=== PATIENT | male | born 1960 | race Caucasian/White ===

== ENCOUNTER 2016-06-08 09:03 | Inpatient (IN) | payer OTHER ==
[2016-06-08] VITALS (11 sets, daily range): BP systolic 110–131; BP diastolic 56–80; PULSE 64–79; RESP 18–20; Ht 182.9 cm; Wt 95.0 kg
[~2016-06-08] VITALS: Ht 182.9 cm; Wt 95.0 kg
[2016-06-08] MEDS ORDERED: SOD CHLORIDE 0.9% 1,000 ML IV STA (09:49)
--- NOTE | 2016-06-08 10:07 | RADRPT ---
PROCEDURE: Chest x-ray CLINICAL INDICATION: Abdominal pain TECHNIQUE: Chest single view COMPARISON: None FINDINGS: The heart is normal in size. The pulmonary vessels are normal in caliber. The lungs are clear. Th e costophrenic angles are sharp. The visualized bony thorax is unremarkable. IMPRESSION: No acute cardiopulmonary disease. RPTAT: HH .Jaime Martinez MD, Date Time Electronically viewed and signed by .Jaime Martinez MD, MD on 06/08/2016 10:07 .W/
[2016-06-08] MEDS ORDERED: PRED20TA PO (10:38)
--- NOTE | 2016-06-08 11:14 | ERA ---
ER Documentation Chief Complaint Date/Time DATE: 06/08/16 TIME: 11:13 Chief Complaint SENT BY DR MIDDLETON FOR CHEMOTHERAPY. PT HAS NO COMPLAINTS AT THIS TIME HPI 55-year-old man sent by his hematology oncologist Dr. Middleton to begin chemotherapy. 2 weeks ago he began having intermittent tactile fevers, chills, loss of appetite, and generalized weakness. His primary care physician alysia labs which were abnormal and started him on oral antibiotics and referred him to the manager engine oncologist. After beginning the antibiotic, which the patient does not recall the name of he developed a diffuse rash to his lower extremities, patient also states about 2-3 days ago he has had bilateral lower extremity swelling. A bone marrow biopsy done 3 days ago revealed mantle cell lymphoma (non-Hodgkin's lymphoma). He has had no gingival bleeding, no melena or blood per rectum, no vomiting or diarrhea, no complaints of chest pain or shortness of breath. ROS All systems reviewed and are negative except as per history of present illness. Medications Home Meds Reported Medications Prednisone* (Prednisone*) 20 Mg Tab, 100 MG PO DAILY for 5 Days, TAB PER PT STARTED ON 06-05-165 DAY TX 06/08/16 Allergies Allergies: Coded Allergies: Unknown: Unable to obtain (Unverified , 06/08/16) PMhx/Soc None Hx Miscellaneous Medical Probl: Yes (lymphoma) Hx Alcohol Use: No Hx Substance Use: No Hx Tobacco Use: No Smoking Status: Never smoker FmHx Family History: No diabetes Physical Exam Vitals Vital Signs Date Time Temp Pulse Resp B/P Pulse Ox O2 Delivery O2 Flow Rate FiO2 06/08/16 09:11 98.8 69 20 118/57 100 Physical Exam GENERAL: Well-developed, well-nourished, well-hydrated, in no apparent distress , looks nontoxic in appearance HEENT: Moist mucous membranes, pink conjunctiva, no cervical spine tenderness or step-off deformities, no goiter, no jaundice or icterus, extraocular movements intact without pain. No submandibular induration, and no pharyngeal erythema NEURO: Alert and oriented 3, cranial nerves II through XII intact bilaterally, pupils equal round reactive to light, no focal deficits or facial asymmetry, sensation intact distally Strength 5/5 in upper and lower extremities bilaterally CARDIAC: Regular rate and rhythm, no murmurs rubs or gallops LUNGS: Clear bilaterally no wheezing crackles or stridor ABDOMEN: Positive splenomegaly, soft nontender, no guarding, no rigidity, no rebound, no psoas sign no obturator sign. Normoactive bowel sounds SKIN: Warm and dry to touch, diffuse maculopapular rash to the lower extremities bilaterally, no target lesions, no ulcers, no discharge EXTREMITIES: No clubbing cyanosis, +2+ pitting edema in the lower extremities bilaterally, no Homans sign, no popliteal cord sign. Distal pulses equal and bilateral PSYCH: Normal affect without agitation or irritability Results 24 hrs Current Medications Medications (Trade) Dose Ordered Sig/Rashad Route PRN Reason Start Time Stop Time Status Last Admin Dose Admin Sodium Chloride (NS) 1,000 ml @ 1,000 mls/hr Q1H STAT IV 06/08/16 09:49 06/08/16 10:48 DC 06/08/16 10:25 Procedures/MDM IV line was established patient was placed on monitor worker rhythm strip revealed a sinus rhythm at about 80 bpm with upright P and T waves. Patient was afebrile. Blood cultures have been ordered results are pending I will follow-up. EKG performed, read by me: 69 bpm, normal sinus rhythm, normal axis, no acute ST segment changes, narrow QRS complex, with good R-wave progression in precordial leads. I administered 1 L normal saline intravenously. CBC and electrolytes pending. Departure Diagnosis: Primary Impression: Mantle cell lymphoma Qualified Code: C83.10 - Mantle cell lymphoma, unspecified body region Additional Impressions: Peripheral edema Dermatitis Condition: SAUL Obrien MD Jun 08, 2016 11:14
[2016-06-08 11:39] LABS: ADD SCAN DIFF NO
[2016-06-08 11:50] LABS: ALBUMIN 3.5 g/dl (3.3-4.9); CHLORIDE 102 mmol/L (97-110)
[2016-06-08 11:51] LABS: POTASSIUM 5.2 mmol/L (3.5-5.1); SODIUM 138 mmol/L (135-144)
[2016-06-08 11:52] LABS: ABNORMAL IP MESSAGE 1; HEMATOCRIT 33.7 % (42.0-52.0); HEMOGLOBIN 9.9 g/dl (14.0-18.0); MEAN CORPUSCULAR HEMOGLOBIN 28.8 pg (29.0-33.0); MEAN CORPUSCULAR HGB CONC 29.4 g/dl (32.0-37.0); MEAN PLATELET VOLUME 8.7 fl (7.4-10.4); PLATELET COUNT 521 10^3/UL (140-415); RED BLOOD COUNT 3.44 10^6/ul (4.70-6.10); RED CELL DISTRIBUTION WIDTH 14.5 % (11.5-14.5)
[2016-06-08 11:53] LABS: ALBUMIN/GLOBULIN RATIO 1.59; ALKALINE PHOSPHATASE 115 IU/L (42-121); ANION GAP 16 (8-16); ASPARTATE AMINO TRANSFERASE 18 IU/L (15-46); BILIRUBIN,INDIRECT 0.2 mg/dl (0-1.1); BILIRUBIN,TOTAL 0.2 mg/dl (0.2-1.3); CARBON DIOXIDE 25 mmol/L (21-31); CREATININE 0.99 mg/dl (0.61-1.24); TOTAL PROTEIN 5.7 g/dl (6.1-8.1)
[2016-06-08 11:54] LABS: ALANINE AMINOTRANSFERASE 57 IU/L (13-69); BLOOD UREA NITROGEN 25 mg/dl (7-20); CALCIUM 8.5 mg/dl (8.4-10.2); GLUCOSE 136 mg/dl (70-220)
[2016-06-08 12:14] LABS: TROPONIN-I < 0.012 ng/ml (0.00-0.12)
[2016-06-08] MEDS ORDERED: ACETAMINOPHEN (10 MG/ML) IV SYG IV* PRN (13:30)
[2016-06-08] MEDS ORDERED: DEXTROSE 5%-0.9% NACL 1,000 ML IV SCH (13:30)
[2016-06-08] MEDS ORDERED: morphine 2 MG INJ IV PRN (13:30)
--- NOTE | 2016-06-08 13:39 | CONS ---
Date/Time of Note Date/Time of Note DATE: 06/08/16 TIME: 13:24 Assessment/Plan Assessment/Plan Chief Complaint/Hosp Course 55 yo male with aggressive mantle cell lymphoma stage IV with involvement of the spleen and likely bone marrow aydee presents with chills, tactile fevers, loss of appetite, and generalized weakness. Given the aggressive nature of disease disease, we will be starting chemotherapy in house with R+ CHOP. -check echocardiogram in preparation for anthracycline based chemotherapy -Hep panel ordered in preparation for Rituxan -will aggressively hydrate the patient in anticipation of tumor lysis syndrome. need to check uric acid at this time. note patient develops a drug rash with allopurinol -f/u results of BM bx -Rituxan + CHOP to hopefully start tomorrow -need to order daily tumor lysis labs -uric acid is up to 8, which has doubled in the last week. will given 1 dose of Rasburicase 1.5mg IV today in as patient is already having tumor lysis. note patient is allergic to allopurinol Problems: Consultation Date/Type/Reason Admit Date/Time Jun 08, 2016 at 10:39 Date of Consultation: Jun 08, 2016 Type of Consultation: hematology Reason for Consultation mantle cell lymphoma Referring Provider: TIFFANIE LI MD Hx of Present Illness 55 yo male with 1 week of fevers/ night sweats and 6-7 lb unintentional weight loss over the alst 2 months. On routine blood test he was incidentially found to have a WBC count of > 50K. Pt has since been confirmed to have mantle cell lymphoma. He presents to the ER with increasing fatigue, shortness of breath and night sweats. Given the very aggressive nature of his disease and his symptoms pt was instructed to come to the ER to start chemotherapy in the hospital [facility]. Of note on 05/31 pt had and ultrasound done at [facility] which revealed massive splenomegaly. Constitutional: chills, diaphoresis, poor po Eyes: no complaints ENT: no complaints Respiratory: shortness of breath Cardiovascular: no complaints Gastrointestinal: decreased appetite Genitourinary: no complaints Musculoskeletal: bone/joint pain Skin: no complaints, other (h/o rash in allopurinol) Neurologic: no complaints Past Surgical History Past Surgical Hx: no surgical history Family History Significant Family History: no pertinent family hx Social History Alcohol Use: none Smoking Status: Never smoker Drug Use: none Exam/Review of Systems Vital Signs Vitals Vital Signs Date Time Temp Pulse Resp B/P Pulse Ox O2 Delivery O2 Flow Rate FiO2 06/08/16 11:49 68 18 119/82 100 Room Air 06/08/16 09:11 98.8 Exam Constitutional: alert Psych: no complaints Head: normocephalic Eyes: nl conjunctiva ENMT: nl external ears & nose Neck: supple Respiratory: clear to auscultation, normal air movement Cardiovascular: regular rate and rhythm Gastrointestinal: splenomegaly Musculoskeletal: nl extremities to inspection, nl gait and stance Results Result Diagram: 06/08/16 1112 06/08/16 1112 Results 24 hrs Laboratory Tests Test 06/08/16 11:12 Alanine Aminotransferase (ALT/SGPT) 57 Albumin 3.5 Albumin/Globulin Ratio 1.59 Alkaline Phosphatase 115 Anion Gap 16 Aspartate Amino Transf (AST/SGOT) 18 Basophils # Basophils % Blood Urea Nitrogen 25 H Calcium Level 8.5 Carbon Dioxide Level 25 Chloride Level 102 Creatinine 0.99 Direct Bilirubin 0.00 Globulin 2.20 Glucose Level 136 Hematocrit 33.7 L Hemoglobin 9.9 L Indirect Bilirubin 0.2 Lipase 97 Lymphocytes # Lymphocytes % Mean Corpuscular Hemoglobin 28.8 L Mean Corpuscular Hemoglobin Concent 29.4 L Mean Corpuscular Volume 98.0 Mean Platelet Volume 8.7 Monocytes # Monocytes % Neutrophils # Neutrophils % Platelet Count 521 H Potassium Level 5.2 H Red Blood Count 3.44 L Red Cell Distribution Width 14.5 Sodium Level 138 Total Bilirubin 0.2 Total Protein 5.7 L Troponin I < 0.012 White Blood Count 163.9 H DAMIAN MIDDLETON M.D. Jun 08, 2016 13:39
[2016-06-08 13:45] LABS: EOSINOPHILS # 1.6 10^3/ul (0.0-0.5); LYMPHOCYTES # 145.9 10^3/ul (0.8-2.9); NEUTROPHIL # 8.2 10^3/ul (1.6-7.5)
[2016-06-08 14:27] LABS: HAAIG REFLEX REFLEX FILED
[2016-06-08] MEDS ORDERED: ACETAMINOPHEN 1000MG/100ML IV 65 ML IVPB PRN (14:30)
[2016-06-08] MEDS ORDERED: LIDOCAINE 1% (MDV) 20 ML INJ SC ONE (15:30)
[2016-06-08 15:37] LABS: URIC ACID 8.3 mg/dl (3.1-7.9)
[2016-06-08 16:17] LABS: WHITE BLOOD COUNT 163.9 10^3/ul (4.8-10.8)
--- NOTE | 2016-06-08 16:18 | QN ---
Documentation Comment [id number] TIFFANIE LI MD Jun 08, 2016 16:18
[2016-06-08] MEDS ORDERED: ACETAMINOPHEN 650 MG SUPP PR PRN (16:30)
[2016-06-08] MEDS ORDERED: ACETAMINOPHEN 325 MG TAB PO PRN (16:30)
[2016-06-08] MEDS ORDERED: ONDANSETRON 4 MG INJ IV PRN (16:30)
[2016-06-08] MEDS ORDERED: NACL 0.9% 3 ML SYG IV SCH (16:30)
[2016-06-08] MEDS ORDERED: MAGNESIUM HYDROXIDE 30ML CUP PO PRN (16:30)
[2016-06-08] MEDS ORDERED: METHYLPREDNISOLONE 125 MG INJ IV PRN (16:30)
[2016-06-08] MEDS: SOD CHLORIDE 0.9% 1,000 ML IV SCH (17:24)
[2016-06-08 17:49] LABS: HEPATITIS B CORE ANTIBODY NEGATIVE (NEGATIVE)
[2016-06-08] MEDS ORDERED: SOD CHLORIDE 0.9% IVPB SCH (18:30)
[2016-06-08] MEDS ORDERED: RASBURICASE IVPB SCH (18:30)
--- NOTE | 2016-06-08 18:34 | RADRPT ---
Echocardiogram Report Patient Name: HOA ENGLE Gender: Male Date: 1960 Study Date: 08-Jun-2016 Financial Representative: Elise Coleman [facility] Location: [id number] Ref. Physician: DAMIAN MIDDLETON Quality: Good Procedures: Transthoracic echocardiogram with complete 2D, M-Mode, and doppler examination. Indications: Anthracyclin chemotherapy. 2D/M Mode Doppler Measurement Value Normal Ranges Measurement Value Normal Ranges LVIDd 2D 5.5 3.5 - 5.6 cm AV Peak Shakir 1.9 m/sec LVIDs 2D 3.0 2.1 - 4.1 cm AV Peak PG 14.0 mmHg FS 2D 44.7 % LVOT Peak Shakir 1.5 m/sec LVPWd 2D 0.9 0.6 - 1.1 cm LVOT Peak PG 9.0 mmHg IVSd 2D 0.9 0.6 - 1.1 cm MV E Peak Shakir 1.0 m/sec IVS/LVPW 2D 0.9 MV A Peak Shakir 0.6 m/sec AoR Diam 2D 3.2 2.0 - 3.7 cm MV E/A 1.7 LA/Ao 2D 1 0 - 1 MV Decel Time 148 msec EDV 2D 165.0 cm3 MV E/A 1.7 ESV 2D 27.8 cm3 TR Peak Shakir 2.9 m/sec LA Dimen 2D 3.7 2.3 - 4.0 cm TR Peak PG 33.0 mmHg RVSP 41.0 mmHg Findings Left Ventricle: Normal left ventricular systolic function. Normal left ventricular cavity size. Normal left ventricular wall thickness. Ejection fraction is visually estimated at 60 %. Tissue Doppler/Mitral Doppler indices are within normal limits. Right Ventricle: Normal right ventricular size. Normal right ventricular systolic function. Left Atrium: The left atrium is normal in size. Right Atrium: The right atrium is normal in size. Mitral Valve: Mitral valve leaflets appear mildly thickened. Mild mitral annular calcification. Trace mitral regurgitation. Aortic Valve: Normal appearance of the aortic valve. No significant aortic stenosis or insufficiency. Tricuspid Valve: Normal appearance of the tricuspid valve. Estimated peak PA systolic pressure 41 mmHg. There is mild tricuspid regurgitation. Pulmonic Valve: Normal pulmonic valve appearance. Pericardium: Normal pericardium with no significant pericardial effusion. Aorta: Normal aortic root. IVC: Dilated IVC with respiratory collapse consistent with elevated right atrial pressure. Conclusions 1.Normal left ventricular systolic function. Normal left ventricular cavity size. Normal left ventricular wall thickness. Ejection fraction is visually estimated at 60 %. Tissue Doppler/Mitral Doppler indices are within normal limits. 2.Mitral valve leaflets appear mildly thickened. Mild mitral annular calcification. Trace mitral regurgitation. 3.Normal appearance of the tricuspid valve. Estimated peak PA systolic pressure 41 mmHg. There is mild tricuspid regurgitation. Electronically Signed By: Salinas Eid 08-Jun-2016 18:33:48 -0700 Patient Name: HOA ENGLE Study Date: [id number]
--- NOTE | 2016-06-08 23:59 | HP ---
DATE OF ADMISSION: 06/08/2016 HISTORY OF PRESENT ILLNESS: Patient is a 55-year-old male with no significant past medical history, recently was diagnosed to have lymphoma, presented to this hospital for starting chemotherapy. The patient's WBC of 163.9, hematocrit 33.7, platelet count of 521. The patient's lymphocytes is 89, bl asts cells 4, neutrophilia 8.2, lymphocytes of 145.9 and patient has a sodium 138, potassium 5.2. U nishi acid 8.3, total protein 5.7. Chest x-ray shows no acute cardiopulmonary disease. PAST MEDICAL HISTORY: Positive for lymphoma, recently diagnosed. ALLERGIES: ALLOPURINOL. SOCIAL HISTORY: Negative. FAMILY HISTORY: Negative. MEDICATIONS AT HOME: Patient is on prednisone. REVIEW OF SYSTEMS: HEENT: Unremarkable. RESPIRATORY: Unremarkable. CARDIOVASCULAR: Unremarkable. ABDOMEN: Hiccups. Otherwise there was no nausea, vomiting. EXTREMITIES: Unremarkable. CENTRAL NERVOUS SYSTEM: Unremarkable. PHYSICAL EXAMINATION: GENERAL: The patient is awake, alert. Mild pale. VITAL SIGNS: Stable, blood pressure 115/82. HEAD: Atraumatic, normocephalic. Pupils equal, reactive to light. NECK: Supple. No JVD. LUNGS: Clear. CARDIOVASCULAR: S1, S2 normal. ABDOMEN: Soft. Bowel sounds positive. No hepatosplenomegaly noted. Nontender. EXTREMITIES: There is no cyanosis, clubbing, or edema. CENTRAL NERVOUS SYSTEM: The patient is awake, alert with no focal deficit. LABORATORY DATA: As mentioned above. IMPRESSION: 1. Patient has lymphoma. 2. Leukocytosis. 3. Thrombocytosis. 4. Anemia. 5. Splenomegaly. 6. Allopurinol rash with a diffuse skin rash resolving. PLAN: To follow recommendation from oncology/hematology. Continue gentle IV fluids. Deep venous thr ombosis prophylaxis. The patient will have home medications. Home medication will be reviewed and c ontinued. Orders were done. Dictated By: TIFFANIE MOREJON/MARYLOU Conf#: [id number] DID#: [id number]
[2016-06-09] VITALS (23 sets, daily range): BP systolic 113–158; BP diastolic 57–93; PULSE 70–103; RESP 18–22
[2016-06-09] MEDS ORDERED: PANTOPRAZOLE 40 MG INJ IV SCH (06:00)
[2016-06-09] MEDS: PANTOPRAZOLE 40 MG INJ IV SCH (06:35)
[2016-06-09 06:43] LABS: ALBUMIN 3.3 g/dl (3.3-4.9); POTASSIUM 4.6 mmol/L (3.5-5.1)
[2016-06-09 06:46] LABS: ALBUMIN/GLOBULIN RATIO 1.57; BILIRUBIN,INDIRECT 0.3 mg/dl (0-1.1); BILIRUBIN,TOTAL 0.3 mg/dl (0.2-1.3); CALCIUM 8.6 mg/dl (8.4-10.2); TOTAL PROTEIN 5.4 g/dl (6.1-8.1); URIC ACID 6.6 mg/dl (3.1-7.9)
[2016-06-09] MEDS: ENOXAPARIN 40 MG/0.4 ML SYG SC SCH (09:00)
[2016-06-09] MEDS: SOD CHLORIDE 0.9% 1,000 ML IV SCH ×2 (09:03→18:02)
--- NOTE | 2016-06-09 11:36 | RADRPT ---
PROCEDURE: US guidance for PICC line CLINICAL INDICATION: PICC line placement TECHNIQUE: Multiple real-time images were acquired of the patient's arm utilizing a high resolutio n transducer. This was performed by the PICC line nurse for venous access. COMPARISON: None FINDINGS: Ultrasound guidance for PICC line placement. IMPRESSION: Ultrasound guidance for PICC line placement. RPTAT: AA .Nicho Atkinson MD, MD Date Time Electronically viewed and signed by .Nicho Atkinson MD, on 06/09/2016 11:36 .S/
[2016-06-09 11:47] LABS: ADD SCAN DIFF NO
--- NOTE | 2016-06-09 11:50 | RADRPT ---
PROCEDURE: XR Chest. CLINICAL INDICATION: Check PICC line position. TECHNIQUE: Single frontal view. COMPARISON: 06/08/2016. FINDINGS: There is a left arm PICC line with the tip in the lower superior vena cava. The lungs are clear. The heart size is normal. There is no pleural effusion. There is no pneumothorax. IMPRESSION: 1. Satisfactory position of left arm PICC line. 2. Otherwise normal chest radiograph. Call report: A call report of the findings was made to PICC line nurse on 06/09/2016 at 1110 hours. RPTAT: QQ .Maynor Miranda MD, MD Date Time Electronically viewed and signed by .Maynor Miranda MD, MD on 06/09/2016 11:49 .R/
[2016-06-09 11:55] LABS: ABNORMAL IP MESSAGE 1; HEMATOCRIT 35.9 % (42.0-52.0); MEAN CORPUSCULAR HEMOGLOBIN 28.7 pg (29.0-33.0); MEAN CORPUSCULAR HGB CONC 27.9 g/dl (32.0-37.0); MEAN CORPUSCULAR VOLUME 103.2 fl (82.0-101.0); MEAN PLATELET VOLUME 8.7 fl (7.4-10.4); PLATELET COUNT 553 10^3/UL (140-415); RED BLOOD COUNT 3.48 10^6/ul (4.70-6.10); RED CELL DISTRIBUTION WIDTH 14.7 % (11.5-14.5); WHITE BLOOD COUNT 178.8 10^3/ul (4.8-10.8)
[2016-06-09] MEDS ORDERED: SOD CHLORIDE 0.9% 100 ML ONE (12:46)
[2016-06-09 13:27] LABS: LYMPHOCYTES # 175.2 10^3/ul (0.8-2.9); NEUTROPHIL # 3.6 10^3/ul (1.6-7.5)
--- NOTE | 2016-06-09 13:32 | CONS ---
Date/Time of Note Date/Time of Note DATE: 06/09/16 TIME: 13:27 Assessment/Plan Assessment/Plan Chief Complaint/Hosp Course 55 yo male with aggressive mantle cell lymphoma stage IV with involvement of the spleen and likely bone marrow aydee presents with chills, tactile fevers, loss of appetite, and generalized weakness. Given the aggressive nature of disease disease, we will be changing the chemotherapy regimen to R_HyperCVAD #Mantle Cell lymphoma -echocardiogram shows normal EF - Start Rituxan today after PICC line in place. Hep panel negative so ok to start -Dr To to write for HyperCVAD which will likely start on -Pt will need Intrathecal Methotrexate. will order for later this week once patient has started chemotherapy -continue to check daily tumor lysis labs including CMP, LDH, URIC acid. 1 dose of rasburicase given. will re-dose as necessary. NOTE patient is ALLERGIC to allopurinol -pt will need out patient referral to [facility] for autologous BMT in first remission -f/u results of BM Bx Approximately 40 min were spent at patient's bedside and in coordination of his care Problems: Consultation Date/Type/Reason Admit Date/Time Jun 08, 2016 at 10:39 Initial Consult Date 06/08/16 Type of Consultation: hematology Reason for Consultation mantle cell lymphoma Referring Provider: TIFFANIE LI MD 24 HR Interval Summary Free Text/Dictation pt was given rasburicase yesterday for high uric acid. pt still with fevers and chills. ready to start Rituxan today Exam/Review of Systems Vital Signs Vitals Vital Signs Date Time Temp Pulse Resp B/P Pulse Ox O2 Delivery O2 Flow Rate FiO2 06/09/16 08:33 98.3 71 18 130/62 97 06/09/16 00:50 Room Air Intake and Output 06/08/16 06/08/16 06/09/16 15:00 23:00 07:00 Intake Total 410 ml 990 ml Output Total 300 ml Balance 110 ml 990 ml Exam Constitutional: alert, oriented Head: atraumatic, normocephalic Eyes: nl conjunctiva ENMT: nl external ears & nose Neck: non-tender Respiratory: clear to auscultation, normal air movement Cardiovascular: regular rate and rhythm Gastrointestinal: soft Musculoskeletal: nl extremities to inspection, nl gait and stance Results Result Diagram: 06/09/16 0445 06/09/16 0445 Results 24 hrs Laboratory Tests Test 06/08/16 14:15 06/09/16 04:45 Hepatitis B Core Total Antibody NEGATIVE Hepatitis B Surface Antigen NEGATIVE Hepatitis C Antibody NEGATIVE Lactate Dehydrogenase 583 524 Uric Acid 8.3 H 6.6 Alanine Aminotransferase (ALT/SGPT) 43 Albumin 3.3 Albumin/Globulin Ratio 1.57 Alkaline Phosphatase 100 Anion Gap 16 Aspartate Amino Transf (AST/SGOT) 17 Basophils # Basophils % Blood Urea Nitrogen 22 H Calcium Level 8.6 Carbon Dioxide Level 26 Chloride Level 104 Creatinine 1.00 Direct Bilirubin 0.00 Globulin 2.10 Glucose Level 116 Hematocrit 35.9 L Hemoglobin 10.0 L Indirect Bilirubin 0.3 Lymphocytes # Lymphocytes % Mean Corpuscular Hemoglobin 28.7 L Mean Corpuscular Hemoglobin Concent 27.9 L Mean Corpuscular Volume 103.2 H Mean Platelet Volume 8.7 Monocytes # Monocytes % Neutrophils # Neutrophils % Platelet Count 553 H Potassium Level 4.6 Red Blood Count 3.48 L Red Cell Distribution Width 14.7 H Sodium Level 141 Total Bilirubin 0.3 Total Protein 5.4 L White Blood Count 178.8 H Medications Medications Current Medications Morphine Sulfate (morphine) 2 mg Q4H PRN IV PAIN; Start 06/08/16 at 13:30 Ondansetron HCl (Zofran Inj) 4 mg Q6H PRN IV NAUSEA AND/OR VOMITING; Start at 13:30 Pantoprazole 40 mg 40 mg DAILY@06 IV Last administered on 06/09/16 06:35; Admin Dose 40 MG; Start 06/09/16 at 06:00 Acetaminophen (Ofirmev 1000mg/ 100ml Iv) 65 ml @ 250 mls/hr Q6H PRN IVPB PAIN ; Start 06/08/16 at 14:30 Meperidine HCl (Demerol) 50 mg Q4H PRN IV ALLERGIC REACTION; Start 06/08/16 at 16:30 Methylprednisolone Sodium Succinate 100 mg 100 mg Q4H PRN IV ALLERGIC REACTION ; Start 06/08/16 at 16:30 Sodium Chloride (NS) 1,000 ml @ 70 mls/hr [id number] IV Last administered on 06/09 09:03; Admin Dose 70 MLS/HR; Start 06/08/16 at 16:18; Status Future Hold Acetaminophen (Tylenol Tab) 650 mg Q6H PRN PO PAIN LEVEL 1-3 OR FEVER; Start at 16:30 Acetaminophen (Tylenol Supp) 650 mg Q6H PRN [place] PAIN LEVEL 1-3 OR FEVER; Start 06/08/16 at 16:30 Docusate Sodium (Colace) 100 mg Q12H PRN PO CONSTIPATION; Start 06/08/16 at 16: 30 Magnesium Hydroxide (Milk Of Mag) 30 ml DAILY PRN PO CONSTIPATION; Start at 16:30 Enoxaparin Sodium 40 mg 40 mg DAILY SC ; Start 06/09/16 at 09:00 Sodium Chloride (NS) 1,000 ml @ 50 mls/hr Q20H IV ; Start 06/09/16 at 16:00 Acetaminophen (Tylenol Tab) 650 mg ONCE PO ; Start 06/09/16 at 16:00; Stop 06/09 at 17:00 Diphenhydramine HCl 25 mg 25 mg ONCE PO ; Start 06/09/16 at 16:00; Stop at 17:00 Ondansetron HCl 16 mg/Famotidine 20 mg/Sodium Chloride 60 ml @ 252 mls/hr ONCE IV ; Start 06/09/16 at 16:00; Stop 06/09/16 at 16:15 Rituximab 500 mg/ Rituximab 300 mg/ Sodium Chloride 400 ml @ 0 mls/hr ONCE IV ; Start 06/09/16 at 17:00; Stop 06/09/16 at 21:00 Cyclophosphamide 1 gm/ Cyclophosphamide 500 mg/Sodium Chloride 250 ml @ 250 mls /hr ONCE IV ; Start 06/09/16 at 22:00; Stop 06/09/16 at 22:59 Doxorubicin HCl 100 mg/Sodium Chloride 150 ml @ 150 mls/hr ONCE IV ; Start at 23:00; Stop 06/09/16 at 23:59 Vincristine Sulfate/Sodium Chloride (Oncovin/NS) 50 ml @ 200 mls/hr ONCE IV ; Start 06/10/16 at 00:00; Stop 06/10/16 at 00:15 IV Flush (NS 10 ml) 10 ml PRN PRN IV IV PROTOCOL; Start 06/09/16 at 11:30 Prednisone (Prednisone) 100 mg Q24H PO ; Start 06/09/16 at 16:00; Stop 06/13/16 at 16:01 Dexamethasone (Decadron) 10 mg Q4H PRN IV ALLERGIC REACTION; Start 06/09/16 at 16:00 Diphenhydramine HCl (Benadryl) 25 mg Q4H PRN IV ALLERGIC REACTION; Start at 16:00 DAMIAN MIDDLETON M.D. Jun 09, 2016 13:32
[2016-06-09] MEDS ORDERED: predniSONE 20 MG TAB PO SCH (16:00)
[2016-06-09] MEDS ORDERED: SOD CHLORIDE 0.9% IV SCH ×4 (16:00→23:00)
[2016-06-09] MEDS ORDERED: DIPHENHYDRAMINE 25 MG CAP PO SCH (16:00)
[2016-06-09] MEDS ORDERED: ACETAMINOPHEN 325 MG TAB PO SCH (16:00)
[2016-06-09] MEDS ORDERED: FAMOTIDINE IV SCH (16:00)
[2016-06-09] MEDS ORDERED: ONDANSETRON IV SCH (16:00)
[2016-06-09] MEDS ORDERED: DEXAMETHASONE 10 MG/ML 1 ML INJ IV PRN (16:00)
[2016-06-09] MEDS ORDERED: RITUXIMAB IV SCH (17:00)
[2016-06-09] MEDS: DIPHENHYDRAMINE 50 MG INJ IV PRN (21:26)
[2016-06-09] MEDS: MEPERIDINE 50 MG INJ IV PRN (21:30)
[2016-06-09] MEDS ORDERED: CYCLOPHOSPHAMIDE IV SCH (22:00)
[2016-06-09] MEDS ORDERED: DOXORUBICIN IV SCH (23:00)
--- NOTE | 2016-06-09 23:29 | PN ---
Date/Time of Note Date/Time of Note DATE: 06/09/16 TIME: 23:28 Assessment/Plan VTE Prophylaxis VTE Prophylaxis Intervention: other Lines/Catheters IV Catheter Type (from Nrsg): PICC Line Central line still needed: Yes Urinary Cath still in place: No Reason Cath still needed: other (indicate) Assessment/Plan Chief Complaint/Hosp Course IMPRESSION: 1. Patient has lymphoma. 2. Leukocytosis. 3. Thrombocytosis. 4. Anemia. 5. Splenomegaly. 6. Allopurinol rash with a diffuse skin rash resolving. plan per dr clements Problems: Subjective 24 Hr Interval Summary Gastrointestinal: no complaints Genitourinary: no complaints Exam/Review of Systems Vital Signs Vitals Vital Signs Date Time Temp Pulse Resp B/P Pulse Ox O2 Delivery O2 Flow Rate FiO2 06/09/16 20:20 98.3 75 18 124/70 95 Room Air Intake and Output 06/08/16 06/08/16 06/09/16 15:00 23:00 07:00 Intake Total 410 ml 990 ml Output Total 300 ml Balance 110 ml 990 ml Exam Neck: supple Respiratory: clear to auscultation Cardiovascular: regular rate and rhythm Gastrointestinal: soft Musculoskeletal: nl extremities to inspection Results Result Diagram: 06/09/16 0445 06/09/16 0445 Results 24 hrs Laboratory Tests Test 06/09/16 04:45 Alanine Aminotransferase (ALT/SGPT) 43 Albumin 3.3 Albumin/Globulin Ratio 1.57 Alkaline Phosphatase 100 Anion Gap 16 Aspartate Amino Transf (AST/SGOT) 17 Basophils # Basophils % Blood Urea Nitrogen 22 H Calcium Level 8.6 Carbon Dioxide Level 26 Chloride Level 104 Creatinine 1.00 Direct Bilirubin 0.00 Globulin 2.10 Glucose Level 116 Hematocrit 35.9 L Hemoglobin 10.0 L Indirect Bilirubin 0.3 Lactate Dehydrogenase 524 Lymphocytes # 175.2 H Lymphocytes % 98.0 H Mean Corpuscular Hemoglobin 28.7 L Mean Corpuscular Hemoglobin Concent 27.9 L Mean Corpuscular Volume 103.2 H Mean Platelet Volume 8.7 Monocytes # Monocytes % Neutrophils # 3.6 Neutrophils % 2.0 L Platelet Count 553 H Potassium Level 4.6 Red Blood Count 3.48 L Red Cell Distribution Width 14.7 H Sodium Level 141 Total Bilirubin 0.3 Total Protein 5.4 L Uric Acid 6.6 White Blood Count 178.8 H Medications Medications Current Medications Morphine Sulfate (morphine) 2 mg Q4H PRN IV PAIN; Start 06/08/16 at 13:30 Ondansetron HCl (Zofran Inj) 4 mg Q6H PRN IV NAUSEA AND/OR VOMITING; Start at 13:30 Pantoprazole 40 mg 40 mg DAILY@06 IV Last administered on 06/09/16 06:35; Admin Dose 40 MG; Start 06/09/16 at 06:00 Acetaminophen (Ofirmev 1000mg/ 100ml Iv) 65 ml @ 250 mls/hr Q6H PRN IVPB PAIN ; Start 06/08/16 at 14:30 Meperidine HCl (Demerol) 50 mg Q4H PRN IV ALLERGIC REACTION Last administered on 06/09/16 21:30; Admin Dose 50 MG; Start 06/08/16 at 16:30 Methylprednisolone Sodium Succinate 100 mg 100 mg Q4H PRN IV ALLERGIC REACTION ; Start 06/08/16 at 16:30 Sodium Chloride (NS) 1,000 ml @ 70 mls/hr [id number] IV Last administered on 06/09 09:03; Admin Dose 70 MLS/HR; Start 06/08/16 at 16:18; Status Future Hold Acetaminophen (Tylenol Tab) 650 mg Q6H PRN PO PAIN LEVEL 1-3 OR FEVER; Start at 16:30 Acetaminophen (Tylenol Supp) 650 mg Q6H PRN [place] PAIN LEVEL 1-3 OR FEVER; Start 06/08/16 at 16:30 Docusate Sodium (Colace) 100 mg Q12H PRN PO CONSTIPATION; Start 06/08/16 at 16: 30 Magnesium Hydroxide (Milk Of Mag) 30 ml DAILY PRN PO CONSTIPATION; Start at 16:30 Enoxaparin Sodium 40 mg 40 mg DAILY SC ; Start 06/09/16 at 09:00 Sodium Chloride (NS) 1,000 ml @ 50 mls/hr Q20H IV Last administered on 18:02; Admin Dose 50 MLS/HR; Start 06/09/16 at 16:00 IV Flush (NS 10 ml) 10 ml PRN PRN IV IV PROTOCOL; Start 06/09/16 at 11:30 Dexamethasone (Decadron) 10 mg Q4H PRN IV ALLERGIC REACTION; Start 06/09/16 at 16:00 Diphenhydramine HCl 25 mg 25 mg Q4H PRN IV ALLERGIC REACTION Last administered on 06/09/16t 21:26; Admin Dose 25 MG; Start 06/09/16 at 16:00 Cyclophosphamide 0.6 gm/Sodium Chloride 250 ml @ 83.3 mls/hr Q12H IV ; Start at 11:00; Stop 06/13/16 at 02:01 [place] 1200 mg/ Sodium Chloride 512 ml @ 20.8 mls/hr Q24H IVPB ; Start 06/10/16 at 10:00; Stop 06/13/16 at 09:59 Ondansetron HCl/ Famotidine/Sodium Chloride (Zofran Inj/ Pepcid Iv/NS) 60 ml @ 252 mls/hr Q24H IV ; Start 06/10/16 at 09:00; Stop 06/15/16 at 09:15 TIFFANIE LI MD Jun 09, 2016 23:29
[2016-06-10] VITALS (43 sets, daily range): BP systolic 88–148; BP diastolic 51–81; PULSE 63–102; RESP 14–22
[2016-06-10] MEDS ORDERED: vinCRISTine 2 MG in SOD CHLORIDE 0.9% 50 ML IV SCH ×2
[2016-06-10] MEDS ORDERED: CHLORPROMAZINE 10 MG TAB PO PRN (01:30)
[2016-06-10] MEDS: MEPERIDINE 50 MG INJ IV PRN (02:09)
[2016-06-10 08:04] LABS: ADD SCAN DIFF NO
[2016-06-10 08:26] LABS: ALBUMIN 3.4 g/dl (3.3-4.9)
[2016-06-10 08:27] LABS: POTASSIUM 4.1 mmol/L (3.5-5.1)
[2016-06-10 08:29] LABS: BILIRUBIN,INDIRECT 0.6 mg/dl (0-1.1); BILIRUBIN,TOTAL 0.6 mg/dl (0.2-1.3); CREATININE 1.04 mg/dl (0.61-1.24)
[2016-06-10 08:30] LABS: TOTAL PROTEIN 5.5 g/dl (6.1-8.1); URIC ACID 10.9 mg/dl (3.1-7.9)
[2016-06-10 08:31] LABS: CALCIUM 7.9 mg/dl (8.4-10.2)
[2016-06-10 08:46] LABS: ALBUMIN/GLOBULIN RATIO 1.61
[2016-06-10] MEDS: SOD CHLORIDE 0.9% IV SCH ×5 (09:00→23:32)
[2016-06-10] MEDS: ENOXAPARIN 40 MG/0.4 ML SYG SC SCH (09:00)
[2016-06-10] MEDS: ONDANSETRON IV SCH ×2 (09:00→11:55)
[2016-06-10] MEDS: FAMOTIDINE IV SCH ×2 (09:00→11:55)
[2016-06-10] MEDS ORDERED: SOD CHLORIDE 0.9% IVPB SCH (10:30)
[2016-06-10] MEDS ORDERED: MESNA IVPB SCH (10:30)
[2016-06-10 10:54] LABS: ABNORMAL IP MESSAGE 1; HEMATOCRIT 36.5 % (42.0-52.0); HEMOGLOBIN 11.6 g/dl (14.0-18.0); MEAN CORPUSCULAR HEMOGLOBIN 29.4 pg (29.0-33.0); MEAN CORPUSCULAR HGB CONC 31.8 g/dl (32.0-37.0); MEAN CORPUSCULAR VOLUME 92.4 fl (82.0-101.0); MEAN PLATELET VOLUME 8.2 fl (7.4-10.4); RED BLOOD COUNT 3.95 10^6/ul (4.70-6.10); RED CELL DISTRIBUTION WIDTH 15.6 % (11.5-14.5); WHITE BLOOD COUNT 47.7 10^3/ul (4.8-10.8)
[2016-06-10 11:06] LABS: PLATELET COUNT 42 10^3/UL (140-415)
[2016-06-10] MEDS: MESNA IVPB SCH (11:06)
[2016-06-10] MEDS: CHLORPROMAZINE 10 MG TAB PO PRN ×2 (11:06→19:06)
[2016-06-10] MEDS: PANTOPRAZOLE 40 MG INJ IV SCH (11:06)
[2016-06-10] MEDS: SOD CHLORIDE 0.9% IVPB SCH (11:06)
[2016-06-10] MEDS: CYCLOPHOSPHAMIDE IV SCH ×2 (12:34→23:32)
[2016-06-10] MEDS: SOD CHLORIDE 0.9% 1,000 ML IV SCH (12:34)
[2016-06-10 12:44] LABS: LYMPHOCYTES # 33.9 10^3/ul (0.8-2.9); MONOCYTE # 0.5 10^3/ul (0.3-0.9); NEUTROPHIL # 11.4 10^3/ul (1.6-7.5)
[2016-06-10 12:45] LABS: ANISOCYTOSIS 1+; HYPOCHROMASIA 1+
[2016-06-10 12:47] LABS: PLATELET ESTIMATE PLT APPEAR DECREASED
--- NOTE | 2016-06-10 13:40 | CONS ---
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 Given the aggressive nature of disease disease, we will be changing the chemotherapy regimen to R-HyperCVAD #Mantle Cell lymphoma -echocardiogram shows normal EF -s/p Rituxan 06/09/16, PICC line in place, Hep panel and HIV negative -HyperCVAD will start today -Pt will need Intrathecal Methotrexate. will order for later this week once patient has started chemotherapy and peripheral blasts have cleared -continue to check daily tumor lysis labs including CMP, LDH, URIC acid, phosphorus. 1 dose of rasburicase given on 06/08/16. Will give another dose today given uric acid 10.9, LDH 2417. Will re-dose as necessary. NOTE patient is ALLERGIC to allopurinol -Pt will need out patient referral to [facility] for autologous BMT in first remission -f/u results of BM Bx Chemo regimen Cyclophosphamide 300 mg/m2 IV over 3 hours Q12 hours x 6 doses D2-4 Vincristine 1.4 mg/m2 (2 mg max) IV once per day D5 and D12 Doxorubicin 16.7 mg/m2 CIV over 72 hours D5-7 Dexamethasone 40 mg IV D2-5, D12-15 [place] 600 mg/m2 CIV over 76 hours D2-4 Supportive meds: neupogen 480 mcg SQ daily x 10 days starting 24-36 hours after doxorubicin complete, valacyclovir, fluconazole, levaquin Problems: Consultation Date/Type/Reason Admit Date/Time Jun 08, 2016 at 10:39 Initial Consult Date 06/08/16 Type of Consultation: Hematology/Oncology Referring Provider: TIFFANIE LI MD 24 HR Interval Summary Free Text/Dictation The patient states that he had shaking chills with rituximab and was given demerol when rate of rituximab was over 40 ml/hr. Currently doing well after rituximab completed. Exam/Review of Systems Vital Signs Vitals Vital Signs Date Time Temp Pulse Resp B/P Pulse Ox O2 Delivery O2 Flow Rate FiO2 06/10/16 12:39 98.5 69 20 103/58 96 Room Air Intake and Output 06/09/16 06/09/16 06/10/16 15:00 23:00 07:00 Intake Total 610 ml 2550 ml Output Total 2100 ml Balance 610 ml 450 ml Exam Constitutional: alert, oriented Head: atraumatic, normocephalic Eyes: nl conjunctiva Neck: non-tender, supple Respiratory: clear to auscultation Cardiovascular: regular rate and rhythm Gastrointestinal: non-tender, soft, splenomegaly Musculoskeletal: nl extremities to inspection Results Result Diagram: 06/10/16 1035 06/10/16 0748 Results 24 hrs Laboratory Tests Test 06/10/16 07:48 06/10/16 10:35 Sodium Level 139 Potassium Level 4.1 Chloride Level 103 Carbon Dioxide Level 24 Anion Gap 16 Blood Urea Nitrogen 28 H Creatinine 1.04 Glucose Level 119 Uric Acid 10.9 #H Calcium Level 7.9 L Total Bilirubin 0.6 Direct Bilirubin 0.00 Indirect Bilirubin 0.6 Aspartate Amino Transf (AST/SGOT) 82 #H Alanine Aminotransferase (ALT/SGPT) 81 H Alkaline Phosphatase 188 #H Lactate Dehydrogenase 2417 #H Total Protein 5.5 L Albumin 3.4 Globulin 2.10 Albumin/Globulin Ratio 1.61 White Blood Count 47.7 #H Red Blood Count 3.95 L Hemoglobin 11.6 L Hematocrit 36.5 L Mean Corpuscular Volume 92.4 Mean Corpuscular Hemoglobin 29.4 Mean Corpuscular Hemoglobin Concent 31.8 L Red Cell Distribution Width 15.6 H Platelet Count 42 #L Mean Platelet Volume 8.2 Neutrophils % 24.0 L Band Neutrophils % 4.0 Lymphocytes % 71.0 H Monocytes % 1.0 Basophils % Neutrophils # 11.4 H Lymphocytes # 33.9 H Monocytes # 0.5 Basophils # Differential Comment MANUAL DIFF Platelet Estimate PLT APPEAR DECREASED Hypochromasia 1+ Anisocytosis 1+ Macrocytosis 1+ Medications Medications Current Medications Morphine Sulfate (morphine) 2 mg Q4H PRN IV PAIN; Start 06/08/16 at 13:30 Ondansetron HCl (Zofran Inj) 4 mg Q6H PRN IV NAUSEA AND/OR VOMITING; Start at 13:30 Pantoprazole 40 mg 40 mg DAILY@06 IV Last administered on 06/10/16t 11:06; Admin Dose 40 MG; Start 06/09/16 at 06:00 Acetaminophen (Ofirmev 1000mg/ 100ml Iv) 65 ml @ 250 mls/hr Q6H PRN IVPB PAIN ; Start 06/08/16 at 14:30 Meperidine HCl (Demerol) 50 mg Q4H PRN IV ALLERGIC REACTION Last administered on 06/10/16 02:09; Admin Dose 50 MG; Start 06/08/16 at 16:30 Methylprednisolone Sodium Succinate 100 mg 100 mg Q4H PRN IV ALLERGIC REACTION ; Start 06/08/16 at 16:30 Sodium Chloride (NS) 1,000 ml @ 70 mls/hr [id number] IV Last administered on 06/09 09:03; Admin Dose 70 MLS/HR; Start 06/08/16 at 16:18; Status Future Hold Acetaminophen (Tylenol Tab) 650 mg Q6H PRN PO PAIN LEVEL 1-3 OR FEVER Last administered on 06/10/16 04:24; Admin Dose 650 MG; Start 06/08/16 at 16:30 Acetaminophen (Tylenol Supp) 650 mg Q6H PRN [place] PAIN LEVEL 1-3 OR FEVER; Start 06/08/16 at 16:30 Docusate Sodium (Colace) 100 mg Q12H PRN PO CONSTIPATION; Start 06/08/16 at 16: 30 Magnesium Hydroxide (Milk Of Mag) 30 ml DAILY PRN PO CONSTIPATION; Start at 16:30 Enoxaparin Sodium 40 mg 40 mg DAILY SC ; Start 06/09/16 at 09:00 Sodium Chloride (NS) 1,000 ml @ 50 mls/hr Q20H IV Last administered on 12:34; Admin Dose 50 MLS/HR; Start 06/09/16 at 16:00 IV Flush (NS 10 ml) 10 ml PRN PRN IV IV PROTOCOL; Start 06/09/16 at 11:30 Dexamethasone (Decadron) 10 mg Q4H PRN IV ALLERGIC REACTION; Start 06/09/16 at 16:00 Diphenhydramine HCl 25 mg 25 mg Q4H PRN IV ALLERGIC REACTION Last administered on 06/09/16 21:26; Admin Dose 25 MG; Start 06/09/16 at 16:00 Cyclophosphamide 0.6 gm/Sodium Chloride 250 ml @ 83.3 mls/hr Q12H IV Last administered on 06/10/16 12:34; Admin Dose 83.3 MLS/HR; Start 06/10/16 at 11:00 ; Stop 06/13/16 at 02:01 [place] 1200 mg/ Sodium Chloride 512 ml @ 20.8 mls/hr Q24H IVPB Last administered on 06/10/16 11:06; Admin Dose 20.8 MLS/HR; Start 06/10/16 at 10:00 ; Stop 06/13/16 at 09:59 Ondansetron HCl 16 mg/Famotidine 20 mg/Sodium Chloride 60 ml @ 252 mls/hr Q24H IV ; Start 06/10/16 at 09:00; Stop 06/15/16 at 09:15 Ondansetron HCl/ Famotidine/Sodium Chloride (Zofran Inj/ Pepcid Iv/NS) 60 ml @ 252 mls/hr Q24H IV Last administered on 06/10/16 11:55; Admin Dose 252 MLS/HR ; Start 06/10/16 at 10:30; Stop 06/15/16 at 10:45 Chlorpromazine 10 mg 10 mg TID PRN PO HICCUPS Last administered on 06/10/16 11 :06; Admin Dose 10 MG; Start 06/10/16 at 09:34 Rasburicase/ Sodium Chloride (Elitek/NS) 50 ml @ 100 mls/hr ONCE ONCE IVPB ; Start 06/10/16 at 14:00; Stop 06/10/16 at 14:29 FABIAN STEINBERG MD Jun 10, 2016 13:40
[2016-06-10] MEDS ORDERED: SOD CHLORIDE 0.9% IVPB ONE (14:00)
[2016-06-10] MEDS ORDERED: RASBURICASE IVPB ONE (14:00)
[2016-06-10] MEDS ORDERED: CHLORPROMAZINE 25 MG TAB PO PRN (21:00)
[2016-06-10] MEDS: DEXAMETHASONE IV SCH (21:02)
--- NOTE | 2016-06-10 23:07 | PN ---
Date/Time of Note Date/Time of Note DATE: 06/10/16 TIME: 23:05 Assessment/Plan VTE Prophylaxis VTE Prophylaxis Intervention: other Lines/Catheters IV Catheter Type (from Nrs): PICC Line Central line still needed: Yes Urinary Cath still in place: No Reason Cath still needed: other (indicate) Assessment/Plan Chief Complaint/Hosp Course IMPRESSION: 1. Patient has lymphoma. 2. Leukocytosis. 3. Thrombocytosis. 4. Anemia. 5. Splenomegaly. 6. Allopurinol rash with a diffuse skin rash resolving. plan chemo per dr clements Problems: Subjective 24 Hr Interval Summary Subjective hx not possible: other (on chemo) Respiratory: no complaints Cardiovascular: no complaints Exam/Review of Systems Vital Signs Vitals Vital Signs Date Time Temp Pulse Resp B/P Pulse Ox O2 Delivery O2 Flow Rate FiO2 06/10/16 19:00 97.9 63 18 102/51 99 06/10/16 16:30 Room Air Intake and Output 06/09/16 06/09/16 06/10/16 14:59 22:59 06:59 Intake Total 610 ml 2550 ml Output Total 2100 ml Balance 610 ml 450 ml Exam Neck: supple Respiratory: clear to auscultation Cardiovascular: regular rate and rhythm Gastrointestinal: soft Musculoskeletal: nl extremities to inspection Extremities: normal pulses Results Result Diagram: 06/10/16 1035 06/10/16 0748 Results 24 hrs Laboratory Tests Test 06/10/16 07:48 06/10/16 10:35 Sodium Level 139 Potassium Level 4.1 Chloride Level 103 Carbon Dioxide Level 24 Anion Gap 16 Blood Urea Nitrogen 28 H Creatinine 1.04 Glucose Level 119 Uric Acid 10.9 #H Calcium Level 7.9 L Total Bilirubin 0.6 Direct Bilirubin 0.00 Indirect Bilirubin 0.6 Aspartate Amino Transf (AST/SGOT) 82 #H Alanine Aminotransferase (ALT/SGPT) 81 H Alkaline Phosphatase 188 #H Lactate Dehydrogenase 2417 #H Total Protein 5.5 L Albumin 3.4 Globulin 2.10 Albumin/Globulin Ratio 1.61 White Blood Count 47.7 #H Red Blood Count 3.95 L Hemoglobin 11.6 L Hematocrit 36.5 L Mean Corpuscular Volume 92.4 Mean Corpuscular Hemoglobin 29.4 Mean Corpuscular Hemoglobin Concent 31.8 L Red Cell Distribution Width 15.6 H Platelet Count 42 #L Mean Platelet Volume 8.2 Neutrophils % 24.0 L Band Neutrophils % 4.0 Lymphocytes % 71.0 H Monocytes % 1.0 Basophils % Neutrophils # 11.4 H Lymphocytes # 33.9 H Monocytes # 0.5 Basophils # Differential Comment MANUAL DIFF Platelet Estimate PLT APPEAR DECREASED Hypochromasia 1+ Anisocytosis 1+ Macrocytosis 1+ Medications Medications Current Medications Morphine Sulfate (morphine) 2 mg Q4H PRN IV PAIN; Start 06/08/16 at 13:30 Ondansetron HCl (Zofran Inj) 4 mg Q6H PRN IV NAUSEA AND/OR VOMITING; Start at 13:30 Pantoprazole 40 mg 40 mg DAILY@06 IV Last administered on 06/10/16 11:06; Admin Dose 40 MG; Start 06/09/16 at 06:00 Acetaminophen (Ofirmev 1000mg/ 100ml Iv) 65 ml @ 250 mls/hr Q6H PRN IVPB PAIN ; Start 06/08/16 at 14:30 Meperidine HCl (Demerol) 50 mg Q4H PRN IV ALLERGIC REACTION Last administered on 06/10/16 02:09; Admin Dose 50 MG; Start 06/08/16 at 16:30 Methylprednisolone Sodium Succinate 100 mg 100 mg Q4H PRN IV ALLERGIC REACTION ; Start 06/08/16 at 16:30 Sodium Chloride (NS) 1,000 ml @ 70 mls/hr [id number] IV Last administered on 06/09 09:03; Admin Dose 70 MLS/HR; Start 06/08/16 at 16:18; Status Future Hold Acetaminophen (Tylenol Tab) 650 mg Q6H PRN PO PAIN LEVEL 1-3 OR FEVER Last administered on 06/10/16 04:24; Admin Dose 650 MG; Start 06/08/16 at 16:30 Acetaminophen (Tylenol Supp) 650 mg Q6H PRN [place] PAIN LEVEL 1-3 OR FEVER; Start 06/08/16 at 16:30 Docusate Sodium (Colace) 100 mg Q12H PRN PO CONSTIPATION; Start 06/08/16 at 16: 30 Magnesium Hydroxide (Milk Of Mag) 30 ml DAILY PRN PO CONSTIPATION; Start at 16:30 Enoxaparin Sodium 40 mg 40 mg DAILY SC ; Start 06/09/16 at 09:00 Sodium Chloride (NS) 1,000 ml @ 50 mls/hr Q20H IV Last administered on 12:34; Admin Dose 50 MLS/HR; Start 06/09/16 at 16:00 IV Flush (NS 10 ml) 10 ml PRN PRN IV IV PROTOCOL; Start 06/09/16 at 11:30 Dexamethasone (Decadron) 10 mg Q4H PRN IV ALLERGIC REACTION; Start 06/09/16 at 16:00 Diphenhydramine HCl 25 mg 25 mg Q4H PRN IV ALLERGIC REACTION Last administered on 06/09/16 21:26; Admin Dose 25 MG; Start 06/09/16 at 16:00 Cyclophosphamide 0.6 gm/Sodium Chloride 250 ml @ 83.3 mls/hr Q12H IV Last administered on 06/10/16 12:34; Admin Dose 83.3 MLS/HR; Start 06/10/16 at 11:00 ; Stop 06/13/16 at 02:01 Mes[place] 1200 mg/ Sodium Chloride 512 ml @ 20.8 mls/hr Q24H IVPB Last administered on 06/10/16 11:06; Admin Dose 20.8 MLS/HR; Start 06/10/16 at 10:00 ; Stop 06/13/16 at 12:00 Ondansetron HCl 16 mg/Famotidine 20 mg/Sodium Chloride 60 ml @ 252 mls/hr Q24H IV ; Start 06/10/16 at 09:00; Stop 06/15/16 at 09:15 Ondansetron HCl 16 mg/Famotidine 20 mg/Sodium Chloride 60 ml @ 252 mls/hr Q24H IV Last administered on 06/10/16 11:55; Admin Dose 252 MLS/HR; Start 06/10/16 at 10:30; Stop 06/15/16 at 10:45 Vincristine Sulfate 2 mg/ Sodium Chloride 50 ml @ 100 mls/hr Q7D IV ; Start at 13:00; Stop 06/20/16 at 13:29 Dexamethasone 40 mg/Sodium Chloride 60 ml @ 252 mls/hr Q24H IV Last administered on 06/10/16 21:02; Admin Dose 252 MLS/HR; Start 06/10/16 at 18:00 ; Stop 06/13/16 at 18:15 Doxorubicin HCl/ Sodium Chloride (Adriamycin/NS) 500 ml @ 20.83 mls/ hr Q24H IV ; Start 06/13/16 at 14:00; Stop 06/16/16 at 13:59 Lorazepam (Ativan) 1 mg Q6H PRN IV Hiccups; Start 06/10/16 at 21:00 Chlorpromazine (Thorazine) 25 mg BID PRN PO Hiccups; Start 06/10/16 at 21:00 TIFFANIE LI MD Jun 10, 2016 23:07
[2016-06-10] MEDS: CHLORPROMAZINE 25 MG TAB PO PRN (23:25)
[2016-06-11] VITALS (14 sets, daily range): BP systolic 102–131; BP diastolic 52–74; PULSE 56–86; RESP 16–18
[2016-06-11] MEDS: LORAZEPAM 2 MG INJ IV PRN ×2 (03:26→22:37)
[2016-06-11] MEDS: SOD CHLORIDE 0.9% 1,000 ML IV SCH ×2 (04:42→12:31)
[2016-06-11 05:18] LABS: ADD SCAN DIFF NO
[2016-06-11 05:26] LABS: ABNORMAL IP MESSAGE 1; HEMATOCRIT 33.7 % (42.0-52.0); HEMOGLOBIN 10.4 g/dl (14.0-18.0); MEAN CORPUSCULAR HEMOGLOBIN 29.4 pg (29.0-33.0); MEAN CORPUSCULAR HGB CONC 30.9 g/dl (32.0-37.0); MEAN CORPUSCULAR VOLUME 95.2 fl (82.0-101.0); MEAN PLATELET VOLUME 9.8 fl (7.4-10.4); PLATELET COUNT 63 10^3/UL (140-415); RED BLOOD COUNT 3.54 10^6/ul (4.70-6.10); RED CELL DISTRIBUTION WIDTH 15.9 % (11.5-14.5); WHITE BLOOD COUNT 41.5 10^3/ul (4.8-10.8)
[2016-06-11 05:33] LABS: ALBUMIN 3.1 g/dl (3.3-4.9); POTASSIUM 5.1 mmol/L (3.5-5.1)
[2016-06-11 05:35] LABS: BILIRUBIN,INDIRECT 0.3 mg/dl (0-1.1); BILIRUBIN,TOTAL 0.3 mg/dl (0.2-1.3)
[2016-06-11 05:36] LABS: ALBUMIN/GLOBULIN RATIO 1.47; CALCIUM 8.1 mg/dl (8.4-10.2); TOTAL PROTEIN 5.2 g/dl (6.1-8.1)
[2016-06-11] MEDS: PANTOPRAZOLE 40 MG INJ IV SCH (06:20)
[2016-06-11] MEDS: ONDANSETRON IV SCH ×2 (09:00→12:32)
[2016-06-11] MEDS: SOD CHLORIDE 0.9% IV SCH ×5 (09:00→22:52)
[2016-06-11] MEDS: FAMOTIDINE IV SCH ×2 (09:00→12:32)
[2016-06-11] MEDS: ENOXAPARIN 40 MG/0.4 ML SYG SC SCH (09:00)
[2016-06-11 10:51] LABS: MONOCYTE # 0.8 10^3/ul (0.3-0.9); NEUTROPHIL # 6.6 10^3/ul (1.6-7.5)
[2016-06-11] MEDS: SOD CHLORIDE 0.9% IVPB SCH (12:32)
[2016-06-11] MEDS: MESNA IVPB SCH (12:32)
[2016-06-11] MEDS: CHLORPROMAZINE 25 MG TAB PO PRN (12:35)
[2016-06-11] MEDS: CYCLOPHOSPHAMIDE IV SCH ×2 (13:26→22:52)
--- NOTE | 2016-06-11 14:35 | CONS ---
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 Given the aggressive nature of disease disease, we will be changing the chemotherapy regimen to R-HyperCVAD. Now R-HyperCVAD day 3 #Mantle Cell lymphoma -echocardiogram shows normal EF -s/p Rituxan 06/09/16, PICC line in place, Hep panel and HIV negative -started HyperCVAD 06/10/16, tolerating well so far -Pt will need Intrathecal Methotrexate. Will order for later on Wednesday once peripheral blasts have cleared -continue to check daily tumor lysis labs including CMP, LDH, URIC acid, phosphorus. Rasburicase given on 06/08/16, 06/10/16. Will give another dose today given uric acid 8.0, LDH 934. Will re-dose as necessary. NOTE patient is ALLERGIC to allopurinol -Pt will need out patient referral to [facility] for autologous BMT in first remission -f/u results of BM Bx -can add reglan prn for hiccups Chemo regimen Cyclophosphamide 300 mg/m2 IV over 3 hours Q12 hours x 6 doses D2-4 Vincristine 1.4 mg/m2 (2 mg max) IV once per day D5 and D12 Doxorubicin 16.7 mg/m2 CIV over 72 hours D5-7 Dexamethasone 40 mg IV D2-5, D12-15 [place] 600 mg/m2 CIV over 76 hours D2-4 Supportive meds: neupogen 480 mcg SQ daily x 10 days starting 24-36 hours after doxorubicin complete, valacyclovir, fluconazole, levaquin Problems: Consultation Date/Type/Reason Admit Date/Time Jun 08, 2016 at 10:39 Initial Consult Date 06/08/16 Type of Consultation: Hematology/Oncology Referring Provider: TIFFANIE LI MD 24 HR Interval Summary Free Text/Dictation Patient states that he is doing well except for intractable hiccups. No longer has fevers or sweats and family states that his "color" is returning. Tolerating chemotherapy well so far. Exam/Review of Systems Vital Signs Vitals Vital Signs Date Time Temp Pulse Resp B/P Pulse Ox O2 Delivery O2 Flow Rate FiO2 06/11/16 08:06 98.0 65 18 124/57 99 06/11/16 04:20 Room Air Intake and Output 06/10/16 06/10/16 06/11/16 15:00 23:00 07:00 Intake Total 60 ml 2305.6 ml 1290 ml Output Total 1000 ml Balance 60 ml 1305.6 ml 1290 ml Exam Constitutional: alert, oriented Head: atraumatic, normocephalic Eyes: nl conjunctiva Neck: non-tender, supple Respiratory: clear to auscultation Cardiovascular: regular rate and rhythm Gastrointestinal: non-tender, soft, splenomegaly Musculoskeletal: nl extremities to inspection Results Result Diagram: 06/11/16 0437 06/11/16 0437 Results 24 hrs Laboratory Tests Test 06/11/16 04:37 06/11/16 04:53 White Blood Count 41.5 H Red Blood Count 3.54 L Hemoglobin 10.4 L Hematocrit 33.7 L Mean Corpuscular Volume 95.2 Mean Corpuscular Hemoglobin 29.4 Mean Corpuscular Hemoglobin Concent 30.9 L Red Cell Distribution Width 15.9 H Platelet Count 63 #L Mean Platelet Volume 9.8 Neutrophils % 16.0 L Band Neutrophils % 2.0 Lymphocytes % Reactive Lymphocytes % 4.0 Monocytes % 2.0 Neutrophils # 6.6 Lymphocytes # 31.5 H Monocytes # 0.8 Sodium Level 140 Potassium Level 5.1 Chloride Level 104 Carbon Dioxide Level 27 Anion Gap 14 Blood Urea Nitrogen 29 H Creatinine 1.00 Glucose Level 188 Uric Acid 8.0 #H Calcium Level 8.1 L Total Bilirubin 0.3 Direct Bilirubin 0.00 Indirect Bilirubin 0.3 Aspartate Amino Transf (AST/SGOT) 21 # Alanine Aminotransferase (ALT/SGPT) 61 Alkaline Phosphatase 107 Lactate Dehydrogenase 934 #H Total Protein 5.2 L Albumin 3.1 L Globulin 2.10 Albumin/Globulin Ratio 1.47 Phosphorus Level 4.1 Medications Medications Current Medications Morphine Sulfate (morphine) 2 mg Q4H PRN IV PAIN; Start 06/08/16 at 13:30 Ondansetron HCl (Zofran Inj) 4 mg Q6H PRN IV NAUSEA AND/OR VOMITING; Start at 13:30 Pantoprazole 40 mg 40 mg DAILY@06 IV Last administered on 06/11/16t 06:20; Admin Dose 40 MG; Start 06/09/16 at 06:00 Acetaminophen (Ofirmev 1000mg/ 100ml Iv) 65 ml @ 250 mls/hr Q6H PRN IVPB PAIN ; Start 06/08/16 at 14:30 Meperidine HCl (Demerol) 50 mg Q4H PRN IV ALLERGIC REACTION Last administered on 06/10/16 02:09; Admin Dose 50 MG; Start 06/08/16 at 16:30 Methylprednisolone Sodium Succinate 100 mg 100 mg Q4H PRN IV ALLERGIC REACTION ; Start 06/08/16 at 16:30 Sodium Chloride (NS) 1,000 ml @ 70 mls/hr [id number] IV Last administered on 06/09 09:03; Admin Dose 70 MLS/HR; Start 06/08/16 at 16:18; Status Future Hold Acetaminophen (Tylenol Tab) 650 mg Q6H PRN PO PAIN LEVEL 1-3 OR FEVER Last administered on 06/10/16 04:24; Admin Dose 650 MG; Start 06/08/16 at 16:30 Acetaminophen (Tylenol Supp) 650 mg Q6H PRN [place] PAIN LEVEL 1-3 OR FEVER; Start 06/08/16 at 16:30 Docusate Sodium (Colace) 100 mg Q12H PRN PO CONSTIPATION; Start 06/08/16 at 16: 30 Magnesium Hydroxide (Milk Of Mag) 30 ml DAILY PRN PO CONSTIPATION; Start at 16:30 Enoxaparin Sodium 40 mg 40 mg DAILY SC ; Start 06/09/16 at 09:00 Sodium Chloride (NS) 1,000 ml @ 50 mls/hr Q20H IV Last administered on 12:31; Admin Dose 50 MLS/HR; Start 06/09/16 at 16:00 IV Flush (NS 10 ml) 10 ml PRN PRN IV IV PROTOCOL; Start 06/09/16 at 11:30 Dexamethasone (Decadron) 10 mg Q4H PRN IV ALLERGIC REACTION; Start 06/09/16 at 16:00 Diphenhydramine HCl 25 mg 25 mg Q4H PRN IV ALLERGIC REACTION Last administered on 06/09/16 21:26; Admin Dose 25 MG; Start 06/09/16 at 16:00 Cyclophosphamide 0.6 gm/Sodium Chloride 250 ml @ 83.3 mls/hr Q12H IV Last administered on 06/11/16 13:26; Admin Dose 83.3 MLS/HR; Start 06/10/16 at 11:00 ; Stop 06/13/16 at 02:01 [place] 1200 mg/ Sodium Chloride 512 ml @ 20.8 mls/hr Q24H IVPB Last administered on 06/11/16 12:32; Admin Dose 20.8 MLS/HR; Start 06/10/16 at 10:00 ; Stop 06/13/16 at 12:00 Ondansetron HCl 16 mg/Famotidine 20 mg/Sodium Chloride 60 ml @ 252 mls/hr Q24H IV ; Start 06/10/16 at 09:00; Stop 06/15/16 at 09:15 Ondansetron HCl 16 mg/Famotidine 20 mg/Sodium Chloride 60 ml @ 252 mls/hr Q24H IV Last administered on 06/11/16 12:32; Admin Dose 252 MLS/HR; Start 06/10/16 at 10:30; Stop 06/15/16 at 10:45 Vincristine Sulfate 2 mg/ Sodium Chloride 50 ml @ 100 mls/hr Q7D IV ; Start at 13:00; Stop 06/20/16 at 13:29 Dexamethasone 40 mg/Sodium Chloride 60 ml @ 252 mls/hr Q24H IV Last administered on 06/10/16 21:02; Admin Dose 252 MLS/HR; Start 06/10/16 at 18:00 ; Stop 06/13/16 at 18:15 Doxorubicin HCl/ Sodium Chloride (Adriamycin/NS) 500 ml @ 20.83 mls/ hr Q24H IV ; Start 06/13/16 at 14:00; Stop 06/16/16 at 13:59 Lorazepam (Ativan) 1 mg Q6H PRN IV Hiccups Last administered on 06/11/16 03:26 ; Admin Dose 1 MG; Start 06/10/16 at 21:00 Chlorpromazine (Thorazine) 25 mg BID PRN PO Hiccups Last administered on 12:35; Admin Dose 25 MG; Start 06/10/16 at 21:00 TOFABIAN MD Jun 11, 2016 14:35
[2016-06-11] MEDS ORDERED: METOCLOPRAMIDE 10 MG INJ IV PRN (17:00)
[2016-06-11] MEDS: DEXAMETHASONE IV SCH (17:18)
[2016-06-11] MEDS ORDERED: RASBURICASE IVPB ONE (17:30)
[2016-06-11] MEDS ORDERED: SOD CHLORIDE 0.9% IVPB ONE (17:30)
--- NOTE | 2016-06-11 22:32 | PN ---
Date/Time of Note Date/Time of Note DATE: 06/11/16 TIME: 22:31 Assessment/Plan VTE Prophylaxis VTE Prophylaxis Intervention: other Lines/Catheters IV Catheter Type (from Nrsg): PICC Line Central line still needed: Yes Urinary Cath still in place: No Reason Cath still needed: other (indicate) Assessment/Plan Chief Complaint/Hosp Course IMPRESSION: 1. Patient has lymphoma. 2. Leukocytosis. 3. Thrombocytosis. 4. Anemia. 5. Splenomegaly. 6. Allopurinol rash with a diffuse skin rash resolving. plan chemo per dr clements Problems: Subjective 24 Hr Interval Summary Cardiovascular: no complaints Gastrointestinal: no complaints Exam/Review of Systems Vital Signs Vitals Vital Signs Date Time Temp Pulse Resp B/P Pulse Ox O2 Delivery O2 Flow Rate FiO2 06/11/16 19:00 97.7 64 18 127/70 97 06/11/16 04:20 Room Air Intake and Output 06/10/16 06/10/16 06/11/16 14:59 22:59 06:59 Intake Total 460 ml 2305.6 ml 1290 ml Output Total 1000 ml Balance 460 ml 1305.6 ml 1290 ml Exam Respiratory: clear to auscultation Cardiovascular: regular rate and rhythm Results Result Diagram: 06/11/16 0437 06/11/16 0437 Results 24 hrs Laboratory Tests Test 06/11/16 04:37 06/11/16 04:53 White Blood Count 41.5 H Red Blood Count 3.54 L Hemoglobin 10.4 L Hematocrit 33.7 L Mean Corpuscular Volume 95.2 Mean Corpuscular Hemoglobin 29.4 Mean Corpuscular Hemoglobin Concent 30.9 L Red Cell Distribution Width 15.9 H Platelet Count 63 #L Mean Platelet Volume 9.8 Neutrophils % 16.0 L Band Neutrophils % 2.0 Lymphocytes % Reactive Lymphocytes % 4.0 Monocytes % 2.0 Neutrophils # 6.6 Lymphocytes # 31.5 H Monocytes # 0.8 Sodium Level 140 Potassium Level 5.1 Chloride Level 104 Carbon Dioxide Level 27 Anion Gap 14 Blood Urea Nitrogen 29 H Creatinine 1.00 Glucose Level 188 Uric Acid 8.0 #H Calcium Level 8.1 L Total Bilirubin 0.3 Direct Bilirubin 0.00 Indirect Bilirubin 0.3 Aspartate Amino Transf (AST/SGOT) 21 # Alanine Aminotransferase (ALT/SGPT) 61 Alkaline Phosphatase 107 Lactate Dehydrogenase 934 #H Total Protein 5.2 L Albumin 3.1 L Globulin 2.10 Albumin/Globulin Ratio 1.47 Phosphorus Level 4.1 Medications Medications Current Medications Morphine Sulfate (morphine) 2 mg Q4H PRN IV PAIN; Start 06/08/16 at 13:30 Ondansetron HCl (Zofran Inj) 4 mg Q6H PRN IV NAUSEA AND/OR VOMITING; Start at 13:30 Pantoprazole 40 mg 40 mg DAILY@06 IV Last administered on 06/11/16 06:20; Admin Dose 40 MG; Start 06/09/16 at 06:00 Acetaminophen (Ofirmev 1000mg/ 100ml Iv) 65 ml @ 250 mls/hr Q6H PRN IVPB PAIN ; Start 06/08/16 at 14:30 Meperidine HCl (Demerol) 50 mg Q4H PRN IV ALLERGIC REACTION Last administered on 06/10/16 02:09; Admin Dose 50 MG; Start 06/08/16 at 16:30 Methylprednisolone Sodium Succinate 100 mg 100 mg Q4H PRN IV ALLERGIC REACTION ; Start 06/08/16 at 16:30 Sodium Chloride (NS) 1,000 ml @ 70 mls/hr [id number] IV Last administered on 06/09 09:03; Admin Dose 70 MLS/HR; Start 06/08/16 at 16:18; Status Future Hold Acetaminophen (Tylenol Tab) 650 mg Q6H PRN PO PAIN LEVEL 1-3 OR FEVER Last administered on 06/10/16 04:24; Admin Dose 650 MG; Start 06/08/16 at 16:30 Acetaminophen (Tylenol Supp) 650 mg Q6H PRN [place] PAIN LEVEL 1-3 OR FEVER; Start 06/08/16 at 16:30 Docusate Sodium (Colace) 100 mg Q12H PRN PO CONSTIPATION; Start 06/08/16 at 16: 30 Magnesium Hydroxide 30 ml 30 ml DAILY PRN PO CONSTIPATION; Start 06/08/16 at 16 :30 Sodium Chloride (NS) 1,000 ml @ 50 mls/hr Q20H IV Last administered on 12:31; Admin Dose 50 MLS/HR; Start 06/09/16 at 16:00 IV Flush (NS 10 ml) 10 ml PRN PRN IV IV PROTOCOL; Start 06/09/16 at 11:30 Dexamethasone (Decadron) 10 mg Q4H PRN IV ALLERGIC REACTION; Start 06/09/16 at 16:00 Diphenhydramine HCl 25 mg 25 mg Q4H PRN IV ALLERGIC REACTION Last administered on 06/09/16 21:26; Admin Dose 25 MG; Start 06/09/16 at 16:00 Cyclophosphamide 0.6 gm/Sodium Chloride 250 ml @ 83.3 mls/hr Q12H IV Last administered on 06/11/16 13:26; Admin Dose 83.3 MLS/HR; Start 06/10/16 at 11:00 ; Stop 06/13/16 at 02:01 [place] 1200 mg/ Sodium Chloride 512 ml @ 20.8 mls/hr Q24H IVPB Last administered on 06/11/16 12:32; Admin Dose 20.8 MLS/HR; Start 06/10/16 at 10:00 ; Stop 06/13/16 at 12:00 Ondansetron HCl 16 mg/Famotidine 20 mg/Sodium Chloride 60 ml @ 252 mls/hr Q24H IV ; Start 06/10/16 at 09:00; Stop 06/15/16 at 09:15 Ondansetron HCl 16 mg/Famotidine 20 mg/Sodium Chloride 60 ml @ 252 mls/hr Q24H IV Last administered on 06/11/16 12:32; Admin Dose 252 MLS/HR; Start 06/10/16 at 10:30; Stop 06/15/16 at 10:45 Vincristine Sulfate 2 mg/ Sodium Chloride 50 ml @ 100 mls/hr Q7D IV ; Start at 13:00; Stop 06/20/16 at 13:29 Dexamethasone 40 mg/Sodium Chloride 60 ml @ 252 mls/hr Q24H IV Last administered on 06/11/16 17:18; Admin Dose 252 MLS/HR; Start 06/10/16 at 18:00 ; Stop 06/13/16 at 18:15 Doxorubicin HCl/ Sodium Chloride (Adriamycin/NS) 500 ml @ 20.83 mls/ hr Q24H IV ; Start 06/13/16 at 14:00; Stop 06/16/16 at 13:59 Lorazepam (Ativan) 1 mg Q6H PRN IV Hiccups Last administered on 06/11/16 03:26 ; Admin Dose 1 MG; Start 06/10/16 at 21:00 Chlorpromazine 25 mg 25 mg BID PRN PO Hiccups Last administered on 06/11/16 12 :35; Admin Dose 25 MG; Start 06/10/16 at 21:00 Rasburicase/ Sodium Chloride (Elitek/NS) 50 ml @ 100 mls/hr ONCE ONCE IVPB ; Start 06/12/16 at 11:00; Stop 06/12/16 at 11:29 Metoclopramide HCl (Reglan) 10 mg Q6H PRN IV HICCUPS Last administered on 17:18; Admin Dose 10 MG; Start 06/11/16 at 17:00 TIFFANIE LI MD Jun 11, 2016 22:32
[2016-06-12] VITALS (8 sets, daily range): BP systolic 121–144; BP diastolic 62–79; PULSE 60–73; RESP 16–20
[2016-06-12] MEDS: CHLORPROMAZINE 25 MG TAB PO PRN (05:15)
[2016-06-12] MEDS: PANTOPRAZOLE 40 MG INJ IV SCH (05:15)
[2016-06-12 05:29] LABS: ADD SCAN DIFF NO
[2016-06-12 05:44] LABS: ABNORMAL IP MESSAGE 1; HEMATOCRIT 32.1 % (42.0-52.0); HEMOGLOBIN 9.7 g/dl (14.0-18.0); MEAN CORPUSCULAR HEMOGLOBIN 29.1 pg (29.0-33.0); MEAN CORPUSCULAR HGB CONC 30.2 g/dl (32.0-37.0); MEAN CORPUSCULAR VOLUME 96.4 fl (82.0-101.0); MEAN PLATELET VOLUME 10.1 fl (7.4-10.4); PLATELET COUNT 71 10^3/UL (140-415); RED BLOOD COUNT 3.33 10^6/ul (4.70-6.10); RED CELL DISTRIBUTION WIDTH 15.6 % (11.5-14.5); WHITE BLOOD COUNT 56.4 10^3/ul (4.8-10.8)
[2016-06-12 05:50] LABS: ALBUMIN 2.9 g/dl (3.3-4.9)
[2016-06-12 05:53] LABS: ALBUMIN/GLOBULIN RATIO 1.45; ALKALINE PHOSPHATASE 92 IU/L (42-121); ASPARTATE AMINO TRANSFERASE < 8 IU/L (15-46); BILIRUBIN,INDIRECT 0.2 mg/dl (0-1.1); BILIRUBIN,TOTAL 0.2 mg/dl (0.2-1.3); BLOOD UREA NITROGEN 25 mg/dl (7-20); CARBON DIOXIDE 29 mmol/L (21-31); CREATININE 0.91 mg/dl (0.61-1.24); GLUCOSE 157 mg/dl (70-220); TOTAL PROTEIN 4.9 g/dl (6.1-8.1); URIC ACID 5.5 mg/dl (3.1-7.9)
[2016-06-12 05:57] LABS: ANION GAP 12 (8-16); CHLORIDE 103 mmol/L (97-110); SODIUM 139 mmol/L (135-144)
[2016-06-12 05:59] LABS: ALANINE AMINOTRANSFERASE 45 IU/L (13-69)
[2016-06-12 06:00] LABS: CALCIUM 8.8 mg/dl (8.4-10.2); LACTATE DEHYDROGENASE 637 IU/L (313-618)
[2016-06-12 06:55] LABS: EOSINOPHILS # 0.4 10^3/ul (0.0-0.5); LYMPHOCYTES # 31.1 10^3/ul (0.8-2.9)
[2016-06-12] MEDS: DOCUSATE SODIUM 100 MG CAP PO PRN (09:07)
[2016-06-12 10:12] LABS: LYMPHOCYTES # 46.8 10^3/ul (0.8-2.9); NEUTROPHIL # 9.6 10^3/ul (1.6-7.5)
[2016-06-12] MEDS ORDERED: RASBURICASE IVPB ONE (11:00)
[2016-06-12] MEDS ORDERED: SOD CHLORIDE 0.9% IVPB ONE (11:00)
[2016-06-12] MEDS: LORAZEPAM 2 MG INJ IV PRN (12:01)
[2016-06-12] MEDS: SOD CHLORIDE 0.9% IV SCH ×3 (12:16→18:33)
[2016-06-12] MEDS: ONDANSETRON IV SCH (12:16)
[2016-06-12] MEDS: FAMOTIDINE IV SCH (12:16)
[2016-06-12] MEDS: CYCLOPHOSPHAMIDE IV SCH (12:48)
--- NOTE | 2016-06-12 14:09 | CONS ---
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 Given the aggressive nature of disease disease, we will be changing the chemotherapy regimen to R-HyperCVAD. Now R-HyperCVAD day 3 #Mantle Cell lymphoma -echocardiogram shows normal EF -s/p Rituxan 06/09/16, PICC line in place, Hep panel and HIV negative -started HyperCVAD 06/10/16, tolerating well so far -Pt will need Intrathecal chemotherapy with methotrexate/cytarabine/ hydrocoritone. Will order for Wednesday once peripheral blasts have cleared -continue to check daily tumor lysis labs including CMP, LDH, URIC acid, phosphorus. Rasburicase given on 06/08/16, 06/10/16, 06/11/16. Will re-dose as necessary. NOTE patient is ALLERGIC to allopurinol -Pt will need out patient referral to [facility] for autologous BMT in first remission (case management pending [facility] to contact [facility]). -BMBx (performed 06/05/16 as an outpatient) shows involvement by mantle cell lymphoma -can add reglan prn, increase dose of thorazine prn for hiccups Chemo regimen Cyclophosphamide 300 mg/m2 IV over 3 hours Q12 hours x 6 doses D2-4 Vincristine 1.4 mg/m2 (2 mg max) IV once per day D5 and D12 Doxorubicin 16.7 mg/m2 CIV over 72 hours D5-7 Dexamethasone 40 mg IV D2-5, D12-15 [place] 600 mg/m2 CIV over 76 hours D2-4 Supportive meds: neupogen 480 mcg SQ daily x 10 days starting 24-36 hours after doxorubicin complete, valacyclovir, fluconazole, levaquin Problems: Consultation Date/Type/Reason Admit Date/Time Jun 08, 2016 at 10:39 Initial Consult Date 06/08/16 Type of Consultation: Hematology/Oncology Referring Provider: TIFFANIE LI MD 24 HR Interval Summary Free Text/Dictation Patient doing well except for intractable hiccups. Tolerating chemotherapy well. Exam/Review of Systems Vital Signs Vitals Vital Signs Date Time Temp Pulse Resp B/P Pulse Ox O2 Delivery O2 Flow Rate FiO2 06/12/16 13:16 68 16 133/68 98 Nasal Cannula 3.0 06/12/16 08:12 97.3 Intake and Output 06/11/16 06/11/16 06/12/16 15:00 23:00 07:00 Intake Total 2385 ml 2100 ml Output Total 2950 ml Balance 2385 ml -850 ml Exam Constitutional: alert, oriented Head: atraumatic, normocephalic Eyes: nl conjunctiva Neck: non-tender, supple Respiratory: clear to auscultation Cardiovascular: regular rate and rhythm Gastrointestinal: non-tender, soft, splenomegaly Musculoskeletal: nl extremities to inspection Results Result Diagram: 06/12/165 06/12/16 0445 Results 24 hrs Laboratory Tests Test 06/12/16 04:45 White Blood Count 56.4 #H Red Blood Count 3.33 L Hemoglobin 9.7 L Hematocrit 32.1 L Mean Corpuscular Volume 96.4 Mean Corpuscular Hemoglobin 29.1 Mean Corpuscular Hemoglobin Concent 30.2 L Red Cell Distribution Width 15.6 H Platelet Count 71 L Mean Platelet Volume 10.1 Neutrophils % 17.0 L Lymphocytes % 83.0 H Monocytes % Basophils % Neutrophils # 9.6 H Lymphocytes # 46.8 H Monocytes # Basophils # Sodium Level 139 Potassium Level 5.0 Chloride Level 103 Carbon Dioxide Level 29 Anion Gap 12 Blood Urea Nitrogen 25 H Creatinine 0.91 Glucose Level 157 Uric Acid 5.5 # Calcium Level 8.8 Phosphorus Level 4.0 Total Bilirubin 0.2 Direct Bilirubin 0.00 Indirect Bilirubin 0.2 Aspartate Amino Transf (AST/SGOT) < 8 #L Alanine Aminotransferase (ALT/SGPT) 45 Alkaline Phosphatase 92 Lactate Dehydrogenase 637 H Total Protein 4.9 L Albumin 2.9 L Globulin 2.00 Albumin/Globulin Ratio 1.45 Medications Medications Current Medications Morphine Sulfate (morphine) 2 mg Q4H PRN IV PAIN; Start 06/08/16 at 13:30 Ondansetron HCl (Zofran Inj) 4 mg Q6H PRN IV NAUSEA AND/OR VOMITING; Start at 13:30 Pantoprazole 40 mg 40 mg DAILY@06 IV Last administered on 06/12/16t 05:15; Admin Dose 40 MG; Start 06/09/16 at 06:00 Acetaminophen (Ofirmev 1000mg/ 100ml Iv) 65 ml @ 250 mls/hr Q6H PRN IVPB PAIN ; Start 06/08/16 at 14:30 Meperidine HCl (Demerol) 50 mg Q4H PRN IV ALLERGIC REACTION Last administered on 06/10/16 02:09; Admin Dose 50 MG; Start 06/08/16 at 16:30 Methylprednisolone Sodium Succinate 100 mg 100 mg Q4H PRN IV ALLERGIC REACTION ; Start 06/08/16 at 16:30 Sodium Chloride (NS) 1,000 ml @ 70 mls/hr [id number] IV Last administered on 06/09 09:03; Admin Dose 70 MLS/HR; Start 06/08/16 at 16:18; Status Future Hold Acetaminophen (Tylenol Tab) 650 mg Q6H PRN PO PAIN LEVEL 1-3 OR FEVER Last administered on 06/10/16 04:24; Admin Dose 650 MG; Start 06/08/16 at 16:30 Acetaminophen (Tylenol Supp) 650 mg Q6H PRN [place] PAIN LEVEL 1-3 OR FEVER; Start 06/08/16 at 16:30 Docusate Sodium (Colace) 100 mg Q12H PRN PO CONSTIPATION Last administered on 09:07; Admin Dose 100 MG; Start 06/08/16 at 16:30 Magnesium Hydroxide 30 ml 30 ml DAILY PRN PO CONSTIPATION; Start 06/08/16 at 16 :30 Sodium Chloride (NS) 1,000 ml @ 50 mls/hr Q20H IV Last administered on 12:31; Admin Dose 50 MLS/HR; Start 06/09/16 at 16:00 IV Flush (NS 10 ml) 10 ml PRN PRN IV IV PROTOCOL; Start 06/09/16 at 11:30 Dexamethasone (Decadron) 10 mg Q4H PRN IV ALLERGIC REACTION; Start 06/09/16 at 16:00 Diphenhydramine HCl 25 mg 25 mg Q4H PRN IV ALLERGIC REACTION Last administered on 06/09/16 21:26; Admin Dose 25 MG; Start 06/09/16 at 16:00 Cyclophosphamide 0.6 gm/Sodium Chloride 250 ml @ 83.3 mls/hr Q12H IV Last administered on 06/12/16 12:48; Admin Dose 83.3 MLS/HR; Start 06/10/16 at 11:00 ; Stop 06/13/16 at 02:01 Mesna 1200 mg/ Sodium Chloride 512 ml @ 20.8 mls/hr Q24H IVPB Last administered on 06/11/16 12:32; Admin Dose 20.8 MLS/HR; Start 06/10/16 at 10:00 ; Stop 06/13/16 at 12:00 Ondansetron HCl 16 mg/Famotidine 20 mg/Sodium Chloride 60 ml @ 252 mls/hr Q24H IV Last administered on 06/12/16 12:16; Admin Dose 252 MLS/HR; Start 06/10/16 at 10:30; Stop 06/15/16 at 10:45 Vincristine Sulfate 2 mg/ Sodium Chloride 50 ml @ 100 mls/hr Q7D IV ; Start at 13:00; Stop 06/20/16 at 13:29 Dexamethasone 40 mg/Sodium Chloride 60 ml @ 252 mls/hr Q24H IV Last administered on 06/11/16 17:18; Admin Dose 252 MLS/HR; Start 06/10/16 at 18:00 ; Stop 06/13/16 at 18:15 Doxorubicin HCl/ Sodium Chloride (Adriamycin/NS) 500 ml @ 20.83 mls/ hr Q24H IV ; Start 06/13/16 at 14:00; Stop 06/16/16 at 13:59 Lorazepam (Ativan) 1 mg Q6H PRN IV Hiccups Last administered on 06/12/16 12:01 ; Admin Dose 1 MG; Start 06/10/16 at 21:00 Chlorpromazine (Thorazine) 25 mg BID PRN PO Hiccups Last administered on 05:15; Admin Dose 25 MG; Start 06/10/16 at 21:00 Metoclopramide HCl (Reglan) 10 mg Q6H PRN IV HICCUPS Last administered on 17:18; Admin Dose 10 MG; Start 06/11/16 at 17:00 FABIAN STEINBERG MD Jun 12, 2016 14:09
[2016-06-12] MEDS: SOD CHLORIDE 0.9% IVPB SCH (15:06)
[2016-06-12] MEDS: MESNA IVPB SCH (15:06)
--- NOTE | 2016-06-12 15:45 | PN ---
Date/Time of Note Date/Time of Note DATE: 06/12/16 TIME: 15:43 Assessment/Plan VTE Prophylaxis VTE Prophylaxis Intervention: SCD's Lines/Catheters IV [facility] Type (from [facility] PICC Line Central line still needed: Yes Urinary Cath still in place: No Assessment/Plan Chief Complaint/Hosp Course 1. Patient has lymphoma, has hemotherapy. 2. Leukocytosis. 3. Thrombocytosis. 4. Anemia. 5. Splenomegaly. 6. Allopurinol rash with a diffuse skin rash resolving. Problems: Assessment/Plan plan chemo per dr Jay Subjective 24 Hr Interval Summary Constitutional: other (hiccups) Eyes: no complaints ENT: no complaints Respiratory: no complaints Cardiovascular: no complaints Genitourinary: no complaints Musculoskeletal: no complaints Skin: no complaints Neurologic: no complaints Endocrine: no complaints Exam/Review of Systems Vital Signs Vitals Vital Signs Date Time Temp Pulse Resp B/P Pulse Ox O2 Delivery O2 Flow Rate FiO2 06/12/16 15:09 60 16 144/79 98 Nasal Cannula 3.0 06/12/16 08:12 97.3 Intake and Output 06/11/16 06/11/16 06/12/16 15:00 23:00 07:00 Intake Total 2385 ml 2100 ml Output Total 2950 ml Balance 2385 ml -850 ml Exam Constitutional: alert, oriented Psych: nl mood/affect, no complaints Head: atraumatic, normocephalic Eyes: nl conjunctiva ENMT: nl external ears & nose Neck: supple Respiratory: clear to auscultation Cardiovascular: regular rate and rhythm Results Result Diagram: 06/12/165 06/12/16 0445 Results 24 hrs Laboratory Tests Test 06/12/16 04:45 White Blood Count 56.4 #H Red Blood Count 3.33 L Hemoglobin 9.7 L Hematocrit 32.1 L Mean Corpuscular Volume 96.4 Mean Corpuscular Hemoglobin 29.1 Mean Corpuscular Hemoglobin Concent 30.2 L Red Cell Distribution Width 15.6 H Platelet Count 71 L Mean Platelet Volume 10.1 Neutrophils % 17.0 L Lymphocytes % 83.0 H Monocytes % Basophils % Neutrophils # 9.6 H Lymphocytes # 46.8 H Monocytes # Basophils # Sodium Level 139 Potassium Level 5.0 Chloride Level 103 Carbon Dioxide Level 29 Anion Gap 12 Blood Urea Nitrogen 25 H Creatinine 0.91 Glucose Level 157 Uric Acid 5.5 # Calcium Level 8.8 Phosphorus Level 4.0 Total Bilirubin 0.2 Direct Bilirubin 0.00 Indirect Bilirubin 0.2 Aspartate Amino Transf (AST/SGOT) < 8 #L Alanine Aminotransferase (ALT/SGPT) 45 Alkaline Phosphatase 92 Lactate Dehydrogenase 637 H Total Protein 4.9 L Albumin 2.9 L Globulin 2.00 Albumin/Globulin Ratio 1.45 Medications Medications Current Medications Morphine Sulfate (morphine) 2 mg Q4H PRN IV PAIN; Start 06/08/16 at 13:30 Ondansetron HCl (Zofran Inj) 4 mg Q6H PRN IV NAUSEA AND/OR VOMITING; Start at 13:30 Pantoprazole 40 mg 40 mg DAILY@06 IV Last administered on 06/12/16 05:15; Admin Dose 40 MG; Start 06/09/16 at 06:00 Acetaminophen (Ofirmev 1000mg/ 100ml Iv) 65 ml @ 250 mls/hr Q6H PRN IVPB PAIN ; Start 06/08/16 at 14:30 Meperidine HCl (Demerol) 50 mg Q4H PRN IV ALLERGIC REACTION Last administered on 06/10/16 02:09; Admin Dose 50 MG; Start 06/08/16 at 16:30 Methylprednisolone Sodium Succinate 100 mg 100 mg Q4H PRN IV ALLERGIC REACTION ; Start 06/08/16 at 16:30 Sodium Chloride (NS) 1,000 ml @ 70 mls/hr [id number] IV Last administered on 06/09 09:03; Admin Dose 70 MLS/HR; Start 06/08/16 at 16:18; Status Future Hold Acetaminophen (Tylenol Tab) 650 mg Q6H PRN PO PAIN LEVEL 1-3 OR FEVER Last administered on 06/10/16 04:24; Admin Dose 650 MG; Start 06/08/16 at 16:30 Acetaminophen (Tylenol Supp) 650 mg Q6H PRN [place] PAIN LEVEL 1-3 OR FEVER; Start 06/08/16 at 16:30 Docusate Sodium (Colace) 100 mg Q12H PRN PO CONSTIPATION Last administered on 09:07; Admin Dose 100 MG; Start 06/08/16 at 16:30 Magnesium Hydroxide 30 ml 30 ml DAILY PRN PO CONSTIPATION; Start 06/08/16 at 16 :30 Sodium Chloride (NS) 1,000 ml @ 50 mls/hr Q20H IV Last administered on 12:31; Admin Dose 50 MLS/HR; Start 06/09/16 at 16:00 IV Flush (NS 10 ml) 10 ml PRN PRN IV IV PROTOCOL; Start 06/09/16 at 11:30 Dexamethasone (Decadron) 10 mg Q4H PRN IV ALLERGIC REACTION; Start 06/09/16 at 16:00 Diphenhydramine HCl 25 mg 25 mg Q4H PRN IV ALLERGIC REACTION Last administered on 06/09/16 21:26; Admin Dose 25 MG; Start 06/09/16 at 16:00 Cyclophosphamide 0.6 gm/Sodium Chloride 250 ml @ 83.3 mls/hr Q12H IV Last administered on 06/12/16 12:48; Admin Dose 83.3 MLS/HR; Start 06/10/16 at 11:00 ; Stop 06/13/16 at 02:01 Mesna 1200 mg/ Sodium Chloride 512 ml @ 20.8 mls/hr Q24H IVPB Last administered on 06/12/16 15:06; Admin Dose 20.8 MLS/HR; Start 06/10/16 at 10:00 ; Stop 06/13/16 at 12:00 Ondansetron HCl 16 mg/Famotidine 20 mg/Sodium Chloride 60 ml @ 252 mls/hr Q24H IV Last administered on 06/12/16 12:16; Admin Dose 252 MLS/HR; Start 06/10/16 at 10:30; Stop 06/15/16 at 10:45 Vincristine Sulfate 2 mg/ Sodium Chloride 50 ml @ 100 mls/hr Q7D IV ; Start at 13:00; Stop 06/20/16 at 13:29 Dexamethasone 40 mg/Sodium Chloride 60 ml @ 252 mls/hr Q24H IV Last administered on 06/11/16 17:18; Admin Dose 252 MLS/HR; Start 06/10/16 at 18:00 ; Stop 06/13/16 at 18:15 Doxorubicin HCl/ Sodium Chloride (Adriamycin/NS) 500 ml @ 20.83 mls/ hr Q24H IV ; Start 06/13/16 at 14:00; Stop 06/16/16 at 13:59 Lorazepam (Ativan) 1 mg Q6H PRN IV Hiccups Last administered on 06/12/16 12:01 ; Admin Dose 1 MG; Start 06/10/16 at 21:00 Chlorpromazine (Thorazine) 25 mg BID PRN PO Hiccups Last administered on 05:15; Admin Dose 25 MG; Start 06/10/16 at 21:00 Metoclopramide HCl (Reglan) 10 mg Q6H PRN IV HICCUPS Last administered on 17:18; Admin Dose 10 MG; Start 06/11/16 at 17:00 SYLVIE SOTO Jun 12, 2016 15:44
[2016-06-12] MEDS ORDERED: LORAZEPAM 0.5 MG TAB PO PRN (16:00)
[2016-06-12] MEDS ORDERED: CHLORPROMAZINE 25 MG TAB PO PRN (16:30)
[2016-06-12] MEDS ORDERED: CHLORPROMAZINE 10 MG TAB PO PRN (18:30)
[2016-06-12] MEDS: DEXAMETHASONE IV SCH (18:33)
[2016-06-13] VITALS (14 sets, daily range): BP systolic 118–151; BP diastolic 64–82; PULSE 54–81; RESP 16–20
[2016-06-13] MEDS: DIPHENHYDRAMINE 50 MG INJ IV PRN (00:03)
[2016-06-13] MEDS: ONDANSETRON 4 MG INJ IV PRN (00:03)
[2016-06-13] MEDS: SOD CHLORIDE 0.9% IV SCH ×4 (00:22→18:40)
[2016-06-13] MEDS: CYCLOPHOSPHAMIDE IV SCH (00:22)
[2016-06-13] MEDS: SOD CHLORIDE 0.9% 1,000 ML IV SCH ×2 (00:27→19:26)
[2016-06-13] MEDS: PANTOPRAZOLE 40 MG INJ IV SCH (04:28)
[2016-06-13 04:56] LABS: ADD SCAN DIFF NO
[2016-06-13 05:03] LABS: ABNORMAL IP MESSAGE 1; BASOPHILS % 0.1 % (0.0-2.0); HEMATOCRIT 33.1 % (42.0-52.0); HEMOGLOBIN 10.2 g/dl (14.0-18.0); LYMPHOCYTES # 40.6 10^3/ul (0.8-2.9); MEAN CORPUSCULAR HEMOGLOBIN 29.2 pg (29.0-33.0); MEAN CORPUSCULAR HGB CONC 30.8 g/dl (32.0-37.0); MEAN CORPUSCULAR VOLUME 94.8 fl (82.0-101.0); MEAN PLATELET VOLUME 9.7 fl (7.4-10.4); MONOCYTE # 0.4 10^3/ul (0.3-0.9); MONOCYTES % 0.7 % (0.0-11.0); NEUTROPHIL # 6.1 10^3/ul (1.6-7.5); NEUTROPHILS % 12.9 % (39.0-77.0); PLATELET COUNT 97 10^3/UL (140-415); RED BLOOD COUNT 3.49 10^6/ul (4.70-6.10); RED CELL DISTRIBUTION WIDTH 15.2 % (11.5-14.5); WHITE BLOOD COUNT 47.2 10^3/ul (4.8-10.8)
[2016-06-13 05:23] LABS: ALBUMIN 3.1 g/dl (3.3-4.9)
[2016-06-13 05:24] LABS: POTASSIUM 4.9 mmol/L (3.5-5.1)
[2016-06-13 05:26] LABS: ALBUMIN/GLOBULIN RATIO 1.47; BILIRUBIN,INDIRECT 0.5 mg/dl (0-1.1); BILIRUBIN,TOTAL 0.5 mg/dl (0.2-1.3); CREATININE 0.83 mg/dl (0.61-1.24); TOTAL PROTEIN 5.2 g/dl (6.1-8.1)
[2016-06-13 05:27] LABS: CALCIUM 8.4 mg/dl (8.4-10.2)
[2016-06-13 08:21] LABS: PLATELET ESTIMATE PLT APPEAR DECREASED
[2016-06-13] MEDS: DOCUSATE SODIUM 100 MG CAP PO PRN (08:51)
--- NOTE | 2016-06-13 10:58 | PN ---
Date/Time of Note Date/Time of Note DATE: 06/13/16 TIME: 10:56 Assessment/Plan VTE Prophylaxis VTE Prophylaxis Intervention: ambulation Lines/Catheters IV Catheter Type (from [facility]): PICC Line Central line still needed: Yes Urinary Cath still in place: No Assessment/Plan Chief Complaint/Hosp Course 1. Lymphoma, has hemotherapy. 2. Leukocytosis. 3. Thrombocytosis. 4. Anemia. 5. Splenomegaly. 6. Allopurinol rash with a diffuse skin rash resolving. Problems: Assessment/Plan 1. Continue chemotherapy per dr Graham 2. Ambulate Subjective 24 Hr Interval Summary Constitutional: improved, no complaints Eyes: no complaints ENT: no complaints Respiratory: no complaints Gastrointestinal: no complaints Musculoskeletal: no complaints Exam/Review of Systems Vital Signs Vitals Vital Signs Date Time Temp Pulse Resp B/P Pulse Ox O2 Delivery O2 Flow Rate FiO2 06/13/16 08:19 97.7 61 20 130/77 98 06/13/16 03:03 Nasal Cannula 2.0 Intake and Output 06/12/16 06/12/16 06/13/16 14:59 22:59 06:59 Intake Total 60 ml 1330 ml 1750 ml Output Total 1950 ml 2400 ml Balance 60 ml -620 ml -650 ml Exam Constitutional: alert, oriented, well developed Psych: nl mood/affect, no complaints Head: normocephalic Eyes: nl conjunctiva ENMT: nl external ears & nose Neck: non-tender, supple Respiratory: clear to auscultation Cardiovascular: regular rate and rhythm Gastrointestinal: soft Genitourinary - Male: nl penis Results Result Diagram: 06/13/16 0427 06/13/164 Results 24 hrs Laboratory Tests Test 06/13/16 04:24 06/13/16 04:27 Sodium Level 136 Potassium Level 4.9 Chloride Level 99 Carbon Dioxide Level 28 Anion Gap 14 Blood Urea Nitrogen 26 H Creatinine 0.83 Glucose Level 142 Uric Acid 4.0 Calcium Level 8.4 Phosphorus Level 4.8 Total Bilirubin 0.5 Direct Bilirubin 0.00 Indirect Bilirubin 0.5 Aspartate Amino Transf (AST/SGOT) 10 L Alanine Aminotransferase (ALT/SGPT) 35 Alkaline Phosphatase 85 Lactate Dehydrogenase 576 Total Protein 5.2 L Albumin 3.1 L Globulin 2.10 Albumin/Globulin Ratio 1.47 White Blood Count 47.2 H Red Blood Count 3.49 L Hemoglobin 10.2 L Hematocrit 33.1 L Mean Corpuscular Volume 94.8 Mean Corpuscular Hemoglobin 29.2 Mean Corpuscular Hemoglobin Concent 30.8 L Red Cell Distribution Width 15.2 H Platelet Count 97 #L Mean Platelet Volume 9.7 Neutrophils % 12.9 L Lymphocytes % 86.0 H Monocytes % 0.7 Eosinophils % 0.0 Basophils % 0.1 Nucleated Red Blood Cells % 0.0 Neutrophils # 6.1 Lymphocytes # 40.6 H Monocytes # 0.4 Eosinophils # 0.0 Basophils # 0.0 Nucleated Red Blood Cells # 0.0 Platelet Estimate PLT APPEAR DECREASED Medications Medications Current Medications Morphine Sulfate (morphine) 2 mg Q4H PRN IV PAIN; Start 06/08/16 at 13:30 Ondansetron HCl (Zofran Inj) 4 mg Q6H PRN IV NAUSEA AND/OR VOMITING Last administered on 06/13/16 00:03; Admin Dose 4 MG; Start 06/08/16 at 13:30 Pantoprazole 40 mg 40 mg DAILY@06 IV Last administered on 06/13/16 04:28; Admin Dose 40 MG; Start 06/09/16 at 06:00 Acetaminophen (Ofirmev 1000mg/ 100ml Iv) 65 ml @ 250 mls/hr Q6H PRN IVPB PAIN ; Start 06/08/16 at 14:30 Meperidine HCl (Demerol) 50 mg Q4H PRN IV ALLERGIC REACTION Last administered on 06/10/16 02:09; Admin Dose 50 MG; Start 06/08/16 at 16:30 Methylprednisolone Sodium Succinate 100 mg 100 mg Q4H PRN IV ALLERGIC REACTION ; Start 06/08/16 at 16:30 Sodium Chloride (NS) 1,000 ml @ 70 mls/hr [id number] IV Last administered on 06/09 09:03; Admin Dose 70 MLS/HR; Start 06/08/16 at 16:18; Status Future Hold Acetaminophen (Tylenol Tab) 650 mg Q6H PRN PO PAIN LEVEL 1-3 OR FEVER Last administered on 06/10/16 04:24; Admin Dose 650 MG; Start 06/08/16 at 16:30 Acetaminophen (Tylenol Supp) 650 mg Q6H PRN [place] PAIN LEVEL 1-3 OR FEVER; Start 06/08/16 at 16:30 Docusate Sodium (Colace) 100 mg Q12H PRN PO CONSTIPATION Last administered on 08:51; Admin Dose 100 MG; Start 06/08/16 at 16:30 Magnesium Hydroxide 30 ml 30 ml DAILY PRN PO CONSTIPATION Last administered on 06/12/16 21:02; Admin Dose 30 ML; Start 06/08/16 at 16:30 Sodium Chloride (NS) 1,000 ml @ 50 mls/hr Q20H IV Last administered on 00:27; Admin Dose 50 MLS/HR; Start 06/09/16 at 16:00 IV Flush (NS 10 ml) 10 ml PRN PRN IV IV PROTOCOL; Start 06/09/16 at 11:30 Dexamethasone (Decadron) 10 mg Q4H PRN IV ALLERGIC REACTION; Start 06/09/16 at 16:00 Diphenhydramine HCl 25 mg 25 mg Q4H PRN IV ALLERGIC REACTION Last administered on 06/13/16 00:03; Admin Dose 25 MG; Start 06/09/16 at 16:00 [place] 1200 mg/ Sodium Chloride 512 ml @ 20.8 mls/hr Q24H IVPB Last administered on 06/12/16 15:06; Admin Dose 20.8 MLS/HR; Start 06/10/16 at 10:00 ; Stop 06/13/16 at 12:00 Ondansetron HCl 16 mg/Famotidine 20 mg/Sodium Chloride 60 ml @ 252 mls/hr Q24H IV Last administered on 06/12/16 12:16; Admin Dose 252 MLS/HR; Start 06/10/16 at 10:30; Stop 06/15/16 at 10:45 Vincristine Sulfate 2 mg/ Sodium Chloride 50 ml @ 100 mls/hr Q7D IV ; Start at 13:00; Stop 06/20/16 at 13:29 Dexamethasone 40 mg/Sodium Chloride 60 ml @ 252 mls/hr Q24H IV Last administered on 06/12/16 18:33; Admin Dose 252 MLS/HR; Start 06/10/16 at 18:00 ; Stop 06/13/16 at 18:15 Doxorubicin HCl/ Sodium Chloride (Adriamycin/NS) 500 ml @ 20.83 mls/ hr Q24H IV ; Start 06/13/16 at 14:00; Stop 06/16/16 at 13:59 Lorazepam (Ativan) 1 mg Q6H PRN IV Hiccups Last administered on 06/12/16t 12:01 ; Admin Dose 1 MG; Start 06/10/16 at 21:00 Lorazepam (Ativan) 0.5 mg Q8H PRN PO NOTE; Start 06/12/16 at 16:00 Chlorpromazine (Thorazine) 10 mg BID PRN PO hiccups; Start 06/12/16 at 18:30 Lactulose (Enulose) 10 gm BID PRN PO CONSTIPATION; Start 06/13/16 at 10:30 SYLVIE SOTO Jun 13, 2016 10:57
--- NOTE | 2016-06-13 11:53 | PN ---
Date/Time of Note Date/Time of Note DATE: 06/13/16 TIME: 11:48 Assessment/Plan VTE Prophylaxis VTE Prophylaxis Intervention: ambulation Lines/Catheters IV Catheter Type (from [facility]): PICC Line Central line still needed: Yes Urinary Cath still in place: No Assessment/Plan Assessment/Plan 55 yo male with aggressive mantle cell lymphoma stage IV with involvement of the spleen and likely bone marrow presents with chills, tactile fevers, loss of appetite, and generalized weakness. - Given the aggressive nature of disease now on R-HyperCVAD. #Mantle Cell lymphoma -echocardiogram shows normal EF -s/p Rituxan 06/09/16, PICC line in place, Hep panel and HIV negative -started HyperCVAD 06/10/16, tolerating well so far -Pt will need Intrathecal chemotherapy with methotrexate/cytarabine/ hydrocoritone. Will order for Wednesday once peripheral blasts have cleared -continue to check daily tumor lysis labs including CMP, LDH, URIC acid, phosphorus. Rasburicase given on 06/08/16, 06/10/16, 06/11/16. Will re-dose as necessary. NOTE patient is ALLERGIC to allopurinol, and last urate wnl. -Pt will need out patient referral to [facility] for autologous BMT in first remission (case management pending [facility] to contact [facility]). -BMBx (performed 06/05/16 as an outpatient) shows involvement by mantle cell lymphoma, so its a stage 4 -can add reglan prn, increase dose of thorazine prn for hiccups, for now stable. -adding lactulose for constipation. -cbc diff stable for now. Chemo regimen Cyclophosphamide 300 mg/m2 IV over 3 hours Q12 hours x 6 doses D2-4 Vincristine 1.4 mg/m2 (2 mg max) IV once per day D5 and D12 Doxorubicin 16.7 mg/m2 CIV over 72 hours D5-7 Dexamethasone 40 mg IV D2-5, D12-15 Mesna 600 mg/m2 CIV over 76 hours D2-4 Subjective 24 Hr Interval Summary Free Text/Dictation fatigue and weakness Respiratory: no complaints Cardiovascular: no complaints Gastrointestinal: constipation, decreased appetite, pain Exam/Review of Systems Vital Signs Vitals Vital Signs Date Time Temp Pulse Resp B/P Pulse Ox O2 Delivery O2 Flow Rate FiO2 06/13/16 08:19 97.7 61 20 130/77 98 3/25/17 03:03 Nasal Cannula 2.0 Intake and Output 06/12/16 06/12/16 06/13/16 15:00 23:00 07:00 Intake Total 60 ml 1330 ml 1750 ml Output Total 1950 ml 2400 ml Balance 60 ml -620 ml -650 ml Exam Constitutional: alert, oriented Psych: nl mood/affect Eyes: nl conjunctiva Neck: supple Respiratory: normal air movement Gastrointestinal: soft Results Result Diagram: 06/13/16 0427 06/13/16 0424 Results 24 hrs Laboratory Tests Test 06/13/16 04:24 06/13/16 04:27 Sodium Level 136 Potassium Level 4.9 Chloride Level 99 Carbon Dioxide Level 28 Anion Gap 14 Blood Urea Nitrogen 26 H Creatinine 0.83 Glucose Level 142 Uric Acid 4.0 Calcium Level 8.4 Phosphorus Level 4.8 Total Bilirubin 0.5 Direct Bilirubin 0.00 Indirect Bilirubin 0.5 Aspartate Amino Transf (AST/SGOT) 10 L Alanine Aminotransferase (ALT/SGPT) 35 Alkaline Phosphatase 85 Lactate Dehydrogenase 576 Total Protein 5.2 L Albumin 3.1 L Globulin 2.10 Albumin/Globulin Ratio 1.47 White Blood Count 47.2 H Red Blood Count 3.49 L Hemoglobin 10.2 L Hematocrit 33.1 L Mean Corpuscular Volume 94.8 Mean Corpuscular Hemoglobin 29.2 Mean Corpuscular Hemoglobin Concent 30.8 L Red Cell Distribution Width 15.2 H Platelet Count 97 #L Mean Platelet Volume 9.7 Neutrophils % 12.9 L Lymphocytes % 86.0 H Monocytes % 0.7 Eosinophils % 0.0 Basophils % 0.1 Nucleated Red Blood Cells % 0.0 Neutrophils # 6.1 Lymphocytes # 40.6 H Monocytes # 0.4 Eosinophils # 0.0 Basophils # 0.0 Nucleated Red Blood Cells # 0.0 Platelet Estimate PLT APPEAR DECREASED Medications Medications Current Medications Morphine Sulfate (morphine) 2 mg Q4H PRN IV PAIN; Start 06/08/16 at 13:30 Ondansetron HCl (Zofran Inj) 4 mg Q6H PRN IV NAUSEA AND/OR VOMITING Last administered on 06/13/16 00:03; Admin Dose 4 MG; Start 06/08/16 at 13:30 Pantoprazole 40 mg 40 mg DAILY@06 IV Last administered on 06/13/16 04:28; Admin Dose 40 MG; Start 06/09/16 at 06:00 Acetaminophen (Ofirmev 1000mg/ 100ml Iv) 65 ml @ 250 mls/hr Q6H PRN IVPB PAIN ; Start 06/08/16 at 14:30 Meperidine HCl (Demerol) 50 mg Q4H PRN IV ALLERGIC REACTION Last administered on 06/10/16 02:09; Admin Dose 50 MG; Start 06/08/16 at 16:30 Methylprednisolone Sodium Succinate 100 mg 100 mg Q4H PRN IV ALLERGIC REACTION ; Start 06/08/16 at 16:30 Sodium Chloride (NS) 1,000 ml @ 70 mls/hr [id number] IV Last administered on 06/09 09:03; Admin Dose 70 MLS/HR; Start 06/08/16 at 16:18; Status Future Hold Acetaminophen (Tylenol Tab) 650 mg Q6H PRN PO PAIN LEVEL 1-3 OR FEVER Last administered on 06/10/16 04:24; Admin Dose 650 MG; Start 06/08/16 at 16:30 Acetaminophen (Tylenol Supp) 650 mg Q6H PRN [place] PAIN LEVEL 1-3 OR FEVER; Start 06/08/16 at 16:30 Docusate Sodium (Colace) 100 mg Q12H PRN PO CONSTIPATION Last administered on 08:51; Admin Dose 100 MG; Start 06/08/16 at 16:30 Magnesium Hydroxide 30 ml 30 ml DAILY PRN PO CONSTIPATION Last administered on 06/12/16 21:02; Admin Dose 30 ML; Start 06/08/16 at 16:30 Sodium Chloride (NS) 1,000 ml @ 50 mls/hr Q20H IV Last administered on 00:27; Admin Dose 50 MLS/HR; Start 06/09/16 at 16:00 IV Flush (NS 10 ml) 10 ml PRN PRN IV IV PROTOCOL; Start 06/09/16 at 11:30 Dexamethasone (Decadron) 10 mg Q4H PRN IV ALLERGIC REACTION; Start 06/09/16 at 16:00 Diphenhydramine HCl 25 mg 25 mg Q4H PRN IV ALLERGIC REACTION Last administered on 06/13/16 00:03; Admin Dose 25 MG; Start 06/09/16 at 16:00 Mesna 1200 mg/ Sodium Chloride 512 ml @ 20.8 mls/hr Q24H IVPB Last administered on 06/12/16 15:06; Admin Dose 20.8 MLS/HR; Start 06/10/16 at 10:00 ; Stop 06/13/16 at 12:00 Ondansetron HCl 16 mg/Famotidine 20 mg/Sodium Chloride 60 ml @ 252 mls/hr Q24H IV Last administered on 06/12/16 12:16; Admin Dose 252 MLS/HR; Start 06/10/16 at 10:30; Stop 06/15/16 at 10:45 Vincristine Sulfate 2 mg/ Sodium Chloride 50 ml @ 100 mls/hr Q7D IV ; Start at 13:00; Stop 06/20/16 at 13:29 Dexamethasone 40 mg/Sodium Chloride 60 ml @ 252 mls/hr Q24H IV Last administered on 06/12/16 18:33; Admin Dose 252 MLS/HR; Start 06/10/16 at 18:00 ; Stop 06/13/16 at 18:15 Doxorubicin HCl/ Sodium Chloride (Adriamycin/NS) 500 ml @ 20.83 mls/ hr Q24H IV ; Start 06/13/16 at 14:00; Stop 06/16/16 at 13:59 Lorazepam (Ativan) 1 mg Q6H PRN IV Hiccups Last administered on 06/12/16 12:01 ; Admin Dose 1 MG; Start 06/10/16 at 21:00 Lorazepam (Ativan) 0.5 mg Q8H PRN PO NOTE; Start 06/12/16 at 16:00 Chlorpromazine (Thorazine) 10 mg BID PRN PO hiccups; Start 06/12/16 at 18:30 Lactulose (Enulose) 10 gm BID PRN PO CONSTIPATION; Start 06/13/16 at 10:30 WALI KELLER MD Jun 13, 2016 11:53
[2016-06-13] MEDS: ONDANSETRON IV SCH (12:13)
[2016-06-13] MEDS: FAMOTIDINE IV SCH (12:13)
[2016-06-13] MEDS: vinCRISTine 2 MG in SOD CHLORIDE 0.9% 50 ML IV SCH (13:22)
[2016-06-13] MEDS: LACTULOSE 30ML CUP PO PRN (13:55)
[2016-06-13] MEDS: DOXORUBICIN IV SCH (14:22)
[2016-06-13] MEDS: MESNA IVPB SCH (18:40)
[2016-06-13] MEDS: SOD CHLORIDE 0.9% IVPB SCH (18:40)
[2016-06-13] MEDS: DEXAMETHASONE IV SCH (18:40)
[2016-06-14 00:06] VITALS: BP 124/68; PULSE 60; RESP 18
[2016-06-14] MEDS: DIPHENHYDRAMINE 50 MG INJ IV PRN (00:37)
[2016-06-14] MEDS: ONDANSETRON 4 MG INJ IV PRN ×2 (00:37→09:57)
[2016-06-14 03:41] VITALS: BP 120/58; PULSE 60; RESP 18
[2016-06-14 06:02] LABS: ADD SCAN DIFF NO
[2016-06-14 06:09] LABS: ABNORMAL IP MESSAGE 1; HEMATOCRIT 38.5 % (42.0-52.0); MEAN CORPUSCULAR HEMOGLOBIN 29.2 pg (29.0-33.0); MEAN CORPUSCULAR HGB CONC 31.2 g/dl (32.0-37.0); MEAN CORPUSCULAR VOLUME 93.7 fl (82.0-101.0); MEAN PLATELET VOLUME 8.9 fl (7.4-10.4); PLATELET COUNT 142 10^3/UL (140-415); RED BLOOD COUNT 4.11 10^6/ul (4.70-6.10); RED CELL DISTRIBUTION WIDTH 14.8 % (11.5-14.5)
[2016-06-14] MEDS: PANTOPRAZOLE 40 MG INJ IV SCH (06:16)
[2016-06-14 06:17] LABS: ALBUMIN 3.4 g/dl (3.3-4.9); POTASSIUM 5.1 mmol/L (3.5-5.1)
[2016-06-14 06:20] LABS: ALBUMIN/GLOBULIN RATIO 1.61; BILIRUBIN,INDIRECT 0.7 mg/dl (0-1.1); BILIRUBIN,TOTAL 0.7 mg/dl (0.2-1.3); CALCIUM 8.9 mg/dl (8.4-10.2); CREATININE 0.98 mg/dl (0.61-1.24); TOTAL PROTEIN 5.5 g/dl (6.1-8.1); URIC ACID 6.9 mg/dl (3.1-7.9)
[2016-06-14 06:32] LABS: INR 1.26; PROTIME 15.9 Sec (12.2-14.2); PT RATIO 1.2
[2016-06-14 06:33] LABS: PARTIAL THROMBOPLASTIN TIME 24.7 Sec (25.0-35.0)
[2016-06-14 07:39] VITALS: BP 139/81; RESP 18
[2016-06-14 11:12] LABS: BURR CELLS 1+; NEUTROPHIL # 4.5 10^3/ul (1.6-7.5)
--- NOTE | 2016-06-14 13:04 | PN ---
Date/Time of Note Date/Time of Note DATE: 06/14/16 TIME: 12:59 Assessment/Plan VTE Prophylaxis VTE Prophylaxis Intervention: ambulation Lines/Catheters IV Catheter Type (from [facility]): PICC Line Central line still needed: Yes Urinary Cath still in place: No Assessment/Plan Assessment/Plan 55 yo male with aggressive mantle cell lymphoma stage IV with involvement of the spleen and likely bone marrow presents with chills, tactile fevers, loss of appetite, and generalized weakness. - Given the aggressive nature of disease now on R-HyperCVAD. #Mantle Cell lymphoma -echocardiogram showed normal EF -s/p Rituxan 06/09/16, PICC line in place, Hep panel and HIV negative -started HyperCVAD 06/10/16, tolerating well so far except nausea vomiting, on antiemetics. -Pt will need Intrathecal chemotherapy with methotrexate/cytarabine/ hydrocoritone. Will order for Wednesday once peripheral blasts have cleared and ordered flow cytometry and MRI brain as recommended by Dr Dimas. -continue to check daily tumor lysis labs including CMP, LDH, URIC acid, phosphorus. Rasburicase given on 06/08/16, 06/10/16, 06/11/16. Will re-dose as necessary. NOTE patient is ALLERGIC to allopurinol, and last urate wnl. -Pt will need out patient referral to [facility] for autologous BMT in first remission (case management pending [facility] to contact [facility]). -BMBx (performed 06/05/16 as an outpatient) shows involvement by mantle cell lymphoma, so its a stage 4 -on reglan prn, increase dose of thorazine prn for hiccups, for now stable. -adding lactulose for constipation. -cbc diff stable for now. -just finished high dose decadron and has high wbc but flow being done tomorrow. extensive d/w patient re: current rx, supportive care and briefly about questions related to BM transplant in future. Subjective 24 Hr Interval Summary Free Text/Dictation nausea and decreased appetite ENT: no complaints Respiratory: no complaints Exam/Review of Systems Vital Signs Vitals Vital Signs Date Time Temp Pulse Resp B/P Pulse Ox O2 Delivery O2 Flow Rate FiO2 06/14/16 07:39 97.5 66 18 139/81 99 06/14/16 03:41 Room Air 06/13/16 15:45 2.0 Intake and Output 06/13/16 06/13/16 06/14/16 15:00 23:00 07:00 Intake Total 110 ml 460 ml 2250 ml Output Total 750 ml 1800 ml Balance 110 ml -290 ml 450 ml Exam Constitutional: alert, oriented Psych: nl mood/affect Eyes: nl conjunctiva Neck: supple Respiratory: normal air movement Results Result Diagram: 06/14/16 0449 06/14/169 Results 24 hrs Laboratory Tests Test 06/14/16 04:49 White Blood Count 64.0 #H Red Blood Count 4.11 L Hemoglobin 12.0 L Hematocrit 38.5 L Mean Corpuscular Volume 93.7 Mean Corpuscular Hemoglobin 29.2 Mean Corpuscular Hemoglobin Concent 31.2 L Red Cell Distribution Width 14.8 H Platelet Count 142 # Mean Platelet Volume 8.9 Neutrophils % 7.0 L Lymphocytes % 89.0 H Monocytes % Basophils % Neutrophils # 4.5 Lymphocytes # 57.0 H Monocytes # Basophils # Differential Comment MANUAL DIFF Prothrombin Time 15.9 H Prothrombin Time Ratio 1.2 INR International Normalized Ratio 1.26 Activated Partial Thromboplast Time 24.7 L Sodium Level 137 Potassium Level 5.1 Chloride Level 99 Carbon Dioxide Level 31 Anion Gap 12 Blood Urea Nitrogen 26 H Creatinine 0.98 Glucose Level 140 Uric Acid 6.9 # Calcium Level 8.9 Phosphorus Level 5.1 H Total Bilirubin 0.7 Direct Bilirubin 0.00 Indirect Bilirubin 0.7 Aspartate Amino Transf (AST/SGOT) 10 L Alanine Aminotransferase (ALT/SGPT) 29 Alkaline Phosphatase 86 Lactate Dehydrogenase 548 Total Protein 5.5 L Albumin 3.4 Globulin 2.10 Albumin/Globulin Ratio 1.61 Medications Medications Current Medications Morphine Sulfate (morphine) 2 mg Q4H PRN IV PAIN; Start 06/08/16 at 13:30 Ondansetron HCl (Zofran Inj) 4 mg Q6H PRN IV NAUSEA AND/OR VOMITING Last administered on 06/14/16 09:57; Admin Dose 4 MG; Start 06/08/16 at 13:30 Pantoprazole 40 mg 40 mg DAILY@06 IV Last administered on 06/14/16 06:16; Admin Dose 40 MG; Start 06/09/16 at 06:00 Acetaminophen (Ofirmev 1000mg/ 100ml Iv) 65 ml @ 250 mls/hr Q6H PRN IVPB PAIN ; Start 06/08/16 at 14:30 Meperidine HCl (Demerol) 50 mg Q4H PRN IV ALLERGIC REACTION Last administered on 06/10/16 02:09; Admin Dose 50 MG; Start 06/08/16 at 16:30 Methylprednisolone Sodium Succinate 100 mg 100 mg Q4H PRN IV ALLERGIC REACTION ; Start 06/08/16 at 16:30 Sodium Chloride (NS) 1,000 ml @ 70 mls/hr [id number] IV Last administered on 06/09 09:03; Admin Dose 70 MLS/HR; Start 06/08/16 at 16:18; Status Future Hold Acetaminophen (Tylenol Tab) 650 mg Q6H PRN PO PAIN LEVEL 1-3 OR FEVER Last administered on 06/10/16 04:24; Admin Dose 650 MG; Start 06/08/16 at 16:30 Acetaminophen (Tylenol Supp) 650 mg Q6H PRN [place] PAIN LEVEL 1-3 OR FEVER; Start 06/08/16 at 16:30 Docusate Sodium (Colace) 100 mg Q12H PRN PO CONSTIPATION Last administered on 08:51; Admin Dose 100 MG; Start 06/08/16 at 16:30 Magnesium Hydroxide 30 ml 30 ml DAILY PRN PO CONSTIPATION Last administered on 06/12/16 21:02; Admin Dose 30 ML; Start 06/08/16 at 16:30 Sodium Chloride (NS) 1,000 ml @ 50 mls/hr Q20H IV Last administered on 19:26; Admin Dose 50 MLS/HR; Start 06/09/16 at 16:00 IV Flush (NS 10 ml) 10 ml PRN PRN IV IV PROTOCOL; Start 06/09/16 at 11:30 Dexamethasone (Decadron) 10 mg Q4H PRN IV ALLERGIC REACTION; Start 06/09/16 at 16:00 Diphenhydramine HCl 25 mg 25 mg Q4H PRN IV ALLERGIC REACTION Last administered on 06/14/16 00:37; Admin Dose 25 MG; Start 06/09/16 at 16:00 Ondansetron HCl 16 mg/Famotidine 20 mg/Sodium Chloride 60 ml @ 252 mls/hr Q24H IV Last administered on 06/13/16 12:13; Admin Dose 252 MLS/HR; Start 06/10/16 at 10:30; Stop 06/15/16 at 10:45 Vincristine Sulfate 2 mg/ Sodium Chloride 50 ml @ 100 mls/hr Q7D IV Last administered on 06/13/16 13:22; Admin Dose 100 MLS/HR; Start 06/13/16 at 13:00 ; Stop 06/20/16 at 13:29 Doxorubicin HCl/ Sodium Chloride (Adriamycin/NS) 500 ml @ 20.83 mls/ hr Q24H IV Last administered on 06/13/16 14:22; Admin Dose 20.83 MLS/HR; Start at 14:00; Stop 06/16/16 at 13:59 Lorazepam (Ativan) 1 mg Q6H PRN IV Hiccups Last administered on 06/12/16 12:01 ; Admin Dose 1 MG; Start 06/10/16 at 21:00 Lorazepam (Ativan) 0.5 mg Q8H PRN PO NOTE; Start 06/12/16 at 16:00 Chlorpromazine (Thorazine) 10 mg BID PRN PO hiccups; Start 06/12/16 at 18:30 Lactulose (Enulose) 10 gm BID PRN PO CONSTIPATION Last administered on 13:55; Admin Dose 10 GM; Start 06/13/16 at 10:30 WALI KELLER MD Jun 14, 2016 13:04
[2016-06-14 13:52] VITALS: BP 128/78; PULSE 58; RESP 18
--- NOTE | 2016-06-14 16:22 | PN ---
Date/Time of Note Date/Time of Note DATE: 06/14/16 TIME: 16:21 Assessment/Plan VTE Prophylaxis VTE Prophylaxis Intervention: other Lines/Catheters IV Catheter Type (from Nrsg): PICC Line Central line still needed: Yes Urinary Cath still in place: No Reason Cath still needed: other (indicate) Assessment/Plan Chief Complaint/Hosp Course IMPRESSION: 1. Patient has lymphoma. 2. Leukocytosis. 3. Thrombocytosis. 4. Anemia. 5. Splenomegaly. 6. Allopurinol rash with a diffuse skin rash resolving. plan chemo per dr clements Problems: Subjective 24 Hr Interval Summary Cardiovascular: no complaints Gastrointestinal: no complaints, No nausea, No vomiting Exam/Review of Systems Vital Signs Vitals Vital Signs Date Time Temp Pulse Resp B/P Pulse Ox O2 Delivery O2 Flow Rate FiO2 06/14/16 13:52 97.9 58 18 128/78 98 Room Air 06/13/16 15:45 2.0 Intake and Output 06/13/16 06/13/16 06/14/16 15:00 23:00 07:00 Intake Total 110 ml 460 ml 2250 ml Output Total 750 ml 1800 ml Balance 110 ml -290 ml 450 ml Exam Neck: supple Respiratory: clear to auscultation Cardiovascular: regular rate and rhythm Gastrointestinal: soft Musculoskeletal: nl extremities to inspection Extremities: normal pulses Results Result Diagram: 06/14/169 06/14/169 Results 24 hrs Laboratory Tests Test 06/14/16 04:49 White Blood Count 64.0 #H Red Blood Count 4.11 L Hemoglobin 12.0 L Hematocrit 38.5 L Mean Corpuscular Volume 93.7 Mean Corpuscular Hemoglobin 29.2 Mean Corpuscular Hemoglobin Concent 31.2 L Red Cell Distribution Width 14.8 H Platelet Count 142 # Mean Platelet Volume 8.9 Neutrophils % 7.0 L Lymphocytes % 89.0 H Monocytes % Basophils % Neutrophils # 4.5 Lymphocytes # 57.0 H Monocytes # Basophils # Differential Comment MANUAL DIFF Prothrombin Time 15.9 H Prothrombin Time Ratio 1.2 INR International Normalized Ratio 1.26 Activated Partial Thromboplast Time 24.7 L Sodium Level 137 Potassium Level 5.1 Chloride Level 99 Carbon Dioxide Level 31 Anion Gap 12 Blood Urea Nitrogen 26 H Creatinine 0.98 Glucose Level 140 Uric Acid 6.9 # Calcium Level 8.9 Phosphorus Level 5.1 H Total Bilirubin 0.7 Direct Bilirubin 0.00 Indirect Bilirubin 0.7 Aspartate Amino Transf (AST/SGOT) 10 L Alanine Aminotransferase (ALT/SGPT) 29 Alkaline Phosphatase 86 Lactate Dehydrogenase 548 Total Protein 5.5 L Albumin 3.4 Globulin 2.10 Albumin/Globulin Ratio 1.61 Medications Medications Current Medications Morphine Sulfate (morphine) 2 mg Q4H PRN IV PAIN; Start 06/08/16 at 13:30 Ondansetron HCl (Zofran Inj) 4 mg Q6H PRN IV NAUSEA AND/OR VOMITING Last administered on 06/14/16 09:57; Admin Dose 4 MG; Start 06/08/16 at 13:30 Pantoprazole 40 mg 40 mg DAILY@06 IV Last administered on 06/14/16 06:16; Admin Dose 40 MG; Start 06/09/16 at 06:00 Acetaminophen (Ofirmev 1000mg/ 100ml Iv) 65 ml @ 250 mls/hr Q6H PRN IVPB PAIN ; Start 06/08/16 at 14:30 Meperidine HCl (Demerol) 50 mg Q4H PRN IV ALLERGIC REACTION Last administered on 06/10/16 02:09; Admin Dose 50 MG; Start 06/08/16 at 16:30 Methylprednisolone Sodium Succinate 100 mg 100 mg Q4H PRN IV ALLERGIC REACTION ; Start 06/08/16 at 16:30 Sodium Chloride (NS) 1,000 ml @ 70 mls/hr [id number] IV Last administered on 06/09 09:03; Admin Dose 70 MLS/HR; Start 06/08/16 at 16:18; Status Future Hold Acetaminophen (Tylenol Tab) 650 mg Q6H PRN PO PAIN LEVEL 1-3 OR FEVER Last administered on 06/10/16 04:24; Admin Dose 650 MG; Start 06/08/16 at 16:30 Acetaminophen (Tylenol Supp) 650 mg Q6H PRN [place] PAIN LEVEL 1-3 OR FEVER; Start 06/08/16 at 16:30 Docusate Sodium (Colace) 100 mg Q12H PRN PO CONSTIPATION Last administered on 08:51; Admin Dose 100 MG; Start 06/08/16 at 16:30 Magnesium Hydroxide 30 ml 30 ml DAILY PRN PO CONSTIPATION Last administered on 06/12/16 21:02; Admin Dose 30 ML; Start 06/08/16 at 16:30 Sodium Chloride (NS) 1,000 ml @ 50 mls/hr Q20H IV Last administered on 19:26; Admin Dose 50 MLS/HR; Start 06/09/16 at 16:00 IV Flush (NS 10 ml) 10 ml PRN PRN IV IV PROTOCOL; Start 06/09/16 at 11:30 Dexamethasone (Decadron) 10 mg Q4H PRN IV ALLERGIC REACTION; Start 06/09/16 at 16:00 Diphenhydramine HCl 25 mg 25 mg Q4H PRN IV ALLERGIC REACTION Last administered on 06/14/16 00:37; Admin Dose 25 MG; Start 06/09/16 at 16:00 Ondansetron HCl 16 mg/Famotidine 20 mg/Sodium Chloride 60 ml @ 252 mls/hr Q24H IV Last administered on 06/13/16 12:13; Admin Dose 252 MLS/HR; Start 06/10/16 at 10:30; Stop 06/15/16 at 10:45 Vincristine Sulfate 2 mg/ Sodium Chloride 50 ml @ 100 mls/hr Q7D IV Last administered on 06/13/16 13:22; Admin Dose 100 MLS/HR; Start 06/13/16 at 13:00 ; Stop 06/20/16 at 13:29 Doxorubicin HCl/ Sodium Chloride (Adriamycin/NS) 500 ml @ 20.83 mls/ hr Q24H IV Last administered on 06/13/16 14:22; Admin Dose 20.83 MLS/HR; Start at 14:00; Stop 06/16/16 at 13:59 Lorazepam (Ativan) 1 mg Q6H PRN IV Hiccups Last administered on 06/12/16 12:01 ; Admin Dose 1 MG; Start 06/10/16 at 21:00 Lorazepam (Ativan) 0.5 mg Q8H PRN PO NOTE; Start 06/12/16 at 16:00 Chlorpromazine (Thorazine) 10 mg BID PRN PO hiccups; Start 06/12/16 at 18:30 Lactulose (Enulose) 10 gm BID PRN PO CONSTIPATION Last administered on 13:55; Admin Dose 10 GM; Start 06/13/16 at 10:30 TIFFANIE LI MD Jun 14, 2016 16:22
[2016-06-14 20:08] VITALS: BP 135/77; RESP 16
[2016-06-14] MEDS: ONDANSETRON IV SCH (21:24)
[2016-06-14] MEDS: SOD CHLORIDE 0.9% IV SCH ×2 (21:24→21:52)
[2016-06-14] MEDS: FAMOTIDINE IV SCH (21:24)
[2016-06-14] MEDS: DOXORUBICIN IV SCH (21:52)
[2016-06-14 22:14] VITALS: BP 128/76; PULSE 62
--- NOTE | 2016-06-14 22:23 | RADRPT ---
PROCEDURE: MRI Brain with contrast. CLINICAL INDICATION: Pre lumbar puncture in a patient with known lymphoma prior to intrathecal cortez motherapy TECHNIQUE: An MRI of the brain was performed on a GE short bore high-definition 1.5 brigitte scanner utilizing the following sequences: Sagittal and axial T1 weighted, axial T2 weighted, coronal GRE, a xial diffusion weighted with ADC mapping, and post contrast axial SPGR and postcontrast axial T1 FLA IR and coronal T1 weighted and axial FLAIR. Additionally, coronal GRE, thin section coronal FLAIR a nd coronal T1-weighted SPGR sequences were acquired. 10 cc of Magnevist was given intravenously wit hout complication. COMPARISON: None available FINDINGS: No high signal abnormalities are seen on the diffusion-weighted images to suggest the presence of ac milan ischemia or recent infarct. No GRE hypointensity is evident to suggest the presence of blood d egradation products. There is no evidence of intracranial hemorrhage, mass effect, or midline shift . No extra-axial fluid collections are seen. The ventricles and sulci are age appropriate. Mild dif fuse volume loss is present. On the FLAIR and T2-weighted sequences, punctate foci of hyperintensit y are present in the bilateral centrum semiovale and periventricular white matter. These are compat ible with nonspecific migrainous vasculopathy, vasculitis, or early microvascular ischemic disease. following contrast administration, no abnormal enhancement is present of the brain, pachymeningeal, or leptomeninges. Normal flow voids are visible in the proximal intracranial arteries and dural sinuses, indicating pa tency. The visualized scalp and calvarium are normal. The bilateral orbits are normal. The bilate ral paranasal sinuses are remarkable for bilateral chronic sinus disease with mucous retention cysts in the maxillary sinuses. The bilateral mastoid air cells and middle ear cavities are clear. IMPRESSION: 1. No evidence for acute intracranial infarcts, hemorrhage,intracranial pathology or abnormal enhan cement. 2. Nonspecific chronic white matter hyperintense foci compatible with early microvascular ischemic disease, vasculitis, or migrainous vasculopathy. 3. Mild diffuse volume loss 4. Chronic bilateral maxillary sinus disease A call report was made to ARIANNA Renee at 06/14/2016 10:20:32 PM following the completion of the e xamination by the [facility]. RPTAT: HDC .Cyndy Benson MD, MD Date Time Electronically viewed and signed by .Cyndy Benson MD, MD on 06/14/2016 22:22 .C/
[2016-06-15 00:39] VITALS: BP 133/72
[2016-06-15 05:22] VITALS: BP 133/80; PULSE 68; RESP 18
[2016-06-15] MEDS: PANTOPRAZOLE 40 MG INJ IV SCH (06:00)
[2016-06-15] MEDS: SOD CHLORIDE 0.9% 1,000 ML IV SCH ×2 (06:04→10:19)
[2016-06-15 07:47] VITALS: BP 128/70; RESP 18
[2016-06-15 08:18] LABS: ADD SCAN DIFF NO
[2016-06-15 08:27] LABS: ABNORMAL IP MESSAGE 1; HEMATOCRIT 39.4 % (42.0-52.0); HEMOGLOBIN 12.6 g/dl (14.0-18.0); MEAN CORPUSCULAR HEMOGLOBIN 29.4 pg (29.0-33.0); MEAN CORPUSCULAR VOLUME 92.1 fl (82.0-101.0); MEAN PLATELET VOLUME 8.6 fl (7.4-10.4); PLATELET COUNT 133 10^3/UL (140-415); RED BLOOD COUNT 4.28 10^6/ul (4.70-6.10); RED CELL DISTRIBUTION WIDTH 14.7 % (11.5-14.5); WHITE BLOOD COUNT 43.6 10^3/ul (4.8-10.8)
[2016-06-15 08:32] LABS: ALBUMIN 3.3 g/dl (3.3-4.9)
[2016-06-15 08:33] LABS: POTASSIUM 3.9 mmol/L (3.5-5.1)
[2016-06-15 08:35] LABS: BILIRUBIN,INDIRECT 1.4 mg/dl (0-1.1); BILIRUBIN,TOTAL 1.4 mg/dl (0.2-1.3); CREATININE 1.01 mg/dl (0.61-1.24); TOTAL PROTEIN 5.2 g/dl (6.1-8.1)
[2016-06-15 08:36] LABS: ALBUMIN/GLOBULIN RATIO 1.73; CALCIUM 8.7 mg/dl (8.4-10.2); URIC ACID 8.9 mg/dl (3.1-7.9)
[2016-06-15 10:26] LABS: LYMPHOCYTES # 37.1 10^3/ul (0.8-2.9); MONOCYTE # 0.4 10^3/ul (0.3-0.9); MYELOCYTES # 0.9; NEUTROPHIL # 5.2 10^3/ul (1.6-7.5)
[2016-06-15] MEDS ORDERED: RASBURICASE IVPB SCH (11:00)
[2016-06-15] MEDS ORDERED: SOD CHLORIDE 0.9% IVPB SCH (11:00)
[2016-06-15 13:15] VITALS: BP 125/72; PULSE 67; RESP 20
--- NOTE | 2016-06-15 14:30 | CONS ---
Date/Time of Note Date/Time of Note DATE: 06/15/16 TIME: 14:22 Assessment/Plan Assessment/Plan Chief Complaint/Hosp Course 55 yo male with aggressive mantle cell lymphoma stage IV with involvement of the spleen and likely bone marrow presents with chills, tactile fevers, loss of appetite, and generalized weakness. - Given the aggressive nature of disease now on R-HyperCVAD. #Mantle Cell lymphoma - da -echocardiogram showed normal EF -s/p Rituxan 06/09/16, PICC line in place, Hep panel and HIV negative -started HyperCVAD 06/10/16, tolerating well so far except nausea vomiting, on antiemetics. DAY 1 is 06/09 -Rituxan 800mg IV given day 1 (06/09) -Cytoxan 600mg IV q 12 hours x 6 doses day 2-4 (06/10-06/12) -Vincristine 2mg given day 5 (06/13) and day 12 -Adriamycin 40mg IV q day continuous over 72 hours Day 5-7 (06/13-06/15) -Dexamethasone 40 IV per day, day 2 - day 5 (06/10-06/13) and day 12- day15( -06/23) -Pt will need Intrathecal chemotherapy with methotrexate/cytarabine/ hydrocoritone. Will order once peripheral blasts and peripheral lymphoma cells have cleared. ordered flow cytometry and MRI brain as recommended by Dr Dimas. MRI brain was unremarkable -continue to check daily tumor lysis labs including CMP, LDH, URIC acid, phosphorus. Rasburicase given on 06/08/16, 06/10/16, 06/11/16.Will given 1 dose today fo uric acid of 8.9. NOTE patient is ALLERGIC to allopurinol, and last urate wnl. -Pt will need out patient referral to [facility] for autologous BMT in first remission (case management pending [facility] to contact [facility]). -BMBx (performed 06/05/16 as an outpatient) shows involvement by mantle cell lymphoma, so its a stage 4 -on reglan prn, increase dose of thorazine prn for hiccups, for now stable. -adding lactulose for constipation. -cbc diff stable for now. -Neupogen to start tomorrow after completion of doxorubicin -continue ppx meds including Fluconazole, Levaquin and Valacyclovir extensive d/w patient re: current rx, supportive care and briefly about questions related to BM transplant in future. Approximately 40 min were spent at patient's bedside and in coordination of his care Problems: Consultation Date/Type/Reason Admit Date/Time Jun 08, 2016 at 10:39 Initial Consult Date 06/08/16 Type of Consultation: Hematology/Oncology Reason for Consultation mantle cell lymphoma Referring Provider: TIFFANIE LI MD 24 HR Interval Summary Free Text/Dictation pt currently receiving the continuous infusion of doxorubicin. c/o nausea. no fevers Exam/Review of Systems Vital Signs Vitals Vital Signs Date Time Temp Pulse Resp B/P Pulse Ox O2 Delivery O2 Flow Rate FiO2 06/15/16 07:47 97.7 65 18 128/70 98 06/15/16 05:22 Room Air 06/13/16 15:45 2.0 Intake and Output 06/14/16 06/14/16 06/15/16 15:00 23:00 07:00 Intake Total 60 ml 820 ml Balance 60 ml 820 ml Exam Constitutional: alert, oriented Psych: no complaints Head: atraumatic, normocephalic Eyes: nl conjunctiva ENMT: nl external ears & nose Neck: non-tender, supple Respiratory: clear to auscultation, normal air movement Cardiovascular: regular rate and rhythm Gastrointestinal: soft Musculoskeletal: nl extremities to inspection Results Result Diagram: 06/15/16 0706/15/16 07 Results 24 hrs Laboratory Tests Test 06/15/16 07:05 White Blood Count 43.6 #H Red Blood Count 4.28 L Hemoglobin 12.6 L Hematocrit 39.4 L Mean Corpuscular Volume 92.1 Mean Corpuscular Hemoglobin 29.4 Mean Corpuscular Hemoglobin Concent 32.0 Red Cell Distribution Width 14.7 H Platelet Count 133 L Mean Platelet Volume 8.6 Neutrophils % 12.0 L Lymphocytes % 85.0 H Monocytes % 1.0 Myelocytes % 2.0 H Neutrophils # 5.2 Lymphocytes # 37.1 H Monocytes # 0.4 Myelocytes # 0.9 Sodium Level 136 Potassium Level 3.9 Chloride Level 100 Carbon Dioxide Level 31 Anion Gap 9 Blood Urea Nitrogen 30 H Creatinine 1.01 Glucose Level 96 # Uric Acid 8.9 #H Calcium Level 8.7 Phosphorus Level 4.2 Total Bilirubin 1.4 H Direct Bilirubin 0.00 Indirect Bilirubin 1.4 H Aspartate Amino Transf (AST/SGOT) 13 L Alanine Aminotransferase (ALT/SGPT) 32 Alkaline Phosphatase 82 Lactate Dehydrogenase 517 Total Protein 5.2 L Albumin 3.3 Globulin 1.90 Albumin/Globulin Ratio 1.73 Medications Medications Current Medications Morphine Sulfate (morphine) 2 mg Q4H PRN IV PAIN; Start 06/08/16 at 13:30 Ondansetron HCl (Zofran Inj) 4 mg Q6H PRN IV NAUSEA AND/OR VOMITING Last administered on 06/14/16 09:57; Admin Dose 4 MG; Start 06/08/16 at 13:30 Pantoprazole 40 mg 40 mg DAILY@06 IV Last administered on 06/15/16 06:00; Admin Dose 40 MG; Start 06/09/16 at 06:00 Acetaminophen (Ofirmev 1000mg/ 100ml Iv) 65 ml @ 250 mls/hr Q6H PRN IVPB PAIN ; Start 06/08/16 at 14:30 Meperidine HCl (Demerol) 50 mg Q4H PRN IV ALLERGIC REACTION Last administered on 06/10/16 02:09; Admin Dose 50 MG; Start 06/08/16 at 16:30 Methylprednisolone Sodium Succinate 100 mg 100 mg Q4H PRN IV ALLERGIC REACTION ; Start 06/08/16 at 16:30 Sodium Chloride (NS) 1,000 ml @ 70 mls/hr [id number] IV Last administered on 06/09 09:03; Admin Dose 70 MLS/HR; Start 06/08/16 at 16:18; Status Future Hold Acetaminophen (Tylenol Tab) 650 mg Q6H PRN PO PAIN LEVEL 1-3 OR FEVER Last administered on 06/10/16 04:24; Admin Dose 650 MG; Start 06/08/16 at 16:30 Acetaminophen (Tylenol Supp) 650 mg Q6H PRN SC PAIN LEVEL 1-3 OR FEVER; Start 06/08/16 at 16:30 Docusate Sodium (Colace) 100 mg Q12H PRN PO CONSTIPATION Last administered on 08:51; Admin Dose 100 MG; Start 06/08/16 at 16:30 Magnesium Hydroxide 30 ml 30 ml DAILY PRN PO CONSTIPATION Last administered on 06/12/16 21:02; Admin Dose 30 ML; Start 06/08/16 at 16:30 Sodium Chloride (NS) 1,000 ml @ 50 mls/hr Q20H IV Last administered on 10:19; Admin Dose 50 MLS/HR; Start 06/09/16 at 16:00 IV Flush (NS 10 ml) 10 ml PRN PRN IV IV PROTOCOL; Start 06/09/16 at 11:30 Dexamethasone (Decadron) 10 mg Q4H PRN IV ALLERGIC REACTION; Start 06/09/16 at 16:00 Diphenhydramine HCl 25 mg 25 mg Q4H PRN IV ALLERGIC REACTION Last administered on 06/14/16 00:37; Admin Dose 25 MG; Start 06/09/16 at 16:00 Vincristine Sulfate 2 mg/ Sodium Chloride 50 ml @ 100 mls/hr Q7D IV Last administered on 06/13/16 13:22; Admin Dose 100 MLS/HR; Start 06/13/16 at 13:00 ; Stop 06/20/16 at 13:29 Doxorubicin HCl/ Sodium Chloride (Adriamycin/NS) 500 ml @ 20.83 mls/ hr Q24H IV Last administered on 06/14/16 21:52; Admin Dose 20.83 MLS/HR; Start at 14:00; Stop 06/16/16 at 13:59 Lorazepam (Ativan) 1 mg Q6H PRN IV Hiccups Last administered on 06/12/16 12:01 ; Admin Dose 1 MG; Start 06/10/16 at 21:00 Lorazepam (Ativan) 0.5 mg Q8H PRN PO NOTE; Start 06/12/16 at 16:00 Chlorpromazine (Thorazine) 10 mg BID PRN PO hiccups; Start 06/12/16 at 18:30 Lactulose (Enulose) 10 gm BID PRN PO CONSTIPATION Last administered on 13:55; Admin Dose 10 GM; Start 06/13/16 at 10:30 DAMIAN MIDDLETON M.D. Jun 15, 2016 14:30
--- NOTE | 2016-06-15 17:29 | PN ---
Date/Time of Note Date/Time of Note DATE: 06/15/16 TIME: 17:27 Assessment/Plan VTE Prophylaxis VTE Prophylaxis Intervention: other Lines/Catheters IV [facility]from [facility] P[facility] Line Central line still needed: Yes Urinary Cath still in place: No Assessment/Plan Chief Complaint/Hosp Course IMPRESSION: 1. Patient has lymphoma.on chemo 2. Leukocytosis. 3. Thrombocytosis. better 4. Anemia. 5. Splenomegaly. 6. Allopurinol rash with a diffuse skin rash resolving. plan chemo per dr clements ck labs intratgecal chemo soon Problems: Subjective 24 Hr Interval Summary Constitutional: improved Exam/Review of Systems Vital Signs Vitals Vital Signs Date Time Temp Pulse Resp B/P Pulse Ox O2 Delivery O2 Flow Rate FiO2 06/15/16 07:47 97.7 65 18 128/70 98 06/15/16 05:22 Room Air 06/13/16 15:45 2.0 Intake and Output 06/14/16 06/14/16 06/15/16 15:00 23:00 07:00 Intake Total 60 ml 820 ml Balance 60 ml 820 ml Exam Neck: supple Respiratory: clear to auscultation Cardiovascular: regular rate and rhythm Gastrointestinal: soft Musculoskeletal: nl extremities to inspection Extremities: normal pulses Neurological: MEAT PASSER II-XII intact, nl mental status, nl speech, nl strength Results Result Diagram: 06/15/1670406/15/16704 Results 24 hrs Laboratory Tests Test 06/15/16 07:05 White Blood Count 43.6 #H Red Blood Count 4.28 L Hemoglobin 12.6 L Hematocrit 39.4 L Mean Corpuscular Volume 92.1 Mean Corpuscular Hemoglobin 29.4 Mean Corpuscular Hemoglobin Concent 32.0 Red Cell Distribution Width 14.7 H Platelet Count 133 L Mean Platelet Volume 8.6 Neutrophils % 12.0 L Lymphocytes % 85.0 H Monocytes % 1.0 Myelocytes % 2.0 H Neutrophils # 5.2 Lymphocytes # 37.1 H Monocytes # 0.4 Myelocytes # 0.9 Sodium Level 136 Potassium Level 3.9 Chloride Level 100 Carbon Dioxide Level 31 Anion Gap 9 Blood Urea Nitrogen 30 H Creatinine 1.01 Glucose Level 96 # Uric Acid 8.9 #H Calcium Level 8.7 Phosphorus Level 4.2 Total Bilirubin 1.4 H Direct Bilirubin 0.00 Indirect Bilirubin 1.4 H Aspartate Amino Transf (AST/SGOT) 13 L Alanine Aminotransferase (ALT/SGPT) 32 Alkaline Phosphatase 82 Lactate Dehydrogenase 517 Total Protein 5.2 L Albumin 3.3 Globulin 1.90 Albumin/Globulin Ratio 1.73 Medications Medications Current Medications Morphine Sulfate (morphine) 2 mg Q4H PRN IV PAIN; Start 06/08/16 at 13:30 Ondansetron HCl (Zofran Inj) 4 mg Q6H PRN IV NAUSEA AND/OR VOMITING Last administered on 06/14/16 09:57; Admin Dose 4 MG; Start 06/08/16 at 13:30 Pantoprazole 40 mg 40 mg DAILY@06 IV Last administered on 06/15/16 06:00; Admin Dose 40 MG; Start 06/09/16 at 06:00 Acetaminophen (Ofirmev 1000mg/ 100ml Iv) 65 ml @ 250 mls/hr Q6H PRN IVPB PAIN ; Start 06/08/16 at 14:30 Meperidine HCl (Demerol) 50 mg Q4H PRN IV ALLERGIC REACTION Last administered on 06/10/16 02:09; Admin Dose 50 MG; Start 06/08/16 at 16:30 Methylprednisolone Sodium Succinate 100 mg 100 mg Q4H PRN IV ALLERGIC REACTION ; Start 06/08/16 at 16:30 Sodium Chloride (NS) 1,000 ml @ 70 mls/hr [id number] IV Last administered on 06/09 09:03; Admin Dose 70 MLS/HR; Start 06/08/16 at 16:18; Status Future Hold Acetaminophen (Tylenol Tab) 650 mg Q6H PRN PO PAIN LEVEL 1-3 OR FEVER Last administered on 06/10/16 04:24; Admin Dose 650 MG; Start 06/08/16 at 16:30 Acetaminophen (Tylenol Supp) 650 mg Q6H PRN [place] PAIN LEVEL 1-3 OR FEVER; Start 06/08/16 at 16:30 Docusate Sodium (Colace) 100 mg Q12H PRN PO CONSTIPATION Last administered on 08:51; Admin Dose 100 MG; Start 06/08/16 at 16:30 Magnesium Hydroxide 30 ml 30 ml DAILY PRN PO CONSTIPATION Last administered on 06/12/16 21:02; Admin Dose 30 ML; Start 06/08/16 at 16:30 Sodium Chloride (NS) 1,000 ml @ 50 mls/hr Q20H IV Last administered on 10:19; Admin Dose 50 MLS/HR; Start 06/09/16 at 16:00 IV Flush (NS 10 ml) 10 ml PRN PRN IV IV PROTOCOL; Start 06/09/16 at 11:30 Dexamethasone (Decadron) 10 mg Q4H PRN IV ALLERGIC REACTION; Start 06/09/16 at 16:00 Diphenhydramine HCl 25 mg 25 mg Q4H PRN IV ALLERGIC REACTION Last administered on 06/14/16 00:37; Admin Dose 25 MG; Start 06/09/16 at 16:00 Vincristine Sulfate 2 mg/ Sodium Chloride 50 ml @ 100 mls/hr Q7D IV Last administered on 06/13/16 13:22; Admin Dose 100 MLS/HR; Start 06/13/16 at 13:00 ; Stop 06/20/16 at 13:29 Doxorubicin HCl/ Sodium Chloride (Adriamycin/NS) 500 ml @ 20.83 mls/ hr Q24H IV Last administered on 06/14/16 21:52; Admin Dose 20.83 MLS/HR; Start at 14:00; Stop 06/16/16 at 13:59 Lorazepam (Ativan) 1 mg Q6H PRN IV Hiccups Last administered on 06/12/16 12:01 ; Admin Dose 1 MG; Start 06/10/16 at 21:00 Lorazepam (Ativan) 0.5 mg Q8H PRN PO NOTE; Start 06/12/16 at 16:00 Chlorpromazine (Thorazine) 10 mg BID PRN PO hiccups; Start 06/12/16 at 18:30 Lactulose (Enulose) 10 gm BID PRN PO CONSTIPATION Last administered on 13:55; Admin Dose 10 GM; Start 06/13/16 at 10:30 TIFFANIE LI MD Jun 15, 2016 17:29
[2016-06-15 17:30] VITALS: BP 129/72; PULSE 64; RESP 20
[2016-06-15] MEDS: LORAZEPAM 2 MG INJ IV PRN (17:48)
[2016-06-16] MEDS: FAMOTIDINE IV SCH (03:48)
[2016-06-16] MEDS: SOD CHLORIDE 0.9% IV SCH ×2 (03:48→04:11)
[2016-06-16] MEDS: ONDANSETRON IV SCH (03:48)
[2016-06-16 04:00] VITALS: BP 119/70; PULSE 70
[2016-06-16] MEDS: DOXORUBICIN IV SCH (04:11)
[2016-06-16] MEDS: SOD CHLORIDE 0.9% 1,000 ML IV SCH (05:04)
[2016-06-16 05:34] LABS: ADD SCAN DIFF NO
[2016-06-16 06:14] LABS: POTASSIUM 4.1 mmol/L (3.5-5.1)
[2016-06-16 06:15] LABS: CREATININE 0.86 mg/dl (0.61-1.24)
[2016-06-16 06:16] LABS: ALBUMIN/GLOBULIN RATIO 1.57; TOTAL PROTEIN 4.9 g/dl (6.1-8.1); URIC ACID 6.3 mg/dl (3.1-7.9)
[2016-06-16 06:17] LABS: CALCIUM 8.2 mg/dl (8.4-10.2)
[2016-06-16] MEDS: PANTOPRAZOLE 40 MG INJ IV SCH (06:30)
[2016-06-16 08:25] VITALS: BP 126/71; RESP 18
[2016-06-16 12:20] VITALS: BP 111/74; PULSE 72; RESP 16
[2016-06-16] MEDS: ONDANSETRON 4 MG INJ IV PRN ×2 (13:09→22:03)
--- NOTE | 2016-06-16 14:10 | CONS ---
Date/Time of Note Date/Time of Note DATE: 06/16/16 TIME: 13:59 Assessment/Plan Assessment/Plan Chief Complaint/Hosp Course 55 yo male with aggressive mantle cell lymphoma stage IV with involvement of the spleen and likely bone marrow presents with chills, tactile fevers, loss of appetite, and generalized weakness. - Given the aggressive nature of disease now on R-HyperCVAD. #Mantle Cell lymphoma - -started HyperCVAD 06/10/16, tolerating well so far except nausea vomiting, on antiemetics. DAY 1 is 06/09 -Rituxan 800mg IV given day 1 (06/09) -Cytoxan 600mg IV q 12 hours x 6 doses day 2-4 (06/10-06/12) -Vincristine 2mg given day 5 (06/13) and day 12 (06/20) -Adriamycin 40mg IV q day continuous over 72 hours Day 5-7 (06/13-06/15) -Dexamethasone 40 IV per day, day 2 - day 5 (06/10-06/13) and day 12- day15( -06/23) -echocardiogram showed normal EF. - Hep panel and HIV negative -Referral to [facility] for autologous BMT in first remission has been approved. Patient needs to make appt with Dr. Sami Mendes. -BMBx (performed 06/05/16 as an outpatient) shows involvement by mantle cell lymphoma, so its a stage 4 -cbc diff stable for now. 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 Will order once peripheral blasts and peripheral lymphoma cells have cleared. ordered flow cytometry and MRI brain as recommended by Dr Dimas. MRI brain was unremarkable # Tumor lysis prophylaxis -continue to check daily tumor lysis labs including CMP, LDH, URIC acid, phosphorus. Rasburicase given on 06/08/16, 06/10/16, 06/11/16 and 06/16/16. NOTE patient is ALLERGIC to allopurinol, and last urate wnl. # Supportive Care -on reglan prn, increase dose of thorazine prn for hiccups, for now stable. -adding lactulose for constipation. -continue ppx meds including Fluconazole, Levaquin and Valacyclovir extensive d/w patient re: current rx, supportive care and briefly about questions related to BM transplant in future. Approximately 40 min were spent at patient's bedside and in coordination of his care Problems: Consultation Date/Type/Reason Admit Date/Time Jun 08, 2016 at 10:39 Initial Consult Date 06/08/16 Type of Consultation: Hematology/Oncology Reason for Consultation mantle cell lymphoma Referring Provider: TIFFANIE LI MD 24 HR Interval Summary Free Text/Dictation pt's nausea has improved. no fevers, no bleeding Exam/Review of Systems Vital Signs Vitals Vital Signs Date Time Temp Pulse Resp B/P Pulse Ox O2 Delivery O2 Flow Rate FiO2 06/16/16 12:20 98.2 72 16 111/74 99 Room Air 06/13/16 15:45 2.0 Intake and Output 06/15/16 06/15/16 06/16/16 15:00 23:00 07:00 Intake Total 890 ml 1890 ml Output Total 900 ml Balance 890 ml 990 ml Exam Constitutional: alert, oriented Psych: no complaints Head: normocephalic Eyes: nl conjunctiva ENMT: nl external ears & nose Neck: non-tender, supple Respiratory: clear to auscultation, normal air movement Cardiovascular: regular rate and rhythm Gastrointestinal: soft Musculoskeletal: nl extremities to inspection Extremities: normal pulses Results Result Diagram: 06/15/16 0705 06/16/16 0440 Results 24 hrs Laboratory Tests Test 06/16/16 04:40 Sodium Level 133 L Potassium Level 4.1 Chloride Level 102 Carbon Dioxide Level 27 Anion Gap 8 Blood Urea Nitrogen 26 H Creatinine 0.86 Glucose Level 120 Uric Acid 6.3 # Calcium Level 8.2 L Phosphorus Level 3.6 Total Bilirubin 1.0 Direct Bilirubin 0.00 Indirect Bilirubin 1.0 Aspartate Amino Transf (AST/SGOT) 21 # Alanine Aminotransferase (ALT/SGPT) 40 Alkaline Phosphatase 66 Lactate Dehydrogenase 576 Total Protein 4.9 L Albumin 3.0 L Globulin 1.90 Albumin/Globulin Ratio 1.57 Medications Medications Current Medications Morphine Sulfate (morphine) 2 mg Q4H PRN IV PAIN; Start 06/08/16 at 13:30 Ondansetron HCl (Zofran Inj) 4 mg Q6H PRN IV NAUSEA AND/OR VOMITING Last administered on 06/16/16t 13:09; Admin Dose 4 MG; Start 06/08/16 at 13:30 Pantoprazole 40 mg 40 mg DAILY@06 IV Last administered on 06/16/16 06:30; Admin Dose 40 MG; Start 06/09/16 at 06:00 Acetaminophen (Ofirmev 1000mg/ 100ml Iv) 65 ml @ 250 mls/hr Q6H PRN IVPB PAIN ; Start 06/08/16 at 14:30 Meperidine HCl (Demerol) 50 mg Q4H PRN IV ALLERGIC REACTION Last administered on 06/10/16 02:09; Admin Dose 50 MG; Start 06/08/16 at 16:30 Methylprednisolone Sodium Succinate 100 mg 100 mg Q4H PRN IV ALLERGIC REACTION ; Start 06/08/16 at 16:30 Sodium Chloride (NS) 1,000 ml @ 70 mls/hr [id number] IV Last administered on 06/09 09:03; Admin Dose 70 MLS/HR; Start 06/08/16 at 16:18; Status Future Hold Acetaminophen (Tylenol Tab) 650 mg Q6H PRN PO PAIN LEVEL 1-3 OR FEVER Last administered on 06/10/16 04:24; Admin Dose 650 MG; Start 06/08/16 at 16:30 Acetaminophen (Tylenol Supp) 650 mg Q6H PRN [place] PAIN LEVEL 1-3 OR FEVER; Start 06/08/16 at 16:30 Docusate Sodium (Colace) 100 mg Q12H PRN PO CONSTIPATION Last administered on 08:51; Admin Dose 100 MG; Start 06/08/16 at 16:30 Magnesium Hydroxide 30 ml 30 ml DAILY PRN PO CONSTIPATION Last administered on 06/12/16 21:02; Admin Dose 30 ML; Start 06/08/16 at 16:30 Sodium Chloride (NS) 1,000 ml @ 50 mls/hr Q20H IV Last administered on 05:04; Admin Dose 50 MLS/HR; Start 06/09/16 at 16:00 IV Flush (NS 10 ml) 10 ml PRN PRN IV IV PROTOCOL; Start 06/09/16 at 11:30 Dexamethasone (Decadron) 10 mg Q4H PRN IV ALLERGIC REACTION; Start 06/09/16 at 16:00 Diphenhydramine HCl 25 mg 25 mg Q4H PRN IV ALLERGIC REACTION Last administered on 06/14/16 00:37; Admin Dose 25 MG; Start 06/09/16 at 16:00 Vincristine Sulfate 2 mg/ Sodium Chloride 50 ml @ 100 mls/hr Q7D IV Last administered on 06/13/16 13:22; Admin Dose 100 MLS/HR; Start 06/13/16 at 13:00 ; Stop 06/20/16 at 13:29 Doxorubicin HCl/ Sodium Chloride (Adriamycin/NS) 500 ml @ 20.83 mls/ hr Q24H IV Last administered on 06/16/16 04:11; Admin Dose 20.83 MLS/HR; Start at 14:00; Stop 06/16/16 at 13:59 Lorazepam (Ativan) 1 mg Q6H PRN IV Hiccups Last administered on 06/15/16 17:48 ; Admin Dose 1 MG; Start 06/10/16 at 21:00 Lorazepam (Ativan) 0.5 mg Q8H PRN PO NOTE; Start 06/12/16 at 16:00 Chlorpromazine (Thorazine) 10 mg BID PRN PO hiccups; Start 06/12/16 at 18:30 Lactulose (Enulose) 10 gm BID PRN PO CONSTIPATION Last administered on 13:55; Admin Dose 10 GM; Start 06/13/16 at 10:30 DAMIAN MIDDLETON M.D. Jun 16, 2016 14:09
[2016-06-16 16:21] VITALS: BP 119/63; PULSE 73; RESP 16
[2016-06-16 16:44] LABS: ABNORMAL IP MESSAGE 1; HEMATOCRIT 34.3 % (42.0-52.0); HEMOGLOBIN 11.4 g/dl (14.0-18.0); MEAN CORPUSCULAR HEMOGLOBIN 30.3 pg (29.0-33.0); MEAN CORPUSCULAR HGB CONC 33.2 g/dl (32.0-37.0); MEAN CORPUSCULAR VOLUME 91.2 fl (82.0-101.0); MEAN PLATELET VOLUME 8.5 fl (7.4-10.4); PLATELET COUNT 124 10^3/UL (140-415); RED BLOOD COUNT 3.76 10^6/ul (4.70-6.10); RED CELL DISTRIBUTION WIDTH 14.5 % (11.5-14.5); WHITE BLOOD COUNT 22.3 10^3/ul (4.8-10.8)
[2016-06-16 17:21] LABS: EOSINOPHILS # 0.2 10^3/ul (0.0-0.5); LYMPHOCYTES # 17.8 10^3/ul (0.8-2.9); MONOCYTE # 0.2 10^3/ul (0.3-0.9)
--- NOTE | 2016-06-16 18:57 | PN ---
Date/Time of Note Date/Time of Note DATE: 06/16/16 TIME: 18:56 Assessment/Plan VTE Prophylaxis VTE Prophylaxis Intervention: other Lines/Catheters IV Catheter Type (from Nrs): PICC Line Central line still needed: Yes Urinary Cath still in place: No Reason Cath still needed: other (indicate) Assessment/Plan Chief Complaint/Hosp Course IMPRESSION: 1. Patient has lymphoma.on chemo 2. Leukocytosis. 3. Thrombocytosis. better 4. Anemia. 5. Splenomegaly. 6. Allopurinol rash with a diffuse skin rash resolving. plan chemo per dr clements ck labs Problems: Subjective 24 Hr Interval Summary Gastrointestinal: no complaints Genitourinary: no complaints Musculoskeletal: no complaints Exam/Review of Systems Vital Signs Vitals Vital Signs Date Time Temp Pulse Resp B/P Pulse Ox O2 Delivery O2 Flow Rate FiO2 06/16/16 16:21 98.0 73 16 119/63 98 Room Air 06/13/16 15:45 2.0 Intake and Output 06/15/16 06/15/16 06/16/16 15:00 23:00 07:00 Intake Total 890 ml 1890 ml Output Total 900 ml Balance 890 ml 990 ml Exam Respiratory: clear to auscultation Cardiovascular: regular rate and rhythm Gastrointestinal: soft Musculoskeletal: nl extremities to inspection Extremities: normal pulses Results Result Diagram: 06/16/16 1540 06/16/16 0440 Results 24 hrs Laboratory Tests Test 06/16/16 04:40 06/16/16 15:40 Sodium Level 133 L Potassium Level 4.1 Chloride Level 102 Carbon Dioxide Level 27 Anion Gap 8 Blood Urea Nitrogen 26 H Creatinine 0.86 Glucose Level 120 Uric Acid 6.3 # Calcium Level 8.2 L Phosphorus Level 3.6 Total Bilirubin 1.0 Direct Bilirubin 0.00 Indirect Bilirubin 1.0 Aspartate Amino Transf (AST/SGOT) 21 # Alanine Aminotransferase (ALT/SGPT) 40 Alkaline Phosphatase 66 Lactate Dehydrogenase 576 Total Protein 4.9 L Albumin 3.0 L Globulin 1.90 Albumin/Globulin Ratio 1.57 White Blood Count 22.3 #H Red Blood Count 3.76 L Hemoglobin 11.4 L Hematocrit 34.3 L Mean Corpuscular Volume 91.2 Mean Corpuscular Hemoglobin 30.3 Mean Corpuscular Hemoglobin Concent 33.2 Red Cell Distribution Width 14.5 Platelet Count 124 L Mean Platelet Volume 8.5 Neutrophils % 18.0 L Lymphocytes % 80.0 H Monocytes % 1.0 Eosinophils % 1.0 Neutrophils # 4.0 Lymphocytes # 17.8 H Monocytes # 0.2 L Eosinophils # 0.2 Medications Medications Current Medications Morphine Sulfate (morphine) 2 mg Q4H PRN IV PAIN; Start 06/08/16 at 13:30 Ondansetron HCl (Zofran Inj) 4 mg Q6H PRN IV NAUSEA AND/OR VOMITING Last administered on 06/16/16 13:09; Admin Dose 4 MG; Start 06/08/16 at 13:30 Pantoprazole 40 mg 40 mg DAILY@06 IV Last administered on 06/16/16 06:30; Admin Dose 40 MG; Start 06/09/16 at 06:00 Acetaminophen (Ofirmev 1000mg/ 100ml Iv) 65 ml @ 250 mls/hr Q6H PRN IVPB PAIN ; Start 06/08/16 at 14:30 Meperidine HCl (Demerol) 50 mg Q4H PRN IV ALLERGIC REACTION Last administered on 06/10/16 02:09; Admin Dose 50 MG; Start 06/08/16 at 16:30 Methylprednisolone Sodium Succinate 100 mg 100 mg Q4H PRN IV ALLERGIC REACTION ; Start 06/08/16 at 16:30 Sodium Chloride (NS) 1,000 ml @ 70 mls/hr [id number] IV Last administered on 06/09 09:03; Admin Dose 70 MLS/HR; Start 06/08/16 at 16:18; Status Future Hold Acetaminophen (Tylenol Tab) 650 mg Q6H PRN PO PAIN LEVEL 1-3 OR FEVER Last administered on 06/10/16 04:24; Admin Dose 650 MG; Start 06/08/16 at 16:30 Acetaminophen (Tylenol Supp) 650 mg Q6H PRN [place] PAIN LEVEL 1-3 OR FEVER; Start 06/08/16 at 16:30 Docusate Sodium (Colace) 100 mg Q12H PRN PO CONSTIPATION Last administered on 08:51; Admin Dose 100 MG; Start 06/08/16 at 16:30 Magnesium Hydroxide 30 ml 30 ml DAILY PRN PO CONSTIPATION Last administered on 06/12/16 21:02; Admin Dose 30 ML; Start 06/08/16 at 16:30 Sodium Chloride (NS) 1,000 ml @ 50 mls/hr Q20H IV Last administered on 05:04; Admin Dose 50 MLS/HR; Start 06/09/16 at 16:00 IV Flush (NS 10 ml) 10 ml PRN PRN IV IV PROTOCOL; Start 06/09/16 at 11:30 Dexamethasone (Decadron) 10 mg Q4H PRN IV ALLERGIC REACTION; Start 06/09/16 at 16:00 Diphenhydramine HCl 25 mg 25 mg Q4H PRN IV ALLERGIC REACTION Last administered on 06/14/16 00:37; Admin Dose 25 MG; Start 06/09/16 at 16:00 Vincristine Sulfate/Sodium Chloride (Oncovin/NS) 50 ml @ 100 mls/hr Q7D IV Last administered on 06/13/16 13:22; Admin Dose 100 MLS/HR; Start 06/13/16 at 13:00; Stop 06/20/16 at 13:29 Lorazepam (Ativan) 1 mg Q6H PRN IV Hiccups Last administered on 06/15/16 17:48 ; Admin Dose 1 MG; Start 06/10/16 at 21:00 Lorazepam (Ativan) 0.5 mg Q8H PRN PO NOTE; Start 06/12/16 at 16:00 Chlorpromazine (Thorazine) 10 mg BID PRN PO hiccups; Start 06/12/16 at 18:30 Lactulose (Enulose) 10 gm BID PRN PO CONSTIPATION Last administered on 13:55; Admin Dose 10 GM; Start 06/13/16 at 10:30 TIFFANIE LI MD Jun 16, 2016 18:56
[2016-06-16 20:10] VITALS: BP 117/71; PULSE 69; RESP 17
[2016-06-16 22:48] VITALS: BP 116/57; RESP 20
[2016-06-17] MEDS: DIPHENHYDRAMINE 50 MG INJ IV PRN (01:39)
[2016-06-17 01:53] VITALS: BP 115/65; PULSE 64; RESP 17
[2016-06-17] MEDS: SOD CHLORIDE 0.9% 1,000 ML IV SCH ×2 (02:00→12:29)
[2016-06-17 04:30] VITALS: BP 117/69; PULSE 61; RESP 18
[2016-06-17 05:04] LABS: ADD SCAN DIFF NO
[2016-06-17 05:17] LABS: ABNORMAL IP MESSAGE 1; BASOPHILS % 0.2 % (0.0-2.0); EOSINOPHILS # 0.2 10^3/ul (0.0-0.5); EOSINOPHILS % 0.9 % (0.0-7.0); HEMATOCRIT 34.7 % (42.0-52.0); HEMOGLOBIN 11.1 g/dl (14.0-18.0); LYMPHOCYTES # 15.6 10^3/ul (0.8-2.9); MEAN CORPUSCULAR HEMOGLOBIN 29.1 pg (29.0-33.0); MEAN CORPUSCULAR VOLUME 90.8 fl (82.0-101.0); MEAN PLATELET VOLUME 8.8 fl (7.4-10.4); MONOCYTE # 0.2 10^3/ul (0.3-0.9); MONOCYTES % 1.2 % (0.0-11.0); NEUTROPHIL # 3.1 10^3/ul (1.6-7.5); PLATELET COUNT 114 10^3/UL (140-415); RED BLOOD COUNT 3.82 10^6/ul (4.70-6.10); RED CELL DISTRIBUTION WIDTH 14.6 % (11.5-14.5); WHITE BLOOD COUNT 19.2 10^3/ul (4.8-10.8)
[2016-06-17 05:31] LABS: ALBUMIN 3.1 g/dl (3.3-4.9)
[2016-06-17 05:32] LABS: POTASSIUM 4.2 mmol/L (3.5-5.1)
[2016-06-17 05:34] LABS: ALBUMIN/GLOBULIN RATIO 1.72; BILIRUBIN,INDIRECT 0.6 mg/dl (0-1.1); BILIRUBIN,TOTAL 0.6 mg/dl (0.2-1.3); CALCIUM 8.4 mg/dl (8.4-10.2); CREATININE 0.84 mg/dl (0.61-1.24); TOTAL PROTEIN 4.9 g/dl (6.1-8.1); URIC ACID 5.5 mg/dl (3.1-7.9)
[2016-06-17] MEDS: PANTOPRAZOLE 40 MG INJ IV SCH (05:40)
[2016-06-17 05:42] LABS: LYMPHOCYTES % 81.4 % (15.0-51.0)
[2016-06-17 07:39] VITALS: BP 117/70; RESP 18
--- NOTE | 2016-06-17 08:58 | CONS ---
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 - Given the aggressive nature of disease now on R-HyperCVAD. #Mantle Cell lymphoma - -started HyperCVAD 06/10/16, tolerating well so far except nausea vomiting, on antiemetics. DAY 1 is 06/09 -Rituxan 800mg IV given day 1 (06/09) -Cytoxan 600mg IV q 12 hours x 6 doses day 2-4 (06/10-06/12) -Vincristine 2mg given day 5 (06/13) and day 12 (06/20) -Adriamycin 40mg IV q day continuous over 72 hours Day 5-7 (06/13-06/15) -Dexamethasone 40 IV per day, day 2 - day 5 (06/10-06/13) and day 12- day15( -06/23) -echocardiogram showed normal EF. -Hep panel and HIV negative -Referral to [facility] for autologous BMT in first remission has been approved. Patient needs to make appt with Dr. Sami Mendes. -BMBx (performed 06/05/16 as an outpatient) shows involvement by mantle cell lymphoma, so its a stage 4 -cbc diff stable for now. -Neupogen to start tomorrow after completion of doxorubicin # [employer] prophylaxis -Pt will need Intrathecal chemotherapy with methotrexate/cytarabine/ hydrocoritone. Will order once peripheral blasts and peripheral lymphoma cells have cleared. Ordered flow cytometry and MRI brain as recommended by Dr Steinberg. MRI brain was unremarkable, reviewed with Dr. Miranda. Peripheral blood flow cytometry still shows evidence of B cell lymphoma in the periphery. # Tumor lysis prophylaxis -continue to check daily tumor lysis labs including CMP, LDH, URIC acid, phosphorus. Rasburicase given on 06/08/16, 06/10/16, 06/11/16 and 06/16/16. NOTE patient is ALLERGIC to allopurinol. # Supportive Care -on increased dose of thorazine prn for hiccups, for now stable. -adding lactulose for constipation. -continue ppx meds including Fluconazole, Levaquin and Valacyclovir Extensive d/w patient re: current rx, supportive care and briefly about questions related to BM transplant in future. Problems: Consultation Date/Type/Reason Admit Date/Time Jun 08, 2016 at 10:39 Initial Consult Date 06/08/16 Type of Consultation: Hematology/Oncology Referring Provider: TIFFANIE LI MD 24 HR Interval Summary Free Text/Dictation Patient doing well, hiccups resolved. No further fevers or sweats. Exam/Review of Systems Vital Signs Vitals Vital Signs Date Time Temp Pulse Resp B/P Pulse Ox O2 Delivery O2 Flow Rate FiO2 06/17/16 07:39 98.0 60 18 117/70 96 06/17/16 04:30 Nasal Cannula 06/13/16 15:45 2.0 Intake and Output 06/16/16 06/16/16 06/17/16 15:00 23:00 07:00 Intake Total 1330 ml 1200 ml Output Total 800 ml 1100 ml Balance 530 ml 100 ml Exam Constitutional: alert, oriented Psych: no complaints Head: normocephalic Eyes: nl conjunctiva ENMT: nl external ears & nose Neck: non-tender, supple Respiratory: clear to auscultation, normal air movement Cardiovascular: regular rate and rhythm Gastrointestinal: soft Musculoskeletal: nl extremities to inspection Extremities: normal pulses Results Result Diagram: 06/17/165 06/17/16444 Results 24 hrs Laboratory Tests Test 06/16/16 15:40 06/17/16 04:45 White Blood Count 22.3 #H 19.2 H Red Blood Count 3.76 L 3.82 L Hemoglobin 11.4 L 11.1 L Hematocrit 34.3 L 34.7 L Mean Corpuscular Volume 91.2 90.8 Mean Corpuscular Hemoglobin 30.3 29.1 Mean Corpuscular Hemoglobin Concent 33.2 32.0 Red Cell Distribution Width 14.5 14.6 H Platelet Count 124 L 114 L Mean Platelet Volume 8.5 8.8 Neutrophils % 18.0 L 16.0 L Lymphocytes % 80.0 H 81.4 H Monocytes % 1.0 1.2 Eosinophils % 1.0 0.9 Neutrophils # 4.0 3.1 Lymphocytes # 17.8 H 15.6 H Monocytes # 0.2 L 0.2 L Eosinophils # 0.2 0.2 Basophils % 0.2 Nucleated Red Blood Cells % 0.0 Basophils # 0.0 Nucleated Red Blood Cells # 0.0 Sodium Level 136 Potassium Level 4.2 Chloride Level 102 Carbon Dioxide Level 27 Anion Gap 11 Blood Urea Nitrogen 17 # Creatinine 0.84 Glucose Level 100 Uric Acid 5.5 Calcium Level 8.4 Phosphorus Level 3.6 Total Bilirubin 0.6 Direct Bilirubin 0.00 Indirect Bilirubin 0.6 Aspartate Amino Transf (AST/SGOT) 16 Alanine Aminotransferase (ALT/SGPT) 40 Alkaline Phosphatase 69 Lactate Dehydrogenase 433 Total Protein 4.9 L Albumin 3.1 L Globulin 1.80 Albumin/Globulin Ratio 1.72 Medications Medications Current Medications Morphine Sulfate (morphine) 2 mg Q4H PRN IV PAIN; Start 06/08/16 at 13:30 Ondansetron HCl (Zofran Inj) 4 mg Q6H PRN IV NAUSEA AND/OR VOMITING Last administered on 06/16/16 22:03; Admin Dose 4 MG; Start 06/08/16 at 13:30 Pantoprazole 40 mg 40 mg DAILY@06 IV Last administered on 06/17/16 05:40; Admin Dose 40 MG; Start 06/09/16 at 06:00 Acetaminophen (Ofirmev 1000mg/ 100ml Iv) 65 ml @ 250 mls/hr Q6H PRN IVPB PAIN ; Start 06/08/16 at 14:30 Meperidine HCl (Demerol) 50 mg Q4H PRN IV ALLERGIC REACTION Last administered on 06/10/16 02:09; Admin Dose 50 MG; Start 06/08/16 at 16:30 Methylprednisolone Sodium Succinate 100 mg 100 mg Q4H PRN IV ALLERGIC REACTION ; Start 06/08/16 at 16:30 Sodium Chloride (NS) 1,000 ml @ 70 mls/hr [id number] IV Last administered on 06/09 09:03; Admin Dose 70 MLS/HR; Start 06/08/16 at 16:18; Status Future Hold Acetaminophen (Tylenol Tab) 650 mg Q6H PRN PO PAIN LEVEL 1-3 OR FEVER Last administered on 06/10/16 04:24; Admin Dose 650 MG; Start 06/08/16 at 16:30 Acetaminophen (Tylenol Supp) 650 mg Q6H PRN [place] PAIN LEVEL 1-3 OR FEVER; Start 06/08/16 at 16:30 Docusate Sodium (Colace) 100 mg Q12H PRN PO CONSTIPATION Last administered on 08:51; Admin Dose 100 MG; Start 06/08/16 at 16:30 Magnesium Hydroxide 30 ml 30 ml DAILY PRN PO CONSTIPATION Last administered on 06/12/16 21:02; Admin Dose 30 ML; Start 06/08/16 at 16:30 Sodium Chloride (NS) 1,000 ml @ 50 mls/hr Q20H IV Last administered on 02:00; Admin Dose 50 MLS/HR; Start 06/09/16 at 16:00 IV Flush (NS 10 ml) 10 ml PRN PRN IV IV PROTOCOL; Start 06/09/16 at 11:30 Dexamethasone (Decadron) 10 mg Q4H PRN IV ALLERGIC REACTION; Start 06/09/16 at 16:00 Diphenhydramine HCl 25 mg 25 mg Q4H PRN IV ALLERGIC REACTION Last administered on 06/17/16 01:39; Admin Dose 25 MG; Start 06/09/16 at 16:00 Vincristine Sulfate/Sodium Chloride (Oncovin/NS) 50 ml @ 100 mls/hr Q7D IV Last administered on 06/13/16 13:22; Admin Dose 100 MLS/HR; Start 06/13/16 at 13:00; Stop 06/20/16 at 13:29 Lorazepam (Ativan) 1 mg Q6H PRN IV Hiccups Last administered on 06/15/16 17:48 ; Admin Dose 1 MG; Start 06/10/16 at 21:00 Lorazepam (Ativan) 0.5 mg Q8H PRN PO NOTE; Start 06/12/16 at 16:00 Chlorpromazine (Thorazine) 10 mg BID PRN PO hiccups; Start 06/12/16 at 18:30 Lactulose (Enulose) 10 gm BID PRN PO CONSTIPATION Last administered on 13:55; Admin Dose 10 GM; Start 06/13/16 at 10:30 FABIAN STEINBERG MD Jun 17, 2016 08:58
--- NOTE | 2016-06-17 19:12 | PN ---
Date/Time of Note Date/Time of Note DATE: 06/17/16 TIME: 19:11 Assessment/Plan VTE Prophylaxis VTE Prophylaxis Intervention: other Lines/Catheters IV Catheter Type (from Nrsg): PICC Line Central line still needed: Yes Urinary Cath still in place: No Reason Cath still needed: other (indicate) Assessment/Plan Chief Complaint/Hosp Course IMPRESSION: 1. Patient has lymphoma.on chemo 2. Leukocytosis. 3. Thrombocytosis. better 4. Anemia. 5. Splenomegaly. 6. Allopurinol rash with a diffuse skin rash resolving.hx plan chemo per dr clements ck labs Problems: Subjective 24 Hr Interval Summary Respiratory: no complaints Cardiovascular: no complaints Gastrointestinal: no complaints Exam/Review of Systems Vital Signs Vitals Vital Signs Date Time Temp Pulse Resp B/P Pulse Ox O2 Delivery O2 Flow Rate FiO2 06/17/16 07:39 98.0 60 18 117/70 96 06/17/16 04:30 Nasal Cannula 06/13/16 15:45 2.0 Intake and Output 06/16/16 06/16/16 06/17/16 15:00 23:00 07:00 Intake Total 1330 ml 1200 ml Output Total 800 ml 1100 ml Balance 530 ml 100 ml Exam Neck: supple Respiratory: clear to auscultation Cardiovascular: regular rate and rhythm Gastrointestinal: soft Musculoskeletal: nl extremities to inspection Extremities: normal pulses Results Result Diagram: 06/17/165 06/17/16 0445 Results 24 hrs Laboratory Tests Test 06/17/16 04:45 White Blood Count 19.2 H Red Blood Count 3.82 L Hemoglobin 11.1 L Hematocrit 34.7 L Mean Corpuscular Volume 90.8 Mean Corpuscular Hemoglobin 29.1 Mean Corpuscular Hemoglobin Concent 32.0 Red Cell Distribution Width 14.6 H Platelet Count 114 L Mean Platelet Volume 8.8 Neutrophils % 16.0 L Lymphocytes % 81.4 H Monocytes % 1.2 Eosinophils % 0.9 Basophils % 0.2 Nucleated Red Blood Cells % 0.0 Neutrophils # 3.1 Lymphocytes # 15.6 H Monocytes # 0.2 L Eosinophils # 0.2 Basophils # 0.0 Nucleated Red Blood Cells # 0.0 Sodium Level 136 Potassium Level 4.2 Chloride Level 102 Carbon Dioxide Level 27 Anion Gap 11 Blood Urea Nitrogen 17 # Creatinine 0.84 Glucose Level 100 Uric Acid 5.5 Calcium Level 8.4 Phosphorus Level 3.6 Total Bilirubin 0.6 Direct Bilirubin 0.00 Indirect Bilirubin 0.6 Aspartate Amino Transf (AST/SGOT) 16 Alanine Aminotransferase (ALT/SGPT) 40 Alkaline Phosphatase 69 Lactate Dehydrogenase 433 Total Protein 4.9 L Albumin 3.1 L Globulin 1.80 Albumin/Globulin Ratio 1.72 Medications Medications Current Medications Morphine Sulfate (morphine) 2 mg Q4H PRN IV PAIN; Start 06/08/16 at 13:30 Ondansetron HCl (Zofran Inj) 4 mg Q6H PRN IV NAUSEA AND/OR VOMITING Last administered on 06/16/16 22:03; Admin Dose 4 MG; Start 06/08/16 at 13:30 Pantoprazole 40 mg 40 mg DAILY@06 IV Last administered on 06/17/16 05:40; Admin Dose 40 MG; Start 06/09/16 at 06:00 Acetaminophen (Ofirmev 1000mg/ 100ml Iv) 65 ml @ 250 mls/hr Q6H PRN IVPB PAIN ; Start 06/08/16 at 14:30 Meperidine HCl (Demerol) 50 mg Q4H PRN IV ALLERGIC REACTION Last administered on 06/10/16 02:09; Admin Dose 50 MG; Start 06/08/16 at 16:30 Methylprednisolone Sodium Succinate 100 mg 100 mg Q4H PRN IV ALLERGIC REACTION ; Start 06/08/16 at 16:30 Sodium Chloride (NS) 1,000 ml @ 70 mls/hr [id number] IV Last administered on 06/09 09:03; Admin Dose 70 MLS/HR; Start 06/08/16 at 16:18; Status Future Hold Acetaminophen (Tylenol Tab) 650 mg Q6H PRN PO PAIN LEVEL 1-3 OR FEVER Last administered on 06/10/16 04:24; Admin Dose 650 MG; Start 06/08/16 at 16:30 Acetaminophen (Tylenol Supp) 650 mg Q6H PRN [place] PAIN LEVEL 1-3 OR FEVER; Start 06/08/16 at 16:30 Docusate Sodium (Colace) 100 mg Q12H PRN PO CONSTIPATION Last administered on 08:51; Admin Dose 100 MG; Start 06/08/16 at 16:30 Magnesium Hydroxide 30 ml 30 ml DAILY PRN PO CONSTIPATION Last administered on 06/12/16 21:02; Admin Dose 30 ML; Start 06/08/16 at 16:30 Sodium Chloride (NS) 1,000 ml @ 50 mls/hr Q20H IV Last administered on 12:29; Admin Dose 50 MLS/HR; Start 06/09/16 at 16:00 IV Flush (NS 10 ml) 10 ml PRN PRN IV IV PROTOCOL; Start 06/09/16 at 11:30 Dexamethasone (Decadron) 10 mg Q4H PRN IV ALLERGIC REACTION; Start 06/09/16 at 16:00 Diphenhydramine HCl 25 mg 25 mg Q4H PRN IV ALLERGIC REACTION Last administered on 06/17/16 01:39; Admin Dose 25 MG; Start 06/09/16 at 16:00 Vincristine Sulfate/Sodium Chloride (Oncovin/NS) 50 ml @ 100 mls/hr Q7D IV Last administered on 06/13/16 13:22; Admin Dose 100 MLS/HR; Start 06/13/16 at 13:00; Stop 06/20/16 at 13:29 Lorazepam (Ativan) 1 mg Q6H PRN IV Hiccups Last administered on 06/15/16 17:48 ; Admin Dose 1 MG; Start 06/10/16 at 21:00 Lorazepam (Ativan) 0.5 mg Q8H PRN PO NOTE; Start 06/12/16 at 16:00 Chlorpromazine (Thorazine) 10 mg BID PRN PO hiccups; Start 06/12/16 at 18:30 Lactulose (Enulose) 10 gm BID PRN PO CONSTIPATION Last administered on 13:55; Admin Dose 10 GM; Start 06/13/16 at 10:30 TIFFANIE LI MD Jun 17, 2016 19:12
[2016-06-17 20:58] VITALS: BP 119/69; RESP 20
[2016-06-17] MEDS: ONDANSETRON 4 MG INJ IV PRN (21:47)
[2016-06-18] MEDS: DIPHENHYDRAMINE 50 MG INJ IV PRN (01:11)
[2016-06-18 05:16] LABS: ADD SCAN DIFF NO
[2016-06-18 05:29] LABS: ABNORMAL IP MESSAGE 1; BASOPHILS % 0.2 % (0.0-2.0); EOSINOPHILS # 0.1 10^3/ul (0.0-0.5); EOSINOPHILS % 0.5 % (0.0-7.0); HEMATOCRIT 31.4 % (42.0-52.0); HEMOGLOBIN 10.3 g/dl (14.0-18.0); LYMPHOCYTES # 11.6 10^3/ul (0.8-2.9); MEAN CORPUSCULAR HEMOGLOBIN 29.7 pg (29.0-33.0); MEAN CORPUSCULAR HGB CONC 32.8 g/dl (32.0-37.0); MEAN CORPUSCULAR VOLUME 90.5 fl (82.0-101.0); MONOCYTE # 0.1 10^3/ul (0.3-0.9); MONOCYTES % 0.8 % (0.0-11.0); NEUTROPHIL # 1.2 10^3/ul (1.6-7.5); NEUTROPHILS % 9.2 % (39.0-77.0); PLATELET COUNT 104 10^3/UL (140-415); RED BLOOD COUNT 3.47 10^6/ul (4.70-6.10); RED CELL DISTRIBUTION WIDTH 14.4 % (11.5-14.5)
[2016-06-18] MEDS: PANTOPRAZOLE 40 MG INJ IV SCH (05:30)
[2016-06-18 05:44] LABS: ALBUMIN 2.9 g/dl (3.3-4.9)
[2016-06-18 05:45] LABS: POTASSIUM 3.8 mmol/L (3.5-5.1)
[2016-06-18 05:47] LABS: ALBUMIN/GLOBULIN RATIO 1.61; BILIRUBIN,INDIRECT 0.6 mg/dl (0-1.1); BILIRUBIN,TOTAL 0.6 mg/dl (0.2-1.3); CREATININE 0.86 mg/dl (0.61-1.24); TOTAL PROTEIN 4.7 g/dl (6.1-8.1); URIC ACID 6.4 mg/dl (3.1-7.9)
[2016-06-18 05:48] LABS: CALCIUM 8.4 mg/dl (8.4-10.2)
[2016-06-18 06:17] LABS: LYMPHOCYTES % 89.1 % (15.0-51.0)
[2016-06-18 08:02] VITALS: BP 112/66; RESP 18
[2016-06-18] MEDS: LORAZEPAM 2 MG INJ IV PRN ×2 (08:30→14:29)
--- NOTE | 2016-06-18 09:02 | CONS ---
Date/Time of Note Date/Time of Note DATE: 06/18/16 TIME: 09:00 Assessment/Plan Assessment/Plan Chief Complaint/Hosp Course 55 yo male with aggressive mantle cell lymphoma stage IV in the leukemic phase with involvement of the spleen and likely bone marrow presents with chills, tactile fevers, loss of appetite, and generalized weakness. - Given the aggressive nature of disease now on R-HyperCVAD. #Mantle Cell lymphoma - -started HyperCVAD 06/10/16, tolerating well so far except nausea vomiting, on antiemetics. DAY 1 is 06/09 -Rituxan 800mg IV given day 1 (06/09) -Cytoxan 600mg IV q 12 hours x 6 doses day 2-4 (06/10-06/12) -Vincristine 2mg given day 5 (06/13) and day 12 (06/20) -Adriamycin 40mg IV q day continuous over 72 hours Day 5-7 (06/13-06/15) -Dexamethasone 40 IV per day, day 2 - day 5 (06/10-06/13) and day 12- day15( -06/23) -echocardiogram showed normal EF. -Hep panel and HIV negative -Referral to [facility] for autologous BMT in first remission has been approved. Patient needs to make appt with Dr. Sami Mendes. -BMBx (performed 06/05/16 as an outpatient) shows involvement by mantle cell lymphoma, so its a stage 4 -cbc diff stable for now. -Neupogen to start today after completion of doxorubicin # SAND SIFTER prophylaxis -Pt will need Intrathecal chemotherapy with methotrexate/cytarabine/ hydrocoritone. Will order once peripheral blasts and peripheral lymphoma cells have cleared. Ordered flow cytometry and MRI brain as recommended by Dr Steinberg. MRI brain was unremarkable, reviewed with Dr. Miranda. Peripheral blood flow cytometry continues to show leukemic phase of B cell lymphoma. # Tumor lysis prophylaxis -continue to check daily tumor lysis labs including CMP, LDH, URIC acid, phosphorus. Rasburicase given on 06/08/16, 06/10/16, 06/11/16 and 06/16/16. NOTE patient is ALLERGIC to allopurinol. # Supportive Care -on increased dose of thorazine prn for hiccups, for now stable. -zofran prn, ativan prn nausea -adding lactulose for constipation. -continue ppx meds including Fluconazole, Levaquin and Valacyclovir Extensive d/w patient re: current rx, supportive care and briefly about questions related to BM transplant in future. Problems: Consultation Date/Type/Reason Admit Date/Time Jun 08, 2016 at 10:39 Initial Consult Date 06/08/16 Type of Consultation: Hematology/Oncology Referring Provider: TIFFANIE LI MD 24 HR Interval Summary Free Text/Dictation Patient feeling well except nausea, partially relieved by ativan. Also complains of fatigue but otherwise feels better without sweats or fevers. Exam/Review of Systems Vital Signs Vitals Vital Signs Date Time Temp Pulse Resp B/P Pulse Ox O2 Delivery O2 Flow Rate FiO2 06/18/16 08:02 98.2 71 18 112/66 98 06/17/16 04:30 Nasal Cannula Intake and Output 06/17/16 06/17/16 06/18/16 15:00 23:00 07:00 Intake Total 900 ml 1000 ml Output Total 700 ml 850 ml Balance 200 ml 150 ml Exam Constitutional: alert, oriented Psych: no complaints Head: normocephalic Eyes: nl conjunctiva ENMT: nl external ears & nose Neck: non-tender, supple Respiratory: clear to auscultation, normal air movement Cardiovascular: regular rate and rhythm Gastrointestinal: soft Musculoskeletal: nl extremities to inspection Extremities: normal pulses Results Result Diagram: 06/18/165 06/18/16 0435 Results 24 hrs Laboratory Tests Test 06/18/16 04:35 White Blood Count 13.0 #H Red Blood Count 3.47 L Hemoglobin 10.3 L Hematocrit 31.4 L Mean Corpuscular Volume 90.5 Mean Corpuscular Hemoglobin 29.7 Mean Corpuscular Hemoglobin Concent 32.8 Red Cell Distribution Width 14.4 Platelet Count 104 L Mean Platelet Volume 9.0 Neutrophils % 9.2 L Lymphocytes % 89.1 H Monocytes % 0.8 Eosinophils % 0.5 Basophils % 0.2 Nucleated Red Blood Cells % 0.0 Neutrophils # 1.2 L Lymphocytes # 11.6 H Monocytes # 0.1 L Eosinophils # 0.1 Basophils # 0.0 Nucleated Red Blood Cells # 0.0 Sodium Level 136 Potassium Level 3.8 Chloride Level 102 Carbon Dioxide Level 28 Anion Gap 10 Blood Urea Nitrogen 16 Creatinine 0.86 Glucose Level 100 Uric Acid 6.4 Calcium Level 8.4 Phosphorus Level 3.8 Total Bilirubin 0.6 Direct Bilirubin 0.00 Indirect Bilirubin 0.6 Aspartate Amino Transf (AST/SGOT) 9 L Alanine Aminotransferase (ALT/SGPT) 34 Alkaline Phosphatase 62 Lactate Dehydrogenase 357 Total Protein 4.7 L Albumin 2.9 L Globulin 1.80 Albumin/Globulin Ratio 1.61 Medications Medications Current Medications Morphine Sulfate (morphine) 2 mg Q4H PRN IV PAIN; Start 06/08/16 at 13:30 Ondansetron HCl (Zofran Inj) 4 mg Q6H PRN IV NAUSEA AND/OR VOMITING Last administered on 06/17/16 21:47; Admin Dose 4 MG; Start 06/08/16 at 13:30 Pantoprazole 40 mg 40 mg DAILY@06 IV Last administered on 06/18/16 05:30; Admin Dose 40 MG; Start 06/09/16 at 06:00 Acetaminophen (Ofirmev 1000mg/ 100ml Iv) 65 ml @ 250 mls/hr Q6H PRN IVPB PAIN ; Start 06/08/16 at 14:30 Meperidine HCl (Demerol) 50 mg Q4H PRN IV ALLERGIC REACTION Last administered on 06/10/16 02:09; Admin Dose 50 MG; Start 06/08/16 at 16:30 Methylprednisolone Sodium Succinate 100 mg 100 mg Q4H PRN IV ALLERGIC REACTION ; Start 06/08/16 at 16:30 Sodium Chloride (NS) 1,000 ml @ 70 mls/hr [id number] IV Last administered on 06/09 09:03; Admin Dose 70 MLS/HR; Start 06/08/16 at 16:18; Status Future Hold Acetaminophen (Tylenol Tab) 650 mg Q6H PRN PO PAIN LEVEL 1-3 OR FEVER Last administered on 06/10/16 04:24; Admin Dose 650 MG; Start 06/08/16 at 16:30 Acetaminophen (Tylenol Supp) 650 mg Q6H PRN [place] PAIN LEVEL 1-3 OR FEVER; Start 06/08/16 at 16:30 Docusate Sodium (Colace) 100 mg Q12H PRN PO CONSTIPATION Last administered on 08:51; Admin Dose 100 MG; Start 06/08/16 at 16:30 Magnesium Hydroxide 30 ml 30 ml DAILY PRN PO CONSTIPATION Last administered on 06/12/16 21:02; Admin Dose 30 ML; Start 06/08/16 at 16:30 Sodium Chloride (NS) 1,000 ml @ 50 mls/hr Q20H IV Last administered on 12:29; Admin Dose 50 MLS/HR; Start 06/09/16 at 16:00 IV Flush (NS 10 ml) 10 ml PRN PRN IV IV PROTOCOL; Start 06/09/16 at 11:30 Dexamethasone (Decadron) 10 mg Q4H PRN IV ALLERGIC REACTION; Start 06/09/16 at 16:00 Diphenhydramine HCl 25 mg 25 mg Q4H PRN IV ALLERGIC REACTION Last administered on 06/18/16 01:11; Admin Dose 25 MG; Start 06/09/16 at 16:00 Vincristine Sulfate/Sodium Chloride (Oncovin/NS) 50 ml @ 100 mls/hr Q7D IV Last administered on 06/13/16 13:22; Admin Dose 100 MLS/HR; Start 06/13/16 at 13:00; Stop 06/20/16 at 13:29 Lorazepam (Ativan) 1 mg Q6H PRN IV Hiccups Last administered on 06/18/16 08:30 ; Admin Dose 1 MG; Start 06/10/16 at 21:00 Lorazepam (Ativan) 0.5 mg Q8H PRN PO NOTE; Start 06/12/16 at 16:00 Chlorpromazine (Thorazine) 10 mg BID PRN PO hiccups; Start 06/12/16 at 18:30 Lactulose (Enulose) 10 gm BID PRN PO CONSTIPATION Last administered on 13:55; Admin Dose 10 GM; Start 06/13/16 at 10:30 FABIAN STEINBERG MD Jun 18, 2016 09:02
[2016-06-18] MEDS ORDERED: SOD CHLORIDE 0.9% IV SCH (12:00)
[2016-06-18] MEDS ORDERED: DEXAMETHASONE IV SCH (12:00)
[2016-06-18] MEDS: FLUCONAZOLE 100 MG TAB PO SCH (14:29)
[2016-06-18] MEDS: VALACYCLOVIR 500 MG TAB PO SCH (14:29)
[2016-06-18] MEDS: LEVOFLOXACIN 500 MG TAB PO SCH (14:29)
[2016-06-18] MEDS: FILGRASTIM 480 MCG INJ SC SCH (16:35)
[2016-06-18] MEDS ORDERED: BISACODYL (EC) 5 MG TAB PO PRN (18:00)
--- NOTE | 2016-06-18 20:06 | PN ---
Date/Time of Note Date/Time of Note DATE: 06/18/16 TIME: 20:04 Assessment/Plan VTE Prophylaxis VTE Prophylaxis Intervention: other Lines/Catheters IV Catheter Type (from Nrs): PICC Line Central line still needed: Yes Urinary Cath still in place: No Assessment/Plan Chief Complaint/Hosp Course IMPRESSION: 1. Patient has lymphoma.on chemo 2. Leukocytosis. 3. Thrombocytosis. better 4. Anemia. 5. Splenomegaly.better 6. Allopurinol rash with a diffuse skin rash resolving.hx plan chemo per dr clements ck labs bowel care Problems: Subjective 24 Hr Interval Summary Cardiovascular: no complaints Gastrointestinal: constipation (+), other Exam/Review of Systems Vital Signs Vitals Vital Signs Date Time Temp Pulse Resp B/P Pulse Ox O2 Delivery O2 Flow Rate FiO2 06/18/16 08:02 98.2 71 18 112/66 98 06/17/16 04:30 Nasal Cannula Intake and Output 06/17/16 06/17/16 06/18/16 15:00 23:00 07:00 Intake Total 900 ml 1000 ml Output Total 700 ml 850 ml Balance 200 ml 150 ml Exam Neck: supple Respiratory: clear to auscultation Cardiovascular: regular rate and rhythm Gastrointestinal: soft Musculoskeletal: nl extremities to inspection Results Result Diagram: 06/18/16 0435 06/18/16 0435 Results 24 hrs Laboratory Tests Test 06/18/16 04:35 White Blood Count 13.0 #H Red Blood Count 3.47 L Hemoglobin 10.3 L Hematocrit 31.4 L Mean Corpuscular Volume 90.5 Mean Corpuscular Hemoglobin 29.7 Mean Corpuscular Hemoglobin Concent 32.8 Red Cell Distribution Width 14.4 Platelet Count 104 L Mean Platelet Volume 9.0 Neutrophils % 9.2 L Lymphocytes % 89.1 H Monocytes % 0.8 Eosinophils % 0.5 Basophils % 0.2 Nucleated Red Blood Cells % 0.0 Neutrophils # 1.2 L Lymphocytes # 11.6 H Monocytes # 0.1 L Eosinophils # 0.1 Basophils # 0.0 Nucleated Red Blood Cells # 0.0 Sodium Level 136 Potassium Level 3.8 Chloride Level 102 Carbon Dioxide Level 28 Anion Gap 10 Blood Urea Nitrogen 16 Creatinine 0.86 Glucose Level 100 Uric Acid 6.4 Calcium Level 8.4 Phosphorus Level 3.8 Total Bilirubin 0.6 Direct Bilirubin 0.00 Indirect Bilirubin 0.6 Aspartate Amino Transf (AST/SGOT) 9 L Alanine Aminotransferase (ALT/SGPT) 34 Alkaline Phosphatase 62 Lactate Dehydrogenase 357 Total Protein 4.7 L Albumin 2.9 L Globulin 1.80 Albumin/Globulin Ratio 1.61 Medications Medications Current Medications Morphine Sulfate (morphine) 2 mg Q4H PRN IV PAIN; Start 06/08/16 at 13:30 Ondansetron HCl (Zofran Inj) 4 mg Q6H PRN IV NAUSEA AND/OR VOMITING Last administered on 06/17/16 21:47; Admin Dose 4 MG; Start 06/08/16 at 13:30 Pantoprazole 40 mg 40 mg DAILY@06 IV Last administered on 06/18/16 05:30; Admin Dose 40 MG; Start 06/09/16 at 06:00 Acetaminophen (Ofirmev 1000mg/ 100ml Iv) 65 ml @ 250 mls/hr Q6H PRN IVPB PAIN ; Start 06/08/16 at 14:30 Meperidine HCl (Demerol) 50 mg Q4H PRN IV ALLERGIC REACTION Last administered on 06/10/16 02:09; Admin Dose 50 MG; Start 06/08/16 at 16:30 Methylprednisolone Sodium Succinate 100 mg 100 mg Q4H PRN IV ALLERGIC REACTION ; Start 06/08/16 at 16:30 Sodium Chloride (NS) 1,000 ml @ 70 mls/hr [id number] IV Last administered on 06/09 09:03; Admin Dose 70 MLS/HR; Start 06/08/16 at 16:18; Status Future Hold Acetaminophen (Tylenol Tab) 650 mg Q6H PRN PO PAIN LEVEL 1-3 OR FEVER Last administered on 06/10/16 04:24; Admin Dose 650 MG; Start 06/08/16 at 16:30 Acetaminophen (Tylenol Supp) 650 mg Q6H PRN [place] PAIN LEVEL 1-3 OR FEVER; Start 06/08/16 at 16:30 Docusate Sodium (Colace) 100 mg Q12H PRN PO CONSTIPATION Last administered on 08:51; Admin Dose 100 MG; Start 06/08/16 at 16:30 Magnesium Hydroxide 30 ml 30 ml DAILY PRN PO CONSTIPATION Last administered on 06/12/16 21:02; Admin Dose 30 ML; Start 06/08/16 at 16:30 Sodium Chloride (NS) 1,000 ml @ 50 mls/hr Q20H IV Last administered on 12:29; Admin Dose 50 MLS/HR; Start 06/09/16 at 16:00 IV Flush (NS 10 ml) 10 ml PRN PRN IV IV PROTOCOL; Start 06/09/16 at 11:30 Dexamethasone (Decadron) 10 mg Q4H PRN IV ALLERGIC REACTION; Start 06/09/16 at 16:00 Diphenhydramine HCl 25 mg 25 mg Q4H PRN IV ALLERGIC REACTION Last administered on 06/18/16 01:11; Admin Dose 25 MG; Start 06/09/16 at 16:00 Vincristine Sulfate/Sodium Chloride (Oncovin/NS) 50 ml @ 100 mls/hr Q7D IV Last administered on 06/13/16 13:22; Admin Dose 100 MLS/HR; Start 06/13/16 at 13:00; Stop 06/20/16 at 13:29 Lorazepam (Ativan) 1 mg Q6H PRN IV Hiccups Last administered on 06/18/16 14:29 ; Admin Dose 1 MG; Start 06/10/16 at 21:00 Lorazepam (Ativan) 0.5 mg Q8H PRN PO NOTE; Start 06/12/16 at 16:00 Chlorpromazine (Thorazine) 10 mg BID PRN PO hiccups; Start 06/12/16 at 18:30 Lactulose (Enulose) 10 gm BID PRN PO CONSTIPATION Last administered on 13:55; Admin Dose 10 GM; Start 06/13/16 at 10:30 Filgrastim (Neupogen) 480 mcg DAILY@17 SC Last administered on 06/18/16 16:35 ; Admin Dose 480 MCG; Start 06/18/16 at 17:00; Stop 06/27/16 at 17:01 Valacyclovir HCl (Valtrex) 500 mg DAILY PO Last administered on 06/18/16 14:29 ; Admin Dose 500 MG; Start 06/18/16 at 13:00; Stop 06/27/16 at 09:01 Fluconazole (Diflucan) 100 mg DAILY PO Last administered on 06/18/16 14:29; Admin Dose 100 MG; Start 06/18/16 at 13:00; Stop 06/27/16 at 09:01 Levofloxacin 500 mg 500 mg DAILY@06 PO Last administered on 06/18/16t 14:29; Admin Dose 500 MG; Start 06/18/16 at 13:00; Stop 06/27/16 at 06:01 Dexamethasone/ Sodium Chloride (Decadron/NS) 60 ml @ 252 mls/hr Q24H IV ; Start 06/21/16 at 09:00; Stop 06/24/16 at 09:15 Bisacodyl (Dulcolax) 10 mg PRN PRN PO CONSTIPATION; Start 06/18/16 at 18:00 TIFFANIE LI MD Jun 18, 2016 20:05
[2016-06-18 21:07] VITALS: BP 108/58; PULSE 68; RESP 18
[2016-06-18] MEDS: SOD CHLORIDE 0.9% 1,000 ML IV SCH (21:13)
[2016-06-19 04:49] LABS: ADD SCAN DIFF NO
[2016-06-19 05:02] LABS: ABNORMAL IP MESSAGE 1; BASOPHILS % 0.2 % (0.0-2.0); EOSINOPHILS # 0.1 10^3/ul (0.0-0.5); EOSINOPHILS % 0.9 % (0.0-7.0); HEMATOCRIT 30.3 % (42.0-52.0); HEMOGLOBIN 9.9 g/dl (14.0-18.0); LYMPHOCYTES # 7.5 10^3/ul (0.8-2.9); MEAN CORPUSCULAR HGB CONC 32.7 g/dl (32.0-37.0); MEAN CORPUSCULAR VOLUME 91.8 fl (82.0-101.0); MONOCYTE # 0.1 10^3/ul (0.3-0.9); MONOCYTES % 0.9 % (0.0-11.0); NEUTROPHILS % 20.3 % (39.0-77.0); PLATELET COUNT 109 10^3/UL (140-415); RED CELL DISTRIBUTION WIDTH 14.3 % (11.5-14.5)
[2016-06-19 05:17] LABS: ALBUMIN 2.8 g/dl (3.3-4.9)
[2016-06-19 05:18] LABS: POTASSIUM 3.8 mmol/L (3.5-5.1)
[2016-06-19 05:20] LABS: ALBUMIN/GLOBULIN RATIO 1.47; BILIRUBIN,INDIRECT 0.3 mg/dl (0-1.1); BILIRUBIN,TOTAL 0.3 mg/dl (0.2-1.3); CREATININE 0.78 mg/dl (0.61-1.24); LYMPHOCYTES % 75.7 % (15.0-51.0); TOTAL PROTEIN 4.7 g/dl (6.1-8.1)
[2016-06-19 05:21] LABS: CALCIUM 8.1 mg/dl (8.4-10.2)
[2016-06-19] MEDS: PANTOPRAZOLE 40 MG INJ IV SCH (05:36)
[2016-06-19] MEDS: LEVOFLOXACIN 500 MG TAB PO SCH (05:37)
[2016-06-19 07:47] VITALS: BP 118/67; RESP 16
[2016-06-19] MEDS: VALACYCLOVIR 500 MG TAB PO SCH (08:36)
[2016-06-19] MEDS: FLUCONAZOLE 100 MG TAB PO SCH (08:36)
--- NOTE | 2016-06-19 08:48 | CONS ---
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 - Given the aggressive nature of disease now on R-HyperCVAD. #Mantle Cell lymphoma - -started HyperCVAD 06/10/16, tolerating well so far except nausea vomiting, on antiemetics. DAY 1 is 06/09 -Rituxan 800mg IV given day 1 (06/09) -Cytoxan 600mg IV q 12 hours x 6 doses day 2-4 (06/10-06/12) -Vincristine 2mg given day 5 (06/13) and day 12 (06/20) -Adriamycin 40mg IV q day continuous over 72 hours Day 5-7 (06/13-06/15) -Dexamethasone 40 IV per day, day 2 - day 5 (06/10-06/13) and day 12- day15( -06/23) -echocardiogram showed normal EF. -Hep panel and HIV negative -Referral to [facility] for autologous BMT in first remission has been approved. Patient needs to make appt with Dr. Sami Mendes. -BMBx (performed 06/05/16 as an outpatient) shows involvement by mantle cell lymphoma (50% of marrow cellularity by IHC), so its a stage 4 -Neupogen started 06/18/16 after completion of doxorubicin # [employer]ER prophylaxis -Pt will need Intrathecal chemotherapy with methotrexate/cytarabine/ hydrocoritone. Will order once peripheral blasts and peripheral lymphoma cells have cleared. Ordered flow cytometry and MRI brain as recommended by Dr Dimas. MRI brain was unremarkable, reviewed with Dr. Miranda. Peripheral blood flow cytometry continues to show leukemic phase of B cell lymphoma. -Plan to review peripheral smear next week to evaluate clearance of peripheral lymphoma cells # Tumor lysis prophylaxis -continue to check daily tumor lysis labs including CMP, LDH, URIC acid, phosphorus. Rasburicase given on 06/08/16, 06/10/16, 06/11/16 and 06/16/16. NOTE patient is ALLERGIC to allopurinol. # Supportive Care -on increased dose of thorazine prn for hiccups, for now stable. -zofran prn, ativan prn nausea -adding lactulose for constipation. -continue ppx meds including Fluconazole, Levaquin and Valacyclovir Extensive d/w patient re: current rx, supportive care and briefly about questions related to BM transplant in future. Problems: Consultation Date/Type/Reason Admit Date/Time Jun 08, 2016 at 10:39 Initial Consult Date 06/08/16 Type of Consultation: Hematology/Oncology Referring Provider: TIFFANIE LI MD 24 HR Interval Summary Free Text/Dictation Patient doing well, has occasional nausea but overall feels good. Exam/Review of Systems Vital Signs Vitals Vital Signs Date Time Temp Pulse Resp B/P Pulse Ox O2 Delivery O2 Flow Rate FiO2 06/19/16 07:47 98.1 83 16 118/67 98 06/18/16 21:07 Room Air Intake and Output 06/18/16 06/18/16 06/19/16 15:00 23:00 07:00 Intake Total 1520 ml 1100 ml Output Total 900 ml 1500 ml Balance 620 ml -400 ml Exam Constitutional: alert, oriented Psych: no complaints Head: normocephalic Eyes: nl conjunctiva ENMT: nl external ears & nose Neck: non-tender, supple Respiratory: clear to auscultation, normal air movement Cardiovascular: regular rate and rhythm Gastrointestinal: soft Musculoskeletal: nl extremities to inspection Extremities: normal pulses Results Result Diagram: 06/19/16 0426 06/19/16 0426 Results 24 hrs Laboratory Tests Test 06/19/16 04:26 White Blood Count 10.0 # Red Blood Count 3.30 L Hemoglobin 9.9 L Hematocrit 30.3 L Mean Corpuscular Volume 91.8 Mean Corpuscular Hemoglobin 30.0 Mean Corpuscular Hemoglobin Concent 32.7 Red Cell Distribution Width 14.3 Platelet Count 109 L Mean Platelet Volume 9.0 Neutrophils % 20.3 L Lymphocytes % 75.7 H Monocytes % 0.9 Eosinophils % 0.9 Basophils % 0.2 Nucleated Red Blood Cells % 0.0 Neutrophils # 2.0 Lymphocytes # 7.5 H Monocytes # 0.1 L Eosinophils # 0.1 Basophils # 0.0 Nucleated Red Blood Cells # 0.0 Sodium Level 136 Potassium Level 3.8 Chloride Level 105 Carbon Dioxide Level 25 Anion Gap 10 Blood Urea Nitrogen 15 Creatinine 0.78 Glucose Level 102 Uric Acid 5.0 Calcium Level 8.1 L Phosphorus Level 2.9 Total Bilirubin 0.3 Direct Bilirubin 0.00 Indirect Bilirubin 0.3 Aspartate Amino Transf (AST/SGOT) 10 L Alanine Aminotransferase (ALT/SGPT) 30 Alkaline Phosphatase 55 Lactate Dehydrogenase 370 Total Protein 4.7 L Albumin 2.8 L Globulin 1.90 Albumin/Globulin Ratio 1.47 Medications Medications Current Medications Morphine Sulfate (morphine) 2 mg Q4H PRN IV PAIN; Start 06/08/16 at 13:30 Ondansetron HCl (Zofran Inj) 4 mg Q6H PRN IV NAUSEA AND/OR VOMITING Last administered on 06/17/16 21:47; Admin Dose 4 MG; Start 06/08/16 at 13:30 Pantoprazole 40 mg 40 mg DAILY@06 IV Last administered on 06/19/16 05:36; Admin Dose 40 MG; Start 06/09/16 at 06:00 Acetaminophen (Ofirmev 1000mg/ 100ml Iv) 65 ml @ 250 mls/hr Q6H PRN IVPB PAIN ; Start 06/08/16 at 14:30 Meperidine HCl (Demerol) 50 mg Q4H PRN IV ALLERGIC REACTION Last administered on 06/10/16 02:09; Admin Dose 50 MG; Start 06/08/16 at 16:30 Methylprednisolone Sodium Succinate 100 mg 100 mg Q4H PRN IV ALLERGIC REACTION ; Start 06/08/16 at 16:30 Sodium Chloride (NS) 1,000 ml @ 70 mls/hr [id number] IV Last administered on 06/09 09:03; Admin Dose 70 MLS/HR; Start 06/08/16 at 16:18; Status Future Hold Acetaminophen (Tylenol Tab) 650 mg Q6H PRN PO PAIN LEVEL 1-3 OR FEVER Last administered on 06/10/16 04:24; Admin Dose 650 MG; Start 06/08/16 at 16:30 Acetaminophen (Tylenol Supp) 650 mg Q6H PRN [place] PAIN LEVEL 1-3 OR FEVER; Start 06/08/16 at 16:30 Docusate Sodium (Colace) 100 mg Q12H PRN PO CONSTIPATION Last administered on 08:51; Admin Dose 100 MG; Start 06/08/16 at 16:30 Magnesium Hydroxide 30 ml 30 ml DAILY PRN PO CONSTIPATION Last administered on 06/12/16 21:02; Admin Dose 30 ML; Start 06/08/16 at 16:30 Sodium Chloride (NS) 1,000 ml @ 50 mls/hr Q20H IV Last administered on 21:13; Admin Dose 50 MLS/HR; Start 06/09/16 at 16:00 IV Flush (NS 10 ml) 10 ml PRN PRN IV IV PROTOCOL; Start 06/09/16 at 11:30 Dexamethasone (Decadron) 10 mg Q4H PRN IV ALLERGIC REACTION; Start 06/09/16 at 16:00 Diphenhydramine HCl 25 mg 25 mg Q4H PRN IV ALLERGIC REACTION Last administered on 06/18/16 01:11; Admin Dose 25 MG; Start 06/09/16 at 16:00 Vincristine Sulfate/Sodium Chloride (Oncovin/NS) 50 ml @ 100 mls/hr Q7D IV Last administered on 06/13/16 13:22; Admin Dose 100 MLS/HR; Start 06/13/16 at 13:00; Stop 06/20/16 at 13:29 Lorazepam (Ativan) 1 mg Q6H PRN IV Hiccups Last administered on 06/18/16 14:29 ; Admin Dose 1 MG; Start 06/10/16 at 21:00 Lorazepam (Ativan) 0.5 mg Q8H PRN PO NOTE; Start 06/12/16 at 16:00 Chlorpromazine (Thorazine) 10 mg BID PRN PO hiccups; Start 06/12/16 at 18:30 Lactulose (Enulose) 10 gm BID PRN PO CONSTIPATION Last administered on 13:55; Admin Dose 10 GM; Start 06/13/16 at 10:30 Filgrastim (Neupogen) 480 mcg DAILY@17 SC Last administered on 06/18/16 16:35 ; Admin Dose 480 MCG; Start 06/18/16 at 17:00; Stop 06/27/16 at 17:01 Valacyclovir HCl (Valtrex) 500 mg DAILY PO Last administered on 06/19/16 08:36 ; Admin Dose 500 MG; Start 06/18/16 at 13:00; Stop 06/27/16 at 09:01 Fluconazole (Diflucan) 100 mg DAILY PO Last administered on 06/19/16 08:36; Admin Dose 100 MG; Start 06/18/16 at 13:00; Stop 06/27/16 at 09:01 Levofloxacin 500 mg 500 mg DAILY@06 PO Last administered on 06/19/16 05:37; Admin Dose 500 MG; Start 06/18/16 at 13:00; Stop 06/27/16 at 06:01 Dexamethasone/ Sodium Chloride (Decadron/NS) 60 ml @ 252 mls/hr Q24H IV ; Start 06/21/16 at 09:00; Stop 06/24/16 at 09:15 Bisacodyl (Dulcolax) 10 mg PRN PRN PO CONSTIPATION; Start 06/18/16 at 18:00 TO,FABIAN Villegas MD Jun 19, 2016 08:48
[2016-06-19] MEDS: SOD CHLORIDE 0.9% 1,000 ML IV SCH (10:19)
[2016-06-19] MEDS: LORAZEPAM 2 MG INJ IV PRN ×2 (10:19→23:51)
--- NOTE | 2016-06-19 12:51 | PN ---
Date/Time of Note Date/Time of Note DATE: 06/19/16 TIME: 12:49 Assessment/Plan VTE Prophylaxis VTE Prophylaxis Intervention: ambulation Lines/Catheters IV [facility] Type (from [facility]): PICC Line Central line still needed: Yes Urinary Cath still in place: No Assessment/Plan Chief Complaint/Hosp Course 1. Lymphoma, has chemotherapy. 2. Leukocytosis, improved. 3. Thrombocytosis. 4. Anemia. 5. Splenomegaly. 6. Tomorrow second round of hemotherapy Problems: Assessment/Plan 1/. Per Dr tejada, continue chemotherapy Subjective 24 Hr Interval Summary Constitutional: no complaints Eyes: no complaints ENT: no complaints Respiratory: no complaints Cardiovascular: no complaints Exam/Review of Systems Vital Signs Vitals Vital Signs Date Time Temp Pulse Resp B/P Pulse Ox O2 Delivery O2 Flow Rate FiO2 06/19/16 07:47 98.1 83 16 118/67 98 06/18/16 21:07 Room Air Intake and Output 06/18/16 06/18/16 06/19/16 15:00 23:00 07:00 Intake Total 1520 ml 1100 ml Output Total 900 ml 1500 ml Balance 620 ml -400 ml Exam Constitutional: alert, oriented, well developed Psych: nl mood/affect, no complaints Head: atraumatic, normocephalic ENMT: nl external ears & nose Neck: non-tender, supple Respiratory: clear to auscultation Cardiovascular: nl pulses, regular rate and rhythm Gastrointestinal: soft Results Result Diagram: 06/19/16 0426 06/19/16 0426 Results 24 hrs Laboratory Tests Test 06/19/16 04:26 White Blood Count 10.0 # Red Blood Count 3.30 L Hemoglobin 9.9 L Hematocrit 30.3 L Mean Corpuscular Volume 91.8 Mean Corpuscular Hemoglobin 30.0 Mean Corpuscular Hemoglobin Concent 32.7 Red Cell Distribution Width 14.3 Platelet Count 109 L Mean Platelet Volume 9.0 Neutrophils % 20.3 L Lymphocytes % 75.7 H Monocytes % 0.9 Eosinophils % 0.9 Basophils % 0.2 Nucleated Red Blood Cells % 0.0 Neutrophils # 2.0 Lymphocytes # 7.5 H Monocytes # 0.1 L Eosinophils # 0.1 Basophils # 0.0 Nucleated Red Blood Cells # 0.0 Sodium Level 136 Potassium Level 3.8 Chloride Level 105 Carbon Dioxide Level 25 Anion Gap 10 Blood Urea Nitrogen 15 Creatinine 0.78 Glucose Level 102 Uric Acid 5.0 Calcium Level 8.1 L Phosphorus Level 2.9 Total Bilirubin 0.3 Direct Bilirubin 0.00 Indirect Bilirubin 0.3 Aspartate Amino Transf (AST/SGOT) 10 L Alanine Aminotransferase (ALT/SGPT) 30 Alkaline Phosphatase 55 Lactate Dehydrogenase 370 Total Protein 4.7 L Albumin 2.8 L Globulin 1.90 Albumin/Globulin Ratio 1.47 Medications Medications Current Medications Morphine Sulfate (morphine) 2 mg Q4H PRN IV PAIN; Start 06/08/16 at 13:30 Ondansetron HCl (Zofran Inj) 4 mg Q6H PRN IV NAUSEA AND/OR VOMITING Last administered on 06/17/16 21:47; Admin Dose 4 MG; Start 06/08/16 at 13:30 Pantoprazole 40 mg 40 mg DAILY@06 IV Last administered on 06/19/16 05:36; Admin Dose 40 MG; Start 06/09/16 at 06:00 Acetaminophen (Ofirmev 1000mg/ 100ml Iv) 65 ml @ 250 mls/hr Q6H PRN IVPB PAIN ; Start 06/08/16 at 14:30 Meperidine HCl (Demerol) 50 mg Q4H PRN IV ALLERGIC REACTION Last administered on 06/10/16 02:09; Admin Dose 50 MG; Start 06/08/16 at 16:30 Methylprednisolone Sodium Succinate 100 mg 100 mg Q4H PRN IV ALLERGIC REACTION ; Start 06/08/16 at 16:30 Sodium Chloride (NS) 1,000 ml @ 70 mls/hr [id number] IV Last administered on 06/09 09:03; Admin Dose 70 MLS/HR; Start 06/08/16 at 16:18; Status Future Hold Acetaminophen (Tylenol Tab) 650 mg Q6H PRN PO PAIN LEVEL 1-3 OR FEVER Last administered on 06/10/16 04:24; Admin Dose 650 MG; Start 06/08/16 at 16:30 Acetaminophen (Tylenol Supp) 650 mg Q6H PRN [place] PAIN LEVEL 1-3 OR FEVER; Start 06/08/16 at 16:30 Docusate Sodium (Colace) 100 mg Q12H PRN PO CONSTIPATION Last administered on 08:51; Admin Dose 100 MG; Start 06/08/16 at 16:30 Magnesium Hydroxide 30 ml 30 ml DAILY PRN PO CONSTIPATION Last administered on 06/12/16 21:02; Admin Dose 30 ML; Start 06/08/16 at 16:30 Sodium Chloride (NS) 1,000 ml @ 50 mls/hr Q20H IV Last administered on 10:19; Admin Dose 50 MLS/HR; Start 06/09/16 at 16:00 IV Flush (NS 10 ml) 10 ml PRN PRN IV IV PROTOCOL; Start 06/09/16 at 11:30 Dexamethasone (Decadron) 10 mg Q4H PRN IV ALLERGIC REACTION; Start 06/09/16 at 16:00 Diphenhydramine HCl 25 mg 25 mg Q4H PRN IV ALLERGIC REACTION Last administered on 06/18/16 01:11; Admin Dose 25 MG; Start 06/09/16 at 16:00 Vincristine Sulfate/Sodium Chloride (Oncovin/NS) 50 ml @ 100 mls/hr Q7D IV Last administered on 06/13/16 13:22; Admin Dose 100 MLS/HR; Start 06/13/16 at 13:00; Stop 06/20/16 at 13:29 Lorazepam (Ativan) 1 mg Q6H PRN IV Hiccups Last administered on 06/19/16 10:19 ; Admin Dose 1 MG; Start 06/10/16 at 21:00 Lorazepam (Ativan) 0.5 mg Q8H PRN PO NOTE; Start 06/12/16 at 16:00 Chlorpromazine (Thorazine) 10 mg BID PRN PO hiccups; Start 06/12/16 at 18:30 Lactulose (Enulose) 10 gm BID PRN PO CONSTIPATION Last administered on 13:55; Admin Dose 10 GM; Start 06/13/16 at 10:30 Filgrastim (Neupogen) 480 mcg DAILY@17 SC Last administered on 06/18/16 16:35 ; Admin Dose 480 MCG; Start 06/18/16 at 17:00; Stop 06/27/16 at 17:01 Valacyclovir HCl (Valtrex) 500 mg DAILY PO Last administered on 06/19/16 08:36 ; Admin Dose 500 MG; Start 06/18/16 at 13:00; Stop 06/27/16 at 09:01 Fluconazole (Diflucan) 100 mg DAILY PO Last administered on 06/19/16 08:36; Admin Dose 100 MG; Start 06/18/16 at 13:00; Stop 06/27/16 at 09:01 Levofloxacin 500 mg 500 mg DAILY@06 PO Last administered on 06/19/16 05:37; Admin Dose 500 MG; Start 06/18/16 at 13:00; Stop 06/27/16 at 06:01 Dexamethasone/ Sodium Chloride (Decadron/NS) 60 ml @ 252 mls/hr Q24H IV ; Start 06/21/16 at 09:00; Stop 06/24/16 at 09:15 Bisacodyl (Dulcolax) 10 mg PRN PRN PO CONSTIPATION; Start 06/18/16 at 18:00 SYLVIE SOTO Jun 19, 2016 12:51
[2016-06-19] MEDS ORDERED: POLYETHYLENE GLYCOL 17 GM PACKET PO ONE (13:00)
[2016-06-19] MEDS: FILGRASTIM 480 MCG INJ SC SCH (17:47)
[2016-06-19 19:52] VITALS: BP 118/67; PULSE 88; RESP 18
[2016-06-20 05:11] LABS: ADD SCAN DIFF NO
[2016-06-20 05:27] LABS: ABNORMAL IP MESSAGE 1; HEMATOCRIT 28.9 % (42.0-52.0); HEMOGLOBIN 9.3 g/dl (14.0-18.0); MEAN CORPUSCULAR HEMOGLOBIN 29.2 pg (29.0-33.0); MEAN CORPUSCULAR HGB CONC 32.2 g/dl (32.0-37.0); MEAN CORPUSCULAR VOLUME 90.9 fl (82.0-101.0); MEAN PLATELET VOLUME 9.2 fl (7.4-10.4); PLATELET COUNT 94 10^3/UL (140-415); RED BLOOD COUNT 3.18 10^6/ul (4.70-6.10); RED CELL DISTRIBUTION WIDTH 14.4 % (11.5-14.5); WHITE BLOOD COUNT 6.5 10^3/ul (4.8-10.8)
[2016-06-20 05:37] LABS: ALBUMIN 3.1 g/dl (3.3-4.9)
[2016-06-20 05:38] LABS: POTASSIUM 4.2 mmol/L (3.5-5.1)
[2016-06-20 05:40] LABS: ALBUMIN/GLOBULIN RATIO 1.72; BILIRUBIN,INDIRECT 0.3 mg/dl (0-1.1); BILIRUBIN,TOTAL 0.3 mg/dl (0.2-1.3); CREATININE 0.89 mg/dl (0.61-1.24); TOTAL PROTEIN 4.9 g/dl (6.1-8.1)
[2016-06-20 05:41] LABS: CALCIUM 8.1 mg/dl (8.4-10.2); URIC ACID 5.7 mg/dl (3.1-7.9)
[2016-06-20] MEDS: LEVOFLOXACIN 500 MG TAB PO SCH (06:09)
[2016-06-20] MEDS: PANTOPRAZOLE 40 MG INJ IV SCH (06:09)
[2016-06-20 07:00] VITALS: BP 112/76; RESP 18
[2016-06-20] MEDS: VALACYCLOVIR 500 MG TAB PO SCH (08:48)
[2016-06-20] MEDS: FLUCONAZOLE 100 MG TAB PO SCH (08:49)
[2016-06-20 11:39] LABS: BASOPHIL # 0.1 10^3/ul (0.0-0.1); EOSINOPHILS # 0.1 10^3/ul (0.0-0.5); LYMPHOCYTES # 5.9 10^3/ul (0.8-2.9); NEUTROPHIL # 0.5 10^3/ul (1.6-7.5)
--- NOTE | 2016-06-20 12:55 | PN ---
Date/Time of Note Date/Time of Note DATE: 06/20/16 TIME: 12:54 Assessment/Plan VTE Prophylaxis VTE Prophylaxis Intervention: ambulation Lines/Catheters [facility] PICC Line Central line still needed: Yes Urinary Cath still in place: No Assessment/Plan Chief Complaint/Hosp Course 1. Lymphoma, start chemotherapy. 2. Leukocytosis, improved. 3. Thrombocytosis. 4. Anemia. 5. Splenomegaly. 6. Tomorrow second round of hemotherapy Problems: Assessment/Plan 1. Per dr Jay start second chemotherapy cycle Subjective 24 Hr Interval Summary Free Text/Dictation pt is walking, unable to assess him in hallway Exam/Review of Systems Vital Signs Vitals Vital Signs Date Time Temp Pulse Resp B/P Pulse Ox O2 Delivery O2 Flow Rate FiO2 06/20/16 07:00 98.6 86 18 112/76 98 06/19/16 19:52 Room Air Intake and Output 06/19/16 06/19/16 06/20/16 15:00 23:00 07:00 Intake Total 250 ml 1600 ml 1400 ml Output Total 1000 ml 1200 ml Balance 250 ml 600 ml 200 ml Exam Constitutional: alert, oriented Psych: no complaints Head: normocephalic Eyes: nl conjunctiva Neck: supple Results Result Diagram: 06/20/16 0436 06/20/16 0436 Results 24 hrs Laboratory Tests Test 06/20/16 04:36 White Blood Count 6.5 # Red Blood Count 3.18 L Hemoglobin 9.3 L Hematocrit 28.9 L Mean Corpuscular Volume 90.9 Mean Corpuscular Hemoglobin 29.2 Mean Corpuscular Hemoglobin Concent 32.2 Red Cell Distribution Width 14.4 Platelet Count 94 L Mean Platelet Volume 9.2 Neutrophils % 7.0 L Lymphocytes % 91.0 H Monocytes % Eosinophils % 1.0 Basophils % 1.0 Neutrophils # 0.5 L Lymphocytes # 5.9 H Monocytes # Eosinophils # 0.1 Basophils # 0.1 Sodium Level 133 L Potassium Level 4.2 Chloride Level 100 Carbon Dioxide Level 26 Anion Gap 11 Blood Urea Nitrogen 15 Creatinine 0.89 Glucose Level 97 Uric Acid 5.7 Calcium Level 8.1 L Total Bilirubin 0.3 Direct Bilirubin 0.00 Indirect Bilirubin 0.3 Aspartate Amino Transf (AST/SGOT) 9 L Alanine Aminotransferase (ALT/SGPT) 32 Alkaline Phosphatase 57 Lactate Dehydrogenase 338 Total Protein 4.9 L Albumin 3.1 L Globulin 1.80 Albumin/Globulin Ratio 1.72 Medications Medications Current Medications Morphine Sulfate (morphine) 2 mg Q4H PRN IV PAIN; Start 06/08/16 at 13:30 Ondansetron HCl (Zofran Inj) 4 mg Q6H PRN IV NAUSEA AND/OR VOMITING Last administered on 06/17/16 21:47; Admin Dose 4 MG; Start 06/08/16 at 13:30 Pantoprazole 40 mg 40 mg DAILY@06 IV Last administered on 06/20/16 06:09; Admin Dose 40 MG; Start 06/09/16 at 06:00 Acetaminophen (Ofirmev 1000mg/ 100ml Iv) 65 ml @ 250 mls/hr Q6H PRN IVPB PAIN ; Start 06/08/16 at 14:30 Meperidine HCl (Demerol) 50 mg Q4H PRN IV ALLERGIC REACTION Last administered on 06/10/16 02:09; Admin Dose 50 MG; Start 06/08/16 at 16:30 Methylprednisolone Sodium Succinate 100 mg 100 mg Q4H PRN IV ALLERGIC REACTION ; Start 06/08/16 at 16:30 Sodium Chloride (NS) 1,000 ml @ 70 mls/hr [id number] IV Last administered on 06/09 09:03; Admin Dose 70 MLS/HR; Start 06/08/16 at 16:18; Status Future Hold Acetaminophen (Tylenol Tab) 650 mg Q6H PRN PO PAIN LEVEL 1-3 OR FEVER Last administered on 06/10/16 04:24; Admin Dose 650 MG; Start 06/08/16 at 16:30 Acetaminophen (Tylenol Supp) 650 mg Q6H PRN [place] PAIN LEVEL 1-3 OR FEVER; Start 06/08/16 at 16:30 Docusate Sodium (Colace) 100 mg Q12H PRN PO CONSTIPATION Last administered on 08:51; Admin Dose 100 MG; Start 06/08/16 at 16:30 Magnesium Hydroxide 30 ml 30 ml DAILY PRN PO CONSTIPATION Last administered on 06/12/16 21:02; Admin Dose 30 ML; Start 06/08/16 at 16:30 Sodium Chloride (NS) 1,000 ml @ 50 mls/hr Q20H IV Last administered on 10:19; Admin Dose 50 MLS/HR; Start 06/09/16 at 16:00 IV Flush (NS 10 ml) 10 ml PRN PRN IV IV PROTOCOL Last administered on 06/20/16 06:09; Admin Dose 10 ML; Start 06/09/16 at 11:30 Dexamethasone (Decadron) 10 mg Q4H PRN IV ALLERGIC REACTION; Start 06/09/16 at 16:00 Diphenhydramine HCl 25 mg 25 mg Q4H PRN IV ALLERGIC REACTION Last administered on 06/18/16 01:11; Admin Dose 25 MG; Start 06/09/16 at 16:00 Vincristine Sulfate/Sodium Chloride (Oncovin/NS) 50 ml @ 100 mls/hr Q7D IV Last administered on 06/13/16 13:22; Admin Dose 100 MLS/HR; Start 06/13/16 at 13:00; Stop 06/20/16 at 13:29 Lorazepam (Ativan) 1 mg Q6H PRN IV Hiccups Last administered on 06/19/16 23:51 ; Admin Dose 1 MG; Start 06/10/16 at 21:00 Lorazepam (Ativan) 0.5 mg Q8H PRN PO NOTE; Start 06/12/16 at 16:00 Chlorpromazine (Thorazine) 10 mg BID PRN PO hiccups; Start 06/12/16 at 18:30 Lactulose (Enulose) 10 gm BID PRN PO CONSTIPATION Last administered on 13:55; Admin Dose 10 GM; Start 06/13/16 at 10:30 Filgrastim (Neupogen) 480 mcg DAILY@17 SC Last administered on 06/19/16 17:47 ; Admin Dose 480 MCG; Start 06/18/16 at 17:00; Stop 06/27/16 at 17:01 Valacyclovir HCl (Valtrex) 500 mg DAILY PO Last administered on 06/20/16 08:48 ; Admin Dose 500 MG; Start 06/18/16 at 13:00; Stop 06/27/16 at 09:01 Fluconazole (Diflucan) 100 mg DAILY PO Last administered on 06/20/16 08:49; Admin Dose 100 MG; Start 06/18/16 at 13:00; Stop 06/27/16 at 09:01 Levofloxacin 500 mg 500 mg DAILY@06 PO Last administered on 06/20/16t 06:09; Admin Dose 500 MG; Start 06/18/16 at 13:00; Stop 06/27/16 at 06:01 Dexamethasone/ Sodium Chloride (Decadron/NS) 60 ml @ 252 mls/hr Q24H IV ; Start 06/20/16 at 17:00; Stop 06/23/16 at 17:15 Bisacodyl 10 mg 10 mg PRN PRN PO CONSTIPATION; Start 06/18/16 at 18:00 Ondansetron HCl/ Famotidine/Sodium Chloride (Zofran Inj/ Pepcid Iv/NS) 60 ml @ 240 mls/hr DAY#12--PREMED ONCE IV ; Start 06/20/16 at 13:00; Stop 06/20/16 at 13: 14 SYLVIE SOTO Jun 20, 2016 12:55
[2016-06-20] MEDS ORDERED: FAMOTIDINE IV ONE (13:00)
[2016-06-20] MEDS ORDERED: SOD CHLORIDE 0.9% IV ONE (13:00)
[2016-06-20] MEDS ORDERED: ONDANSETRON IV ONE (13:00)
[2016-06-20] MEDS: SOD CHLORIDE 0.9% 1,000 ML IV SCH (13:41)
--- NOTE | 2016-06-20 13:50 | CONS ---
Date/Time of Note Date/Time of Note DATE: 06/20/16 TIME: 13:48 Assessment/Plan Assessment/Plan Chief Complaint/Hosp Course 55 yo male with aggressive mantle cell lymphoma stage IV with involvement of the spleen and likely bone marrow presents with chills, tactile fevers, loss of appetite, and generalized weakness. - Given the aggressive nature of disease now on R-HyperCVAD. #Mantle Cell lymphoma - -started HyperCVAD 06/10/16, tolerating well so far except nausea vomiting, on antiemetics. DAY 1 is 06/09 -Rituxan 800mg IV given day 1 (06/09) -Cytoxan 600mg IV q 12 hours x 6 doses day 2-4 (06/10-06/12) -Vincristine 2mg given day 5 (06/13) and day 12 (06/20) -Adriamycin 40mg IV q day continuous over 72 hours Day 5-7 (06/13-06/15) -Dexamethasone 40 IV per day, day 2 - day 5 (06/10-06/13) and day 12- day15( -06/23) -echocardiogram showed normal EF. - Hep panel and HIV negative -Referral to [facility] for autologous BMT in first remission has been approved. Patient needs to make appt with Dr. Sami Mendes. -BMBx (performed 06/05/16 as an outpatient) shows involvement by mantle cell lymphoma, so its a stage 4 -cbc diff stable for now. 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 Will order once peripheral blasts and peripheral lymphoma cells have cleared. ordered flow cytometry and MRI brain as recommended by Dr Dimas. MRI brain was unremarkable # Tumor lysis prophylaxis -continue to check daily tumor lysis labs including CMP, LDH, URIC acid, phosphorus. Rasburicase given on 06/08/16, 06/10/16, 06/11/16 and 06/16/16. NOTE patient is ALLERGIC to allopurinol, and last urate wnl. # Supportive Care -on reglan prn, increase dose of thorazine prn for hiccups, for now stable. -adding lactulose for constipation. -continue ppx meds including Fluconazole, Levaquin and Valacyclovir extensive d/w patient re: current rx, supportive care and briefly about questions related to BM transplant in future. Approximately 40 min were spent at patient's bedside and in coordination of his care Problems: Consultation Date/Type/Reason Admit Date/Time Jun 08, 2016 at 10:39 Initial Consult Date 06/08/16 Type of Consultation: Hematology/Oncology Referring Provider: TIFFANIE LI MD 24 HR Interval Summary Free Text/Dictation getting day 12 dose of vincristine dose today. tolerating chemotherapy today. needs Ativan for nausea. hiccups gone Exam/Review of Systems Vital Signs Vitals Vital Signs Date Time Temp Pulse Resp B/P Pulse Ox O2 Delivery O2 Flow Rate FiO2 06/20/16 07:00 98.6 86 18 112/76 98 06/19/16 19:52 Room Air Intake and Output 06/19/16 06/19/16 06/20/16 15:00 23:00 07:00 Intake Total 250 ml 1600 ml 1400 ml Output Total 1000 ml 1200 ml Balance 250 ml 600 ml 200 ml Exam Constitutional: alert, oriented Psych: nl mood/affect, no complaints Head: normocephalic Eyes: nl conjunctiva ENMT: nl external ears & nose Neck: non-tender, supple Respiratory: clear to auscultation, normal air movement Cardiovascular: nl pulses, regular rate and rhythm Gastrointestinal: soft Musculoskeletal: nl extremities to inspection Results Result Diagram: 06/20/16 0436 06/20/16 0436 Results 24 hrs Laboratory Tests Test 06/20/16 04:36 White Blood Count 6.5 # Red Blood Count 3.18 L Hemoglobin 9.3 L Hematocrit 28.9 L Mean Corpuscular Volume 90.9 Mean Corpuscular Hemoglobin 29.2 Mean Corpuscular Hemoglobin Concent 32.2 Red Cell Distribution Width 14.4 Platelet Count 94 L Mean Platelet Volume 9.2 Neutrophils % 7.0 L Lymphocytes % 91.0 H Monocytes % Eosinophils % 1.0 Basophils % 1.0 Neutrophils # 0.5 L Lymphocytes # 5.9 H Monocytes # Eosinophils # 0.1 Basophils # 0.1 Sodium Level 133 L Potassium Level 4.2 Chloride Level 100 Carbon Dioxide Level 26 Anion Gap 11 Blood Urea Nitrogen 15 Creatinine 0.89 Glucose Level 97 Uric Acid 5.7 Calcium Level 8.1 L Total Bilirubin 0.3 Direct Bilirubin 0.00 Indirect Bilirubin 0.3 Aspartate Amino Transf (AST/SGOT) 9 L Alanine Aminotransferase (ALT/SGPT) 32 Alkaline Phosphatase 57 Lactate Dehydrogenase 338 Total Protein 4.9 L Albumin 3.1 L Globulin 1.80 Albumin/Globulin Ratio 1.72 Medications Medications Current Medications Morphine Sulfate (morphine) 2 mg Q4H PRN IV PAIN; Start 06/08/16 at 13:30 Ondansetron HCl (Zofran Inj) 4 mg Q6H PRN IV NAUSEA AND/OR VOMITING Last administered on 06/17/16 21:47; Admin Dose 4 MG; Start 06/08/16 at 13:30 Pantoprazole 40 mg 40 mg DAILY@06 IV Last administered on 06/20/16 06:09; Admin Dose 40 MG; Start 06/09/16 at 06:00 Acetaminophen (Ofirmev 1000mg/ 100ml Iv) 65 ml @ 250 mls/hr Q6H PRN IVPB PAIN ; Start 06/08/16 at 14:30 Meperidine HCl (Demerol) 50 mg Q4H PRN IV ALLERGIC REACTION Last administered on 06/10/16 02:09; Admin Dose 50 MG; Start 06/08/16 at 16:30 Methylprednisolone Sodium Succinate 100 mg 100 mg Q4H PRN IV ALLERGIC REACTION ; Start 06/08/16 at 16:30 Sodium Chloride (NS) 1,000 ml @ 70 mls/hr [id number] IV Last administered on 06/09 09:03; Admin Dose 70 MLS/HR; Start 06/08/16 at 16:18; Status Future Hold Acetaminophen (Tylenol Tab) 650 mg Q6H PRN PO PAIN LEVEL 1-3 OR FEVER Last administered on 06/10/16 04:24; Admin Dose 650 MG; Start 06/08/16 at 16:30 Acetaminophen (Tylenol Supp) 650 mg Q6H PRN [place] PAIN LEVEL 1-3 OR FEVER; Start 06/08/16 at 16:30 Docusate Sodium (Colace) 100 mg Q12H PRN PO CONSTIPATION Last administered on 08:51; Admin Dose 100 MG; Start 06/08/16 at 16:30 Magnesium Hydroxide 30 ml 30 ml DAILY PRN PO CONSTIPATION Last administered on 06/12/16 21:02; Admin Dose 30 ML; Start 06/08/16 at 16:30 Sodium Chloride (NS) 1,000 ml @ 50 mls/hr Q20H IV Last administered on 10:19; Admin Dose 50 MLS/HR; Start 06/09/16 at 16:00 IV Flush (NS 10 ml) 10 ml PRN PRN IV IV PROTOCOL Last administered on 06/20/16 06:09; Admin Dose 10 ML; Start 06/09/16 at 11:30 Dexamethasone (Decadron) 10 mg Q4H PRN IV ALLERGIC REACTION; Start 06/09/16 at 16:00 Diphenhydramine HCl (Benadryl) 25 mg Q4H PRN IV ALLERGIC REACTION Last administered on 06/18/16 01:11; Admin Dose 25 MG; Start 06/09/16 at 16:00 Lorazepam (Ativan) 1 mg Q6H PRN IV Hiccups Last administered on 06/19/16 23:51 ; Admin Dose 1 MG; Start 06/10/16 at 21:00 Lorazepam (Ativan) 0.5 mg Q8H PRN PO NOTE; Start 06/12/16 at 16:00 Chlorpromazine (Thorazine) 10 mg BID PRN PO hiccups; Start 06/12/16 at 18:30 Lactulose (Enulose) 10 gm BID PRN PO CONSTIPATION Last administered on 13:55; Admin Dose 10 GM; Start 06/13/16 at 10:30 Filgrastim (Neupogen) 480 mcg DAILY@17 SC Last administered on 06/19/16 17:47 ; Admin Dose 480 MCG; Start 06/18/16 at 17:00; Stop 06/27/16 at 17:01 Valacyclovir HCl (Valtrex) 500 mg DAILY PO Last administered on 06/20/16 08:48 ; Admin Dose 500 MG; Start 06/18/16 at 13:00; Stop 06/27/16 at 09:01 Fluconazole (Diflucan) 100 mg DAILY PO Last administered on 06/20/16 08:49; Admin Dose 100 MG; Start 06/18/16 at 13:00; Stop 06/27/16 at 09:01 Levofloxacin 500 mg 500 mg DAILY@06 PO Last administered on 06/20/16 06:09; Admin Dose 500 MG; Start 06/18/16 at 13:00; Stop 06/27/16 at 06:01 Dexamethasone/ Sodium Chloride (Decadron/NS) 60 ml @ 252 mls/hr Q24H IV ; Start 06/20/16 at 17:00; Stop 06/23/16 at 17:15 Bisacodyl (Dulcolax) 10 mg PRN PRN PO CONSTIPATION; Start 06/18/16 at 18:00 DAMIAN MIDDLETON M.D. Jun 20, 2016 13:50
[2016-06-20 14:05] VITALS: BP 109/67; PULSE 102; RESP 18
[2016-06-20] MEDS: vinCRISTine 2 MG in SOD CHLORIDE 0.9% 50 ML IV SCH (14:07)
[2016-06-20 14:20] VITALS: BP 112/65; PULSE 98; RESP 18
[2016-06-20 14:40] VITALS: BP 119/65; PULSE 87; RESP 18
[2016-06-20] MEDS: SOD CHLORIDE 0.9% IV SCH (14:51)
[2016-06-20] MEDS: DEXAMETHASONE IV SCH (14:51)
[2016-06-20] MEDS: FILGRASTIM 480 MCG INJ SC SCH (17:39)
[2016-06-20 19:22] VITALS: BP 122/73; RESP 18
[2016-06-20 19:49] VITALS: BP 122/70; PULSE 60; RESP 18
[2016-06-21] MEDS: LORAZEPAM 2 MG INJ IV PRN (00:39)
[2016-06-21 05:09] LABS: ADD SCAN DIFF NO
[2016-06-21 05:14] LABS: ABNORMAL IP MESSAGE 1; HEMATOCRIT 32.8 % (42.0-52.0); HEMOGLOBIN 10.7 g/dl (14.0-18.0); MEAN CORPUSCULAR HEMOGLOBIN 29.2 pg (29.0-33.0); MEAN CORPUSCULAR HGB CONC 32.6 g/dl (32.0-37.0); MEAN CORPUSCULAR VOLUME 89.4 fl (82.0-101.0); MEAN PLATELET VOLUME 9.3 fl (7.4-10.4); PLATELET COUNT 124 10^3/UL (140-415); RED BLOOD COUNT 3.67 10^6/ul (4.70-6.10); WHITE BLOOD COUNT 7.8 10^3/ul (4.8-10.8)
[2016-06-21] MEDS: PANTOPRAZOLE 40 MG INJ IV SCH (05:34)
[2016-06-21] MEDS: SOD CHLORIDE 0.9% 1,000 ML IV SCH (05:35)
[2016-06-21] MEDS: LEVOFLOXACIN 500 MG TAB PO SCH (05:35)
[2016-06-21 05:44] LABS: ALBUMIN 3.9 g/dl (3.3-4.9); POTASSIUM 4.8 mmol/L (3.5-5.1)
[2016-06-21 05:46] LABS: BILIRUBIN,INDIRECT 0.4 mg/dl (0-1.1); BILIRUBIN,TOTAL 0.4 mg/dl (0.2-1.3); CREATININE 0.86 mg/dl (0.61-1.24)
[2016-06-21 05:47] LABS: ALBUMIN/GLOBULIN RATIO 1.77; TOTAL PROTEIN 6.1 g/dl (6.1-8.1); URIC ACID 6.6 mg/dl (3.1-7.9)
[2016-06-21 08:05] VITALS: BP 111/67; RESP 18
[2016-06-21] MEDS: FLUCONAZOLE 100 MG TAB PO SCH (08:26)
[2016-06-21] MEDS: VALACYCLOVIR 500 MG TAB PO SCH (08:26)
[2016-06-21 10:05] LABS: LYMPHOCYTES # 6.8 10^3/ul (0.8-2.9); MONOCYTE # 0.1 10^3/ul (0.3-0.9); NEUTROPHIL # 0.8 10^3/ul (1.6-7.5)
[2016-06-21] MEDS: DEXAMETHASONE IV SCH (16:37)
[2016-06-21] MEDS: SOD CHLORIDE 0.9% IV SCH (16:37)
[2016-06-21] MEDS: FILGRASTIM 480 MCG INJ SC SCH (16:38)
--- NOTE | 2016-06-21 17:31 | PN ---
Date/Time of Note Date/Time of Note DATE: 06/21/16 TIME: 17:31 Assessment/Plan VTE Prophylaxis VTE Prophylaxis Intervention: other Lines/Catheters IV Catheter Type (from Nrsg): PICC Line Central line still needed: Yes Urinary Cath still in place: No Reason Cath still needed: skin wounds contaminated by urine Assessment/Plan Chief Complaint/Hosp Course IMPRESSION: 1. Patient has lymphoma.on chemo 2. Leukocytosis. 3. Thrombocytosis. better 4. Anemia. 5. Splenomegaly.better 6. Allopurinol rash with a diffuse skin rash resolving.hx plan chemo per dr clements ck labs bowel care Problems: Subjective 24 Hr Interval Summary Respiratory: no complaints Gastrointestinal: no complaints Exam/Review of Systems Vital Signs Vitals Vital Signs Date Time Temp Pulse Resp B/P Pulse Ox O2 Delivery O2 Flow Rate FiO2 06/21/16 08:05 98.1 87 18 111/67 98 06/20/16 19:49 Room Air Intake and Output 06/20/16 06/20/16 06/21/16 15:00 23:00 07:00 Intake Total 110 ml 60 ml 1800 ml Output Total 1400 ml Balance 110 ml 60 ml 400 ml Exam Neck: supple Respiratory: clear to auscultation Cardiovascular: regular rate and rhythm Gastrointestinal: soft Results Result Diagram: 06/21/16 0430 06/21/16 0430 Results 24 hrs Laboratory Tests Test 06/21/16 04:30 White Blood Count 7.8 Red Blood Count 3.67 L Hemoglobin 10.7 L Hematocrit 32.8 L Mean Corpuscular Volume 89.4 Mean Corpuscular Hemoglobin 29.2 Mean Corpuscular Hemoglobin Concent 32.6 Red Cell Distribution Width 14.0 Platelet Count 124 #L Mean Platelet Volume 9.3 Neutrophils % 10.0 L Band Neutrophils % 2.0 Lymphocytes % 87.0 H Monocytes % 1.0 Neutrophils # 0.8 L Lymphocytes # 6.8 H Monocytes # 0.1 L Sodium Level 135 Potassium Level 4.8 Chloride Level 103 Carbon Dioxide Level 27 Anion Gap 10 Blood Urea Nitrogen 16 Creatinine 0.86 Glucose Level 157 Uric Acid 6.6 Calcium Level 9.0 Total Bilirubin 0.4 Direct Bilirubin 0.00 Indirect Bilirubin 0.4 Aspartate Amino Transf (AST/SGOT) 11 L Alanine Aminotransferase (ALT/SGPT) 28 Alkaline Phosphatase 71 Lactate Dehydrogenase 409 Total Protein 6.1 # Albumin 3.9 Globulin 2.20 Albumin/Globulin Ratio 1.77 Medications Medications Current Medications Morphine Sulfate (morphine) 2 mg Q4H PRN IV PAIN; Start 06/08/16 at 13:30 Ondansetron HCl (Zofran Inj) 4 mg Q6H PRN IV NAUSEA AND/OR VOMITING Last administered on 06/17/16 21:47; Admin Dose 4 MG; Start 06/08/16 at 13:30 Pantoprazole 40 mg 40 mg DAILY@06 IV Last administered on 06/21/16 05:34; Admin Dose 40 MG; Start 06/09/16 at 06:00 Acetaminophen (Ofirmev 1000mg/ 100ml Iv) 65 ml @ 250 mls/hr Q6H PRN IVPB PAIN ; Start 06/08/16 at 14:30 Meperidine HCl (Demerol) 50 mg Q4H PRN IV ALLERGIC REACTION Last administered on 06/10/16 02:09; Admin Dose 50 MG; Start 06/08/16 at 16:30 Methylprednisolone Sodium Succinate 100 mg 100 mg Q4H PRN IV ALLERGIC REACTION ; Start 06/08/16 at 16:30 Sodium Chloride (NS) 1,000 ml @ 70 mls/hr [id number] IV Last administered on 06/09 09:03; Admin Dose 70 MLS/HR; Start 06/08/16 at 16:18; Status Future Hold Acetaminophen (Tylenol Tab) 650 mg Q6H PRN PO PAIN LEVEL 1-3 OR FEVER Last administered on 06/10/16 04:24; Admin Dose 650 MG; Start 06/08/16 at 16:30 Acetaminophen (Tylenol Supp) 650 mg Q6H PRN [place] PAIN LEVEL 1-3 OR FEVER; Start 06/08/16 at 16:30 Docusate Sodium (Colace) 100 mg Q12H PRN PO CONSTIPATION Last administered on 08:51; Admin Dose 100 MG; Start 06/08/16 at 16:30 Magnesium Hydroxide 30 ml 30 ml DAILY PRN PO CONSTIPATION Last administered on 06/12/16 21:02; Admin Dose 30 ML; Start 06/08/16 at 16:30 Sodium Chloride (NS) 1,000 ml @ 50 mls/hr Q20H IV Last administered on 13:41; Admin Dose 50 MLS/HR; Start 06/09/16 at 16:00 IV Flush (NS 10 ml) 10 ml PRN PRN IV IV PROTOCOL Last administered on 06/20/16 06:09; Admin Dose 10 ML; Start 06/09/16 at 11:30 Dexamethasone (Decadron) 10 mg Q4H PRN IV ALLERGIC REACTION; Start 06/09/16 at 16:00 Diphenhydramine HCl (Benadryl) 25 mg Q4H PRN IV ALLERGIC REACTION Last administered on 06/18/16 01:11; Admin Dose 25 MG; Start 06/09/16 at 16:00 Lorazepam (Ativan) 1 mg Q6H PRN IV Hiccups Last administered on 06/21/16 00:39 ; Admin Dose 1 MG; Start 06/10/16 at 21:00 Lorazepam (Ativan) 0.5 mg Q8H PRN PO NOTE; Start 06/12/16 at 16:00 Chlorpromazine (Thorazine) 10 mg BID PRN PO hiccups; Start 06/12/16 at 18:30 Lactulose (Enulose) 10 gm BID PRN PO CONSTIPATION Last administered on 13:55; Admin Dose 10 GM; Start 06/13/16 at 10:30 Filgrastim (Neupogen) 480 mcg DAILY@17 SC Last administered on 06/21/16 16:38; Admin Dose 480 MCG; Start 06/18/16 at 17:00; Stop 06/27/16 at 17:01 Valacyclovir HCl (Valtrex) 500 mg DAILY PO Last administered on 06/21/16 08:26 ; Admin Dose 500 MG; Start 06/18/16 at 13:00; Stop 06/27/16 at 09:01 Fluconazole (Diflucan) 100 mg DAILY PO Last administered on 06/21/16 08:26; Admin Dose 100 MG; Start 06/18/16 at 13:00; Stop 06/27/16 at 09:01 Levofloxacin 500 mg 500 mg DAILY@06 PO Last administered on 06/21/16 05:35; Admin Dose 500 MG; Start 06/18/16 at 13:00; Stop 06/27/16 at 06:01 Dexamethasone/ Sodium Chloride (Decadron/NS) 60 ml @ 252 mls/hr Q24H IV Last administered on 06/21/16t 16:37; Admin Dose 252 MLS/HR; Start 06/20/16 at 17:00; Stop 06/23/16 at 17:15 Bisacodyl (Dulcolax) 10 mg PRN PRN PO CONSTIPATION; Start 06/18/16 at 18:00 TIFFANIE LI MD Jun 21, 2016 17:31
[2016-06-21 19:20] VITALS: BP 123/64; RESP 20
[2016-06-22] MEDS: SOD CHLORIDE 0.9% 1,000 ML IV SCH (04:00)
[2016-06-22 05:25] LABS: ADD SCAN DIFF NO
[2016-06-22 05:30] LABS: HEMATOCRIT 28.9 % (42.0-52.0); HEMOGLOBIN 9.4 g/dl (14.0-18.0); MEAN CORPUSCULAR HEMOGLOBIN 29.3 pg (29.0-33.0); MEAN CORPUSCULAR HGB CONC 32.5 g/dl (32.0-37.0); MEAN PLATELET VOLUME 9.7 fl (7.4-10.4); PLATELET COUNT 108 10^3/UL (140-415); RED BLOOD COUNT 3.21 10^6/ul (4.70-6.10); RED CELL DISTRIBUTION WIDTH 13.9 % (11.5-14.5); WHITE BLOOD COUNT 4.1 10^3/ul (4.8-10.8)
[2016-06-22 05:39] LABS: ALBUMIN 3.6 g/dl (3.3-4.9)
[2016-06-22 05:40] LABS: POTASSIUM 4.4 mmol/L (3.5-5.1)
[2016-06-22 05:42] LABS: ALBUMIN/GLOBULIN RATIO 1.8; BILIRUBIN,INDIRECT 0.4 mg/dl (0-1.1); BILIRUBIN,TOTAL 0.4 mg/dl (0.2-1.3); CREATININE 0.8 mg/dl (0.61-1.24); TOTAL PROTEIN 5.6 g/dl (6.1-8.1)
[2016-06-22 05:43] LABS: CALCIUM 9.1 mg/dl (8.4-10.2); URIC ACID 5.9 mg/dl (3.1-7.9)
[2016-06-22] MEDS: PANTOPRAZOLE 40 MG INJ IV SCH (06:19)
[2016-06-22] MEDS: LEVOFLOXACIN 500 MG TAB PO SCH (06:19)
[2016-06-22 07:39] VITALS: BP 117/73; RESP 20
[2016-06-22] MEDS: VALACYCLOVIR 500 MG TAB PO SCH (09:07)
[2016-06-22] MEDS: FLUCONAZOLE 100 MG TAB PO SCH (09:07)
[2016-06-22 09:11] LABS: LYMPHOCYTES # 3.8 10^3/ul (0.8-2.9); MONOCYTE # 0.1 10^3/ul (0.3-0.9); NEUTROPHIL # 0.2 10^3/ul (1.6-7.5)
--- NOTE | 2016-06-22 12:10 | CONS ---
Date/Time of Note Date/Time of Note DATE: 06/22/16 TIME: 12:08 Assessment/Plan Assessment/Plan Chief Complaint/Hosp Course 55 yo male with aggressive mantle cell lymphoma stage IV in the leukemic phase with involvement of the spleen and likely bone marrow presents with chills, tactile fevers, loss of appetite, and generalized weakness. - Given the aggressive nature of disease now on R-HyperCVAD. #Mantle Cell lymphoma - -started HyperCVAD 06/10/16, tolerating well so far except nausea vomiting, on antiemetics. DAY 1 is 06/09. Today is D14. -Rituxan 800mg IV given day 1 (06/09) -Cytoxan 600mg IV q 12 hours x 6 doses day 2-4 (06/10-06/12) -Vincristine 2mg given day 5 (06/13) and day 12 (06/20) -Adriamycin 40mg IV q day continuous over 72 hours Day 5-7 (06/13-06/15) -Dexamethasone 40 IV per day, day 2 - day 5 (06/10-06/13) and day 12- day15( -06/23) -echocardiogram showed normal EF. -Hep panel and HIV negative -Referral to [facility] for autologous BMT in first remission has been approved. Patient needs to make appt with Dr. Sami Mendes. Case management to inquire as to whether patient needs to be discharged prior to apointment being made. 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 Will order once peripheral blasts and peripheral lymphoma cells have cleared. Ordered flow cytometry and MRI brain as recommended by Dr Dimas. MRI brain was unremarkable, reviewed with Dr. Miranda. Peripheral blood flow cytometry continues to show leukemic phase of B cell lymphoma. -Plan to review peripheral smear to evaluate clearance of peripheral lymphoma cells # Tumor lysis prophylaxis -continue to check daily tumor lysis labs including CMP, LDH, URIC acid, phosphorus. Rasburicase given on 06/08/16, 06/10/16, 06/11/16 and 06/16/16. NOTE patient is ALLERGIC to allopurinol. # Supportive Care -on increased dose of thorazine prn for hiccups, for now stable. -zofran prn, ativan prn nausea -adding lactulose for constipation. -continue ppx meds including Fluconazole, Levaquin and Valacyclovir Extensive d/w patient re: current rx, supportive care and briefly about questions related to BM transplant in future. Dispo: pending completion of chemotherapy and recovering of neutrophils/blood counts Problems: Consultation Date/Type/Reason Admit Date/Time Jun 08, 2016 at 10:39 Initial Consult Date 06/08/16 Type of Consultation: Hematology/Oncology Referring Provider: TIFFANIE LI MD 24 HR Interval Summary Free Text/Dictation Patient doing well, states that energy and appetite are great, denies nausea. Exam/Review of Systems Vital Signs Vitals Vital Signs Date Time Temp Pulse Resp B/P Pulse Ox O2 Delivery O2 Flow Rate FiO2 06/22/16 07:39 98.7 88 20 117/73 95 06/20/16 19:49 Room Air Intake and Output 06/21/16 06/21/16 06/22/16 15:00 23:00 07:00 Intake Total 180 ml 600 ml Output Total 850 ml 1000 ml Balance -670 ml -400 ml Exam Constitutional: alert, oriented Psych: nl mood/affect, no complaints Head: normocephalic Eyes: nl conjunctiva ENMT: nl external ears & nose Neck: non-tender, supple Respiratory: clear to auscultation, normal air movement Cardiovascular: nl pulses, regular rate and rhythm Gastrointestinal: soft Musculoskeletal: nl extremities to inspection Results Result Diagram: 06/22/16 0452 06/22/16 0452 Results 24 hrs Laboratory Tests Test 06/22/16 04:52 White Blood Count 4.1 #L Red Blood Count 3.21 L Hemoglobin 9.4 L Hematocrit 28.9 L Mean Corpuscular Volume 90.0 Mean Corpuscular Hemoglobin 29.3 Mean Corpuscular Hemoglobin Concent 32.5 Red Cell Distribution Width 13.9 Platelet Count 108 L Mean Platelet Volume 9.7 Neutrophils % 6.0 L Lymphocytes % 92.0 H Monocytes % 2.0 Neutrophils # 0.2 L Lymphocytes # 3.8 H Monocytes # 0.1 L Sodium Level 137 Potassium Level 4.4 Chloride Level 99 Carbon Dioxide Level 25 Anion Gap 17 #H Blood Urea Nitrogen 18 Creatinine 0.80 Glucose Level 148 Uric Acid 5.9 Calcium Level 9.1 Total Bilirubin 0.4 Direct Bilirubin 0.00 Indirect Bilirubin 0.4 Aspartate Amino Transf (AST/SGOT) 10 L Alanine Aminotransferase (ALT/SGPT) 23 Alkaline Phosphatase 57 Lactate Dehydrogenase 427 Total Protein 5.6 L Albumin 3.6 Globulin 2.00 Albumin/Globulin Ratio 1.80 Medications Medications Current Medications Morphine Sulfate (morphine) 2 mg Q4H PRN IV PAIN; Start 06/08/16 at 13:30 Ondansetron HCl (Zofran Inj) 4 mg Q6H PRN IV NAUSEA AND/OR VOMITING Last administered on 06/17/16 21:47; Admin Dose 4 MG; Start 06/08/16 at 13:30 Pantoprazole 40 mg 40 mg DAILY@06 IV Last administered on 06/22/16 06:19; Admin Dose 40 MG; Start 06/09/16 at 06:00 Acetaminophen (Ofirmev 1000mg/ 100ml Iv) 65 ml @ 250 mls/hr Q6H PRN IVPB PAIN ; Start 06/08/16 at 14:30 Meperidine HCl (Demerol) 50 mg Q4H PRN IV ALLERGIC REACTION Last administered on 06/10/16 02:09; Admin Dose 50 MG; Start 06/08/16 at 16:30 Methylprednisolone Sodium Succinate 100 mg 100 mg Q4H PRN IV ALLERGIC REACTION ; Start 06/08/16 at 16:30 Sodium Chloride (NS) 1,000 ml @ 70 mls/hr [id number] IV Last administered on 06/09 09:03; Admin Dose 70 MLS/HR; Start 06/08/16 at 16:18; Status Future Hold Acetaminophen (Tylenol Tab) 650 mg Q6H PRN PO PAIN LEVEL 1-3 OR FEVER Last administered on 06/10/16 04:24; Admin Dose 650 MG; Start 06/08/16 at 16:30 Acetaminophen (Tylenol Supp) 650 mg Q6H PRN [place] PAIN LEVEL 1-3 OR FEVER; Start 06/08/16 at 16:30 Docusate Sodium (Colace) 100 mg Q12H PRN PO CONSTIPATION Last administered on 08:51; Admin Dose 100 MG; Start 06/08/16 at 16:30 Magnesium Hydroxide 30 ml 30 ml DAILY PRN PO CONSTIPATION Last administered on 06/12/16 21:02; Admin Dose 30 ML; Start 06/08/16 at 16:30 Sodium Chloride (NS) 1,000 ml @ 50 mls/hr Q20H IV Last administered on 13:41; Admin Dose 50 MLS/HR; Start 06/09/16 at 16:00 IV Flush (NS 10 ml) 10 ml PRN PRN IV IV PROTOCOL Last administered on 06/20/16 06:09; Admin Dose 10 ML; Start 06/09/16 at 11:30 Dexamethasone (Decadron) 10 mg Q4H PRN IV ALLERGIC REACTION; Start 06/09/16 at 16:00 Diphenhydramine HCl (Benadryl) 25 mg Q4H PRN IV ALLERGIC REACTION Last administered on 06/18/16 01:11; Admin Dose 25 MG; Start 06/09/16 at 16:00 Lorazepam (Ativan) 1 mg Q6H PRN IV Hiccups Last administered on 06/21/16 00:39 ; Admin Dose 1 MG; Start 06/10/16 at 21:00 Lorazepam (Ativan) 0.5 mg Q8H PRN PO NOTE; Start 06/12/16 at 16:00 Chlorpromazine (Thorazine) 10 mg BID PRN PO hiccups; Start 06/12/16 at 18:30 Lactulose (Enulose) 10 gm BID PRN PO CONSTIPATION Last administered on 13:55; Admin Dose 10 GM; Start 06/13/16 at 10:30 Filgrastim (Neupogen) 480 mcg DAILY@17 SC Last administered on 06/21/16 16:38; Admin Dose 480 MCG; Start 06/18/16 at 17:00; Stop 06/27/16 at 17:01 Valacyclovir HCl (Valtrex) 500 mg DAILY PO Last administered on 06/22/16 09:07 ; Admin Dose 500 MG; Start 06/18/16 at 13:00; Stop 06/27/16 at 09:01 Fluconazole (Diflucan) 100 mg DAILY PO Last administered on 06/22/16 09:07; Admin Dose 100 MG; Start 06/18/16 at 13:00; Stop 06/27/16 at 09:01 Levofloxacin 500 mg 500 mg DAILY@06 PO Last administered on 06/22/16 06:19; Admin Dose 500 MG; Start 06/18/16 at 13:00; Stop 06/27/16 at 06:01 Dexamethasone/ Sodium Chloride (Decadron/NS) 60 ml @ 252 mls/hr Q24H IV Last administered on 06/21/16t 16:37; Admin Dose 252 MLS/HR; Start 06/20/16 at 17:00; Stop 06/23/16 at 17:15 Bisacodyl (Dulcolax) 10 mg PRN PRN PO CONSTIPATION; Start 06/18/16 at 18:00 TO,FABIAN Villegas MD Jun 22, 2016 12:10
[2016-06-22] MEDS: FILGRASTIM 480 MCG INJ SC SCH (16:53)
[2016-06-22] MEDS: DEXAMETHASONE IV SCH (16:53)
[2016-06-22] MEDS: SOD CHLORIDE 0.9% IV SCH (16:53)
[2016-06-22] MEDS: DOCUSATE SODIUM 100 MG CAP PO PRN (17:55)
--- NOTE | 2016-06-22 19:12 | PN ---
Date/Time of Note Date/Time of Note DATE: 06/22/16 TIME: 19:12 Assessment/Plan VTE Prophylaxis VTE Prophylaxis Intervention: other Lines/Catheters IV Catheter Type (from Nrs): PICC Line Central line still needed: Yes Urinary Cath still in place: No Assessment/Plan Chief Complaint/Hosp Course IMPRESSION: 1. Patient has lymphoma.on chemo 2. Leukocytosis. 3. Thrombocytosis. better 4. Anemia. 5. Splenomegaly.better 6. Allopurinol rash with a diffuse skin rash resolving.hx plan chemo per dr clements ck labs bowel care Problems: Subjective 24 Hr Interval Summary Respiratory: no complaints Cardiovascular: no complaints Exam/Review of Systems Vital Signs Vitals Vital Signs Date Time Temp Pulse Resp B/P Pulse Ox O2 Delivery O2 Flow Rate FiO2 06/22/16 07:39 98.7 88 20 117/73 95 06/20/16 19:49 Room Air Intake and Output 06/21/16 06/21/16 06/22/16 14:59 22:59 06:59 Intake Total 180 ml 600 ml Output Total 850 ml 1000 ml Balance -670 ml -400 ml Exam Neck: supple Respiratory: clear to auscultation Cardiovascular: regular rate and rhythm Gastrointestinal: soft Musculoskeletal: nl extremities to inspection Extremities: normal pulses Results Result Diagram: 06/22/16 0452 06/22/16 0452 Results 24 hrs Laboratory Tests Test 06/22/16 04:52 White Blood Count 4.1 #L Red Blood Count 3.21 L Hemoglobin 9.4 L Hematocrit 28.9 L Mean Corpuscular Volume 90.0 Mean Corpuscular Hemoglobin 29.3 Mean Corpuscular Hemoglobin Concent 32.5 Red Cell Distribution Width 13.9 Platelet Count 108 L Mean Platelet Volume 9.7 Neutrophils % 6.0 L Lymphocytes % 92.0 H Monocytes % 2.0 Neutrophils # 0.2 L Lymphocytes # 3.8 H Monocytes # 0.1 L Sodium Level 137 Potassium Level 4.4 Chloride Level 99 Carbon Dioxide Level 25 Anion Gap 17 #H Blood Urea Nitrogen 18 Creatinine 0.80 Glucose Level 148 Uric Acid 5.9 Calcium Level 9.1 Total Bilirubin 0.4 Direct Bilirubin 0.00 Indirect Bilirubin 0.4 Aspartate Amino Transf (AST/SGOT) 10 L Alanine Aminotransferase (ALT/SGPT) 23 Alkaline Phosphatase 57 Lactate Dehydrogenase 427 Total Protein 5.6 L Albumin 3.6 Globulin 2.00 Albumin/Globulin Ratio 1.80 Medications Medications Current Medications Morphine Sulfate (morphine) 2 mg Q4H PRN IV PAIN; Start 06/08/16 at 13:30 Ondansetron HCl 4 mg 4 mg Q6H PRN IV NAUSEA AND/OR VOMITING Last administered on 06/17/16 21:47; Admin Dose 4 MG; Start 06/08/16 at 13:30 Acetaminophen (Ofirmev 1000mg/ 100ml Iv) 65 ml @ 250 mls/hr Q6H PRN IVPB PAIN ; Start 06/08/16 at 14:30 Meperidine HCl (Demerol) 50 mg Q4H PRN IV ALLERGIC REACTION Last administered on 06/10/16 02:09; Admin Dose 50 MG; Start 06/08/16 at 16:30 Methylprednisolone Sodium Succinate 100 mg 100 mg Q4H PRN IV ALLERGIC REACTION ; Start 06/08/16 at 16:30 Sodium Chloride (NS) 1,000 ml @ 70 mls/hr [id number] IV Last administered on 06/09 09:03; Admin Dose 70 MLS/HR; Start 06/08/16 at 16:18; Status Future Hold Acetaminophen (Tylenol Tab) 650 mg Q6H PRN PO PAIN LEVEL 1-3 OR FEVER Last administered on 06/10/16 04:24; Admin Dose 650 MG; Start 06/08/16 at 16:30 Acetaminophen (Tylenol Supp) 650 mg Q6H PRN [place] PAIN LEVEL 1-3 OR FEVER; Start 06/08/16 at 16:30 Docusate Sodium (Colace) 100 mg Q12H PRN PO CONSTIPATION Last administered on 08:51; Admin Dose 100 MG; Start 06/08/16 at 16:30 Magnesium Hydroxide 30 ml 30 ml DAILY PRN PO CONSTIPATION Last administered on 06/12/16 21:02; Admin Dose 30 ML; Start 06/08/16 at 16:30 Sodium Chloride (NS) 1,000 ml @ 50 mls/hr Q20H IV Last administered on 13:41; Admin Dose 50 MLS/HR; Start 06/09/16 at 16:00 IV Flush (NS 10 ml) 10 ml PRN PRN IV IV PROTOCOL Last administered on 06/20/16 06:09; Admin Dose 10 ML; Start 06/09/16 at 11:30 Dexamethasone (Decadron) 10 mg Q4H PRN IV ALLERGIC REACTION; Start 06/09/16 at 16:00 Diphenhydramine HCl (Benadryl) 25 mg Q4H PRN IV ALLERGIC REACTION Last administered on 06/18/16 01:11; Admin Dose 25 MG; Start 06/09/16 at 16:00 Lorazepam (Ativan) 1 mg Q6H PRN IV Hiccups Last administered on 06/21/16 00:39 ; Admin Dose 1 MG; Start 06/10/16 at 21:00 Lorazepam (Ativan) 0.5 mg Q8H PRN PO NOTE; Start 06/12/16 at 16:00 Chlorpromazine (Thorazine) 10 mg BID PRN PO hiccups; Start 06/12/16 at 18:30 Lactulose (Enulose) 10 gm BID PRN PO CONSTIPATION Last administered on 13:55; Admin Dose 10 GM; Start 06/13/16 at 10:30 Filgrastim (Neupogen) 480 mcg DAILY@17 SC Last administered on 06/22/16 16:53; Admin Dose 480 MCG; Start 06/18/16 at 17:00; Stop 06/27/16 at 17:01 Valacyclovir HCl (Valtrex) 500 mg DAILY PO Last administered on 06/22/16 09:07 ; Admin Dose 500 MG; Start 06/18/16 at 13:00; Stop 06/27/16 at 09:01 Fluconazole (Diflucan) 100 mg DAILY PO Last administered on 06/22/16 09:07; Admin Dose 100 MG; Start 06/18/16 at 13:00; Stop 06/27/16 at 09:01 Levofloxacin 500 mg 500 mg DAILY@06 PO Last administered on 06/22/16 06:19; Admin Dose 500 MG; Start 06/18/16 at 13:00; Stop 06/27/16 at 06:01 Dexamethasone/ Sodium Chloride (Decadron/NS) 60 ml @ 252 mls/hr Q24H IV Last administered on 06/22/16 16:53; Admin Dose 252 MLS/HR; Start 06/20/16 at 17:00; Stop 06/23/16 at 17:15 Bisacodyl (Dulcolax) 10 mg PRN PRN PO CONSTIPATION Last administered on t 17:58; Admin Dose 10 MG; Start 06/18/16 at 18:00 Pantoprazole (Protonix Tab) 40 mg DAILY@06 PO ; Start 06/23/16 at 06:00 TIFFANIE LI MD Jun 22, 2016 19:12
[2016-06-22 19:15] VITALS: BP 129/59; RESP 19
[2016-06-23] MEDS: LACTULOSE 30ML CUP PO PRN (00:29)
[2016-06-23 05:26] LABS: ADD SCAN DIFF NO
[2016-06-23 05:34] LABS: ABNORMAL IP MESSAGE 1; HEMATOCRIT 24.9 % (42.0-52.0); HEMOGLOBIN 8.5 g/dl (14.0-18.0); MEAN CORPUSCULAR HEMOGLOBIN 30.4 pg (29.0-33.0); MEAN CORPUSCULAR HGB CONC 34.1 g/dl (32.0-37.0); MEAN CORPUSCULAR VOLUME 88.9 fl (82.0-101.0); MEAN PLATELET VOLUME 9.5 fl (7.4-10.4); PLATELET COUNT 116 10^3/UL (140-415); RED CELL DISTRIBUTION WIDTH 13.8 % (11.5-14.5); WHITE BLOOD COUNT 4.5 10^3/ul (4.8-10.8)
[2016-06-23 05:52] LABS: ALBUMIN 3.7 g/dl (3.3-4.9)
[2016-06-23 05:53] LABS: CHLORIDE 97 mmol/L (97-110); POTASSIUM 4.2 mmol/L (3.5-5.1); SODIUM 136 mmol/L (135-144)
[2016-06-23 05:55] LABS: ALBUMIN/GLOBULIN RATIO 2.31; ALKALINE PHOSPHATASE 57 IU/L (42-121); ANION GAP 18 (8-16); ASPARTATE AMINO TRANSFERASE < 8 IU/L (15-46); BILIRUBIN,INDIRECT 0.4 mg/dl (0-1.1); BILIRUBIN,TOTAL 0.4 mg/dl (0.2-1.3); BLOOD UREA NITROGEN 21 mg/dl (7-20); CARBON DIOXIDE 25 mmol/L (21-31); CREATININE 0.86 mg/dl (0.61-1.24); GLUCOSE 170 mg/dl (70-220); TOTAL PROTEIN 5.3 g/dl (6.1-8.1)
[2016-06-23 05:56] LABS: ALANINE AMINOTRANSFERASE 24 IU/L (13-69); CALCIUM 9.4 mg/dl (8.4-10.2); LACTATE DEHYDROGENASE 336 IU/L (313-618); URIC ACID 6.3 mg/dl (3.1-7.9)
[2016-06-23] MEDS: LEVOFLOXACIN 500 MG TAB PO SCH (06:07)
[2016-06-23] MEDS: PANTOPRAZOLE (EC) 40 MG TAB PO SCH (06:08)
[2016-06-23 07:52] VITALS: BP 120/64; RESP 20
[2016-06-23] MEDS: VALACYCLOVIR 500 MG TAB PO SCH (09:02)
[2016-06-23] MEDS: FLUCONAZOLE 100 MG TAB PO SCH (09:02)
[2016-06-23 09:08] LABS: LYMPHOCYTES # 3.8 10^3/ul (0.8-2.9); MONOCYTE # 0.3 10^3/ul (0.3-0.9); NEUTROPHIL # 0.3 10^3/ul (1.6-7.5)
[2016-06-23 10:22] LABS: ABNORMAL IP MESSAGE 1
--- NOTE | 2016-06-23 14:06 | CONS ---
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 - Given the aggressive nature of disease now on R-HyperCVAD. #Mantle Cell lymphoma - -started HyperCVAD 06/10/16, tolerating well so far except nausea vomiting, on antiemetics. DAY 1 is 06/09. Today is D15. -Rituxan 800mg IV given day 1 (06/09) -Cytoxan 600mg IV q 12 hours x 6 doses day 2-4 (06/10-06/12) -Vincristine 2mg given day 5 (06/13) and day 12 (06/20) -Adriamycin 40mg IV q day continuous over 72 hours Day 5-7 (06/13-06/15) -Dexamethasone 40 IV per day, day 2 - day 5 (06/10-06/13) and day 12- day15( -06/23) -echocardiogram showed normal EF. -Hep panel and HIV negative -Referral to [facility] for autologous BMT in first remission has been approved. Patient needs to make appt with Dr. Sami Mendes. Patient has a tentative appointment for 07/06/16. -BMBx (performed 06/05/16 as an outpatient) shows involvement by mantle cell lymphoma (50% of marrow cellularity by IHC), so its a stage 4 -Neupogen started 06/18/16 after completion of doxorubicin # [employer] prophylaxis -Pt will need Intrathecal chemotherapy with methotrexate/cytarabine/ hydrocoritone. Will order once peripheral blasts and peripheral lymphoma cells have cleared. Ordered flow cytometry and MRI brain as recommended by Dr Dimas. MRI brain was unremarkable, reviewed with Dr. Miranda. Peripheral blood flow cytometry continues to show leukemic phase of B cell lymphoma. -Peripheral smear reviewed again by path on 06/22/16, showing lymphocyte predominance, unclear whether reactive or circulating lymphoma cells. Plan to repeat flow cytometry once differential changes to suggest clearance of circulating lymphoma cells. # Tumor lysis prophylaxis -continue to check daily tumor lysis labs including CMP, LDH, URIC acid, phosphorus. Rasburicase given on 06/08/16, 06/10/16, 06/11/16 and 06/16/16. NOTE patient is ALLERGIC to allopurinol. # Supportive Care -on increased dose of thorazine prn for hiccups, for now stable. -zofran prn, ativan prn nausea -adding lactulose for constipation. -continue ppx meds including Fluconazole, Levaquin and Valacyclovir Extensive d/w patient re: current rx, supportive care and briefly about questions related to BM transplant in future. Dispo: pending completion of chemotherapy and recovering of neutrophils/blood counts Problems: Consultation Date/Type/Reason Admit Date/Time Jun 08, 2016 at 10:39 Initial Consult Date 06/08/16 Type of Consultation: Hematology/Oncology Referring Provider: TIFFANIE LI MD 24 HR Interval Summary Free Text/Dictation Patient is doing well and endorses having a good appetite and feeling well. Exam/Review of Systems Vital Signs Vitals Vital Signs Date Time Temp Pulse Resp B/P Pulse Ox O2 Delivery O2 Flow Rate FiO2 06/23/16 07:52 97.4 76 20 120/64 95 06/20/16 19:49 Room Air Intake and Output 06/22/16 06/22/16 06/23/16 15:00 23:00 07:00 Intake Total 960 ml 650 ml Output Total 400 ml 1200 ml Balance 560 ml -550 ml Exam Constitutional: alert, oriented Psych: nl mood/affect, no complaints Head: normocephalic Eyes: nl conjunctiva ENMT: nl external ears & nose Neck: non-tender, supple Respiratory: clear to auscultation, normal air movement Cardiovascular: nl pulses, regular rate and rhythm Gastrointestinal: soft Musculoskeletal: nl extremities to inspection Results Result Diagram: 06/23/16 0425 06/23/16 0425 Results 24 hrs Laboratory Tests Test 06/23/16 04:25 White Blood Count 4.5 L Red Blood Count 2.80 L Hemoglobin 8.5 L Hematocrit 24.9 L Mean Corpuscular Volume 88.9 Mean Corpuscular Hemoglobin 30.4 Mean Corpuscular Hemoglobin Concent 34.1 Red Cell Distribution Width 13.8 Platelet Count 116 L Mean Platelet Volume 9.5 Neutrophils % 7.0 L Band Neutrophils % 2.0 Lymphocytes % 85.0 H Monocytes % 6.0 Eosinophils % Neutrophils # 0.3 L Lymphocytes # 3.8 H Monocytes # 0.3 Eosinophils # Sodium Level 136 Potassium Level 4.2 Chloride Level 97 Carbon Dioxide Level 25 Anion Gap 18 H Blood Urea Nitrogen 21 H Creatinine 0.86 Glucose Level 170 Uric Acid 6.3 Calcium Level 9.4 Total Bilirubin 0.4 Direct Bilirubin 0.00 Indirect Bilirubin 0.4 Aspartate Amino Transf (AST/SGOT) < 8 L Alanine Aminotransferase (ALT/SGPT) 24 Alkaline Phosphatase 57 Lactate Dehydrogenase 336 Total Protein 5.3 L Albumin 3.7 Globulin 1.60 Albumin/Globulin Ratio 2.31 Medications Medications Current Medications Morphine Sulfate (morphine) 2 mg Q4H PRN IV PAIN; Start 06/08/16 at 13:30 Ondansetron HCl 4 mg 4 mg Q6H PRN IV NAUSEA AND/OR VOMITING Last administered on 06/17/16 21:47; Admin Dose 4 MG; Start 06/08/16 at 13:30 Acetaminophen (Ofirmev 1000mg/ 100ml Iv) 65 ml @ 250 mls/hr Q6H PRN IVPB PAIN ; Start 06/08/16 at 14:30 Meperidine HCl (Demerol) 50 mg Q4H PRN IV ALLERGIC REACTION Last administered on 06/10/16 02:09; Admin Dose 50 MG; Start 06/08/16 at 16:30 Methylprednisolone Sodium Succinate 100 mg 100 mg Q4H PRN IV ALLERGIC REACTION ; Start 06/08/16 at 16:30 Sodium Chloride (NS) 1,000 ml @ 70 mls/hr [id number] IV Last administered on 06/09 09:03; Admin Dose 70 MLS/HR; Start 06/08/16 at 16:18; Status Future Hold Acetaminophen (Tylenol Tab) 650 mg Q6H PRN PO PAIN LEVEL 1-3 OR FEVER Last administered on 06/10/16 04:24; Admin Dose 650 MG; Start 06/08/16 at 16:30 Acetaminophen (Tylenol Supp) 650 mg Q6H PRN [place] PAIN LEVEL 1-3 OR FEVER; Start 06/08/16 at 16:30 Docusate Sodium (Colace) 100 mg Q12H PRN PO CONSTIPATION Last administered on 08:51; Admin Dose 100 MG; Start 06/08/16 at 16:30 Magnesium Hydroxide 30 ml 30 ml DAILY PRN PO CONSTIPATION Last administered on 06/12/16 21:02; Admin Dose 30 ML; Start 06/08/16 at 16:30 Sodium Chloride (NS) 1,000 ml @ 50 mls/hr Q20H IV Last administered on 13:41; Admin Dose 50 MLS/HR; Start 06/09/16 at 16:00 IV Flush (NS 10 ml) 10 ml PRN PRN IV IV PROTOCOL Last administered on 06/20/16 06:09; Admin Dose 10 ML; Start 06/09/16 at 11:30 Dexamethasone (Decadron) 10 mg Q4H PRN IV ALLERGIC REACTION; Start 06/09/16 at 16:00 Diphenhydramine HCl (Benadryl) 25 mg Q4H PRN IV ALLERGIC REACTION Last administered on 06/18/16 01:11; Admin Dose 25 MG; Start 06/09/16 at 16:00 Lorazepam (Ativan) 1 mg Q6H PRN IV Hiccups Last administered on 06/21/16 00:39 ; Admin Dose 1 MG; Start 06/10/16 at 21:00 Lorazepam (Ativan) 0.5 mg Q8H PRN PO NOTE; Start 06/12/16 at 16:00 Chlorpromazine (Thorazine) 10 mg BID PRN PO hiccups; Start 06/12/16 at 18:30 Lactulose (Enulose) 10 gm BID PRN PO CONSTIPATION Last administered on 00:29; Admin Dose 10 GM; Start 06/13/16 at 10:30 Filgrastim (Neupogen) 480 mcg DAILY@17 SC Last administered on 06/22/16 16:53; Admin Dose 480 MCG; Start 06/18/16 at 17:00; Stop 06/27/16 at 17:01 Valacyclovir HCl (Valtrex) 500 mg DAILY PO Last administered on 06/23/16 09:02 ; Admin Dose 500 MG; Start 06/18/16 at 13:00; Stop 06/27/16 at 09:01 Fluconazole (Diflucan) 100 mg DAILY PO Last administered on 06/23/16 09:02; Admin Dose 100 MG; Start 06/18/16 at 13:00; Stop 06/27/16 at 09:01 Levofloxacin 500 mg 500 mg DAILY@06 PO Last administered on 06/23/16 06:07; Admin Dose 500 MG; Start 06/18/16 at 13:00; Stop 06/27/16 at 06:01 Dexamethasone/ Sodium Chloride (Decadron/NS) 60 ml @ 252 mls/hr Q24H IV Last administered on 06/22/16 16:53; Admin Dose 252 MLS/HR; Start 06/20/16 at 17:00; Stop 06/23/16 at 17:15 Bisacodyl (Dulcolax) 10 mg PRN PRN PO CONSTIPATION Last administered on 17:58; Admin Dose 10 MG; Start 06/18/16 at 18:00 Pantoprazole (Protonix Tab) 40 mg DAILY@06 PO Last administered on 06/23/16 06: 08; Admin Dose 40 MG; Start 06/23/16 at 06:00 TOFABIAN MD Jun 23, 2016 14:06
[2016-06-23] MEDS: DEXAMETHASONE IV SCH (16:49)
[2016-06-23] MEDS: SOD CHLORIDE 0.9% IV SCH (16:49)
[2016-06-23] MEDS: FILGRASTIM 480 MCG INJ SC SCH (16:50)
[2016-06-23] MEDS: DOCUSATE SODIUM 100 MG CAP PO PRN (16:50)
[2016-06-23 19:51] VITALS: BP 131/61; RESP 20
[2016-06-23] MEDS: SOD CHLORIDE 0.9% 1,000 ML IV SCH ×2 (20:00)
--- NOTE | 2016-06-23 21:33 | PN ---
Date/Time of Note Date/Time of Note DATE: 06/23/16 TIME: 21:33 Assessment/Plan VTE Prophylaxis VTE Prophylaxis Intervention: other Lines/Catheters IV Catheter Type (from Nrs): PICC Line Central line still needed: Yes Urinary Cath still in place: No Assessment/Plan Chief Complaint/Hosp Course IMPRESSION: 1. Patient has lymphoma.on chemo 2. Leukocytosis. 3. Thrombocytosis. better 4. Anemia. 5. Splenomegaly.better 6. Allopurinol rash with a diffuse skin rash resolving.hx plan chemo per dr clements ck labs bowel care Problems: Subjective 24 Hr Interval Summary Respiratory: no complaints Cardiovascular: no complaints Exam/Review of Systems Vital Signs Vitals Vital Signs Date Time Temp Pulse Resp B/P Pulse Ox O2 Delivery O2 Flow Rate FiO2 06/23/16 19:51 98.6 90 20 131/61 96 06/20/16 19:49 Room Air Intake and Output 06/22/16 06/22/16 06/23/16 15:00 23:00 07:00 Intake Total 960 ml 650 ml Output Total 400 ml 1200 ml Balance 560 ml -550 ml Exam Respiratory: clear to auscultation Cardiovascular: regular rate and rhythm Gastrointestinal: soft Musculoskeletal: nl extremities to inspection Extremities: normal pulses Results Result Diagram: 06/23/16 0425 06/23/16 0425 Results 24 hrs Laboratory Tests Test 06/23/16 04:25 White Blood Count 4.5 L Red Blood Count 2.80 L Hemoglobin 8.5 L Hematocrit 24.9 L Mean Corpuscular Volume 88.9 Mean Corpuscular Hemoglobin 30.4 Mean Corpuscular Hemoglobin Concent 34.1 Red Cell Distribution Width 13.8 Platelet Count 116 L Mean Platelet Volume 9.5 Neutrophils % 7.0 L Band Neutrophils % 2.0 Lymphocytes % 85.0 H Monocytes % 6.0 Eosinophils % Neutrophils # 0.3 L Lymphocytes # 3.8 H Monocytes # 0.3 Eosinophils # Sodium Level 136 Potassium Level 4.2 Chloride Level 97 Carbon Dioxide Level 25 Anion Gap 18 H Blood Urea Nitrogen 21 H Creatinine 0.86 Glucose Level 170 Uric Acid 6.3 Calcium Level 9.4 Total Bilirubin 0.4 Direct Bilirubin 0.00 Indirect Bilirubin 0.4 Aspartate Amino Transf (AST/SGOT) < 8 L Alanine Aminotransferase (ALT/SGPT) 24 Alkaline Phosphatase 57 Lactate Dehydrogenase 336 Total Protein 5.3 L Albumin 3.7 Globulin 1.60 Albumin/Globulin Ratio 2.31 Medications Medications Current Medications Morphine Sulfate (morphine) 2 mg Q4H PRN IV PAIN; Start 06/08/16 at 13:30 Ondansetron HCl 4 mg 4 mg Q6H PRN IV NAUSEA AND/OR VOMITING Last administered on 06/17/16 21:47; Admin Dose 4 MG; Start 06/08/16 at 13:30 Acetaminophen (Ofirmev 1000mg/ 100ml Iv) 65 ml @ 250 mls/hr Q6H PRN IVPB PAIN ; Start 06/08/16 at 14:30 Meperidine HCl (Demerol) 50 mg Q4H PRN IV ALLERGIC REACTION Last administered on 06/10/16 02:09; Admin Dose 50 MG; Start 06/08/16 at 16:30 Methylprednisolone Sodium Succinate 100 mg 100 mg Q4H PRN IV ALLERGIC REACTION ; Start 06/08/16 at 16:30 Sodium Chloride (NS) 1,000 ml @ 70 mls/hr [id number] IV Last administered on 06/09 09:03; Admin Dose 70 MLS/HR; Start 06/08/16 at 16:18; Status Future Hold Acetaminophen (Tylenol Tab) 650 mg Q6H PRN PO PAIN LEVEL 1-3 OR FEVER Last administered on 06/10/16 04:24; Admin Dose 650 MG; Start 06/08/16 at 16:30 Acetaminophen (Tylenol Supp) 650 mg Q6H PRN [place] PAIN LEVEL 1-3 OR FEVER; Start 06/08/16 at 16:30 Docusate Sodium (Colace) 100 mg Q12H PRN PO CONSTIPATION Last administered on 16:50; Admin Dose 100 MG; Start 06/08/16 at 16:30 Magnesium Hydroxide 30 ml 30 ml DAILY PRN PO CONSTIPATION Last administered on 06/12/16 21:02; Admin Dose 30 ML; Start 06/08/16 at 16:30 Sodium Chloride (NS) 1,000 ml @ 50 mls/hr Q20H IV Last administered on 13:41; Admin Dose 50 MLS/HR; Start 06/09/16 at 16:00 IV Flush (NS 10 ml) 10 ml PRN PRN IV IV PROTOCOL Last administered on 06/20/16 06:09; Admin Dose 10 ML; Start 06/09/16 at 11:30 Dexamethasone (Decadron) 10 mg Q4H PRN IV ALLERGIC REACTION; Start 06/09/16 at 16:00 Diphenhydramine HCl (Benadryl) 25 mg Q4H PRN IV ALLERGIC REACTION Last administered on 06/18/16 01:11; Admin Dose 25 MG; Start 06/09/16 at 16:00 Lorazepam (Ativan) 1 mg Q6H PRN IV Hiccups Last administered on 06/21/16 00:39 ; Admin Dose 1 MG; Start 06/10/16 at 21:00 Lorazepam (Ativan) 0.5 mg Q8H PRN PO NOTE; Start 06/12/16 at 16:00 Chlorpromazine (Thorazine) 10 mg BID PRN PO hiccups; Start 06/12/16 at 18:30 Lactulose (Enulose) 10 gm BID PRN PO CONSTIPATION Last administered on 00:29; Admin Dose 10 GM; Start 06/13/16 at 10:30 Filgrastim (Neupogen) 480 mcg DAILY@17 SC Last administered on 06/23/16 16:50; Admin Dose 480 MCG; Start 06/18/16 at 17:00; Stop 06/27/16 at 17:01 Valacyclovir HCl (Valtrex) 500 mg DAILY PO Last administered on 06/23/16 09:02 ; Admin Dose 500 MG; Start 06/18/16 at 13:00; Stop 06/27/16 at 09:01 Fluconazole (Diflucan) 100 mg DAILY PO Last administered on 06/23/16 09:02; Admin Dose 100 MG; Start 06/18/16 at 13:00; Stop 06/27/16 at 09:01 Levofloxacin (Levaquin) 500 mg DAILY@06 PO Last administered on 06/23/16 06:07 ; Admin Dose 500 MG; Start 06/18/16 at 13:00; Stop 06/27/16 at 06:01 Bisacodyl (Dulcolax) 10 mg PRN PRN PO CONSTIPATION Last administered on 17:58; Admin Dose 10 MG; Start 06/18/16 at 18:00 Pantoprazole (Protonix Tab) 40 mg DAILY@06 PO Last administered on 06/23/16t 06: 08; Admin Dose 40 MG; Start 06/23/16 at 06:00 TIFFANIE LI MD Jun 23, 2016 21:33
[2016-06-23 22:12] VITALS: BP 115/62; PULSE 64; RESP 18
[2016-06-24 05:11] LABS: ADD SCAN DIFF NO
[2016-06-24 05:20] LABS: ABNORMAL IP MESSAGE 1; BASOPHILS % 0.2 % (0.0-2.0); HEMATOCRIT 28.6 % (42.0-52.0); HEMOGLOBIN 9.5 g/dl (14.0-18.0); LYMPHOCYTES # 4.4 10^3/ul (0.8-2.9); MEAN CORPUSCULAR HEMOGLOBIN 29.7 pg (29.0-33.0); MEAN CORPUSCULAR HGB CONC 33.2 g/dl (32.0-37.0); MEAN CORPUSCULAR VOLUME 89.4 fl (82.0-101.0); MEAN PLATELET VOLUME 9.5 fl (7.4-10.4); MONOCYTE # 0.1 10^3/ul (0.3-0.9); MONOCYTES % 2.4 % (0.0-11.0); NEUTROPHIL # 1.1 10^3/ul (1.6-7.5); NEUTROPHILS % 19.1 % (39.0-77.0); PLATELET COUNT 104 10^3/UL (140-415); RED CELL DISTRIBUTION WIDTH 13.8 % (11.5-14.5); WHITE BLOOD COUNT 5.7 10^3/ul (4.8-10.8)
[2016-06-24 05:23] LABS: ALBUMIN 3.5 g/dl (3.3-4.9); POTASSIUM 4.1 mmol/L (3.5-5.1)
[2016-06-24 05:25] LABS: CREATININE 0.95 mg/dl (0.61-1.24)
[2016-06-24 05:26] LABS: ALBUMIN/GLOBULIN RATIO 1.94; BILIRUBIN,INDIRECT 0.2 mg/dl (0-1.1); BILIRUBIN,TOTAL 0.2 mg/dl (0.2-1.3); CALCIUM 9.3 mg/dl (8.4-10.2); TOTAL PROTEIN 5.3 g/dl (6.1-8.1)
[2016-06-24 05:28] LABS: LYMPHOCYTES % 76.7 % (15.0-51.0)
[2016-06-24] MEDS: PANTOPRAZOLE (EC) 40 MG TAB PO SCH (06:12)
[2016-06-24] MEDS: LEVOFLOXACIN 500 MG TAB PO SCH (06:12)
[2016-06-24 07:48] VITALS: BP 122/68; RESP 18
[2016-06-24] MEDS: FLUCONAZOLE 100 MG TAB PO SCH (09:21)
[2016-06-24] MEDS: VALACYCLOVIR 500 MG TAB PO SCH (09:22)
--- NOTE | 2016-06-24 10:09 | CONS ---
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 - Given the aggressive nature of disease now on R-HyperCVAD. #Mantle Cell lymphoma - -started HyperCVAD 06/10/16, tolerating well so far except nausea vomiting, on antiemetics. DAY 1 is 06/09. Today is D16. -Rituxan 800mg IV given day 1 (06/09) -Cytoxan 600mg IV q 12 hours x 6 doses day 2-4 (06/10-06/12) -Vincristine 2mg given day 5 (06/13) and day 12 (06/20) -Adriamycin 40mg IV q day continuous over 72 hours Day 5-7 (06/13-06/15) -Dexamethasone 40 IV per day, day 2 - day 5 (06/10-06/13) and day 12- day15( -06/23) -echocardiogram showed normal EF. -Hep panel and HIV negative -Referral to [facility] for autologous BMT in first remission has been approved. Patient needs to make appt with Dr. Sami Mendes. Patient has a tentative appointment for 07/06/16. -BMBx (performed 06/05/16 as an outpatient) shows involvement by mantle cell lymphoma (50% of marrow cellularity by IHC), so its a stage 4 -Neupogen started 06/18/16 after completion of doxorubicin # IMPREGNATING TANK OPERATOR prophylaxis -Pt will need Intrathecal chemotherapy with methotrexate/cytarabine/ hydrocoritone. Will order once peripheral blasts and peripheral lymphoma cells have cleared. Ordered flow cytometry and MRI brain as recommended by Dr Dimas. MRI brain was unremarkable, reviewed with Dr. Miranda. Peripheral blood flow cytometry continues to show leukemic phase of B cell lymphoma. -Peripheral smear reviewed again by path on 06/22/16, showing lymphocyte predominance, unclear whether reactive or circulating lymphoma cells. Plan to repeat flow cytometry once differential changes to suggest clearance of circulating lymphoma cells. # Tumor lysis prophylaxis -continue to check daily tumor lysis labs including CMP, LDH, URIC acid, phosphorus. Rasburicase given on 06/08/16, 06/10/16, 06/11/16 and 06/16/16. NOTE patient is ALLERGIC to allopurinol. # Supportive Care -on increased dose of thorazine prn for hiccups, for now stable. -zofran prn, ativan prn nausea -adding lactulose for constipation. -continue ppx meds including Fluconazole, Levaquin and Valacyclovir Extensive d/w patient re: current rx, supportive care and briefly about questions related to BM transplant in future. Dispo: pending completion of chemotherapy and recovering of neutrophils/blood counts Problems: Consultation Date/Type/Reason Admit Date/Time Jun 08, 2016 at 10:39 Initial Consult Date 06/08/16 Type of Consultation: Hematology/Oncology Referring Provider: TIFFANIE LI MD 24 HR Interval Summary Free Text/Dictation Patient doing well, no complaints. Exam/Review of Systems Vital Signs Vitals Vital Signs Date Time Temp Pulse Resp B/P Pulse Ox O2 Delivery O2 Flow Rate FiO2 06/24/16 07:48 97.5 77 18 122/68 96 06/23/16 22:12 Room Air Intake and Output 06/23/16 06/23/16 06/24/16 15:00 23:00 07:00 Intake Total 960 ml 1500 ml Output Total 1400 ml Balance 960 ml 100 ml Exam Constitutional: alert, oriented Psych: nl mood/affect, no complaints Head: normocephalic Eyes: nl conjunctiva ENMT: nl external ears & nose Neck: non-tender, supple Respiratory: clear to auscultation, normal air movement Cardiovascular: nl pulses, regular rate and rhythm Gastrointestinal: soft Musculoskeletal: nl extremities to inspection Results Result Diagram: 06/24/16 0440 06/24/16 0440 Results 24 hrs Laboratory Tests Test 06/24/16 04:40 White Blood Count 5.7 # Red Blood Count 3.20 L Hemoglobin 9.5 L Hematocrit 28.6 L Mean Corpuscular Volume 89.4 Mean Corpuscular Hemoglobin 29.7 Mean Corpuscular Hemoglobin Concent 33.2 Red Cell Distribution Width 13.8 Platelet Count 104 L Mean Platelet Volume 9.5 Neutrophils % 19.1 L Lymphocytes % 76.7 H Monocytes % 2.4 Eosinophils % 0.0 Basophils % 0.2 Nucleated Red Blood Cells % 0.0 Neutrophils # 1.1 L Lymphocytes # 4.4 H Monocytes # 0.1 L Eosinophils # 0.0 Basophils # 0.0 Nucleated Red Blood Cells # 0.0 Sodium Level 135 Potassium Level 4.1 Chloride Level 98 Carbon Dioxide Level 26 Anion Gap 15 Blood Urea Nitrogen 22 H Creatinine 0.95 Glucose Level 133 Uric Acid 7.0 Calcium Level 9.3 Total Bilirubin 0.2 Direct Bilirubin 0.00 Indirect Bilirubin 0.2 Aspartate Amino Transf (AST/SGOT) 9 L Alanine Aminotransferase (ALT/SGPT) 22 Alkaline Phosphatase 58 Lactate Dehydrogenase 321 Total Protein 5.3 L Albumin 3.5 Globulin 1.80 Albumin/Globulin Ratio 1.94 Medications Medications Current Medications Morphine Sulfate (morphine) 2 mg Q4H PRN IV PAIN; Start 06/08/16 at 13:30 Ondansetron HCl 4 mg 4 mg Q6H PRN IV NAUSEA AND/OR VOMITING Last administered on 06/17/16 21:47; Admin Dose 4 MG; Start 06/08/16 at 13:30 Acetaminophen (Ofirmev 1000mg/ 100ml Iv) 65 ml @ 250 mls/hr Q6H PRN IVPB PAIN ; Start 06/08/16 at 14:30 Meperidine HCl (Demerol) 50 mg Q4H PRN IV ALLERGIC REACTION Last administered on 06/10/16 02:09; Admin Dose 50 MG; Start 06/08/16 at 16:30 Methylprednisolone Sodium Succinate 100 mg 100 mg Q4H PRN IV ALLERGIC REACTION ; Start 06/08/16 at 16:30 Sodium Chloride (NS) 1,000 ml @ 70 mls/hr [id number] IV Last administered on 06/09 09:03; Admin Dose 70 MLS/HR; Start 06/08/16 at 16:18; Status Future Hold Acetaminophen (Tylenol Tab) 650 mg Q6H PRN PO PAIN LEVEL 1-3 OR FEVER Last administered on 06/10/16 04:24; Admin Dose 650 MG; Start 06/08/16 at 16:30 Acetaminophen (Tylenol Supp) 650 mg Q6H PRN [place] PAIN LEVEL 1-3 OR FEVER; Start 06/08/16 at 16:30 Docusate Sodium (Colace) 100 mg Q12H PRN PO CONSTIPATION Last administered on 16:50; Admin Dose 100 MG; Start 06/08/16 at 16:30 Magnesium Hydroxide 30 ml 30 ml DAILY PRN PO CONSTIPATION Last administered on 06/12/16 21:02; Admin Dose 30 ML; Start 06/08/16 at 16:30 Sodium Chloride (NS) 1,000 ml @ 50 mls/hr Q20H IV Last administered on 13:41; Admin Dose 50 MLS/HR; Start 06/09/16 at 16:00 IV Flush (NS 10 ml) 10 ml PRN PRN IV IV PROTOCOL Last administered on 06/20/16 06:09; Admin Dose 10 ML; Start 06/09/16 at 11:30 Dexamethasone (Decadron) 10 mg Q4H PRN IV ALLERGIC REACTION; Start 06/09/16 at 16:00 Diphenhydramine HCl (Benadryl) 25 mg Q4H PRN IV ALLERGIC REACTION Last administered on 06/18/16 01:11; Admin Dose 25 MG; Start 06/09/16 at 16:00 Lorazepam (Ativan) 1 mg Q6H PRN IV Hiccups Last administered on 06/21/16 00:39 ; Admin Dose 1 MG; Start 06/10/16 at 21:00 Lorazepam (Ativan) 0.5 mg Q8H PRN PO NOTE; Start 06/12/16 at 16:00 Chlorpromazine (Thorazine) 10 mg BID PRN PO hiccups; Start 06/12/16 at 18:30 Lactulose (Enulose) 10 gm BID PRN PO CONSTIPATION Last administered on 00:29; Admin Dose 10 GM; Start 06/13/16 at 10:30 Filgrastim (Neupogen) 480 mcg DAILY@17 SC Last administered on 06/23/16 16:50; Admin Dose 480 MCG; Start 06/18/16 at 17:00; Stop 06/27/16 at 17:01 Valacyclovir HCl (Valtrex) 500 mg DAILY PO Last administered on 06/24/16 09:22 ; Admin Dose 500 MG; Start 06/18/16 at 13:00; Stop 06/27/16 at 09:01 Fluconazole (Diflucan) 100 mg DAILY PO Last administered on 06/24/16 09:21; Admin Dose 100 MG; Start 06/18/16 at 13:00; Stop 06/27/16 at 09:01 Levofloxacin (Levaquin) 500 mg DAILY@06 PO Last administered on 06/24/16 06:12 ; Admin Dose 500 MG; Start 06/18/16 at 13:00; Stop 06/27/16 at 06:01 Bisacodyl (Dulcolax) 10 mg PRN PRN PO CONSTIPATION Last administered on 17:58; Admin Dose 10 MG; Start 06/18/16 at 18:00 Pantoprazole (Protonix Tab) 40 mg DAILY@06 PO Last administered on 06/24/16 06: 12; Admin Dose 40 MG; Start 06/23/16 at 06:00 TOFABIAN MD Jun 24, 2016 10:09
[2016-06-24] MEDS: DOCUSATE SODIUM 100 MG CAP PO PRN (11:58)
[2016-06-24] MEDS: SOD CHLORIDE 0.9% 1,000 ML IV SCH (16:00)
[2016-06-24] MEDS: FILGRASTIM 480 MCG INJ SC SCH (16:43)
--- NOTE | 2016-06-24 20:12 | PN ---
Date/Time of Note Date/Time of Note DATE: 06/24/16 TIME: 20:11 Assessment/Plan VTE Prophylaxis VTE Prophylaxis Intervention: other Lines/Catheters IV Catheter Type (from Nrsg): PICC Line Central line still needed: Yes Urinary Cath still in place: No Reason Cath still needed: other (indicate) Assessment/Plan Chief Complaint/Hosp Course IMPRESSION: 1. Patient has lymphoma.on chemo 2. Leukocytosis. 3. Thrombocytosis. better 4. Anemia. 5. Splenomegaly.better 6. Allopurinol rash with a diffuse skin rash resolving.hx plan chemo per dr clements ck labs bowel care Problems: Subjective 24 Hr Interval Summary Cardiovascular: no complaints Gastrointestinal: no complaints Exam/Review of Systems Vital Signs Vitals Vital Signs Date Time Temp Pulse Resp B/P Pulse Ox O2 Delivery O2 Flow Rate FiO2 06/24/16 07:48 97.5 77 18 122/68 96 06/23/16 22:12 Room Air Intake and Output 06/23/16 06/23/16 06/24/16 15:00 23:00 07:00 Intake Total 960 ml 1500 ml Output Total 1400 ml Balance 960 ml 100 ml Exam Respiratory: clear to auscultation Cardiovascular: regular rate and rhythm Gastrointestinal: soft Results Result Diagram: 06/24/16 0440 06/24/16 0440 Results 24 hrs Laboratory Tests Test 06/24/16 04:40 White Blood Count 5.7 # Red Blood Count 3.20 L Hemoglobin 9.5 L Hematocrit 28.6 L Mean Corpuscular Volume 89.4 Mean Corpuscular Hemoglobin 29.7 Mean Corpuscular Hemoglobin Concent 33.2 Red Cell Distribution Width 13.8 Platelet Count 104 L Mean Platelet Volume 9.5 Neutrophils % 19.1 L Lymphocytes % 76.7 H Monocytes % 2.4 Eosinophils % 0.0 Basophils % 0.2 Nucleated Red Blood Cells % 0.0 Neutrophils # 1.1 L Lymphocytes # 4.4 H Monocytes # 0.1 L Eosinophils # 0.0 Basophils # 0.0 Nucleated Red Blood Cells # 0.0 Sodium Level 135 Potassium Level 4.1 Chloride Level 98 Carbon Dioxide Level 26 Anion Gap 15 Blood Urea Nitrogen 22 H Creatinine 0.95 Glucose Level 133 Uric Acid 7.0 Calcium Level 9.3 Total Bilirubin 0.2 Direct Bilirubin 0.00 Indirect Bilirubin 0.2 Aspartate Amino Transf (AST/SGOT) 9 L Alanine Aminotransferase (ALT/SGPT) 22 Alkaline Phosphatase 58 Lactate Dehydrogenase 321 Total Protein 5.3 L Albumin 3.5 Globulin 1.80 Albumin/Globulin Ratio 1.94 Medications Medications Current Medications Morphine Sulfate (morphine) 2 mg Q4H PRN IV PAIN; Start 06/08/16 at 13:30 Ondansetron HCl 4 mg 4 mg Q6H PRN IV NAUSEA AND/OR VOMITING Last administered on 06/17/16 21:47; Admin Dose 4 MG; Start 06/08/16 at 13:30 Acetaminophen (Ofirmev 1000mg/ 100ml Iv) 65 ml @ 250 mls/hr Q6H PRN IVPB PAIN ; Start 06/08/16 at 14:30 Meperidine HCl (Demerol) 50 mg Q4H PRN IV ALLERGIC REACTION Last administered on 06/10/16 02:09; Admin Dose 50 MG; Start 06/08/16 at 16:30 Methylprednisolone Sodium Succinate 100 mg 100 mg Q4H PRN IV ALLERGIC REACTION ; Start 06/08/16 at 16:30 Sodium Chloride (NS) 1,000 ml @ 70 mls/hr [id number] IV Last administered on 06/09 09:03; Admin Dose 70 MLS/HR; Start 06/08/16 at 16:18; Status Future Hold Acetaminophen (Tylenol Tab) 650 mg Q6H PRN PO PAIN LEVEL 1-3 OR FEVER Last administered on 06/10/16 04:24; Admin Dose 650 MG; Start 06/08/16 at 16:30 Acetaminophen (Tylenol Supp) 650 mg Q6H PRN [place] PAIN LEVEL 1-3 OR FEVER; Start 06/08/16 at 16:30 Docusate Sodium (Colace) 100 mg Q12H PRN PO CONSTIPATION Last administered on 11:58; Admin Dose 100 MG; Start 06/08/16 at 16:30 Magnesium Hydroxide 30 ml 30 ml DAILY PRN PO CONSTIPATION Last administered on 06/12/16 21:02; Admin Dose 30 ML; Start 06/08/16 at 16:30 Sodium Chloride (NS) 1,000 ml @ 50 mls/hr Q20H IV Last administered on 13:41; Admin Dose 50 MLS/HR; Start 06/09/16 at 16:00 IV Flush (NS 10 ml) 10 ml PRN PRN IV IV PROTOCOL Last administered on 06/20/16 06:09; Admin Dose 10 ML; Start 06/09/16 at 11:30 Dexamethasone (Decadron) 10 mg Q4H PRN IV ALLERGIC REACTION; Start 06/09/16 at 16:00 Diphenhydramine HCl (Benadryl) 25 mg Q4H PRN IV ALLERGIC REACTION Last administered on 06/18/16 01:11; Admin Dose 25 MG; Start 06/09/16 at 16:00 Lorazepam (Ativan) 1 mg Q6H PRN IV Hiccups Last administered on 06/21/16 00:39 ; Admin Dose 1 MG; Start 06/10/16 at 21:00 Lorazepam (Ativan) 0.5 mg Q8H PRN PO NOTE; Start 06/12/16 at 16:00 Chlorpromazine (Thorazine) 10 mg BID PRN PO hiccups; Start 06/12/16 at 18:30 Lactulose (Enulose) 10 gm BID PRN PO CONSTIPATION Last administered on 00:29; Admin Dose 10 GM; Start 06/13/16 at 10:30 Filgrastim (Neupogen) 480 mcg DAILY@17 SC Last administered on 06/24/16 16:43; Admin Dose 480 MCG; Start 06/18/16 at 17:00; Stop 06/27/16 at 17:01 Valacyclovir HCl (Valtrex) 500 mg DAILY PO Last administered on 06/24/16 09:22 ; Admin Dose 500 MG; Start 06/18/16 at 13:00; Stop 06/27/16 at 09:01 Fluconazole (Diflucan) 100 mg DAILY PO Last administered on 06/24/16 09:21; Admin Dose 100 MG; Start 06/18/16 at 13:00; Stop 06/27/16 at 09:01 Levofloxacin (Levaquin) 500 mg DAILY@06 PO Last administered on 06/24/16 06:12 ; Admin Dose 500 MG; Start 06/18/16 at 13:00; Stop 06/27/16 at 06:01 Bisacodyl (Dulcolax) 10 mg PRN PRN PO CONSTIPATION Last administered on 17:58; Admin Dose 10 MG; Start 06/18/16 at 18:00 Pantoprazole (Protonix Tab) 40 mg DAILY@06 PO Last administered on 06/24/16 06: 12; Admin Dose 40 MG; Start 06/23/16 at 06:00 TIFFANIE LI MD Jun 24, 2016 20:12
[2016-06-24 20:50] VITALS: BP 119/63; RESP 20
[2016-06-25] MEDS: PANTOPRAZOLE (EC) 40 MG TAB PO SCH (06:39)
[2016-06-25] MEDS: LEVOFLOXACIN 500 MG TAB PO SCH (06:39)
[2016-06-25 07:45] VITALS: BP 114/67; RESP 18
[2016-06-25] MEDS: VALACYCLOVIR 500 MG TAB PO SCH (09:18)
[2016-06-25] MEDS: FLUCONAZOLE 100 MG TAB PO SCH (09:18)
[2016-06-25] MEDS: DOCUSATE SODIUM 100 MG CAP PO PRN (09:18)
[2016-06-25 10:28] LABS: ADD SCAN DIFF NO
[2016-06-25 10:30] LABS: ABNORMAL IP MESSAGE 1; HEMATOCRIT 34.5 % (42.0-52.0); HEMOGLOBIN 11.3 g/dl (14.0-18.0); MEAN CORPUSCULAR HEMOGLOBIN 29.6 pg (29.0-33.0); MEAN CORPUSCULAR HGB CONC 32.8 g/dl (32.0-37.0); MEAN CORPUSCULAR VOLUME 90.3 fl (82.0-101.0); MEAN PLATELET VOLUME 9.2 fl (7.4-10.4); PLATELET COUNT 127 10^3/UL (140-415); RED BLOOD COUNT 3.82 10^6/ul (4.70-6.10); RED CELL DISTRIBUTION WIDTH 14.2 % (11.5-14.5); WHITE BLOOD COUNT 20.3 10^3/ul (4.8-10.8)
[2016-06-25 10:39] LABS: ALBUMIN 3.9 g/dl (3.3-4.9)
[2016-06-25 10:40] LABS: POTASSIUM 3.6 mmol/L (3.5-5.1)
[2016-06-25 10:42] LABS: ALBUMIN/GLOBULIN RATIO 2.16; BILIRUBIN,INDIRECT 0.6 mg/dl (0-1.1); BILIRUBIN,TOTAL 0.6 mg/dl (0.2-1.3); CREATININE 1.16 mg/dl (0.61-1.24); TOTAL PROTEIN 5.7 g/dl (6.1-8.1)
[2016-06-25 10:43] LABS: CALCIUM 9.2 mg/dl (8.4-10.2); URIC ACID 8.5 mg/dl (3.1-7.9)
--- NOTE | 2016-06-25 11:13 | CONS ---
Date/Time of Note Date/Time of Note DATE: 06/25/16 TIME: 11:11 Assessment/Plan Assessment/Plan Chief Complaint/Hosp Course 55 yo male with aggressive mantle cell lymphoma stage IV in the leukemic phase with involvement of the spleen and likely bone marrow presents with chills, tactile fevers, loss of appetite, and generalized weakness. - Given the aggressive nature of disease now on R-HyperCVAD. #Mantle Cell lymphoma - -started HyperCVAD 06/10/16, tolerating well so far except nausea vomiting, on antiemetics. DAY 1 is 06/09. Today is D16. -Rituxan 800mg IV given day 1 (06/09) -Cytoxan 600mg IV q 12 hours x 6 doses day 2-4 (06/10-06/12) -Vincristine 2mg given day 5 (06/13) and day 12 (06/20) -Adriamycin 40mg IV q day continuous over 72 hours Day 5-7 (06/13-06/15) -Dexamethasone 40 IV per day, day 2 - day 5 (06/10-06/13) and day 12- day15( -06/23) -echocardiogram showed normal EF. -Hep panel and HIV negative -Referral to [facility] for autologous BMT in first remission has been approved. Patient needs to make appt with Dr. Sami Mendes. Patient has a tentative appointment for 07/06/16. -BMBx (performed 06/05/16 as an outpatient) shows involvement by mantle cell lymphoma (50% of marrow cellularity by IHC), so its a stage 4 -Neupogen started 06/18/16 after completion of doxorubicin # GUIDE TRAVEL prophylaxis -Pt will need Intrathecal chemotherapy with methotrexate/cytarabine/ hydrocoritone. Will order once peripheral blasts and peripheral lymphoma cells have cleared. Ordered flow cytometry and MRI brain as recommended by Dr Steinberg. MRI brain was unremarkable, reviewed with Dr. Miranda. Peripheral blood flow cytometry continues to show leukemic phase of B cell lymphoma. -Peripheral smear reviewed again by path on 06/22/16, showing lymphocyte predominance, unclear whether reactive or circulating lymphoma cells. Plan to repeat flow cytometry once differential changes to suggest clearance of circulating lymphoma cells. # Tumor lysis prophylaxis -continue to check daily tumor lysis labs including CMP, LDH, URIC acid, phosphorus. Rasburicase given on 06/08/16, 06/10/16, 06/11/16 and 06/16/16. NOTE patient is ALLERGIC to allopurinol. # Supportive Care -on increased dose of thorazine prn for hiccups, for now stable. -zofran prn, ativan prn nausea -adding lactulose for constipation. Simethicone prn gas. -continue ppx meds including Fluconazole, Levaquin and Valacyclovir Extensive d/w patient re: current rx, supportive care and briefly about questions related to BM transplant in future. Dispo: pending completion of chemotherapy and recovering of neutrophils/blood counts. Labs pending today. Problems: Consultation Date/Type/Reason Admit Date/Time Jun 08, 2016 at 10:39 Initial Consult Date 06/08/16 Type of Consultation: Hematology/Oncology Referring Provider: TIFFANIE LI MD 24 HR Interval Summary Free Text/Dictation The patient is doing well, no complaints except gas/bloating. Exam/Review of Systems Vital Signs Vitals Vital Signs Date Time Temp Pulse Resp B/P Pulse Ox O2 Delivery O2 Flow Rate FiO2 06/25/16 07:45 97.5 85 18 114/67 97 06/23/16 22:12 Room Air Intake and Output 06/24/16 06/24/16 06/25/16 15:00 23:00 07:00 Intake Total 1720 ml 880 ml Output Total 900 ml Balance 1720 ml -20 ml Exam Constitutional: alert, oriented Psych: nl mood/affect, no complaints Head: normocephalic Eyes: nl conjunctiva ENMT: nl external ears & nose Neck: non-tender, supple Respiratory: clear to auscultation, normal air movement Cardiovascular: nl pulses, regular rate and rhythm Gastrointestinal: soft Musculoskeletal: nl extremities to inspection Results Result Diagram: 06/25/16 1014 06/25/16 1014 Results 24 hrs Laboratory Tests Test 06/25/16 10:14 White Blood Count 20.3 #H Red Blood Count 3.82 L Hemoglobin 11.3 L Hematocrit 34.5 #L Mean Corpuscular Volume 90.3 Mean Corpuscular Hemoglobin 29.6 Mean Corpuscular Hemoglobin Concent 32.8 Red Cell Distribution Width 14.2 Platelet Count 127 #L Mean Platelet Volume 9.2 Neutrophils % Eosinophils % Neutrophils # Eosinophils # Sodium Level 134 L Potassium Level 3.6 Chloride Level 95 L Carbon Dioxide Level 26 Anion Gap 17 H Blood Urea Nitrogen 21 H Creatinine 1.16 Glucose Level 95 Uric Acid 8.5 H Calcium Level 9.2 Total Bilirubin 0.6 Direct Bilirubin 0.00 Indirect Bilirubin 0.6 Aspartate Amino Transf (AST/SGOT) 12 L Alanine Aminotransferase (ALT/SGPT) 25 Alkaline Phosphatase 74 Lactate Dehydrogenase 465 Total Protein 5.7 L Albumin 3.9 Globulin 1.80 Albumin/Globulin Ratio 2.16 Medications Medications Current Medications Morphine Sulfate (morphine) 2 mg Q4H PRN IV PAIN; Start 06/08/16 at 13:30 Ondansetron HCl 4 mg 4 mg Q6H PRN IV NAUSEA AND/OR VOMITING Last administered on 06/17/16 21:47; Admin Dose 4 MG; Start 06/08/16 at 13:30 Acetaminophen (Ofirmev 1000mg/ 100ml Iv) 65 ml @ 250 mls/hr Q6H PRN IVPB PAIN ; Start 06/08/16 at 14:30 Meperidine HCl (Demerol) 50 mg Q4H PRN IV ALLERGIC REACTION Last administered on 06/10/16 02:09; Admin Dose 50 MG; Start 06/08/16 at 16:30 Methylprednisolone Sodium Succinate 100 mg 100 mg Q4H PRN IV ALLERGIC REACTION ; Start 06/08/16 at 16:30 Sodium Chloride (NS) 1,000 ml @ 70 mls/hr [id number] IV Last administered on 06/09 09:03; Admin Dose 70 MLS/HR; Start 06/08/16 at 16:18; Status Future Hold Acetaminophen (Tylenol Tab) 650 mg Q6H PRN PO PAIN LEVEL 1-3 OR FEVER Last administered on 06/10/16 04:24; Admin Dose 650 MG; Start 06/08/16 at 16:30 Acetaminophen (Tylenol Supp) 650 mg Q6H PRN [place] PAIN LEVEL 1-3 OR FEVER; Start 06/08/16 at 16:30 Docusate Sodium (Colace) 100 mg Q12H PRN PO CONSTIPATION Last administered on 09:18; Admin Dose 100 MG; Start 06/08/16 at 16:30 Magnesium Hydroxide (Milk Of Mag) 30 ml DAILY PRN PO CONSTIPATION Last administered on 06/12/16 21:02; Admin Dose 30 ML; Start 06/08/16 at 16:30 IV Flush (NS 10 ml) 10 ml PRN PRN IV IV PROTOCOL Last administered on 06/24/16 21:05; Admin Dose 10 ML; Start 06/09/16 at 11:30 Dexamethasone (Decadron) 10 mg Q4H PRN IV ALLERGIC REACTION; Start 06/09/16 at 16:00 Diphenhydramine HCl (Benadryl) 25 mg Q4H PRN IV ALLERGIC REACTION Last administered on 06/18/16 01:11; Admin Dose 25 MG; Start 06/09/16 at 16:00 Lorazepam (Ativan) 1 mg Q6H PRN IV Hiccups Last administered on 06/21/16 00:39 ; Admin Dose 1 MG; Start 06/10/16 at 21:00 Lorazepam (Ativan) 0.5 mg Q8H PRN PO NOTE; Start 06/12/16 at 16:00 Chlorpromazine (Thorazine) 10 mg BID PRN PO hiccups; Start 06/12/16 at 18:30 Lactulose (Enulose) 10 gm BID PRN PO CONSTIPATION Last administered on 00:29; Admin Dose 10 GM; Start 06/13/16 at 10:30 Filgrastim (Neupogen) 480 mcg DAILY@17 SC Last administered on 06/24/16 16:43; Admin Dose 480 MCG; Start 06/18/16 at 17:00; Stop 06/27/16 at 17:01 Valacyclovir HCl (Valtrex) 500 mg DAILY PO Last administered on 06/25/16 09:18 ; Admin Dose 500 MG; Start 06/18/16 at 13:00; Stop 06/27/16 at 09:01 Fluconazole (Diflucan) 100 mg DAILY PO Last administered on 06/25/16 09:18; Admin Dose 100 MG; Start 06/18/16 at 13:00; Stop 06/27/16 at 09:01 Levofloxacin (Levaquin) 500 mg DAILY@06 PO Last administered on 06/25/16 06:39 ; Admin Dose 500 MG; Start 06/18/16 at 13:00; Stop 06/27/16 at 06:01 Bisacodyl (Dulcolax) 10 mg PRN PRN PO CONSTIPATION Last administered on 17:58; Admin Dose 10 MG; Start 06/18/16 at 18:00 Pantoprazole (Protonix Tab) 40 mg DAILY@06 PO Last administered on 06/25/16 06: 39; Admin Dose 40 MG; Start 06/23/16 at 06:00 Simethicone (Mylicon) 80 mg QID PRN PO DISTENSION/GAS/BLOATING Last administered on 06/25/16 10:24; Admin Dose 80 MG; Start 06/25/16 at 09:30 FABIAN STEINBERG MD Jun 25, 2016 11:12
[2016-06-25 13:19] LABS: LYMPHOCYTES # 18.3 10^3/ul (0.8-2.9); MONOCYTE # 0.4 10^3/ul (0.3-0.9); NEUTROPHIL # 1.2 10^3/ul (1.6-7.5)
[2016-06-25] MEDS ORDERED: SOD CHLORIDE 0.9% IVPB ONE (14:30)
[2016-06-25] MEDS ORDERED: RASBURICASE IVPB ONE (14:30)
[2016-06-25] MEDS: FILGRASTIM 480 MCG INJ SC SCH (17:01)
[2016-06-25 19:50] VITALS: BP 110/62; RESP 18
--- NOTE | 2016-06-25 20:43 | PN ---
Date/Time of Note Date/Time of Note DATE: 06/25/16 TIME: 20:42 Assessment/Plan VTE Prophylaxis VTE Prophylaxis Intervention: other Lines/Catheters IV Catheter Type (from Nrs): PICC Line Central line still needed: Yes Urinary Cath still in place: No Reason Cath still needed: other (indicate) Assessment/Plan Chief Complaint/Hosp Course IMPRESSION: 1. Patient has lymphoma.on chemo 2. Leukocytosis. 3. Thrombocytosis. better 4. Anemia. 5. Splenomegaly.better 6. Allopurinol rash with a diffuse skin rash resolving.hx plan chemo per dr clements ck labs bowel care dc planning per oncology team antibiotic Problems: Subjective 24 Hr Interval Summary Respiratory: no complaints Cardiovascular: no complaints Gastrointestinal: no complaints Genitourinary: no complaints Musculoskeletal: no complaints Exam/Review of Systems Vital Signs Vitals Vital Signs Date Time Temp Pulse Resp B/P Pulse Ox O2 Delivery O2 Flow Rate FiO2 06/25/16 19:50 98.6 96 18 110/62 18 06/23/16 22:12 Room Air Intake and Output 06/24/16 06/24/16 06/25/16 15:00 23:00 07:00 Intake Total 1720 ml 880 ml Output Total 900 ml Balance 1720 ml -20 ml Exam Neck: supple Respiratory: clear to auscultation Cardiovascular: regular rate and rhythm Gastrointestinal: soft Musculoskeletal: nl extremities to inspection Extremities: normal pulses Results Result Diagram: 06/25/16 1014 06/25/16 1014 Results 24 hrs Laboratory Tests Test 06/25/16 10:14 White Blood Count 20.3 #H Red Blood Count 3.82 L Hemoglobin 11.3 L Hematocrit 34.5 #L Mean Corpuscular Volume 90.3 Mean Corpuscular Hemoglobin 29.6 Mean Corpuscular Hemoglobin Concent 32.8 Red Cell Distribution Width 14.2 Platelet Count 127 #L Mean Platelet Volume 9.2 Neutrophils % 6.0 L Band Neutrophils % 2.0 Lymphocytes % 90.0 H Monocytes % 2.0 Eosinophils % Neutrophils # 1.2 L Lymphocytes # 18.3 H Monocytes # 0.4 Eosinophils # Sodium Level 134 L Potassium Level 3.6 Chloride Level 95 L Carbon Dioxide Level 26 Anion Gap 17 H Blood Urea Nitrogen 21 H Creatinine 1.16 Glucose Level 95 Uric Acid 8.5 H Calcium Level 9.2 Total Bilirubin 0.6 Direct Bilirubin 0.00 Indirect Bilirubin 0.6 Aspartate Amino Transf (AST/SGOT) 12 L Alanine Aminotransferase (ALT/SGPT) 25 Alkaline Phosphatase 74 Lactate Dehydrogenase 465 Total Protein 5.7 L Albumin 3.9 Globulin 1.80 Albumin/Globulin Ratio 2.16 Medications Medications Current Medications Morphine Sulfate (morphine) 2 mg Q4H PRN IV PAIN; Start 06/08/16 at 13:30 Ondansetron HCl 4 mg 4 mg Q6H PRN IV NAUSEA AND/OR VOMITING Last administered on 06/17/16 21:47; Admin Dose 4 MG; Start 06/08/16 at 13:30 Acetaminophen (Ofirmev 1000mg/ 100ml Iv) 65 ml @ 250 mls/hr Q6H PRN IVPB PAIN ; Start 06/08/16 at 14:30 Meperidine HCl (Demerol) 50 mg Q4H PRN IV ALLERGIC REACTION Last administered on 06/10/16 02:09; Admin Dose 50 MG; Start 06/08/16 at 16:30 Methylprednisolone Sodium Succinate 100 mg 100 mg Q4H PRN IV ALLERGIC REACTION ; Start 06/08/16 at 16:30 Sodium Chloride (NS) 1,000 ml @ 70 mls/hr [id number] IV Last administered on 06/09 09:03; Admin Dose 70 MLS/HR; Start 06/08/16 at 16:18; Status Future Hold Acetaminophen (Tylenol Tab) 650 mg Q6H PRN PO PAIN LEVEL 1-3 OR FEVER Last administered on 06/10/16 04:24; Admin Dose 650 MG; Start 06/08/16 at 16:30 Acetaminophen (Tylenol Supp) 650 mg Q6H PRN [place] PAIN LEVEL 1-3 OR FEVER; Start 06/08/16 at 16:30 Docusate Sodium (Colace) 100 mg Q12H PRN PO CONSTIPATION Last administered on 09:18; Admin Dose 100 MG; Start 06/08/16 at 16:30 Magnesium Hydroxide (Milk Of Mag) 30 ml DAILY PRN PO CONSTIPATION Last administered on 06/12/16 21:02; Admin Dose 30 ML; Start 06/08/16 at 16:30 IV Flush (NS 10 ml) 10 ml PRN PRN IV IV PROTOCOL Last administered on 06/24/16 21:05; Admin Dose 10 ML; Start 06/09/16 at 11:30 Dexamethasone (Decadron) 10 mg Q4H PRN IV ALLERGIC REACTION; Start 06/09/16 at 16:00 Diphenhydramine HCl (Benadryl) 25 mg Q4H PRN IV ALLERGIC REACTION Last administered on 06/18/16 01:11; Admin Dose 25 MG; Start 06/09/16 at 16:00 Lorazepam (Ativan) 1 mg Q6H PRN IV Hiccups Last administered on 06/21/16 00:39 ; Admin Dose 1 MG; Start 06/10/16 at 21:00 Lorazepam (Ativan) 0.5 mg Q8H PRN PO NOTE; Start 06/12/16 at 16:00 Chlorpromazine (Thorazine) 10 mg BID PRN PO hiccups; Start 06/12/16 at 18:30 Lactulose (Enulose) 10 gm BID PRN PO CONSTIPATION Last administered on 00:29; Admin Dose 10 GM; Start 06/13/16 at 10:30 Filgrastim (Neupogen) 480 mcg DAILY@17 SC Last administered on 06/25/16 17:01; Admin Dose 480 MCG; Start 06/18/16 at 17:00; Stop 06/27/16 at 17:01 Valacyclovir HCl (Valtrex) 500 mg DAILY PO Last administered on 06/25/16 09:18 ; Admin Dose 500 MG; Start 06/18/16 at 13:00; Stop 06/27/16 at 09:01 Fluconazole (Diflucan) 100 mg DAILY PO Last administered on 06/25/16 09:18; Admin Dose 100 MG; Start 06/18/16 at 13:00; Stop 06/27/16 at 09:01 Levofloxacin (Levaquin) 500 mg DAILY@06 PO Last administered on 06/25/16 06:39 ; Admin Dose 500 MG; Start 06/18/16 at 13:00; Stop 06/27/16 at 06:01 Bisacodyl (Dulcolax) 10 mg PRN PRN PO CONSTIPATION Last administered on 17:58; Admin Dose 10 MG; Start 06/18/16 at 18:00 Pantoprazole (Protonix Tab) 40 mg DAILY@06 PO Last administered on 06/25/16 06: 39; Admin Dose 40 MG; Start 06/23/16 at 06:00 Simethicone (Mylicon) 80 mg QID PRN PO DISTENSION/GAS/BLOATING Last administered on 06/25/16 20:24; Admin Dose 80 MG; Start 06/25/16 at 09:30 TIFFANIE LI MD Jun 25, 2016 20:43
[2016-06-26 05:33] LABS: ADD SCAN DIFF NO
[2016-06-26 05:44] LABS: ABNORMAL IP MESSAGE 1; MEAN CORPUSCULAR HEMOGLOBIN 29.4 pg (29.0-33.0); MEAN CORPUSCULAR HGB CONC 32.3 g/dl (32.0-37.0); MEAN CORPUSCULAR VOLUME 91.2 fl (82.0-101.0); MEAN PLATELET VOLUME 9.7 fl (7.4-10.4); PLATELET COUNT 113 10^3/UL (140-415); RED CELL DISTRIBUTION WIDTH 14.2 % (11.5-14.5); WHITE BLOOD COUNT 13.8 10^3/ul (4.8-10.8)
[2016-06-26 05:57] LABS: ALBUMIN 3.3 g/dl (3.3-4.9); POTASSIUM 3.7 mmol/L (3.5-5.1)
[2016-06-26 05:59] LABS: BILIRUBIN,INDIRECT 0.4 mg/dl (0-1.1); BILIRUBIN,TOTAL 0.4 mg/dl (0.2-1.3); CREATININE 1.44 mg/dl (0.61-1.24)
[2016-06-26 06:00] LABS: ALBUMIN/GLOBULIN RATIO 1.83; CALCIUM 8.8 mg/dl (8.4-10.2); TOTAL PROTEIN 5.1 g/dl (6.1-8.1); URIC ACID 6.7 mg/dl (3.1-7.9)
[2016-06-26] MEDS: LEVOFLOXACIN 500 MG TAB PO SCH (06:29)
[2016-06-26] MEDS: PANTOPRAZOLE (EC) 40 MG TAB PO SCH (06:29)
[2016-06-26 08:46] VITALS: BP 115/64; RESP 16
[2016-06-26] MEDS: VALACYCLOVIR 500 MG TAB PO SCH (09:12)
[2016-06-26] MEDS: FLUCONAZOLE 100 MG TAB PO SCH (09:12)
[2016-06-26] MEDS: DOCUSATE SODIUM 100 MG CAP PO PRN (09:16)
[2016-06-26] MEDS ORDERED: SOD CHLORIDE 0.9% 1,000 ML IV ONE (10:00)
--- NOTE | 2016-06-26 11:12 | CONS ---
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 - Given the aggressive nature of disease now on R-HyperCVAD. #Mantle Cell lymphoma - -started HyperCVAD 06/10/16, tolerating well so far except nausea vomiting, on antiemetics. DAY 1 is 06/09. -Rituxan 800mg IV given day 1 (06/09) -Cytoxan 600mg IV q 12 hours x 6 doses day 2-4 (06/10-06/12) -Vincristine 2mg given day 5 (06/13) and day 12 (06/20) -Adriamycin 40mg IV q day continuous over 72 hours Day 5-7 (06/13-06/15) -Dexamethasone 40 IV per day, day 2 - day 5 (06/10-06/13) and day 12- day15( -06/23) -echocardiogram showed normal EF. -Hep panel and HIV negative -Referral to [facility] for autologous BMT in first remission has been approved. Patient needs to make appt with Dr. Sami Mendes. Patient has a tentative appointment for 07/06/16 but case reviewer to ensure that auth for BMT. -BMBx (performed 06/05/16 as an outpatient) shows involvement by mantle cell lymphoma (50% of marrow cellularity by IHC), so its a stage 4 -Neupogen started 06/18/16 after completion of doxorubicin, which will be completed 06/27/16. ANC pending from today, yesterday 1.2. # [employer] prophylaxis -Pt will need Intrathecal chemotherapy with methotrexate/cytarabine/ hydrocoritone. Will order once peripheral blasts and peripheral lymphoma cells have cleared. Ordered flow cytometry and MRI brain as recommended by Dr Dimas. MRI brain was unremarkable, reviewed with Dr. Miranda. Peripheral blood flow cytometry continues to show leukemic phase of B cell lymphoma. -Peripheral smear reviewed again by path on 06/22/16, showing lymphocyte predominance, unclear whether reactive or circulating lymphoma cells. Plan to repeat flow cytometry once differential changes to suggest clearance of circulating lymphoma cells. # Tumor lysis prophylaxis -continue to check daily tumor lysis labs including CMP, LDH, URIC acid, phosphorus. Rasburicase given on 06/08/16, 06/10/16, 06/11/16 and 06/16/16, 06/25/16. NOTE patient is ALLERGIC to allopurinol. - Cr elevated to 1.44, will give IV fluid bolus and maintenance IV fluids and repeat labs in the afternoon # Supportive Care -on increased dose of thorazine prn for hiccups, for now stable. -zofran prn, ativan prn nausea -adding lactulose for constipation. Simethicone prn gas. -continue ppx meds including Fluconazole, Levaquin and Valacyclovir Extensive d/w patient re: current rx, supportive care and briefly about questions related to BM transplant in future. Dispo: pending completion of chemotherapy and recovering of neutrophils/blood counts and improvement of renal function Problems: Consultation Date/Type/Reason Admit Date/Time Jun 08, 2016 at 10:39 Initial Consult Date 06/08/16 Type of Consultation: Hematology/Oncology Referring Provider: TIFFANIE LI MD 24 HR Interval Summary Free Text/Dictation Patient doing well, no complaints. States that he is keeping hydrated and urinating well. Exam/Review of Systems Vital Signs Vitals Vital Signs Date Time Temp Pulse Resp B/P Pulse Ox O2 Delivery O2 Flow Rate FiO2 06/26/16 08:46 98.3 98 16 115/64 97 06/23/16 22:12 Room Air Intake and Output 06/25/16 06/25/16 06/26/16 15:00 23:00 07:00 Intake Total 1550 ml Balance 1550 ml Exam Constitutional: alert, oriented Psych: nl mood/affect, no complaints Head: normocephalic Eyes: nl conjunctiva ENMT: nl external ears & nose Neck: non-tender, supple Respiratory: clear to auscultation, normal air movement Cardiovascular: nl pulses, regular rate and rhythm Gastrointestinal: soft Musculoskeletal: nl extremities to inspection Results Result Diagram: 06/26/16 0441 06/26/16440 Results 24 hrs Laboratory Tests Test 06/26/16 04:41 White Blood Count 13.8 #H Red Blood Count 3.40 L Hemoglobin 10.0 L Hematocrit 31.0 L Mean Corpuscular Volume 91.2 Mean Corpuscular Hemoglobin 29.4 Mean Corpuscular Hemoglobin Concent 32.3 Red Cell Distribution Width 14.2 Platelet Count 113 L Mean Platelet Volume 9.7 Neutrophils % Lymphocytes % Monocytes % Eosinophils % Neutrophils # Lymphocytes # Monocytes # Eosinophils # Sodium Level 137 Potassium Level 3.7 Chloride Level 97 Carbon Dioxide Level 29 Anion Gap 15 Blood Urea Nitrogen 20 Creatinine 1.44 H Glucose Level 91 Uric Acid 6.7 Calcium Level 8.8 Total Bilirubin 0.4 Direct Bilirubin 0.00 Indirect Bilirubin 0.4 Aspartate Amino Transf (AST/SGOT) 11 L Alanine Aminotransferase (ALT/SGPT) 25 Alkaline Phosphatase 72 Lactate Dehydrogenase 489 Total Protein 5.1 L Albumin 3.3 Globulin 1.80 Albumin/Globulin Ratio 1.83 Medications Medications Current Medications Morphine Sulfate (morphine) 2 mg Q4H PRN IV PAIN; Start 06/08/16 at 13:30 Ondansetron HCl 4 mg 4 mg Q6H PRN IV NAUSEA AND/OR VOMITING Last administered on 06/17/16 21:47; Admin Dose 4 MG; Start 06/08/16 at 13:30 Acetaminophen (Ofirmev 1000mg/ 100ml Iv) 65 ml @ 250 mls/hr Q6H PRN IVPB PAIN ; Start 06/08/16 at 14:30 Meperidine HCl (Demerol) 50 mg Q4H PRN IV ALLERGIC REACTION Last administered on 06/10/16 02:09; Admin Dose 50 MG; Start 06/08/16 at 16:30 Methylprednisolone Sodium Succinate (Solu-Medrol) 100 mg Q4H PRN IV ALLERGIC REACTION; Start 06/08/16 at 16:30 Acetaminophen (Tylenol Tab) 650 mg Q6H PRN PO PAIN LEVEL 1-3 OR FEVER Last administered on 06/10/16 04:24; Admin Dose 650 MG; Start 06/08/16 at 16:30 Acetaminophen (Tylenol Supp) 650 mg Q6H PRN [place] PAIN LEVEL 1-3 OR FEVER; Start 06/08/16 at 16:30 Docusate Sodium (Colace) 100 mg Q12H PRN PO CONSTIPATION Last administered on 09:16; Admin Dose 100 MG; Start 06/08/16 at 16:30 Magnesium Hydroxide (Milk Of Mag) 30 ml DAILY PRN PO CONSTIPATION Last administered on 06/12/16 21:02; Admin Dose 30 ML; Start 06/08/16 at 16:30 IV Flush (NS 10 ml) 10 ml PRN PRN IV IV PROTOCOL Last administered on 06/24/16 21:05; Admin Dose 10 ML; Start 06/09/16 at 11:30 Dexamethasone (Decadron) 10 mg Q4H PRN IV ALLERGIC REACTION; Start 06/09/16 at 16:00 Diphenhydramine HCl (Benadryl) 25 mg Q4H PRN IV ALLERGIC REACTION Last administered on 06/18/16 01:11; Admin Dose 25 MG; Start 06/09/16 at 16:00 Lorazepam (Ativan) 1 mg Q6H PRN IV Hiccups Last administered on 06/21/16 00:39 ; Admin Dose 1 MG; Start 06/10/16 at 21:00 Lorazepam (Ativan) 0.5 mg Q8H PRN PO NOTE; Start 06/12/16 at 16:00 Chlorpromazine (Thorazine) 10 mg BID PRN PO hiccups; Start 06/12/16 at 18:30 Lactulose (Enulose) 10 gm BID PRN PO CONSTIPATION Last administered on 00:29; Admin Dose 10 GM; Start 06/13/16 at 10:30 Filgrastim (Neupogen) 480 mcg DAILY@17 SC Last administered on 06/25/16 17:01; Admin Dose 480 MCG; Start 06/18/16 at 17:00; Stop 06/27/16 at 17:01 Valacyclovir HCl (Valtrex) 500 mg DAILY PO Last administered on 06/26/16 09:12 ; Admin Dose 500 MG; Start 06/18/16 at 13:00; Stop 06/27/16 at 09:01 Fluconazole (Diflucan) 100 mg DAILY PO Last administered on 06/26/16 09:12; Admin Dose 100 MG; Start 06/18/16 at 13:00; Stop 06/27/16 at 09:01 Levofloxacin (Levaquin) 500 mg DAILY@06 PO Last administered on 06/26/16 06:29 ; Admin Dose 500 MG; Start 06/18/16 at 13:00; Stop 06/27/16 at 06:01 Bisacodyl (Dulcolax) 10 mg PRN PRN PO CONSTIPATION Last administered on 17:58; Admin Dose 10 MG; Start 06/18/16 at 18:00 Pantoprazole (Protonix Tab) 40 mg DAILY@06 PO Last administered on 06/26/16 06: 29; Admin Dose 40 MG; Start 06/23/16 at 06:00 Simethicone 80 mg 80 mg QID PRN PO DISTENSION/GAS/BLOATING Last administered on 06/26/16 06:34; Admin Dose 80 MG; Start 06/25/16 at 09:30 Sodium Chloride (NS) 1,000 ml @ 500 mls/hr Q2H ONCE IV ; Start 06/26/16 at 10:00 ; Stop 06/26/16 at 11:59 TO,FABIAN Villegas MD Jun 26, 2016 11:12
[2016-06-26 12:16] LABS: BASOPHIL # 0.1 10^3/ul (0.0-0.1); LYMPHOCYTES # 8.6 10^3/ul (0.8-2.9); MONOCYTE # 0.3 10^3/ul (0.3-0.9); MYELOCYTES # 0.1; NEUTROPHIL # 1.8 10^3/ul (1.6-7.5)
[2016-06-26 14:32] LABS: CALCIUM 8.3 mg/dl (8.4-10.2); CREATININE 1.13 mg/dl (0.61-1.24)
[2016-06-26] MEDS: SOD CHLORIDE 0.9% 1,000 ML IV SCH (15:28)
[2016-06-26] MEDS: FILGRASTIM 480 MCG INJ SC SCH (17:16)
[2016-06-26 19:58] VITALS: BP 107/62; PULSE 98; RESP 18
--- NOTE | 2016-06-27 00:20 | PN ---
Date/Time of Note Date/Time of Note DATE: 06/27/16 TIME: 00:19 Assessment/Plan VTE Prophylaxis VTE Prophylaxis Intervention: other Lines/Catheters IV Catheter Type (from Nrsg): PICC Line Central line still needed: Yes Urinary Cath still in place: Yes Reason Cath still needed: other (indicate) Assessment/Plan Chief Complaint/Hosp Course IMPRESSION: 1. Patient has lymphoma.on chemo 2. Leukocytosis. 3. Thrombocytosis. better 4. Anemia. 5. Splenomegaly.better 6. Allopurinol rash with a diffuse skin rash resolving.hx plan chemo per dr clements ck labs bowel care dc planning per oncology team antibiotic Problems: Subjective 24 Hr Interval Summary Gastrointestinal: no complaints Genitourinary: no complaints Exam/Review of Systems Vital Signs Vitals Vital Signs Date Time Temp Pulse Resp B/P Pulse Ox O2 Delivery O2 Flow Rate FiO2 06/26/16 19:58 98.4 98 18 107/62 97 Room Air Intake and Output 06/26/16 06/26/16 06/27/16 15:00 23:00 07:00 Intake Total 1000 ml 1940 ml Balance 1000 ml 1940 ml Exam Respiratory: clear to auscultation Cardiovascular: regular rate and rhythm Gastrointestinal: soft Musculoskeletal: nl extremities to inspection Results Result Diagram: 06/26/16 0441 06/26/16 1400 Results 24 hrs Laboratory Tests Test 06/26/16 04:41 06/26/16 14:00 White Blood Count 13.8 #H Red Blood Count 3.40 L Hemoglobin 10.0 L Hematocrit 31.0 L Mean Corpuscular Volume 91.2 Mean Corpuscular Hemoglobin 29.4 Mean Corpuscular Hemoglobin Concent 32.3 Red Cell Distribution Width 14.2 Platelet Count 113 L Mean Platelet Volume 9.7 Neutrophils % 13.0 L Band Neutrophils % 15.0 H Lymphocytes % 62.0 H Monocytes % 2.0 Eosinophils % Basophils % 1.0 Metamyelocytes % 4.0 H Myelocytes % 1.0 H Promyelocytes % 2.0 H Nucleated Red Blood Cells % 3.0 H Neutrophils # 1.8 Lymphocytes # 8.6 H Monocytes # 0.3 Eosinophils # Basophils # 0.1 Metamyelocytes # 0.6 Myelocytes # 0.1 Promyelocytes # 0.3 Differential Comment MANUAL DIFF Large Platelets OCCASIONAL Sodium Level 137 132 L Potassium Level 3.7 4.0 Chloride Level 97 98 Carbon Dioxide Level 29 28 Anion Gap 15 10 # Blood Urea Nitrogen 20 17 Creatinine 1.44 H 1.13 Glucose Level 91 90 Uric Acid 6.7 Calcium Level 8.8 8.3 L Total Bilirubin 0.4 Direct Bilirubin 0.00 Indirect Bilirubin 0.4 Aspartate Amino Transf (AST/SGOT) 11 L Alanine Aminotransferase (ALT/SGPT) 25 Alkaline Phosphatase 72 Lactate Dehydrogenase 489 Total Protein 5.1 L Albumin 3.3 Globulin 1.80 Albumin/Globulin Ratio 1.83 Medications Medications Current Medications Morphine Sulfate (morphine) 2 mg Q4H PRN IV PAIN; Start 06/08/16 at 13:30 Ondansetron HCl 4 mg 4 mg Q6H PRN IV NAUSEA AND/OR VOMITING Last administered on 06/17/16 21:47; Admin Dose 4 MG; Start 06/08/16 at 13:30 Acetaminophen (Ofirmev 1000mg/ 100ml Iv) 65 ml @ 250 mls/hr Q6H PRN IVPB PAIN ; Start 06/08/16 at 14:30 Meperidine HCl (Demerol) 50 mg Q4H PRN IV ALLERGIC REACTION Last administered on 06/10/16 02:09; Admin Dose 50 MG; Start 06/08/16 at 16:30 Methylprednisolone Sodium Succinate (Solu-Medrol) 100 mg Q4H PRN IV ALLERGIC REACTION; Start 06/08/16 at 16:30 Acetaminophen (Tylenol Tab) 650 mg Q6H PRN PO PAIN LEVEL 1-3 OR FEVER Last administered on 06/10/16 04:24; Admin Dose 650 MG; Start 06/08/16 at 16:30 Acetaminophen (Tylenol Supp) 650 mg Q6H PRN [place] PAIN LEVEL 1-3 OR FEVER; Start 06/08/16 at 16:30 Docusate Sodium (Colace) 100 mg Q12H PRN PO CONSTIPATION Last administered on 09:16; Admin Dose 100 MG; Start 06/08/16 at 16:30 Magnesium Hydroxide (Milk Of Mag) 30 ml DAILY PRN PO CONSTIPATION Last administered on 06/12/16 21:02; Admin Dose 30 ML; Start 06/08/16 at 16:30 IV Flush (NS 10 ml) 10 ml PRN PRN IV IV PROTOCOL Last administered on 06/24/16 21:05; Admin Dose 10 ML; Start 06/09/16 at 11:30 Dexamethasone (Decadron) 10 mg Q4H PRN IV ALLERGIC REACTION; Start 06/09/16 at 16:00 Diphenhydramine HCl (Benadryl) 25 mg Q4H PRN IV ALLERGIC REACTION Last administered on 06/18/16 01:11; Admin Dose 25 MG; Start 06/09/16 at 16:00 Lorazepam (Ativan) 1 mg Q6H PRN IV Hiccups Last administered on 06/21/16 00:39 ; Admin Dose 1 MG; Start 06/10/16 at 21:00 Lorazepam (Ativan) 0.5 mg Q8H PRN PO NOTE; Start 06/12/16 at 16:00 Chlorpromazine (Thorazine) 10 mg BID PRN PO hiccups; Start 06/12/16 at 18:30 Lactulose (Enulose) 10 gm BID PRN PO CONSTIPATION Last administered on 00:29; Admin Dose 10 GM; Start 06/13/16 at 10:30 Filgrastim (Neupogen) 480 mcg DAILY@17 SC Last administered on 06/26/16 17:16; Admin Dose 480 MCG; Start 06/18/16 at 17:00; Stop 06/27/16 at 17:01 Valacyclovir HCl (Valtrex) 500 mg DAILY PO Last administered on 06/26/16 09:12 ; Admin Dose 500 MG; Start 06/18/16 at 13:00; Stop 06/27/16 at 09:01 Fluconazole (Diflucan) 100 mg DAILY PO Last administered on 06/26/16 09:12; Admin Dose 100 MG; Start 06/18/16 at 13:00; Stop 06/27/16 at 09:01 Levofloxacin (Levaquin) 500 mg DAILY@06 PO Last administered on 06/26/16 06:29 ; Admin Dose 500 MG; Start 06/18/16 at 13:00; Stop 06/27/16 at 06:01 Bisacodyl (Dulcolax) 10 mg PRN PRN PO CONSTIPATION Last administered on 17:58; Admin Dose 10 MG; Start 06/18/16 at 18:00 Pantoprazole (Protonix Tab) 40 mg DAILY@06 PO Last administered on 06/26/16 06: 29; Admin Dose 40 MG; Start 06/23/16 at 06:00 Simethicone 80 mg 80 mg QID PRN PO DISTENSION/GAS/BLOATING Last administered on 06/26/16 15:36; Admin Dose 80 MG; Start 06/25/16 at 09:30 Sodium Chloride (NS) 1,000 ml @ 100 mls/hr Q10H IV Last administered on 15:28; Admin Dose 100 MLS/HR; Start 06/26/16 at 15:00 TIFFANIE LI MD Jun 27, 2016 00:20
[2016-06-27] MEDS: SOD CHLORIDE 0.9% 1,000 ML IV SCH ×5 (00:44→23:43)
[2016-06-27] MEDS: PANTOPRAZOLE (EC) 40 MG TAB PO SCH (05:11)
[2016-06-27] MEDS: LEVOFLOXACIN 500 MG TAB PO SCH (05:11)
[2016-06-27 05:28] LABS: ABNORMAL IP MESSAGE 1; ADD SCAN DIFF NO; HEMATOCRIT 27.1 % (42.0-52.0); HEMOGLOBIN 8.9 g/dl (14.0-18.0); MEAN CORPUSCULAR HEMOGLOBIN 30.5 pg (29.0-33.0); MEAN CORPUSCULAR HGB CONC 32.8 g/dl (32.0-37.0); MEAN CORPUSCULAR VOLUME 92.8 fl (82.0-101.0); MEAN PLATELET VOLUME 9.4 fl (7.4-10.4); PLATELET COUNT 101 10^3/UL (140-415); RED BLOOD COUNT 2.92 10^6/ul (4.70-6.10); RED CELL DISTRIBUTION WIDTH 14.3 % (11.5-14.5); WHITE BLOOD COUNT 16.8 10^3/ul (4.8-10.8)
[2016-06-27 05:47] LABS: ALBUMIN 2.8 g/dl (3.3-4.9); POTASSIUM 3.9 mmol/L (3.5-5.1)
[2016-06-27 05:49] LABS: ALBUMIN/GLOBULIN RATIO 1.55; BILIRUBIN,INDIRECT 0.3 mg/dl (0-1.1); BILIRUBIN,TOTAL 0.3 mg/dl (0.2-1.3); CREATININE 1.2 mg/dl (0.61-1.24); TOTAL PROTEIN 4.6 g/dl (6.1-8.1)
[2016-06-27 05:50] LABS: CALCIUM 8.4 mg/dl (8.4-10.2); URIC ACID 4.9 mg/dl (3.1-7.9)
--- NOTE | 2016-06-27 07:47 | CONS ---
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 - Given the aggressive nature of disease now on R-HyperCVAD. #Mantle Cell lymphoma - -started HyperCVAD 06/10/16, tolerating well so far except nausea vomiting, on antiemetics. DAY 1 is 06/09. -Rituxan 800mg IV given day 1 (06/09) -Cytoxan 600mg IV q 12 hours x 6 doses day 2-4 (06/10-06/12) -Vincristine 2mg given day 5 (06/13) and day 12 (06/20) -Adriamycin 40mg IV q day continuous over 72 hours Day 5-7 (06/13-06/15) -Dexamethasone 40 IV per day, day 2 - day 5 (06/10-06/13) and day 12- day15( -06/23) -echocardiogram showed normal EF. -Hep panel and HIV negative -Referral to [facility] for autologous BMT in first remission has been approved. Patient needs to make appt with Dr. Sami Mendes. Patient has a tentative appointment for 07/06/16 but case investigator to ensure that auth for BMT. -BMBx (performed 06/05/16 as an outpatient) shows involvement by mantle cell lymphoma (50% of marrow cellularity by IHC), so its a stage 4 -Neupogen started 06/18/16 after completion of doxorubicin, which will be completed 06/27/16. ANC today 4.7 yesterday 1.8. 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 Will order once peripheral blasts and peripheral lymphoma cells have cleared. Ordered flow cytometry and MRI brain as recommended by Dr Steinberg. MRI brain was unremarkable, reviewed with Dr. Miranda. Peripheral blood flow cytometry continues to show leukemic phase of B cell lymphoma. -Peripheral smear reviewed again by path on 06/22/16, showing lymphocyte predominance, unclear whether reactive or circulating lymphoma cells. Plan to repeat flow cytometry once differential changes to suggest clearance of circulating lymphoma cells. # Tumor lysis prophylaxis -continue to check daily tumor lysis labs including CMP, LDH, URIC acid, phosphorus. Rasburicase given on 06/08/16, 06/10/16, 06/11/16 and 06/16/16, 06/25/16. NOTE patient is ALLERGIC to allopurinol. # Acute renal failure - Cr elevated to 1.44 yesterday, improved to 1.13 with IV fluid bolus, now 1.2. Will give IV fluid bolus with maintenance IVF and repeat labs in the afternoon. Will obtain urine lytes and urine eos. Renal ultrasound shows no evidence of hydronephrosis. # Supportive Care -on increased dose of thorazine prn for hiccups, for now stable. -zofran prn, ativan prn nausea -adding lactulose for constipation. Simethicone prn gas. -continue ppx meds including Fluconazole, Levaquin and Valacyclovir Extensive d/w patient re: current rx, supportive care and briefly about questions related to BM transplant in future. Dispo: pending completion of chemotherapy and recovering of neutrophils/blood counts and improvement of renal function Problems: Consultation Date/Type/Reason Admit Date/Time Jun 08, 2016 at 10:39 Initial Consult Date 06/08/16 Type of Consultation: Hematology/Oncology Referring Provider: TIFFANIE LI MD 24 HR Interval Summary Free Text/Dictation The patient is doing well, ambulating, no complaints. Exam/Review of Systems Vital Signs Vitals Vital Signs Date Time Temp Pulse Resp B/P Pulse Ox O2 Delivery O2 Flow Rate FiO2 06/26/16 19:58 98.4 98 18 107/62 97 Room Air Intake and Output 06/26/16 06/26/16 06/27/16 15:00 23:00 07:00 Intake Total 1000 ml 1940 ml 2900 ml Output Total 1800 ml Balance 1000 ml 1940 ml 1100 ml Exam Constitutional: alert, oriented Psych: nl mood/affect, no complaints Head: normocephalic Eyes: nl conjunctiva ENMT: nl external ears & nose Neck: non-tender, supple Respiratory: clear to auscultation, normal air movement Cardiovascular: nl pulses, regular rate and rhythm Gastrointestinal: soft Musculoskeletal: nl extremities to inspection Results Result Diagram: 06/27/16 0455 06/27/16 0455 Results 24 hrs Laboratory Tests Test 06/26/16 14:00 06/27/16 04:55 Sodium Level 132 L 137 Potassium Level 4.0 3.9 Chloride Level 98 101 Carbon Dioxide Level 28 28 Anion Gap 10 # 12 Blood Urea Nitrogen 17 14 Creatinine 1.13 1.20 Glucose Level 90 107 Calcium Level 8.3 L 8.4 White Blood Count 16.8 #H Red Blood Count 2.92 L Hemoglobin 8.9 L Hematocrit 27.1 L Mean Corpuscular Volume 92.8 Mean Corpuscular Hemoglobin 30.5 Mean Corpuscular Hemoglobin Concent 32.8 Red Cell Distribution Width 14.3 Platelet Count 101 L Mean Platelet Volume 9.4 Neutrophils % Lymphocytes % Monocytes % Eosinophils % Neutrophils # Lymphocytes # Monocytes # Eosinophils # Uric Acid 4.9 Total Bilirubin 0.3 Direct Bilirubin 0.00 Indirect Bilirubin 0.3 Aspartate Amino Transf (AST/SGOT) 13 L Alanine Aminotransferase (ALT/SGPT) 23 Alkaline Phosphatase 69 Lactate Dehydrogenase 443 Total Protein 4.6 L Albumin 2.8 L Globulin 1.80 Albumin/Globulin Ratio 1.55 Medications Medications Current Medications Morphine Sulfate (morphine) 2 mg Q4H PRN IV PAIN; Start 06/08/16 at 13:30 Ondansetron HCl 4 mg 4 mg Q6H PRN IV NAUSEA AND/OR VOMITING Last administered on 06/17/16 21:47; Admin Dose 4 MG; Start 06/08/16 at 13:30 Acetaminophen (Ofirmev 1000mg/ 100ml Iv) 65 ml @ 250 mls/hr Q6H PRN IVPB PAIN ; Start 06/08/16 at 14:30 Meperidine HCl (Demerol) 50 mg Q4H PRN IV ALLERGIC REACTION Last administered on 06/10/16 02:09; Admin Dose 50 MG; Start 06/08/16 at 16:30 Methylprednisolone Sodium Succinate (Solu-Medrol) 100 mg Q4H PRN IV ALLERGIC REACTION; Start 06/08/16 at 16:30 Acetaminophen (Tylenol Tab) 650 mg Q6H PRN PO PAIN LEVEL 1-3 OR FEVER Last administered on 06/10/16 04:24; Admin Dose 650 MG; Start 06/08/16 at 16:30 Acetaminophen (Tylenol Supp) 650 mg Q6H PRN [place] PAIN LEVEL 1-3 OR FEVER; Start 06/08/16 at 16:30 Docusate Sodium (Colace) 100 mg Q12H PRN PO CONSTIPATION Last administered on 09:16; Admin Dose 100 MG; Start 06/08/16 at 16:30 Magnesium Hydroxide (Milk Of Mag) 30 ml DAILY PRN PO CONSTIPATION Last administered on 06/12/16 21:02; Admin Dose 30 ML; Start 06/08/16 at 16:30 IV Flush (NS 10 ml) 10 ml PRN PRN IV IV PROTOCOL Last administered on 06/24/16 21:05; Admin Dose 10 ML; Start 06/09/16 at 11:30 Dexamethasone (Decadron) 10 mg Q4H PRN IV ALLERGIC REACTION; Start 06/09/16 at 16:00 Diphenhydramine HCl (Benadryl) 25 mg Q4H PRN IV ALLERGIC REACTION Last administered on 06/18/16 01:11; Admin Dose 25 MG; Start 06/09/16 at 16:00 Lorazepam (Ativan) 1 mg Q6H PRN IV Hiccups Last administered on 06/21/16 00:39 ; Admin Dose 1 MG; Start 06/10/16 at 21:00 Lorazepam (Ativan) 0.5 mg Q8H PRN PO NOTE; Start 06/12/16 at 16:00 Chlorpromazine (Thorazine) 10 mg BID PRN PO hiccups; Start 06/12/16 at 18:30 Lactulose (Enulose) 10 gm BID PRN PO CONSTIPATION Last administered on 00:29; Admin Dose 10 GM; Start 06/13/16 at 10:30 Filgrastim (Neupogen) 480 mcg DAILY@17 SC Last administered on 06/26/16 17:16; Admin Dose 480 MCG; Start 06/18/16 at 17:00; Stop 06/27/16 at 17:01 Valacyclovir HCl (Valtrex) 500 mg DAILY PO Last administered on 06/26/16 09:12 ; Admin Dose 500 MG; Start 06/18/16 at 13:00; Stop 06/27/16 at 09:01 Fluconazole (Diflucan) 100 mg DAILY PO Last administered on 06/26/16 09:12; Admin Dose 100 MG; Start 06/18/16 at 13:00; Stop 06/27/16 at 09:01 Bisacodyl (Dulcolax) 10 mg PRN PRN PO CONSTIPATION Last administered on 17:58; Admin Dose 10 MG; Start 06/18/16 at 18:00 Pantoprazole (Protonix Tab) 40 mg DAILY@06 PO Last administered on 06/27/16 05: 11; Admin Dose 40 MG; Start 06/23/16 at 06:00 Simethicone 80 mg 80 mg QID PRN PO DISTENSION/GAS/BLOATING Last administered on 06/26/16 15:36; Admin Dose 80 MG; Start 06/25/16 at 09:30 Sodium Chloride (NS) 1,000 ml @ 100 mls/hr Q10H IV Last administered on 00:44; Admin Dose 100 MLS/HR; Start 06/26/16 at 15:00 FABIAN STEINBERG MD Jun 27, 2016 07:47
[2016-06-27 08:12] VITALS: BP 122/66; RESP 17
--- NOTE | 2016-06-27 09:49 | RADRPT ---
PROCEDURE: Retroperitoneal ultrasound. CLINICAL INDICATION: Acute renal failure TECHNIQUE: Roblero scale and color doppler ultrasound images of the retroperitoneum, kidneys, urinary bladder COMPARISON: No prior studies are available for comparison. FINDINGS: Right kidney 10.6 cm in length. Right renal cortical thickness is preserved. Left kidney 11.7 cm in length. Left renal cortical thickness is preserved. Normal echogenicity. No hydronephrosis. No renal calculi. No focal lesions. Bladder: Undistended. Incidental finding of splenomegaly measuring at least 24 cm. IMPRESSION: Normal appearance of the kidneys without hydronephrosis. Severe splenomegaly. RPTAT: AADD .Dominguez Staley MD, MD Date Time Electronically viewed and signed by .Dominguez Staley MD, on 06/27/2016 09:49 .B/
[2016-06-27 10:08] LABS: LYMPHOCYTES # 8.2 10^3/ul (0.8-2.9); MONOCYTE # 0.5 10^3/ul (0.3-0.9); MYELOCYTES # 0.3; NEUTROPHIL # 4.7 10^3/ul (1.6-7.5)
[2016-06-27 10:09] LABS: ANISOCYTOSIS 1+; POLYCHROMASIA 1+
[2016-06-27] MEDS: VALACYCLOVIR 500 MG TAB PO SCH (10:09)
[2016-06-27] MEDS: FLUCONAZOLE 100 MG TAB PO SCH (10:09)
[2016-06-27 14:30] LABS: CALCIUM 8.1 mg/dl (8.4-10.2); CREATININE 1.06 mg/dl (0.61-1.24); POTASSIUM 4.1 mmol/L (3.5-5.1)
[2016-06-27] MEDS: FILGRASTIM 480 MCG INJ SC SCH (17:52)
[2016-06-27 20:08] VITALS: BP 118/62; PULSE 88; RESP 18
--- NOTE | 2016-06-27 21:39 | PN ---
Date/Time of Note Date/Time of Note DATE: 06/27/16 TIME: 21:38 Assessment/Plan VTE Prophylaxis VTE Prophylaxis Intervention: other Lines/Catheters IV Catheter Type (from Nrs): PICC Line Central line still needed: Yes Urinary Cath still in place: Yes Reason Cath still needed: other (indicate) Assessment/Plan Chief Complaint/Hosp Course IMPRESSION: 1. Patient has lymphoma.on chemo 2. Leukocytosis. 3. Thrombocytosis. better 4. Anemia. 5. Splenomegaly.better 6. Allopurinol rash with a diffuse skin rash resolving.hx plan chemo per dr clements ck labs bowel care dc planning per oncology team Problems: Subjective 24 Hr Interval Summary Respiratory: no complaints Cardiovascular: no complaints Gastrointestinal: no complaints Exam/Review of Systems Vital Signs Vitals Vital Signs Date Time Temp Pulse Resp B/P Pulse Ox O2 Delivery O2 Flow Rate FiO2 06/27/16 20:08 98.0 88 18 118/62 97 Room Air Intake and Output 06/26/16 06/26/16 06/27/16 15:00 23:00 07:00 Intake Total 1000 ml 1940 ml 2900 ml Output Total 1800 ml Balance 1000 ml 1940 ml 1100 ml Exam Respiratory: clear to auscultation Cardiovascular: regular rate and rhythm Gastrointestinal: soft Musculoskeletal: nl extremities to inspection Extremities: normal pulses Results Result Diagram: 06/27/16 0455 06/27/16 1355 Results 24 hrs Laboratory Tests Test 06/27/16 04:55 06/27/16 11:00 06/27/16 13:55 White Blood Count 16.8 #H Red Blood Count 2.92 L Hemoglobin 8.9 L Hematocrit 27.1 L Mean Corpuscular Volume 92.8 Mean Corpuscular Hemoglobin 30.5 Mean Corpuscular Hemoglobin Concent 32.8 Red Cell Distribution Width 14.3 Platelet Count 101 L Mean Platelet Volume 9.4 Neutrophils % 28.0 L Band Neutrophils % 17.0 H Lymphocytes % 49.0 Monocytes % 3.0 Eosinophils % Myelocytes % 2.0 H Promyelocytes % 1.0 H Neutrophils # 4.7 Lymphocytes # 8.2 H Monocytes # 0.5 Eosinophils # Myelocytes # 0.3 Promyelocytes # 0.2 Polychromasia 1+ Basophilic Stippling OCCASIONAL Anisocytosis 1+ Sodium Level 137 134 L Potassium Level 3.9 4.1 Chloride Level 101 102 Carbon Dioxide Level 28 27 Anion Gap 12 9 Blood Urea Nitrogen 14 12 Creatinine 1.20 1.06 Glucose Level 107 113 Uric Acid 4.9 Calcium Level 8.4 8.1 L Total Bilirubin 0.3 Direct Bilirubin 0.00 Indirect Bilirubin 0.3 Aspartate Amino Transf (AST/SGOT) 13 L Alanine Aminotransferase (ALT/SGPT) 23 Alkaline Phosphatase 69 Lactate Dehydrogenase 443 Total Protein 4.6 L Albumin 2.8 L Globulin 1.80 Albumin/Globulin Ratio 1.55 Urine Eosinophils % 0.0 Urine Random Creatinine 67.04 Urine Random Sodium 131 H Urine Random Urea Nitrogen 351 Medications Medications Current Medications Morphine Sulfate (morphine) 2 mg Q4H PRN IV PAIN; Start 06/08/16 at 13:30 Ondansetron HCl 4 mg 4 mg Q6H PRN IV NAUSEA AND/OR VOMITING Last administered on 06/17/16 21:47; Admin Dose 4 MG; Start 06/08/16 at 13:30 Acetaminophen (Ofirmev 1000mg/ 100ml Iv) 65 ml @ 250 mls/hr Q6H PRN IVPB PAIN ; Start 06/08/16 at 14:30 Meperidine HCl (Demerol) 50 mg Q4H PRN IV ALLERGIC REACTION Last administered on 06/10/16 02:09; Admin Dose 50 MG; Start 06/08/16 at 16:30 Methylprednisolone Sodium Succinate (Solu-Medrol) 100 mg Q4H PRN IV ALLERGIC REACTION; Start 06/08/16 at 16:30 Acetaminophen (Tylenol Tab) 650 mg Q6H PRN PO PAIN LEVEL 1-3 OR FEVER Last administered on 06/10/16 04:24; Admin Dose 650 MG; Start 06/08/16 at 16:30 Acetaminophen (Tylenol Supp) 650 mg Q6H PRN [place] PAIN LEVEL 1-3 OR FEVER; Start 06/08/16 at 16:30 Docusate Sodium (Colace) 100 mg Q12H PRN PO CONSTIPATION Last administered on 09:16; Admin Dose 100 MG; Start 06/08/16 at 16:30 Magnesium Hydroxide (Milk Of Mag) 30 ml DAILY PRN PO CONSTIPATION Last administered on 06/12/16 21:02; Admin Dose 30 ML; Start 06/08/16 at 16:30 IV Flush (NS 10 ml) 10 ml PRN PRN IV IV PROTOCOL Last administered on 06/24/16 21:05; Admin Dose 10 ML; Start 06/09/16 at 11:30 Dexamethasone (Decadron) 10 mg Q4H PRN IV ALLERGIC REACTION; Start 06/09/16 at 16:00 Diphenhydramine HCl (Benadryl) 25 mg Q4H PRN IV ALLERGIC REACTION Last administered on 06/18/16 01:11; Admin Dose 25 MG; Start 06/09/16 at 16:00 Lorazepam (Ativan) 1 mg Q6H PRN IV Hiccups Last administered on 06/21/16 00:39 ; Admin Dose 1 MG; Start 06/10/16 at 21:00 Lorazepam (Ativan) 0.5 mg Q8H PRN PO NOTE; Start 06/12/16 at 16:00 Chlorpromazine (Thorazine) 10 mg BID PRN PO hiccups; Start 06/12/16 at 18:30 Lactulose (Enulose) 10 gm BID PRN PO CONSTIPATION Last administered on 00:29; Admin Dose 10 GM; Start 06/13/16 at 10:30 Bisacodyl (Dulcolax) 10 mg PRN PRN PO CONSTIPATION Last administered on 17:58; Admin Dose 10 MG; Start 06/18/16 at 18:00 Pantoprazole (Protonix Tab) 40 mg DAILY@06 PO Last administered on 06/27/16 05: 11; Admin Dose 40 MG; Start 06/23/16 at 06:00 Simethicone 80 mg 80 mg QID PRN PO DISTENSION/GAS/BLOATING Last administered on 06/27/16 13:49; Admin Dose 80 MG; Start 06/25/16 at 09:30 Sodium Chloride (NS) 1,000 ml @ 125 mls/hr Q8H IV Last administered on 15:16; Admin Dose 125 MLS/HR; Start 06/27/16 at 08:00 TIFFANIE LI MD Jun 27, 2016 21:39
[2016-06-28] MEDS: PANTOPRAZOLE (EC) 40 MG TAB PO SCH (05:27)
[2016-06-28 05:31] LABS: ADD SCAN DIFF NO
[2016-06-28 05:35] LABS: ABNORMAL IP MESSAGE 1; HEMATOCRIT 25.8 % (42.0-52.0); HEMOGLOBIN 8.3 g/dl (14.0-18.0); MEAN CORPUSCULAR HEMOGLOBIN 30.2 pg (29.0-33.0); MEAN CORPUSCULAR HGB CONC 32.2 g/dl (32.0-37.0); MEAN CORPUSCULAR VOLUME 93.8 fl (82.0-101.0); MEAN PLATELET VOLUME 9.6 fl (7.4-10.4); PLATELET COUNT 90 10^3/UL (140-415); RED BLOOD COUNT 2.75 10^6/ul (4.70-6.10); RED CELL DISTRIBUTION WIDTH 15.2 % (11.5-14.5); WHITE BLOOD COUNT 22.9 10^3/ul (4.8-10.8)
[2016-06-28 05:46] LABS: ALBUMIN 2.9 g/dl (3.3-4.9)
[2016-06-28 05:47] LABS: POTASSIUM 3.8 mmol/L (3.5-5.1)
[2016-06-28 05:49] LABS: ALBUMIN/GLOBULIN RATIO 1.61; BILIRUBIN,INDIRECT 0.3 mg/dl (0-1.1); BILIRUBIN,TOTAL 0.3 mg/dl (0.2-1.3); CREATININE 1.14 mg/dl (0.61-1.24); TOTAL PROTEIN 4.7 g/dl (6.1-8.1)
[2016-06-28 05:50] LABS: CALCIUM 8.2 mg/dl (8.4-10.2); URIC ACID 6.2 mg/dl (3.1-7.9)
--- NOTE | 2016-06-28 07:51 | CONS ---
Date/Time of Note Date/Time of Note DATE: 06/28/16 TIME: 07:47 Assessment/Plan Assessment/Plan Chief Complaint/Hosp Course 55 yo male with aggressive mantle cell lymphoma stage IV in the leukemic phase with involvement of the spleen and likely bone marrow presents with chills, tactile fevers, loss of appetite, and generalized weakness. - Given the aggressive nature of disease now on R-HyperCVAD. #Mantle Cell lymphoma - -started HyperCVAD 06/10/16, tolerating well so far except nausea vomiting, on antiemetics. DAY 1 is 06/09. -Rituxan 800mg IV given day 1 (06/09) -Cytoxan 600mg IV q 12 hours x 6 doses day 2-4 (06/10-06/12) -Vincristine 2mg given day 5 (06/13) and day 12 (06/20) -Adriamycin 40mg IV q day continuous over 72 hours Day 5-7 (06/13-06/15) -Dexamethasone 40 IV per day, day 2 - day 5 (06/10-06/13) and day 12- day15( -06/23) -echocardiogram showed normal EF. -Hep panel and HIV negative -Referral to [facility] for autologous BMT in first remission has been approved. Patient needs to make appt with Dr. Sami Mendes. 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 -BMBx (performed 06/05/16 as an outpatient) shows involvement by mantle cell lymphoma (50% of marrow cellularity by IHC), so its a stage 4 -Neupogen started 06/18/16 after completion of doxorubicin, which was ompleted 06/27/16. ANC yesterday 4.7, 8.2 today. # PIANO REGULATOR prophylaxis -Pt will need Intrathecal chemotherapy with methotrexate/cytarabine/ hydrocortisone. Will order once peripheral blasts and peripheral lymphoma cells have cleared. Ordered flow cytometry and MRI brain as recommended by Dr Dimas. MRI brain was unremarkable, reviewed with Dr. Miranda. Peripheral blood flow cytometry continues to show leukemic phase of B cell lymphoma. -Peripheral smear reviewed again by path on 06/22/16, showing lymphocyte predominance, unclear whether reactive or circulating lymphoma cells. Plan to repeat flow cytometry once differential changes to suggest clearance of circulating lymphoma cells. Lymphocyte percentage and absolute lymphocyte count declining. Will check at the beginning of next cycle to see if circulating lymphoma cells have cleared. # Tumor lysis prophylaxis -continue to check daily tumor lysis labs including CMP, LDH, URIC acid, phosphorus. Rasburicase given on 06/08/16, 06/10/16, 06/11/16 and 06/16/16, 06/25/16. NOTE patient is ALLERGIC to allopurinol. Uric acid 6.2, increased from 4.9 yesterday, with rising LDH 533. Will give 1 dose of rasburicase 3 mg IV prior to discharge as patient cannot be given allopurinol and re-check this afternoon and as an outpatient. # Acute renal failure - Improved with IV fluid boluses. Renal ultrasound shows no evidence of hydronephrosis. - Will give additional 1L fluid bolus today and if Cr stable or improved, will d /c patient home with close outpatient follow-up and repeat labs. # Supportive Care -on increased dose of thorazine prn for hiccups, for now stable. -zofran prn, ativan prn nausea -adding lactulose for constipation. Simethicone prn gas. -continue ppx meds including Fluconazole, Levaquin and Valacyclovir Extensive d/w patient re: current rx, supportive care and briefly about questions related to BM transplant in future. Dispo: plan for discharge home today pending IV fluid bolus and rasburicase and repeat labs. Patient should follow up with me in clinic on Wednesday and will call on Wednesday to make an appointment. Problems: Consultation Date/Type/Reason Admit Date/Time Jun 08, 2016 at 10:39 Initial Consult Date 06/08/16 Type of Consultation: Hematology/Oncology Referring Provider: TIFFANIE LI MD 24 HR Interval Summary Free Text/Dictation The patient is doing well, no complaints, urinating well. Exam/Review of Systems Vital Signs Vitals Vital Signs Date Time Temp Pulse Resp B/P Pulse Ox O2 Delivery O2 Flow Rate FiO2 06/27/16 20:08 98.0 88 18 118/62 97 Room Air Intake and Output 06/27/16 06/27/16 06/28/16 15:00 23:00 07:00 Intake Total 3900 ml 3500 ml Output Total 2300 ml Balance 3900 ml 1200 ml Exam Constitutional: alert, oriented Psych: nl mood/affect, no complaints Head: normocephalic Eyes: nl conjunctiva ENMT: nl external ears & nose Neck: non-tender, supple Respiratory: clear to auscultation, normal air movement Cardiovascular: nl pulses, regular rate and rhythm Gastrointestinal: soft Musculoskeletal: nl extremities to inspection Results Result Diagram: 06/28/16 0437 06/28/16 0437 Results 24 hrs Laboratory Tests Test 06/27/16 11:00 06/27/16 13:55 06/28/16 04:37 Urine Eosinophils % 0.0 Urine Random Creatinine 67.04 Urine Random Sodium 131 H Urine Random Urea Nitrogen 351 Sodium Level 134 L 138 Potassium Level 4.1 3.8 Chloride Level 102 102 Carbon Dioxide Level 27 27 Anion Gap 9 13 Blood Urea Nitrogen 12 14 Creatinine 1.06 1.14 Glucose Level 113 94 Calcium Level 8.1 L 8.2 L White Blood Count 22.9 #H Red Blood Count 2.75 L Hemoglobin 8.3 L Hematocrit 25.8 L Mean Corpuscular Volume 93.8 Mean Corpuscular Hemoglobin 30.2 Mean Corpuscular Hemoglobin Concent 32.2 Red Cell Distribution Width 15.2 H Platelet Count 90 L Mean Platelet Volume 9.6 Neutrophils % Eosinophils % Neutrophils # Eosinophils # Uric Acid 6.2 Total Bilirubin 0.3 Direct Bilirubin 0.00 Indirect Bilirubin 0.3 Aspartate Amino Transf (AST/SGOT) 13 L Alanine Aminotransferase (ALT/SGPT) 26 Alkaline Phosphatase 75 Lactate Dehydrogenase 533 Total Protein 4.7 L Albumin 2.9 L Globulin 1.80 Albumin/Globulin Ratio 1.61 Medications Medications Current Medications Morphine Sulfate (morphine) 2 mg Q4H PRN IV PAIN; Start 06/08/16 at 13:30 Ondansetron HCl 4 mg 4 mg Q6H PRN IV NAUSEA AND/OR VOMITING Last administered on 06/17/16 21:47; Admin Dose 4 MG; Start 06/08/16 at 13:30 Acetaminophen (Ofirmev 1000mg/ 100ml Iv) 65 ml @ 250 mls/hr Q6H PRN IVPB PAIN ; Start 06/08/16 at 14:30 Meperidine HCl (Demerol) 50 mg Q4H PRN IV ALLERGIC REACTION Last administered on 06/10/16 02:09; Admin Dose 50 MG; Start 06/08/16 at 16:30 Methylprednisolone Sodium Succinate (Solu-Medrol) 100 mg Q4H PRN IV ALLERGIC REACTION; Start 06/08/16 at 16:30 Acetaminophen (Tylenol Tab) 650 mg Q6H PRN PO PAIN LEVEL 1-3 OR FEVER Last administered on 06/10/16 04:24; Admin Dose 650 MG; Start 06/08/16 at 16:30 Acetaminophen (Tylenol Supp) 650 mg Q6H PRN [place] PAIN LEVEL 1-3 OR FEVER; Start 06/08/16 at 16:30 Docusate Sodium (Colace) 100 mg Q12H PRN PO CONSTIPATION Last administered on 09:16; Admin Dose 100 MG; Start 06/08/16 at 16:30 Magnesium Hydroxide (Milk Of Mag) 30 ml DAILY PRN PO CONSTIPATION Last administered on 06/12/16 21:02; Admin Dose 30 ML; Start 06/08/16 at 16:30 IV Flush (NS 10 ml) 10 ml PRN PRN IV IV PROTOCOL Last administered on 06/24/16 21:05; Admin Dose 10 ML; Start 06/09/16 at 11:30 Dexamethasone (Decadron) 10 mg Q4H PRN IV ALLERGIC REACTION; Start 06/09/16 at 16:00 Diphenhydramine HCl (Benadryl) 25 mg Q4H PRN IV ALLERGIC REACTION Last administered on 06/18/16 01:11; Admin Dose 25 MG; Start 06/09/16 at 16:00 Lorazepam (Ativan) 1 mg Q6H PRN IV Hiccups Last administered on 06/21/16 00:39 ; Admin Dose 1 MG; Start 06/10/16 at 21:00 Lorazepam (Ativan) 0.5 mg Q8H PRN PO NOTE; Start 06/12/16 at 16:00 Chlorpromazine (Thorazine) 10 mg BID PRN PO hiccups; Start 06/12/16 at 18:30 Lactulose (Enulose) 10 gm BID PRN PO CONSTIPATION Last administered on 00:29; Admin Dose 10 GM; Start 06/13/16 at 10:30 Bisacodyl (Dulcolax) 10 mg PRN PRN PO CONSTIPATION Last administered on 17:58; Admin Dose 10 MG; Start 06/18/16 at 18:00 Pantoprazole (Protonix Tab) 40 mg DAILY@06 PO Last administered on 06/28/16 05: 27; Admin Dose 40 MG; Start 06/23/16 at 06:00 Simethicone 80 mg 80 mg QID PRN PO DISTENSION/GAS/BLOATING Last administered on 06/27/16 23:45; Admin Dose 80 MG; Start 06/25/16 at 09:30 Sodium Chloride 1,000 ml @ 125 mls/hr Q8H IV Last administered on 06/27/16 23: 43; Admin Dose 125 MLS/HR; Start 06/27/16 at 08:00 Sodium Chloride (NS) 1,000 ml @ 1,000 mls/hr Q1H ONCE IV ; Start 06/28/16 at 08: 00; Stop 06/28/16 at 08:59; Status UNV Miscellaneous Information (* Miscellaneous Pharmacy Order) 1 ea ONCE XX ; Start 06/28/16 at 08:00; Status UNV TO,FABIAN Villegas MD Jun 28, 2016 07:51
[2016-06-28] MEDS ORDERED: SOD CHLORIDE 0.9% 1,000 ML IV ONE (08:00)
[2016-06-28 08:06] VITALS: BP 119/63; RESP 16
[2016-06-28 10:11] LABS: BASOPHIL # 0.2 10^3/ul (0.0-0.1); LYMPHOCYTES # 6.2 10^3/ul (0.8-2.9); MONOCYTE # 1.8 10^3/ul (0.3-0.9); NEUTROPHIL # 8.2 10^3/ul (1.6-7.5)
[2016-06-28 10:12] LABS: PLATELET ESTIMATE PLT APPEAR DECREASED; POLYCHROMASIA OCCASIONAL
[2016-06-28] MEDS ORDERED: RASBURICASE IVPB SCH (11:00)
[2016-06-28] MEDS ORDERED: SOD CHLORIDE 0.9% IVPB SCH (11:00)
[2016-06-28] MEDS: SOD CHLORIDE 0.9% 1,000 ML IV SCH ×2 (13:39→16:00)
[2016-06-28 14:58] LABS: ALBUMIN 3.3 g/dl (3.3-4.9)
[2016-06-28 14:59] LABS: POTASSIUM 3.9 mmol/L (3.5-5.1)
[2016-06-28 15:01] LABS: CREATININE 1.05 mg/dl (0.61-1.24)
[2016-06-28 15:02] LABS: ALBUMIN/GLOBULIN RATIO 1.73; BILIRUBIN,INDIRECT 0.3 mg/dl (0-1.1); BILIRUBIN,TOTAL 0.3 mg/dl (0.2-1.3); CALCIUM 8.4 mg/dl (8.4-10.2); TOTAL PROTEIN 5.2 g/dl (6.1-8.1)
--- NOTE | 2016-06-28 17:29 | PDOCDIS ---
Discharge Instructions CONDITION Patient Condition: Stable HOME CARE INSTRUCTIONS: Special Diet: REGULAR ACTIVITY: Activity Restrictions: Slowly Increase Activity FOLLOW UP/APPOINTMENTS Appointments f/u own pcp [address] plascencia to next wk TIFFANIE LI MD Jun 28, 2016 17:29
[2016-06-28] MEDS ORDERED: PANT40TA4 PO (17:36)
[2016-06-28] MEDS ORDERED: MYL80 PO (17:36)
[2016-06-28] MEDS ORDERED: BISA5TAB6 PO (17:36)
[2016-06-28] MEDS ORDERED: ACET325T40 PO (17:36)
[2016-06-28] MEDS ORDERED: DOCU-216 PO (17:36)
[2016-06-28] MEDS ORDERED: Lactulose PO (17:36)
--- NOTE | 2016-06-28 17:37 | PDOCDIS ---
Discharge Instructions CONDITION Patient Condition: Stable HOME CARE INSTRUCTIONS: Special Diet: REGULAR ACTIVITY: Activity Restrictions: Slowly Increase Activity TIFFANIE LI MD Jun 28, 2016 17:37
--- NOTE | 2016-07-03 08:50 | PQ ---
Date/Time of Note Date/Time of Note DATE: 07/03/16 TIME: 08:[address] Li, A review of the medical record found a need for documentation clarification. There is documentation of tumor lysis syndrome prophylaxis throughout medical record and patient is being treated with IV fluids and patient has been admitted with Potassium 5.2, Uric acid 8.3 and on 06/14 Phosphorus 5.1 and on Ca 7.9, Please specify of Tumor lysis syndrome was ruled in or ruled out. Thank you Please clarify a diagnosis being treated. To facilitate accurate and complete coding, please camilla ( x ) the suspected diagnosis that apply: ( x ) Tumor Lysis Syndrome Ruled in ( ) Tumor Lysis Syndrome Ruled out ( ) Other ( ) Unable to determine Please provide your response by clicking edit document,~ making~ your choice ( x ), click ok/save and finally click sign. You may also~ document your response~ on~ your progress notes. Thank you for your time. Satnam Del Castillo MD,CCS,CCDS Clinical Corporate Security Manager Health Information Management, CDI and Coding Services Room # 1525 - Coding [address]~ [id number] SATNAM DEL CASTILLO Jul 03, 2016 08:50 TIFFANIE LI MD Jul 03, 2016 14:38
== END 2016-06-28 19:05 | disposition home or self-care (01) | DRG 846 ==
LOC: E/R 09:03 → MS1 10:39
PROVIDERS: ADMIT Internal Medicine Nephrology; ATTEND Internal Medicine Nephrology
PROC: 3E05305 Introduction of Other Antineoplastic into Peripheral Artery, Percutaneous Approach (ICD-10-PCS; principal; 2016-06-09)
PROC: 02HV33Z Insertion of Infusion Device into Superior Vena Cava, Percutaneous Approach (ICD-10-PCS; 2016-06-09)
DX: Z51.11 Encounter for antineoplastic chemotherapy (principal); E88.3 Tumor lysis syndrome; C83.18 Mantle cell lymphoma, lymph nodes of multiple sites; N17.9 Acute kidney failure, unspecified; C83.17 Mantle cell lymphoma, spleen; K59.00 Constipation, unspecified; R06.6 Hiccough; R16.1 Splenomegaly, not elsewhere classified; L27.1 Localized skin eruption due to drugs and medicaments taken internally; T50.4X5A Adverse effect of drugs affecting uric acid metabolism, initial encounter; Y92.239 Unspecified place in hospital as the place of occurrence of the external cause; D72.829 Elevated white blood cell count, unspecified; D47.3 Essential (hemorrhagic) thrombocythemia; D64.9 Anemia, unspecified; R11.0 Nausea; T45.1X5A Adverse effect of antineoplastic and immunosuppressive drugs, initial encounter
CPT/HCPCS: 36569; 70552; 71010; 76775; 76937; 80048; 80053; 82540; 83615; 83690; 84100; 84155; 84300; 84484; 84560; 85025; 85610; 85730; 86704; 86709; 86803; 87040; 87340; 89190; 93005; 93306; J9209; J9310; C9113; J0131; J1100; J1200; J1650; J2060; J2175; J2405; J2765; J2783; J2930; J7030; J7040; J7042; J7050; J7512; J9000; J9070; J9370

== ENCOUNTER 2016-07-24 10:14 | Inpatient (IN) | payer OTHER ==
[~2016-07-24] VITALS: Ht 180.3 cm; Wt 90.0 kg
[~2016-07-24 10:14] MED LIST: ACET325T40 PO; BISA5TAB6 PO; DOCU-216 PO; Lactulose PO; MYL80 PO; PANT40TA4 PO
[2016-07-24] MEDS ORDERED: CEFEPIME 2GM/50 ML (PMX) 50 ML IVPB STA (11:04)
[2016-07-24] MEDS ORDERED: ACETAMINOPHEN 325 MG TAB PO STA (11:04)
[2016-07-24] MEDS ORDERED: SODIUM CHLORIDE 0.9% 1L BAG IV* STA (11:04)
[2016-07-24] MEDS ORDERED: VANCOMYCIN 1 GM (PMX) 250 ML IVPB ONE (11:30)
--- NOTE | 2016-07-24 11:34 | RADRPT ---
PROCEDURE: XR Chest. CLINICAL INDICATION: Possible sepsis TECHNIQUE: Single AP portable chest COMPARISON: 06/09/2016 Chest x-ray FINDINGS: The cardiomediastinal silhouette is within normal limits of size. Left PICC line catheter is then re moved. Right PICC line catheter tip overlies the cavoatrial junction in satisfactory position. The lungs are clear without pleural effusion or focal consolidation. No pneumothorax. The osseous struc tures and soft tissues are unremarkable. IMPRESSION: 1. No evidence for active cardiopulmonary disease. RPTAT:AAJJ Merlyn Delacruz Physician Date Time Electronically viewed and signed by Physician Gricel on 07/24/2016 11:33 WILNER/
[2016-07-24 11:59] LABS: ADD SCAN DIFF NO
[2016-07-24] MEDS ORDERED: SOD CHLORIDE 0.9% 250 ML IV ONE (12:07)
[2016-07-24 12:09] LABS: ABNORMAL IP MESSAGE 1; HEMATOCRIT 15.8 % (42.0-52.0); MEAN CORPUSCULAR HEMOGLOBIN 28.3 pg (29.0-33.0); MEAN CORPUSCULAR HGB CONC 34.2 g/dl (32.0-37.0); MEAN CORPUSCULAR VOLUME 82.7 fl (82.0-101.0); RED BLOOD COUNT 1.91 10^6/ul (4.70-6.10); RED CELL DISTRIBUTION WIDTH 15.6 % (11.5-14.5); WHITE BLOOD COUNT 1.3 10^3/ul (4.8-10.8)
[2016-07-24 12:15] LABS: HEMOGLOBIN 5.4 g/dl (14.0-18.0); PLATELET COUNT 13 10^3/UL (140-415)
[2016-07-24 12:25] LABS: INR 1.22; PARTIAL THROMBOPLASTIN TIME 38.7 Sec (25.0-35.0); PROTIME 15.5 Sec (12.2-14.2); PT RATIO 1.2
[2016-07-24] MEDS ORDERED: ACETAMINOPHEN 325 MG TAB PO PRN ×2 (12:30→14:30)
[2016-07-24] MEDS ORDERED: ONDANSETRON 4 MG INJ IV PRN ×2 (12:30→14:30)
[2016-07-24 12:32] LABS: CHLORIDE 100 mmol/L (97-110)
[2016-07-24 12:33] LABS: ALBUMIN 3.7 g/dl (3.3-4.9); SODIUM 138 mmol/L (135-144)
[2016-07-24 12:35] LABS: CREATININE 1.02 mg/dl (0.61-1.24)
[2016-07-24 12:36] LABS: ALANINE AMINOTRANSFERASE 31 IU/L (13-69); ALKALINE PHOSPHATASE 100 IU/L (42-121); ANION GAP 14 (8-16); ASPARTATE AMINO TRANSFERASE 13 IU/L (15-46); BILIRUBIN,INDIRECT 0.6 mg/dl (0-1.1); BILIRUBIN,TOTAL 0.6 mg/dl (0.2-1.3); BLOOD UREA NITROGEN 14 mg/dl (7-20); CALCIUM 9.1 mg/dl (8.4-10.2); CARBON DIOXIDE 28 mmol/L (21-31); GLUCOSE 96 mg/dl (70-220)
[2016-07-24 12:37] LABS: ADD UMIC NO; URINE BILIRUBIN (Dip) NEGATIVE (NEGATIVE); URINE BLOOD (Dip) NEGATIVE (NEGATIVE); URINE COLOR LT. YELLOW (YELLOW); URINE GLUCOSE (Dip) NEGATIVE (NEGATIVE); URINE KETONES (Dip) NEGATIVE (NEGATIVE); URINE LEUKOCYTE ESTERASE (Dip) NEGATIVE (NEGATIVE); URINE NITRITE (Dip) NEGATIVE (NEGATIVE); URINE TOTAL PROTEIN (Dip) NEGATIVE (NEGATIVE); URINE UROBILINOGEN (Dip) 4.0 E.U./dL (0.1-1.0)
--- NOTE | 2016-07-24 12:41 | ERA ---
ER Documentation Chief Complaint Date/Time DATE: 07/24/16 TIME: 12:39 Chief Complaint GEN WEAKNESSS AND LOW LAB VALUES . SENT BY ONCOLOGIST FOR ADMISSION HPI Patient is a 55-year-old male with mantle cell lymphoma on chemotherapy who presents with a low hemoglobin. The patient says that he is on chemotherapy and that his last chemotherapy was July 09. He had outpatient laboratory studies done yesterday by his oncologist Dr. Kearns. The patient's hemoglobin was 5. He is complaining of a sore throat which started last night and subjective fever. He has had no treatment as of yet. ROS All systems reviewed and are negative except as per history of present illness. Medications Home Meds Discontinued Scripts Simethicone* (Mylicon*) 80 Mg Tab, 80 MG PO QID Y for DISTENSION/GAS/BLOATING for 10 Days, TAB Prov:TIFFANIE LI MD 06/28/16 Pantoprazole* (Pantoprazole*) 40 Mg Tablet.dr, 40 MG PO DAILY@06 for 14 Days Prov:TIFFANIE LI MD 06/28/16 Docusate Sodium (Dok) 100 Mg Capsule, 100 MG PO Q12H Y for CONSTIPATION for 7 Days, CAP Prov:TIFFANIE LI MD 06/28/16 Bisacodyl* (Bisacodyl*) 5 Mg Tablet.dr, 10 MG PO PRN Y for CONSTIPATION for 28 Days Prov:TIFFANIE LI MD 06/28/16 [Lactulose] 20 GM/30 ML SOLN No Conflict Check, 10 GM PO BID Y for CONSTIPATION for 14 Days Prov:TIFFANIE LI MD 06/28/16 Acetaminophen (MAPAP) 325 Mg Tablet, 650 MG PO Q6H Y for PAIN LEVEL 1-3 OR FEVER for 28 Days, TAB Prov:TIFFANIE LI MD 06/28/16 Allergies Allergies: Coded Allergies: allopurinol (Verified Allergy, Severe, 07/24/16) PMhx/Soc History of Surgery: No Anesthesia Reaction: No Hx Neurological Disorder: No Hx Respiratory Disorders: No Hx Cardiac Disorders: No Hx Psychiatric Problems: No Hx Miscellaneous Medical Probl: Yes ([place]) Hx Alcohol Use: No Hx Substance Use: No Hx Tobacco Use: No Smoking Status: Never smoker FmHx Family History: No diabetes Physical Exam Vitals Vital Signs Date Time Temp Pulse Resp B/P Pulse Ox O2 Delivery O2 Flow Rate FiO2 07/24/16 10:17 100.2 102 20 135/58 100 Physical Exam Const: No acute distress Head: Atraumatic Eyes: Normal Conjunctiva ENT: Normal External Ears, Nose and Mouth. No signs of pharyngitis Neck: Full range of motion..~ No meningismus. No stridor over the neck Resp: Clear to auscultation bilaterally Cardio: Regular rate and rhythm, no murmurs Abd: Soft, non tender, non distended. Normal bowel sounds Skin: Pale Back: No midline or flank tenderness Ext: No cyanosis, or edema Neur: Awake and alert Psych: Normal Mood and Affect Result Diagram: 07/24/16 1150 Results 24 hrs Laboratory Tests Test 07/24/16 11:50 White Blood Count 1.310^3/ul Red Blood Count 1.9110^6/ul Hemoglobin 5.4g/dl Hematocrit 15.8% Mean Corpuscular Volume 82.7fl Mean Corpuscular Hemoglobin 28.3pg Mean Corpuscular Hemoglobin Concent 34.2g/dl Red Cell Distribution Width 15.6% Platelet Count 1310^3/UL Mean Platelet Volume fl Neutrophils % % Lymphocytes % % Monocytes % % Neutrophils # 10^3/ul Lymphocytes # 10^3/ul Monocytes # 10^3/ul Prothrombin Time 15.5Sec Prothrombin Time Ratio 1.2 INR International Normalized Ratio 1.22 Activated Partial Thromboplast Time 38.7Sec Lactic Acid Level 0.9mmol/L Current Medications Medications (Trade) Dose Ordered Sig/Rashad Route PRN Reason Start Time Stop Time Status Last Admin Dose Admin Sodium Chloride (NS) 2,810 ml BOLUS OVER 2 HOURS STAT IV* 07/24/16 11:04 07/24/16 11:06 DC 07/24/16 12:16 Acetaminophen 650 mg 650 mg ONCE STAT PO 07/24/16 11:04 07/24/16 11:06 DC 07/24/16 12:16 Cefepime HCl 50 ml @ 100 mls/hr ONCE STAT IVPB 07/24/16 11:04 07/24/16 11:33 DC 07/24/16 12:16 Vancomycin HCl (Vancocin) 250 ml @ 125 mls/hr ONCE ONCE IVPB 07/24/16 11:30 07/24/16 13:29 Ondansetron HCl (Zofran Inj) 4 mg BRIDGE ORDER PRN IV NAUSEA AND/OR VOMITING 07/24/16 12:30 07/25/16 12:29 Acetaminophen 650 mg 650 mg ER BRIDGE PRN PO MILD PAIN/FEVER 07/24/16 12:30 07/25/16 12:29 Sodium Chloride (NS) 250 ml @ 0 mls/hr Q0M ONCE IV 07/24/16 12:07 07/24/16 12:08 DC Procedures/MDM Chest x-ray shows no pneumonia per radiology. Patient refused EKG. Admit MDM: Patient's infectious symptoms have not stabilized and the patient is at risk of rapid decompensation. The patient will be admitted for careful hydration, antibiotic therapy, and infectious source control. Severe Sepsis criteria: Infectious source: Neutropenic fever End organ damage indicated by: Pancytopenia Sepsis Management: Time of recognition of sepsis: Upon arrival Within 3 hours of recognition: Blood cultures x 2 before broad-spectrum antibiotics: Yes 30 ml/kg NS bolus Completed Initial lactate 0.9 Repeat lactate pending Time of recognition of septic shock: No septic shock Septic Shock Assessment: Any lactic acid > 4.0 No Persistent hypotension (SBP < 90 or 40 mmHg drop, MAP < 65) despite 30 mL/kg IV fluid bolus No Volume Re-assessment for Septic Shock (post 30 ml/kg bolus): No septic shock at this time Persistent Hypotension Treatment: Comfort care No Central line PICC line in place Vasopressor started Not required I considered further perfusion assessment with CVP measurement, SCVO2, bedside ultrasound volume assessment, passive leg raise, trial of further fluid bolus. And proceeded with 30 ml/kg fluid bolus of NSS, broad spectrum antibiotics, and admission. Accepting Care Team Current data and ongoing care discussed. Admitting Physician: Dr. Li as patient has [employer] insurance advisor(s): None Outstanding Data: Culture results and repeat lactic acid Critical Care: Critical care time 35 minutes excluding all billable procedures Emergent fluid management while maintaining close respiratory support. Provision of immediate and broad-spectrum antibiotic therapy. Simultaneous assessment for possible sources in order to direct targeted therapy. Consideration for invasive and chemical support to prevent cardiopulmonary collapse. Departure Diagnosis: Primary Impression: Sepsis Qualified Code: A41.9 - Sepsis, due to unspecified organism Additional Impressions: Pancytopenia Neutropenic fever Condition: RANDALL Lyles MD July 24, 2016 12:41
[2016-07-24 12:55] LABS: TROPONIN-I < 0.012 ng/ml (0.00-0.12)
[2016-07-24 13:41] LABS: LYMPHOCYTES # 0.9 10^3/ul (0.8-2.9)
[2016-07-24] MEDS: SOD CHLORIDE 0.9% 1,000 ML IV SCH (14:27)
--- NOTE | 2016-07-24 14:27 | PN ---
Date/Time of Note Date/Time of Note DATE: 07/24/16 TIME: 14:25 Assessment/Plan VTE Prophylaxis VTE Prophylaxis Intervention: other Assessment/Plan Chief Complaint/Hosp Course [id number] A/P PANCYTOPENIA MANTLE CELL LYMPHOMA PLAN PER ORDER Problems: Subjective 24 Hr Interval Summary Eyes: no complaints ENT: no complaints Respiratory: no complaints Cardiovascular: no complaints Gastrointestinal: no complaints Genitourinary: no complaints Musculoskeletal: no complaints Exam/Review of Systems Vital Signs Vitals Vital Signs Date Time Temp Pulse Resp B/P Pulse Ox O2 Delivery O2 Flow Rate FiO2 07/24/16 12:55 99.2 91 17 122/68 98 Room Air Exam Neck: supple Respiratory: clear to auscultation Cardiovascular: regular rate and rhythm Gastrointestinal: soft Results Result Diagram: 07/24/16 1150 07/24/16 1150 Results 24 hrs Laboratory Tests Test 07/24/16 11:50 07/24/16 12:05 07/24/16 12:45 White Blood Count 1.3 #L Red Blood Count 1.91 #L Hemoglobin 5.4 #*L Hematocrit 15.8 #L Mean Corpuscular Volume 82.7 Mean Corpuscular Hemoglobin 28.3 L Mean Corpuscular Hemoglobin Concent 34.2 Red Cell Distribution Width 15.6 H Platelet Count 13 #*L Mean Platelet Volume Neutrophils % 2.0 L Lymphocytes % 69.0 H Monocytes % Blast Cells % 29.0 H Neutrophils # 0.0 L Lymphocytes # 0.9 Monocytes # Blastocytes # 0.4 Differential Comment Prothrombin Time 15.5 H Prothrombin Time Ratio 1.2 INR International Normalized Ratio 1.22 Activated Partial Thromboplast Time 38.7 H Sodium Level 138 Potassium Level 4.0 Chloride Level 100 Carbon Dioxide Level 28 Anion Gap 14 Blood Urea Nitrogen 14 Creatinine 1.02 Glucose Level 96 Lactic Acid Level 0.9 0.5 Calcium Level 9.1 Total Bilirubin 0.6 Direct Bilirubin 0.00 Indirect Bilirubin 0.6 Aspartate Amino Transf (AST/SGOT) 13 L Alanine Aminotransferase (ALT/SGPT) 31 Alkaline Phosphatase 100 Troponin I < 0.012 Total Protein 6.0 L Albumin 3.7 Globulin 2.30 Albumin/Globulin Ratio 1.60 Urine Color LT. YELLOW Urine Clarity CLEAR Urine pH 7.0 Urine Specific [place] 1.010 Urine Ketones NEGATIVE Urine Nitrite NEGATIVE Urine Bilirubin NEGATIVE Urine Urobilinogen 4.0 E.U./dL H Urine Leukocyte Esterase NEGATIVE Urine Hemoglobin NEGATIVE Urine Glucose NEGATIVE Urine Total Protein NEGATIVE TIFFANIE LI MD July 24, 2016 14:27
[2016-07-24] MEDS ORDERED: NACL 0.9% 3 ML SYG IV SCH (14:30)
[2016-07-24] MEDS ORDERED: ACETAMINOPHEN 650 MG SUPP PR PRN (14:30)
[2016-07-24] MEDS ORDERED: DOCUSATE SODIUM 100 MG CAP PO PRN (14:30)
[2016-07-24] MEDS ORDERED: MAGNESIUM HYDROXIDE 30ML CUP PO PRN (14:30)
--- NOTE | 2016-07-24 15:18 | HP ---
DATE OF ADMISSION: 07/24/2016 HISTORY OF PRESENT ILLNESS: The patient is a 55-year-old male with history of mantle cell lymphoma status post chemotherapy. The patient now goes to [facility] and recently had chemotherapy finish ed. The patient was seen by Dr. Kearns and Dr. Cherie Dimas, per patient, and noted to have severe a nemia. He was sent here for transfusion. The patient, in the ER, has blood pressure of 122/68, tem perature 99.2. The patient denies any cough, sputum production, fever, chills, or rigors and is haley ng admitted for further management. PAST MEDICAL HISTORY: Positive for mantle cell lymphoma. The patient's other history includes stat us post chemotherapy, status post blood transfusion, status post splenomegaly, status post thrombocy tosis. The patient also has a history of mantle cell lymphoma, stage IV, with normal spleen and lik daysi bone marrow status post chemo with CVAD, Rituxan, Cytoxan, vincristine, Adriamycin, dexamethason e status post acute renal failure, anemia. ALLERGY HISTORY: ALLOPURINOL. SOCIAL HISTORY: Negative. FAMILY HISTORY: Negative. MEDICATION HISTORY: At home, the patient is on 1. Tylenol. 2. Zofran. REVIEW OF SYSTEMS: HEENT: Unremarkable. RESPIRATORY: Unremarkable. CARDIOVASCULAR: Unremarkable. ABDOMEN: Unremarkable. EXTREMITIES: Unremarkable. GENITOURINARY: Unremarkable. MUSCULOSKELETAL: Unremarkable. CENTRAL NERVOUS SYSTEM: Unremarkable. PHYSICAL EXAMINATION: GENERAL: Pale looking male, awake, alert. VITAL SIGNS: Stable. HEAD: Atraumatic, normocephalic. Pupils equal, reactive to light. NECK: Supple. No JVD. LUNGS: Clear. CARDIOVASCULAR: S1, S2 are normal. ABDOMEN: Soft, nontender. Bowel sounds positive. No palpable mass or hepatosplenomegaly. No guar ding, rebound tenderness. EXTREMITIES: There is no cyanosis, clubbing, or edema. CENTRAL NERVOUS SYSTEM: The patient is awake, alert, no focal deficit. LABORATORY DATA: Shows WBC 1.3, hematocrit 15.8, platelet count of 13. Sodium 130, potassium 4. IMPRESSION: 1. Pancytopenia. 2. Neutropenic fever. 3. Mantle cell lymphoma, on chemotherapy. PLAN: Admit this patient, blood transfusion, oncology consultation. The patient will be getting em piric antibiotic. Orders were done. Dictated By: TIFFANIE LI MD BS/NTS Conf#: [id number] DID#: [id number]
--- NOTE | 2016-07-24 19:17 | CONS ---
Date/Time of Note Date/Time of Note DATE: 07/24/16 TIME: 19:16 Assessment/Plan Assessment/Plan Chief Complaint/Hosp Course The patient is a 55-year-old male with history of aggressive mantle cell lymphoma with t(11;14) in the peripheral blood and bone marrow who had initially presented in the leukemic phase with involvement of spleen, bone marrow s/p R-HyperCVAD IA 06/09/16 here at [facility] and cycle 1B on 07/11/16 at the [facility] # Mantle cell lymphoma presenting in the leukemic phase with involvement of spleen, bone marrow s/p R-HyperCVAD IA 06/09/16 here at [facility] and cycle 1B on 07/11/16 at the [facility] with clinical response to therapy with decreased size of spleen on palpation and disappearance of B symptoms - per Dr. Soria, patient has persistence of disease in the peripheral blood, notable for 15% blasts (possibly blastic phase of mantle cell lymphoma) - patient planned to have bone marrow biopsy and PET at [facility] on 07/29/16 for restaging, and to be re-admitted on 08/05 for cycle 2A of R-HyperCVAD followed by stem cell collection - monitor LDH and uric acid, phos, patient on Uloric as allergic to allopurinol , can give rasburicase if needed - patient was discharged last Wednesday from [facility] and given neulasta last at the [facility]. However, patient noted to be severely neutropenic now with ANC 0, signifying failure of neulasta. Will give neupogen while in house, especially in the setting of neutropenic fever. - patient should follow up with me upon discharge # Pancytopenia 2/2 recent chemotherapy cycle 1B R-HyperCVAD for #1, with neutropenic fever - Neupogen as above - f/u cultures, UA neg, CXR negative - Continue empiric cefepime - Transfuse if Hgb < 8, Plt < 20 while febrile (or < 50 if bleeding) Problems: Consultation Date/Type/Reason Admit Date/Time Date of Consultation: July 24, 2016 Type of Consultation: Oncology Reason for Consultation Mantle cell lymphoma, pancytopenia, neutropenic fever Hx of Present Illness The patient is a 55-year-old male with history of aggressive mantle cell lymphoma with t(11;14) in the peripheral blood and bone marrow who had initially presented in the leukemic phase with involvement of spleen, bone marrow s/p R-HyperCVAD IA 06/09/16 here at [facility] and cycle 1B on 07/11/16 at the [facility], discharged last Wednesday and given neulasta last at the [facility]. He had developed a diffuse rash in the hospital, resolving, thought related to rituximab which he had had a reaction to with chills. I saw him in clinic yesterday 07/23/16. His last from showed WBC 3.74, Hgb 9.2, Plt 168. He was supposed to have another CBC drawn 07/20/16, however the [facility] laboratory did not draw enough blood and he went back on 07/21/16, however the sample clotted. I saw him in clinic yesterday 07/23/16 and he was feeling weak but overall ok, no fevers or chills with mild tachycardia and was given 1 liter of fluids in the clinic with improvement of his HR and BP. STAT labs were drawn in the clinic and returned this a.m. showing Hgb 5 and Plt 5 for which he was sent to the [facility] ER. In the ER, he had a blood pressure of 122/68, temperature 99.2, now Tm 100.8. Eyes: no complaints ENT: no complaints Respiratory: no complaints Cardiovascular: no complaints Gastrointestinal: no complaints Genitourinary: no complaints Musculoskeletal: no complaints Past Medical History History of mantle cell lymphoma, stage IVB, with normal spleen and likely bone marrow status post R-HyperCVAD IA and IB. Past Surgical History Past Surgical Hx: no surgical history Family History Significant Family History: no pertinent family hx Social History Alcohol Use: none Smoking Status: Never smoker Drug Use: none Exam/Review of Systems Vital Signs Vitals Vital Signs Date Time Temp Pulse Resp B/P Pulse Ox O2 Delivery O2 Flow Rate FiO2 07/24/16 18:30 98.1 80 16 135/78 100 Room Air Exam Constitutional: alert, oriented Head: normocephalic Eyes: other (pale) Neck: supple Respiratory: clear to auscultation Cardiovascular: regular rate and rhythm Gastrointestinal: non-tender, soft, splenomegaly (improved) Musculoskeletal: nl extremities to inspection Neurological: RECEPTION II-XII intact Skin: other (petechiae on bilateral lower extremities) Results Result Diagram: 07/24/16 1150 07/24/16 1150 Results 24 hrs Laboratory Tests Test 07/24/16 11:50 07/24/16 12:05 07/24/16 12:45 07/24/16 15:25 White Blood Count 1.3 #L Red Blood Count 1.91 #L Hemoglobin 5.4 #*L Hematocrit 15.8 #L Mean Corpuscular Volume 82.7 Mean Corpuscular Hemoglobin 28.3 L Mean Corpuscular Hemoglobin Concent 34.2 Red Cell Distribution Width 15.6 H Platelet Count 13 #*L Mean Platelet Volume Neutrophils % 4.0 L Band Neutrophils % 1.0 Lymphocytes % 72.0 H Monocytes % Metamyelocytes % 1.0 H Promyelocytes % 6.0 H Blast Cells % 15.0 H Neutrophils # 0.0 L Lymphocytes # 0.9 Monocytes # Blastocytes # 0.4 Differential Comment Prothrombin Time 15.5 H Prothrombin Time Ratio 1.2 INR International Normalized Ratio 1.22 Activated Partial Thromboplast Time 38.7 H Sodium Level 138 Potassium Level 4.0 Chloride Level 100 Carbon Dioxide Level 28 Anion Gap 14 Blood Urea Nitrogen 14 Creatinine 1.02 Glucose Level 96 Lactic Acid Level 0.9 0.5 0.6 Calcium Level 9.1 Total Bilirubin 0.6 Direct Bilirubin 0.00 Indirect Bilirubin 0.6 Aspartate Amino Transf (AST/SGOT) 13 L Alanine Aminotransferase (ALT/SGPT) 31 Alkaline Phosphatase 100 Troponin I < 0.012 Total Protein 6.0 L Albumin 3.7 Globulin 2.30 Albumin/Globulin Ratio 1.60 Urine Color LT. YELLOW Urine Clarity CLEAR Urine pH 7.0 Urine Specific [place] 1.010 Urine Ketones NEGATIVE Urine Nitrite NEGATIVE Urine Bilirubin NEGATIVE Urine Urobilinogen 4.0 E.U./dL H Urine Leukocyte Esterase NEGATIVE Urine Hemoglobin NEGATIVE Urine Glucose NEGATIVE Urine Total Protein NEGATIVE Medications Medications Current Medications Sodium Chloride (NS) 1,000 ml @ 40 mls/hr Q24H IV ; Start 07/24/16 at 14:27 Ondansetron HCl (Zofran Inj) 4 mg Q6H PRN IV NAUSEA AND/OR VOMITING; Start 07/24 at 14:30 Acetaminophen (Tylenol Tab) 650 mg Q6H PRN PO PAIN LEVEL 1-3 OR FEVER; Start at 14:30 Acetaminophen (Tylenol Supp) 650 mg Q6H PRN MD PAIN LEVEL 1-3 OR FEVER; Start 07/24/16 at 14:30 Docusate Sodium (Colace) 100 mg Q12H PRN PO CONSTIPATION; Start 07/24/16 at 14: 30 Magnesium Hydroxide (Milk Of Mag) 30 ml DAILY PRN PO CONSTIPATION; Start at 14:30 Pantoprazole 40 mg 40 mg DAILY@06 IV ; Start 07/25/16 at 06:00 Cefepime HCl (Maxipime 1gm/50 ml (Pmx)) 50 ml @ 100 mls/hr Q12H IVPB ; Start at 21:00 Filgrastim (Neupogen) 480 mcg DAILY@17 SC ; Start 07/25/16 at 17:00; Status UNV TO,FABIAN Villegas MD July 24, 2016 19:17
[2016-07-24 21:34] VITALS: Ht 180.3 cm; Wt 90.0 kg
[2016-07-24 21:35] VITALS: BP 119/72; PULSE 80; RESP 18
[2016-07-24 21:41] VITALS: TEMP 98.2
[2016-07-25 00:13] VITALS: BP 121/61; PULSE 102; RESP 19
[2016-07-25 00:20] VITALS: BP 120/58; PULSE 100; RESP 18
[2016-07-25 01:24] VITALS: BP 118/56; PULSE 92; RESP 18
[2016-07-25 03:42] VITALS: BP 120/60; PULSE 88; RESP 18
[2016-07-25] MEDS: PANTOPRAZOLE 40 MG INJ IV SCH (05:10)
[2016-07-25 05:15] LABS: ADD SCAN DIFF NO
[2016-07-25 05:28] LABS: ABNORMAL IP MESSAGE 1; RED CELL DISTRIBUTION WIDTH 14.9 % (11.5-14.5)
[2016-07-25 05:31] LABS: HEMATOCRIT 20.2 % (42.0-52.0); MEAN CORPUSCULAR HEMOGLOBIN 28.6 pg (29.0-33.0); MEAN CORPUSCULAR HGB CONC 34.7 g/dl (32.0-37.0); MEAN CORPUSCULAR VOLUME 82.4 fl (82.0-101.0); MEAN PLATELET VOLUME 11.7 fl (7.4-10.4); RED BLOOD COUNT 2.45 10^6/ul (4.70-6.10); WHITE BLOOD COUNT 1.5 10^3/ul (4.8-10.8)
[2016-07-25 05:39] LABS: PHOSPHORUS 3.7 mg/dl (2.5-4.9); PLATELET COUNT 20 10^3/UL (140-415); URIC ACID 6.4 mg/dl (3.1-7.9)
[2016-07-25 05:41] LABS: ALBUMIN 2.9 g/dl (3.3-4.9)
[2016-07-25 05:42] LABS: POTASSIUM 3.8 mmol/L (3.5-5.1)
[2016-07-25 05:44] LABS: ALBUMIN/GLOBULIN RATIO 1.26; BILIRUBIN,INDIRECT 0.6 mg/dl (0-1.1); BILIRUBIN,TOTAL 0.6 mg/dl (0.2-1.3); CREATININE 1.02 mg/dl (0.61-1.24); TOTAL PROTEIN 5.2 g/dl (6.1-8.1)
[2016-07-25 05:45] LABS: CALCIUM 8.6 mg/dl (8.4-10.2)
[2016-07-25 07:39] VITALS: BP 108/58; RESP 17
[2016-07-25] MEDS: CEFEPIME 1GM/50 ML (PMX) 50 ML IVPB SCH ×2 (09:09→20:30)
[2016-07-25] MEDS: SOD CHLORIDE 0.9% 1,000 ML IV SCH (09:09)
[2016-07-25 10:26] LABS: MONOCYTE # 0.1 10^3/ul (0.3-0.9); PLATELET ESTIMATE PLT APPEAR DECREASED
--- NOTE | 2016-07-25 13:48 | HKNOTE ---
DATE OF SERVICE: 07/25/2016 HISTORY OF PRESENT ILLNESS: Mr. Akbar is a 55-year-old gentleman with history of mantle cell lymp [place] with involvement of the bone marrow with blasts in the bone marrow. The patient has finished t he first course of Hyper-CVAD chemotherapy from [facility]. The patient came to the emergency [facility] because of severe fatigue. He was found to be severely anemic, with a hemoglobin of 5.4 on admiss ion, with platelets 13,000, and WBC 1300. He had 3 units of packed cells. His platelets today is 2 0,000, and WBC 1500. The patient also was started on Neupogen. He has a mild skin rash, which is s table. PHYSICAL EXAMINATION: GENERAL: Shows moderately built male who is alert, oriented, cooperative. VITAL SIGNS: Unremarkable, except that he had a temperature of 100 degrees earlier this morning. H e had no chills. ENT, HEART, AND LUNGS: unremarkable. SKIN: Shows a faint skin rash. LYMPH NODES: No peripheral lymphadenopathy. ABDOMEN: Soft, no masses. EXTERNAL GENITALIA: Normal. EXTREMITIES: Showed trace edema, no clubbing, or cyanosis. CENTRAL NERVOUS SYSTEM: No focal defects. LABORATORY DATA: As mentioned above. IMPRESSION: 1. Mantle cell leukemia, high grade with leukemic transformation, patient on chemotherapy. 2. Severe pancytopenia. 3. One episode of low grade fever. PLAN: This patient had 2 blood cultures and urine culture last evening at the emergency room and th ey are both negative. He had 100 degree fever without chills. The patient already has been started on cefepime. We will monitor him closely. We will continue the Neupogen. He might need more lizarraga sfusions. Dictated By: CAMI RENNER MD PC/NTS Conf#: [id number] DID#: [id number]
--- NOTE | 2016-07-25 15:11 | PN ---
Date/Time of Note Date/Time of Note DATE: 07/25/16 TIME: 15:10 Assessment/Plan VTE Prophylaxis VTE Prophylaxis Intervention: ambulation Lines/Catheters IV Catheter Type (from [facility]): PICC Line Central line still needed: Yes Urinary Cath still in place: No Assessment/Plan Chief Complaint/Hosp Course 1. PANCYTOPENIA 2. MANTLE CELL LYMPHOMA Problems: Assessment/Plan 1. Per oncology 2. continue cefipim IV Subjective 24 Hr Interval Summary Constitutional: no complaints Cardiovascular: no complaints Exam/Review of Systems Vital Signs Vitals Vital Signs Date Time Temp Pulse Resp B/P Pulse Ox O2 Delivery O2 Flow Rate FiO2 07/25/16 07:39 98.9 89 17 108/58 99 07/25/16 03:42 Room Air Intake and Output 07/24/16 07/24/16 07/25/16 15:00 23:00 07:00 Intake Total 400 ml 300 ml 2350 ml Output Total 200 ml 1900 ml Balance 400 ml 100 ml 450 ml Exam Constitutional: alert, oriented Head: normocephalic Eyes: nl conjunctiva ENMT: nl external ears & nose Neck: supple Respiratory: clear to auscultation Cardiovascular: regular rate and rhythm Results Result Diagram: 07/25/16 0435 07/25/16 0435 Results 24 hrs Laboratory Tests Test 07/24/16 15:25 07/25/16 04:35 Lactic Acid Level 0.6 White Blood Count 1.5 L Red Blood Count 2.45 #L Hemoglobin 7.0 #L Hematocrit 20.2 #L Mean Corpuscular Volume 82.4 Mean Corpuscular Hemoglobin 28.6 L Mean Corpuscular Hemoglobin Concent 34.7 Red Cell Distribution Width 14.9 H Platelet Count 20 #*L Mean Platelet Volume 11.7 #H Neutrophils % Band Neutrophils % 11.0 H Lymphocytes % 67.0 H Monocytes % 7.0 Eosinophils % Promyelocytes % 4.0 H Blast Cells % 11.0 H Neutrophils # Lymphocytes # 1.0 Monocytes # 0.1 L Eosinophils # Promyelocytes # 0.1 Blastocytes # 0.2 Platelet Estimate PLT APPEAR DECREASED Sodium Level 138 Potassium Level 3.8 Chloride Level 103 Carbon Dioxide Level 25 Anion Gap 14 Blood Urea Nitrogen 10 Creatinine 1.02 Glucose Level 106 Uric Acid 6.4 Calcium Level 8.6 Phosphorus Level 3.7 Total Bilirubin 0.6 Direct Bilirubin 0.00 Indirect Bilirubin 0.6 Aspartate Amino Transf (AST/SGOT) 12 L Alanine Aminotransferase (ALT/SGPT) 32 Alkaline Phosphatase 89 Lactate Dehydrogenase 680 H Total Protein 5.2 L Albumin 2.9 L Globulin 2.30 Albumin/Globulin Ratio 1.26 Medications Medications Current Medications Sodium Chloride (NS) 1,000 ml @ 40 mls/hr Q24H IV Last administered on 09:09; Admin Dose 40 MLS/HR; Start 07/24/16 at 14:27 Ondansetron HCl (Zofran Inj) 4 mg Q6H PRN IV NAUSEA AND/OR VOMITING; Start 07/24 at 14:30 Acetaminophen (Tylenol Tab) 650 mg Q6H PRN PO PAIN LEVEL 1-3 OR FEVER; Start at 14:30 Acetaminophen (Tylenol Supp) 650 mg Q6H PRN DC PAIN LEVEL 1-3 OR FEVER; Start 07/24/16 at 14:30 Docusate Sodium (Colace) 100 mg Q12H PRN PO CONSTIPATION; Start 07/24/16 at 14: 30 Magnesium Hydroxide (Milk Of Mag) 30 ml DAILY PRN PO CONSTIPATION; Start at 14:30 Pantoprazole 40 mg 40 mg DAILY@06 IV Last administered on 07/25/16 05:10; Admin Dose 40 MG; Start 07/25/16 at 06:00 Cefepime HCl (Maxipime 1gm/50 ml (Pmx)) 50 ml @ 100 mls/hr Q12H IVPB Last administered on 07/25/16 09:09; Admin Dose 100 MLS/HR; Start 07/25/16 at 09:00 Filgrastim (Neupogen) 480 mcg DAILY@17 SC ; Start 07/25/16 at 17:00 SYLVIE SOTO July 25, 2016 15:11
[2016-07-25] MEDS ORDERED: FILGRASTIM 480 MCG INJ SC SCH (17:00)
[2016-07-25 20:00] VITALS: BP 119/70; PULSE 96; RESP 18
[2016-07-26] MEDS: PANTOPRAZOLE 40 MG INJ IV SCH (05:40)
[2016-07-26 05:55] LABS: ADD SCAN DIFF NO
[2016-07-26 06:01] LABS: ABNORMAL IP MESSAGE 1; HEMATOCRIT 22.8 % (42.0-52.0); HEMOGLOBIN 7.9 g/dl (14.0-18.0); MEAN CORPUSCULAR HEMOGLOBIN 28.6 pg (29.0-33.0); MEAN CORPUSCULAR HGB CONC 34.6 g/dl (32.0-37.0); MEAN CORPUSCULAR VOLUME 82.6 fl (82.0-101.0); MEAN PLATELET VOLUME 10.4 fl (7.4-10.4); PLATELET COUNT 44 10^3/UL (140-415); RED BLOOD COUNT 2.76 10^6/ul (4.70-6.10); WHITE BLOOD COUNT 5.5 10^3/ul (4.8-10.8)
[2016-07-26 07:08] LABS: ALBUMIN 3.3 g/dl (3.3-4.9)
[2016-07-26 07:09] LABS: POTASSIUM 4.1 mmol/L (3.5-5.1)
[2016-07-26 07:11] LABS: ALBUMIN/GLOBULIN RATIO 1.37; BILIRUBIN,INDIRECT 0.4 mg/dl (0-1.1); BILIRUBIN,TOTAL 0.4 mg/dl (0.2-1.3); CALCIUM 9.2 mg/dl (8.4-10.2); CREATININE 1.15 mg/dl (0.61-1.24); TOTAL PROTEIN 5.7 g/dl (6.1-8.1)
[2016-07-26 07:35] VITALS: BP 113/65; RESP 19
[2016-07-26] MEDS: CEFEPIME 1GM/50 ML (PMX) 50 ML IVPB SCH ×2 (08:59→20:11)
[2016-07-26 13:07] LABS: LYMPHOCYTES # 1.5 10^3/ul (0.8-2.9); MONOCYTE # 0.2 10^3/ul (0.3-0.9); MYELOCYTES # 0.1; NEUTROPHIL # 1.7 10^3/ul (1.6-7.5)
[2016-07-26 13:08] LABS: BURR CELLS OCCASIONAL; PLATELET ESTIMATE PLT APPEAR DECREASED; TOXIC GRANULATION FEW
[2016-07-26] MEDS: SOD CHLORIDE 0.9% 1,000 ML IV SCH (13:32)
[2016-07-26] MEDS ORDERED: VANCOMYCIN IV PER PHARMACY XX SCH (15:30)
[2016-07-26] MEDS ORDERED: VANCOMYCIN 2 GM in SOD CHLORIDE 0.9% 500 ML IVPB SCH (16:30)
--- NOTE | 2016-07-26 18:01 | PN ---
Date/Time of Note Date/Time of Note DATE: 07/26/16 TIME: 18:00 Assessment/Plan VTE Prophylaxis VTE Prophylaxis Intervention: other Lines/Catheters IV Catheter Type (from Nrs): PICC Line Central line still needed: Yes Urinary Cath still in place: No Reason Cath still needed: other (indicate) Assessment/Plan Chief Complaint/Hosp Course A/P PANCYTOPENIA MANTLE CELL LYMPHOMA BACTEREMIA PLAN PER ORDER ANTIBIOTIC Problems: Subjective 24 Hr Interval Summary Cardiovascular: no complaints Gastrointestinal: no complaints Genitourinary: no complaints Exam/Review of Systems Vital Signs Vitals Vital Signs Date Time Temp Pulse Resp B/P Pulse Ox O2 Delivery O2 Flow Rate FiO2 07/26/16 07:35 98.0 100 19 113/65 98 07/25/16 20:00 Room Air Intake and Output 07/25/16 07/25/16 07/26/16 15:00 23:00 07:00 Intake Total 170 ml 770 ml 600 ml Output Total 400 ml Balance 170 ml 770 ml 200 ml Exam Respiratory: clear to auscultation Cardiovascular: regular rate and rhythm Gastrointestinal: soft Musculoskeletal: nl extremities to inspection Extremities: normal pulses Results Result Diagram: 07/26/16 0449 07/26/16 0459 Results 24 hrs Laboratory Tests Test 07/26/16 04:49 07/26/16 04:59 07/26/16 08:00 White Blood Count 5.5 # Red Blood Count 2.76 L Hemoglobin 7.9 L Hematocrit 22.8 L Mean Corpuscular Volume 82.6 Mean Corpuscular Hemoglobin 28.6 L Mean Corpuscular Hemoglobin Concent 34.6 Red Cell Distribution Width 15.0 H Platelet Count 44 #L Mean Platelet Volume 10.4 Neutrophils % 31.0 L Band Neutrophils % 27.0 H Lymphocytes % 27.0 Monocytes % 3.0 Eosinophils % Metamyelocytes % 3.0 H Myelocytes % 2.0 H Promyelocytes % 4.0 H Neutrophils # 1.7 Lymphocytes # 1.5 Monocytes # 0.2 L Eosinophils # Metamyelocytes # 0.2 Myelocytes # 0.1 Promyelocytes # 0.2 Differential Comment MANUAL DIFF Toxic Granulation FEW Platelet Estimate PLT APPEAR DECREASED Sodium Level 141 Potassium Level 4.1 Chloride Level 104 Carbon Dioxide Level 26 Anion Gap 15 Blood Urea Nitrogen 10 Creatinine 1.15 Glucose Level 95 Calcium Level 9.2 Total Bilirubin 0.4 Direct Bilirubin 0.00 Indirect Bilirubin 0.4 Aspartate Amino Transf (AST/SGOT) 15 Alanine Aminotransferase (ALT/SGPT) 35 Alkaline Phosphatase 97 Total Protein 5.7 L Albumin 3.3 Globulin 2.40 Albumin/Globulin Ratio 1.37 Stool Occult Blood NEGATIVE Medications Medications Current Medications Sodium Chloride (NS) 1,000 ml @ 40 mls/hr Q24H IV Last administered on 09:09; Admin Dose 40 MLS/HR; Start 07/24/16 at 14:27 Ondansetron HCl (Zofran Inj) 4 mg Q6H PRN IV NAUSEA AND/OR VOMITING; Start 07/24 at 14:30 Acetaminophen (Tylenol Tab) 650 mg Q6H PRN PO PAIN LEVEL 1-3 OR FEVER; Start at 14:30 Acetaminophen (Tylenol Supp) 650 mg Q6H PRN [place] PAIN LEVEL 1-3 OR FEVER; Start 07/24/16 at 14:30 Docusate Sodium (Colace) 100 mg Q12H PRN PO CONSTIPATION; Start 07/24/16 at 14: 30 Magnesium Hydroxide (Milk Of Mag) 30 ml DAILY PRN PO CONSTIPATION; Start at 14:30 Pantoprazole 40 mg 40 mg DAILY@06 IV Last administered on 07/25/16 05:10; Admin Dose 40 MG; Start 07/25/16 at 06:00 Cefepime HCl 50 ml @ 100 mls/hr Q12H IVPB Last administered on 07/26/16 08:59 ; Admin Dose 100 MLS/HR; Start 07/25/16 at 09:00 Vancomycin HCl 2 gm/Sodium Chloride 500 ml @ 125 mls/hr NOW IVPB Last administered on 07/26/16 16:19; Admin Dose 125 MLS/HR; Start 07/26/16 at 16:30; Stop 07/26/16 at 20:29 Vancomycin HCl/ Sodium Chloride (Vancocin/NS) 250 ml @ 83.333 mls/ hr Q12H IVPB ; Start 07/27/16 at 04:00 TIFFANIE LI MD July 26, 2016 18:01
[2016-07-26] MEDS ORDERED: DIPHENHYDRAMINE 50 MG INJ IV STA (18:18)
--- NOTE | 2016-07-26 18:46 | PN ---
DATE: SUBJECTIVE: Mr. Akbar is a 55-year-old male with a history of mantle cell lymphoma with involvement of the bone marrow and with blasts in the peripheral blood. The patient has finished t he first course of chemotherapy with hyper-CVAD chemotherapy from [facility]. He was admitted to the hospital 2 days ago because of severe fatigue. He was found to have severe anemia with hemoglob in 5.4 and platelets 13,000 and WBC 1300 with less than 500 neutrophils. The patient was transfused with packed cells. He had blood cultures and urine cultures and was started on Neupogen. PHYSICAL EXAMINATION: GENERAL: Shows a moderately built male in no distress. He states he has severe night sweats since the last 3 days only. VITAL SIGNS: His T-max is 99.7 degrees today. THROAT: Normal. ENT normal. CHEST: Symmetrical. LUNGS: Clear. HEART: Sounds normal. ABDOMEN: Soft. No masses. LYMPH NODES: No peripheral lymphadenopathy now. SKIN: Shows no rashes or petechiae. CENTRAL NERVOUS SYSTEM: No focal defects. LABORATORY DATA: His CBC now shows increased WBC of 5500 with left shift, hemoglobin 7.9, and plate lets 44,000, which were 20,000 yesterday. His CMP is unremarkable. IMPRESSION: 1. 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 2. Severe pancytopenia, improving. 3. Low grade fever and also night sweats. PLAN: The patient's WBC today is 5500 with about 60% neutrophils and myelocytes. He is responding well to Neupogen. A few things are still of concern. 1. One of the 2 blood cultures shows gram-positive cocci. This could be a contaminant, but we need to await for the results. 2. Also he has night sweats. The patient is on cefepime. I will add vancomycin because of low gra de fever and night sweats to be sure that we do not missing anything. Of course, we will check the blood culture results to see whether this is contaminant. We will continue to monitor him closely. Dictated By: CAMI RENNER MD PC/NTS Conf#: [id number] DID#: [id number] CC: TIFFANIE LI MD;*End*
[2016-07-26 20:29] VITALS: BP 116/57; RESP 20
[2016-07-27] MEDS: VANCOMYCIN 1.25 GM in SOD CHLORIDE 0.9% 250 ML IVPB SCH ×2 (04:32→16:25)
[2016-07-27] MEDS: PANTOPRAZOLE 40 MG INJ IV SCH (05:36)
[2016-07-27 05:37] LABS: ALBUMIN 2.9 g/dl (3.3-4.9)
[2016-07-27 05:38] LABS: POTASSIUM 3.9 mmol/L (3.5-5.1)
[2016-07-27 05:40] LABS: ALBUMIN/GLOBULIN RATIO 1.38; BILIRUBIN,INDIRECT 0.2 mg/dl (0-1.1); BILIRUBIN,TOTAL 0.2 mg/dl (0.2-1.3); CREATININE 1.2 mg/dl (0.61-1.24)
[2016-07-27 05:41] LABS: CALCIUM 8.7 mg/dl (8.4-10.2)
[2016-07-27 08:23] VITALS: BP 118/67; RESP 18
[2016-07-27] MEDS: CEFEPIME 1GM/50 ML (PMX) 50 ML IVPB SCH ×2 (09:00→09:23)
[2016-07-27 09:48] LABS: ADD SCAN DIFF NO
[2016-07-27 09:50] LABS: ABNORMAL IP MESSAGE 1; BASOPHILS % 0.4 % (0.0-2.0); HEMATOCRIT 21.8 % (42.0-52.0); HEMOGLOBIN 7.3 g/dl (14.0-18.0); LYMPHOCYTES # 1.1 10^3/ul (0.8-2.9); LYMPHOCYTES % 10.3 % (15.0-51.0); MEAN CORPUSCULAR HEMOGLOBIN 28.6 pg (29.0-33.0); MEAN CORPUSCULAR HGB CONC 33.5 g/dl (32.0-37.0); MEAN CORPUSCULAR VOLUME 85.5 fl (82.0-101.0); MEAN PLATELET VOLUME 10.6 fl (7.4-10.4); MONOCYTE # 1.4 10^3/ul (0.3-0.9); MONOCYTES % 13.5 % (0.0-11.0); NEUTROPHIL # 5.3 10^3/ul (1.6-7.5); PLATELET COUNT 77 10^3/UL (140-415); RED BLOOD COUNT 2.55 10^6/ul (4.70-6.10); RED CELL DISTRIBUTION WIDTH 15.4 % (11.5-14.5); WHITE BLOOD COUNT 10.4 10^3/ul (4.8-10.8)
[2016-07-27 10:57] LABS: POST-TRANSFUSION BILIRUBIN 0.5 mg/dl; PRETRANSFUSION BILIRUBIN 0.5 mg/dl
[2016-07-27] MEDS: SOD CHLORIDE 0.9% 1,000 ML IV SCH (14:27)
--- NOTE | 2016-07-27 15:20 | CONS ---
Date/Time of Note Date/Time of Note DATE: 07/27/16 TIME: 15:12 Assessment/Plan Assessment/Plan Chief Complaint/Hosp Course The patient is a 55-year-old male with history of aggressive mantle cell lymphoma with t(11;14) in the peripheral blood and bone marrow who had initially presented in the leukemic phase with involvement of spleen, bone marrow s/p R-HyperCVAD IA 06/09/16 here at [facility] and cycle 1B on 07/11/16 at the [facility]. Now admitted with Plt 13, Hgb 5 and neutropenic fever. # Mantle cell lymphoma presenting in the leukemic phase with involvement of spleen, bone marrow s/p R-HyperCVAD IA 06/09/16 here at [facility] and cycle 1B on 07/11/16 at the [facility] with clinical response to therapy with decreased size of spleen on palpation and disappearance of B symptoms - per Dr. Soria, patient has persistence of disease in the peripheral blood, notable for 15% blasts. Flow cytometry sent on 07/24/16 and returned showing CD34 + consistent with AML. Discussed with Dr. Sami Mendes at the [facility], likely regenerating blasts with marrow recovery though there he had seen one case of AML developing after several cycles of chemotherapy for mantle cell lymphoma. - patient planned to have bone marrow biopsy and PET at [facility] on 07/29/16 for restaging, and to be re-admitted on 08/05 for cycle 2A of R-HyperCVAD followed by stem cell collection - monitor LDH and uric acid, phos, patient on Uloric as allergic to allopurinol , can give rasburicase if needed. LDH 680, uric acid 6.4. - patient was discharged last Wednesday from [facility] and given neulasta last at the [facility]. However, patient noted to be severely neutropenic with ANC 0 on admission, signifying failure of neulasta. Patient given neupogen in house, now off neupogen with recovery of WBC to 10.4, ANC 5.3. - Urine cultures show 30-40K corynebacterium, guo-sensitive including to Cipro. - CXR neg - BCx showed G+ cocci in clusters in 1/4 bottles, pending speciation, likely contaminant. - patient on cefepime and vanc (added 07/26/16), now that patient no longer febrile and no longer neutropenic, can continue levaquin alone for 7 days for neutropenic fever. - patient should follow up with me upon discharge - Transfuse if Hgb < 8, Plt < 10 or 20 while febrile (or < 50 if bleeding). Will give 1 unit pRBCs today (patient declines second unit). - Ideally would have liked to monitor patient given recent flow findings and BCx findings. However, patient insistent on discharge today and follow-up with [facility] on 07/29/16. Patient will leave AMA. Will give 1 unit pRBCs today prior to discharge and give 7 days of oral levaquin. Will follow-up BCx to ensure contaminant. Of concern is the repeat flow cytometry from 07/24/16 which is now consistent with CD34+ AML, which is distinct from prior diagnosis. Would need a second opinion of pathology to verify as would be quite rare. Patient will f/u at [facility] on 07/29/16 and will call my office to make an appt with me at the end oft he week. Problems: Consultation Date/Type/Reason Admit Date/Time July 24, 2016 at 12:07 Initial Consult Date 07/24/16 Type of Consultation: Oncology 24 HR Interval Summary Free Text/Dictation The patient denies fevers and states that he feels well. He is insistent on going home today as he has an important meeting and promised his friend he would meet him. Exam/Review of Systems Vital Signs Vitals Vital Signs Date Time Temp Pulse Resp B/P Pulse Ox O2 Delivery O2 Flow Rate FiO2 07/27/16 08:23 97.8 88 18 118/67 97 07/25/16 20:00 Room Air Intake and Output 07/26/16 07/26/16 07/27/16 15:00 23:00 07:00 Intake Total 290 ml 770 ml 1565 ml Output Total 1450 ml Balance 290 ml 770 ml 115 ml Exam Constitutional: alert, oriented Head: normocephalic Eyes: other (pale) Neck: supple Respiratory: clear to auscultation Cardiovascular: regular rate and rhythm Gastrointestinal: non-tender, soft, splenomegaly (improved) Musculoskeletal: nl extremities to inspection Neurological: EYE [employer] PROFESSIONAL II-XII intact Skin: other (petechiae on bilateral lower extremities) Results Result Diagram: 07/27/1629 07/27/16 0429 Results 24 hrs Laboratory Tests Test 07/27/16 04:29 07/27/16 09:29 Sodium Level 139 Potassium Level 3.9 Chloride Level 105 Carbon Dioxide Level 28 Anion Gap 10 # Blood Urea Nitrogen 9 Creatinine 1.20 Glucose Level 93 Calcium Level 8.7 Total Bilirubin 0.2 Direct Bilirubin 0.00 Indirect Bilirubin 0.2 Aspartate Amino Transf (AST/SGOT) 13 L Alanine Aminotransferase (ALT/SGPT) 29 Alkaline Phosphatase 89 Total Protein 5.0 L Albumin 2.9 L Globulin 2.10 Albumin/Globulin Ratio 1.38 White Blood Count 10.4 # Red Blood Count 2.55 L Hemoglobin 7.3 L Hematocrit 21.8 L Mean Corpuscular Volume 85.5 Mean Corpuscular Hemoglobin 28.6 L Mean Corpuscular Hemoglobin Concent 33.5 Red Cell Distribution Width 15.4 H Platelet Count 77 #L Mean Platelet Volume 10.6 H Neutrophils % 51.0 Lymphocytes % 10.3 L Monocytes % 13.5 H Eosinophils % 0.0 Basophils % 0.4 Nucleated Red Blood Cells % 0.0 Neutrophils # 5.3 Lymphocytes # 1.1 Monocytes # 1.4 H Eosinophils # 0.0 Basophils # 0.0 Nucleated Red Blood Cells # 0.0 Medications Medications Current Medications Sodium Chloride (NS) 1,000 ml @ 40 mls/hr Q24H IV Last administered on 09:09; Admin Dose 40 MLS/HR; Start 07/24/16 at 14:27 Ondansetron HCl (Zofran Inj) 4 mg Q6H PRN IV NAUSEA AND/OR VOMITING; Start 07/24 at 14:30 Acetaminophen (Tylenol Tab) 650 mg Q6H PRN PO PAIN LEVEL 1-3 OR FEVER; Start at 14:30 Acetaminophen (Tylenol Supp) 650 mg Q6H PRN [place] PAIN LEVEL 1-3 OR FEVER; Start 07/24/16 at 14:30 Docusate Sodium (Colace) 100 mg Q12H PRN PO CONSTIPATION; Start 07/24/16 at 14: 30 Magnesium Hydroxide 30 ml 30 ml DAILY PRN PO CONSTIPATION; Start 07/24/16 at 14: 30 Cefepime HCl 50 ml @ 100 mls/hr Q12H IVPB Last administered on 07/26/16 20:11 ; Admin Dose 100 MLS/HR; Start 07/25/16 at 09:00 Vancomycin HCl/ Sodium Chloride (Vancocin/NS) 250 ml @ 64 mls/hr Q12H IVPB Last administered on 07/27/16 04:32; Admin Dose 64 MLS/HR; Start 07/27/16 at 04: 00 Miscellaneous Information (*Rx Drug Level Order Reminder*) VANCOMCYIN TROUGH 07/28 AT 0300 ONCE ONCE XX ; Start 07/28/16 at 03:00; Stop 07/28/16 at 03:01 Pantoprazole (Protonix Tab) 40 mg DAILY@06 PO ; Start 07/28/16 at 06:00 TOFABIAN MD July 27, 2016 15:20
[2016-07-27] MEDS ORDERED: LEVOFLOXACIN 750 MG TABLET PO SCH (16:00)
[2016-07-27 20:34] VITALS: BP 121/75; RESP 20
[2016-07-28] MEDS ORDERED: PANTOPRAZOLE (EC) 40 MG TAB PO SCH (06:00)
--- NOTE | 2016-07-30 13:52 | QN ---
Documentation Comment [id number] TIFFANIE LI MD July 30, 2016 13:52
== END 2016-07-27 21:14 | disposition left against medical advice (07) | DRG 809 ==
LOC: E/R 10:14 → MS1 12:07
PROVIDERS: ADMIT Internal Medicine Nephrology; ATTEND Internal Medicine Nephrology
PROC: 30233N1 Transfusion of Nonautologous Red Blood Cells into Peripheral Vein, Percutaneous Approach (ICD-10-PCS; principal; 2016-07-24)
DX: D61.810 Antineoplastic chemotherapy induced pancytopenia (principal); C83.18 Mantle cell lymphoma, lymph nodes of multiple sites; R50.81 Fever presenting with conditions classified elsewhere
CPT/HCPCS: 36415; 36430; 71010; 80053; 81003; 82270; 83605; 83615; 84100; 84484; 84560; 85025; 85610; 85730; 86078; 86850; 86900; 86901; 86920; 87040; 87045; 87086; 96365; 96366; 96375; C9113; J0692; J1200; J3370; J7030; J7040; J7050; P9016